=== PATIENT | male | born 1940 | race Caucasian/White ===

== ENCOUNTER 2020-03-21 10:55 | Inpatient (IN) ==
[2020-03-21] MEDS ORDERED: SODIUM CHLORIDE 0.9% 1000ML 1,000 ML IV ONE ×2 (12:02→13:36)
--- NOTE | 2020-03-21 12:33 | Emergency Department Note ---
History of Present Illness General Chief complaint: Flank Pain Time Seen by Provider: 03/21/20 11:38 Source: patient Mode of arrival: EMS Limitations: no limitations History of Present Illness Provider complaint: Weakness, flank pain Onset (ago): unknown Maximum Pain Intensity: 0 Associated symptoms: + denies other symptoms Treatments prior to arrival: none This is a 79-year-old male with a history of MS who presents due to increased weakness. Patient states he had difficulty transferring to the bed, and called 911 initially for a lift assist. When EMS arrived when they went to lift him p brennan had significant bilateral flank pain according to the report to nursing staff here. Patient does have an indwelling Riddle catheter that was placed several weeks ago after he had difficulty straight cathing which she has for many years. He was treated for a possible urinary tract infection at that time. Patient states he has not yet followed up with his PCP or urology. Patient denies fevers or chills, cough or cold symptoms. He denies chest pain or coming abdominal pain. Patient states the catheter has been draining appropriately, denies noticing any blood or blood clots. Patient states he has no back or flank pain at this time, but does notice it with movement and when EMS assisted him in transfer. Patient denies any known sick contacts or exposure to coronavirus. Pt with chronic weakness due to his MS but feels it has been getting worse. Pt lives at home with his . Pt seen during a time of high acuity and national emergency pandemic while wearing PPE. Home Medications Home Medications Medication Instructions Recorded Confirmed Type amlodipine 10 mg PO DAILY 03/21/20 03/21/20 History losartan 100 mg PO DAILY 03/21/20 03/21/20 History Allergies Allergy/AdvReac Type Severity Reaction Status Date / Time morphine Allergy Mild Verified 11/30/13 08:22 ampicillin Allergy Unknown Unverified 03/21/20 13:39 Past Med/Surg History Medical History (Updated 03/23/20 @ 16:30 by Erendira Patrick DO) Hypertension Multiple sclerosis Sacral ulcer Urinary retention Surgical History H/O arthroscopy of shoulder Hx of appendectomy Family History (Updated 03/21/20 @ 17:06 by Lou Geronimo PA-C) Other Cancer Social History (Reviewed 03/21/20 @ 12:32 by JUANI Severino Smoking Status: Former smoker Second Hand Exposure: No; Do You Dip or Chew Tobacco: No; Tobacco Cessation Education Requested by Patient: No Hx Alcohol Use: No Hx Substance Use: No Preferred Language: [place] Communication Ability: Effective Roll Former Required: No Beliefs That Will Affect Care: None marital status: Current Living Situation: Spouse Other Information That Helps Us Care for You: No Feels Safe at Home: Yes Safety Concerns: Feels Safe At This Time Assistive Devices: Wheelchair Review of Systems See HPI for pertinent positives & negatives. and A total of 10 systems reviewed and were otherwise negative Physical Exam Vital Signs Vital Signs - 24 hr 03/21/20 11:14 03/21/20 11:30 03/21/20 12:00 Temperature 36.9 C Temperature Source Oral Pulse Rate 81 81 85 Pulse Rate from SpO2 Sensor 81 Respiratory Rate 14 20 19 Blood Pressure 174/84 H 165/67 H 163/85 H Blood Pressure Mean 114 101 112 Pulse Oximetry 99 97 Oxygen Delivery Method Room Air Room Air Sepsis Recent Fever Within 48 Hours No Sepsis New/Unexplained Change in Mental Status No Sepsis Action Taken by Nursing No Action Required 03/21/20 12:30 03/21/20 12:32 03/21/20 13:24 Temperature Temperature Source Pulse Rate 86 Pulse Rate from SpO2 Sensor 80 80 Respiratory Rate 20 Blood Pressure 151/79 H Blood Pressure Mean 112 Pulse Oximetry 98 96 Oxygen Delivery Method Room Air Sepsis Recent Fever Within 48 Hours Sepsis New/Unexplained Change in Mental Status Sepsis Action Taken by Nursing 03/21/20 13:30 03/21/20 14:00 03/21/20 14:30 Temperature Temperature Source Pulse Rate 89 87 95 H Pulse Rate from SpO2 Sensor 87 96 H Respiratory Rate 22 22 27 H Blood Pressure 178/86 H 156/84 H Blood Pressure Mean 138 126 Pulse Oximetry 96 97 Oxygen Delivery Method Room Air Room Air Sepsis Recent Fever Within 48 Hours Sepsis New/Unexplained Change in Mental Status Sepsis Action Taken by Nursing 03/21/20 15:00 Temperature Temperature Source Pulse Rate 93 H Pulse Rate from SpO2 Sensor 91 H Respiratory Rate 20 Blood Pressure 169/79 H Blood Pressure Mean 110 Pulse Oximetry 96 Oxygen Delivery Method Room Air Sepsis Recent Fever Within 48 Hours Sepsis New/Unexplained Change in Mental Status Sepsis Action Taken by Nursing GENERAL: alert, well appearing, well nourished, no distress, non-toxic EYE EXAM: normal conjunctiva, PERRL and EOM's grossly intact OROPHARYNX: no exudate, no erythema, lips, buccal mucosa, and tongue normal and mucous membranes are moist NECK: supple, no nuchal rigidity, no adenopathy, non-tender LUNGS: Clear to auscultation. Normal chest wall mechanics, no w/r/r HEART: no murmurs, S1 normal and S2 normal ABDOMEN: abdomen distended, non-tender, normo-active bowel sounds, large left inguinal hernia noted, nontender, reducible however returns to baseline quickly, no rebound or guarding. Riddle catheter in place, draining slightly cloudy appearing yellow urine, no hematuria or blood clots noted. BACK: Back is symmetrical on inspection and there is no deformity, no midline tenderness, no CVA tenderness. SKIN: no rashes and no bruising UPPER EXTREMITIES: upper extremities are grossly normal. FROM, nml pulses b/l. LOWER EXTREMITIES: No pitting edema. FROM, nml pulses b/l. NEURO EXAM: Normal sensorium, cranial nerves II-XII grossly intact, normal speech, no gross weakness of arms, chronic bilateral lower extremity weakness. Gross sensation intact. Course Course 1347: Discussed all results with patient. Will start on IV antibiotics and added additional markers to check for evolving sepsis. Discussed nephrolithiasis and bladder calculi in addition. Patient states his inguinal hernia has been unchanged and he does not have any pain there. Patient is not currently taking any steroids. Patient also for asking for assistance in helping to establish help for he and his elderly at home due to his worsening condition and advanced age. 1535: Discussed with Lyla Guzman hospitalist service. Administered Medications Amlodipine Besylate (Amlodipine Besylate 5 Mg Tab) 10 mg PO DAILY [facility] Stop: 04/21/20 08:59 Last Admin: 03/23/20 07:59 Dose: 10 mg Documented by: [id number] Admin: 03/22/20 08:02 Dose: 10 mg Documented by: [id number] Heparin Sodium (Porcine) (Heparin Sod 5,000 Unit/0.5 Ml Vial) 5,000 units SQ Q12 [facility] Stop: 04/21/20 20:59 Last Admin: 03/23/20 07:59 Dose: 5,000 units Documented by: [id number] Admin: 03/22/20 20:24 Dose: 5,000 units Documented by: [id number] Vancomycin HCl 1,250 mg/ (Sodium Chloride) 275 mls @ 200 mls/hr IV Q12H [facility] Stop: 04/05/20 22:59 Last Infusion: 03/23/20 12:47 Dose: 0 mls/hr Documented by: [id number] Admin: 03/23/20 11:04 Dose: 200 mls/hr Documented by: [id number] Infusion: 03/23/20 01:40 Dose: 0 mls/hr Documented by: [id number] Admin: 03/22/20 23:34 Dose: 200 mls/hr Documented by: [id number] Ketorolac Tromethamine (Ketorolac Tromethamine 15 Mg/Ml Vial) 15 mg IV Q8H PRN PRN Reason: Pain Stop: 03/26/20 20:06 Last Admin: 03/21/20 20:26 Dose: 15 mg Documented by: [id number] Losartan Potassium (Losartan Potassium 50 Mg Tab) 100 mg PO DAILY [facility] Stop: 04/21/20 08:59 Last Admin: 03/23/20 07:59 Dose: 100 mg Documented by: [id number] Admin: 03/22/20 08:02 Dose: 100 mg Documented by: [id number] Melatonin (Melatonin 3 Mg Tab) 3 mg PO HS PRN PRN Reason: Sleep Stop: 04/21/20 00:42 Last Admin: 03/23/20 00:05 Dose: 3 mg Documented by: [id number] Admin: 03/22/20 01:38 Dose: 3 mg Documented by: [id number] Multivitamins (Multivitamin Tab) 1 tab PO BID [facility] Stop: 04/21/20 20:59 Last Admin: 03/23/20 07:59 Dose: 1 tab Documented by: [id number] Admin: 03/22/20 21:25 Dose: 1 tab Documented by: [id number] Polyethylene Glycol (Polyethylene (Miralax) 17 Gm Pack) 17 gm PO DAILY PRN PRN Reason: Constipation Stop: 04/20/20 18:05 Last Admin: 03/23/20 16:01 Dose: 17 gm Documented by: [id number] Discontinued Medications Heparin Sodium (Porcine) (Heparin Sod 5,000 Unit/0.5 Ml Vial) 5,000 units SQ ONE ONE Stop: 03/21/20 21:01 Last Admin: 03/21/20 20:29 Dose: 5,000 units Documented by: [id number] Cosigned by: [id number] Sodium Chloride (Nss 1000ml) 1,000 mls @ 999 mls/hr IV .Q1H1M ONE Stop: 03/21/20 13:02 Last Infusion: 03/21/20 13:46 Dose: 0 mls/hr Documented by: [id number] Admin: 03/21/20 12:45 Dose: 999 mls/hr Documented by: [id number] Sodium Chloride (Nss 1000ml) 1,000 mls @ 999 mls/hr IV .Q1H1M ONE Stop: 03/21/20 14:36 Last Infusion: 03/21/20 14:58 Dose: 0 mls/hr Documented by: [id number] Admin: 03/21/20 13:57 Dose: 999 mls/hr Documented by: [id number] Cefepime HCl (Maxipime) 2,000 mg in 20 mls @ 5 mls/min IV [facility]; Protocol Stop: 03/21/20 14:05 Last Admin: 03/21/20 15:27 Dose: 5 mls/min Documented by: [id number] Ceftriaxone Sodium 1,000 mg/ (Dextrose) 50 mls @ 100 mls/hr IV DAILY@0900 [facility]; Protocol Stop: 04/01/20 08:59 Last Infusion: 03/23/20 08:52 Dose: 0 mls/hr Documented by: [id number] Admin: 03/23/20 08:00 Dose: 100 mls/hr Documented by: [id number] Infusion: 03/22/20 14:22 Dose: 0 mls/hr Documented by: [id number] Admin: 03/22/20 08:02 Dose: 100 mls/hr Documented by: [id number] Sodium Chloride (Nss) 500 mls @ 100 mls/hr IV .Q5H [place] Stop: 03/22/20 02:59 Last Infusion: 03/22/20 03:45 Dose: 0 mls/hr Documented by: [id number] Admin: 03/21/20 22:36 Dose: 100 mls/hr Documented by: [id number] Vancomycin HCl 2,250 mg/ (Sodium Chloride) 545 mls @ 200 mls/hr IV ONE ONE Stop: 03/22/20 15:28 Last Infusion: 03/22/20 16:41 Dose: 0 mls/hr Documented by: [id number] Admin: 03/22/20 13:54 Dose: 200 mls/hr Documented by: [id number] Influenza Virus Vaccine Quadrival (Influenza Virus Quad Vaccine 0.5 Ml Syr) 0.5 ml IM .ONCE ONE Stop: 03/21/20 18:06 Last Admin: 03/21/20 20:34 Dose: 0.5 ml Documented by: [id number] Pneumococcal Polyvalent Vaccine (Pneumococcal Polysaccharides 25 Mcg/0.5 Ml Vial/Syr) 25 mcg IM .ONCE ONE Stop: 03/21/20 18:06 Last Admin: 03/21/20 20:37 Dose: 25 mcg Documented by: [id number] Potassium Chloride (Potassium Chloride 20 Meq Tabcr) 20 meq PO NOW STA Stop: 03/22/20 08:45 Last Admin: 03/22/20 09:40 Dose: 20 meq Documented by: [id number] Medical Decision Making Differential Diagnosis Renal colic, UTI, appendicitis, diverticulitis, mesenteric ischemia, aortic pathology, infections, inflammatory bowel disease, PUD, biliary pathology, as well as other pathologies. Medical Records Attestation: I reviewed the patient's medical records. Home Medications Current Medication List: was personally reviewed by me Laboratory Data Attestation: I reviewed the patient's lab results. Result diagrams: 03/23/20 07:00 03/23/20 07:00 Lab Results 03/21/20 03/21/20 03/21/20 Range/Units 12:40 12:40 12:40 WBC 19.29 H (4.8-10.8) K/uL RBC 4.91 (4.7-6.1) M/uL Hgb 14.8 (14.0-18.0) g/dL Hct 43.7 (42-52) % MCV 89.0 (80-100) fL MCH 30.1 (25-34) pg MCHC 33.9 (32-36) g/dL RDW Std Deviation 46.0 (36.4-46.3) fL RDW Coeff of Bossman 14.2 (11.5-14.5) % Plt Count 358 (130-400) K/uL MPV 12.2 H (7.4-10.4) fL Immature Gran % (Auto) 0.4 % Neut % (Auto) 80.6 % Lymph % (Auto) 9.5 % [place] % (Auto) 8.8 % Eos % (Auto) 0.6 % Baso % (Auto) 0.1 % Neut # (Auto) 15.57 H (1.4-6.5) K/uL Lymph # (Auto) 1.83 (1.2-3.4) K/uL [place] # (Auto) 1.69 H (0.11-0.59) K/uL Eos # (Auto) 0.11 (0-0.5) K/uL Baso # (Auto) 0.02 (0-0.2) K/uL Immature Gran # (Auto) 0.07 H (0.00-0.02) K/uL Sodium 139 (136-145) mmol/L Potassium 4.2 (3.5-5.1) mmol/L Chloride 105 (98-107) mmol/L Carbon Dioxide 27 (21-32) mmol/L Anion Gap 6.0 (3-11) BUN 15 (7-18) mg/dl Creatinine 1.29 (0.6-1.4) mg/dl Est Cr Clr Drug Dosing 55.8 ml/min Est GFR ( Amer) 61.6 Est GFR (Non-Af Amer) 53.1 BUN/Creatinine Ratio 11.6 (10-20) Glucose 107 H (70-99) mg/dl Lactate (0.4-2.0) mmol/L Calcium 9.8 (8.5-10.1) mg/dl Total Bilirubin 0.6 (0.2-1) mg/dl AST 19 (15-37) U/L ALT 20 (12-78) U/L Alkaline Phosphatase 83 (45-117) U/L Total Protein 8.2 (6.4-8.2) gm/dl Albumin 2.9 L (3.4-5.0) gm/dl Globulin 5.3 H (2.5-4.0) gm/dl Albumin/Globulin Ratio 0.5 L (0.9-2) Procalcitonin 0.21 (0-0.5) ng/ml Bld Cult Staph aureus PCR (Negative) Blood Culture MRSA PCR (Negative) 03/21/20 03/21/20 Range/Units 14:07 15:52 WBC (4.8-10.8) K/uL RBC (4.7-6.1) M/uL Hgb (14.0-18.0) g/dL Hct (42-52) % MCV (80-100) fL MCH (25-34) pg MCHC (32-36) g/dL RDW Std Deviation (36.4-46.3) fL RDW Coeff of Bossman (11.5-14.5) % Plt Count (130-400) K/uL MPV (7.4-10.4) fL Immature Gran % (Auto) % Neut % (Auto) % Lymph % (Auto) % [place] % (Auto) % Eos % (Auto) % Baso % (Auto) % Neut # (Auto) (1.4-6.5) K/uL Lymph # (Auto) (1.2-3.4) K/uL [place] # (Auto) (0.11-0.59) K/uL Eos # (Auto) (0-0.5) K/uL Baso # (Auto) (0-0.2) K/uL Immature Gran # (Auto) (0.00-0.02) K/uL Sodium (136-145) mmol/L Potassium (3.5-5.1) mmol/L Chloride (98-107) mmol/L Carbon Dioxide (21-32) mmol/L Anion Gap (3-11) BUN (7-18) mg/dl Creatinine (0.6-1.4) mg/dl Est Cr Clr Drug Dosing ml/min Est GFR ( Amer) Est GFR (Non-Af Amer) BUN/Creatinine Ratio (10-20) Glucose (70-99) mg/dl Lactate 1.3 (0.4-2.0) mmol/L Calcium (8.5-10.1) mg/dl Total Bilirubin (0.2-1) mg/dl AST (15-37) U/L ALT (12-78) U/L Alkaline Phosphatase (45-117) U/L Total Protein (6.4-8.2) gm/dl Albumin (3.4-5.0) gm/dl Globulin (2.5-4.0) gm/dl Albumin/Globulin Ratio (0.9-2) Procalcitonin (0-0.5) ng/ml Bld Cult Staph aureus PCR Negative (Negative) Blood Culture MRSA PCR Negative (Negative) Imaging Data Radiologist's Impression: CT SCAN OF THE ABDOMEN AND PELVIS WITHOUT IV CONTRAST CLINICAL HISTORY: Flank pain. COMPARISON STUDY: Abdominal CT dated 11/30/2013. TECHNIQUE: CT scan of the abdomen and pelvis is performed from the lung bases to the proximal femora. Images are reviewed in the axial, sagittal, and coronal planes. IV contrast was not administered for this examination. A dose lowering technique was utilized adhering to the principles of ALARA. The examination is degraded by motion artifact, as well as by streak artifact from the arms which could not be elevated above the abdomen. CT DOSE: 870.87 mGy.cm FINDINGS: Lung bases: The heart is normal in size and without pericardial effusion. There are coronary artery calcifications. A small hiatal hernia is noted. The lung bases are clear. Liver: The unenhanced liver is normal in size, contour, and attenuation. There is no intrahepatic biliary ductal dilatation. A 1.4 cm cyst is noted in the right lobe of liver. Gallbladder: There are calcified gallstones without CT evidence of acute cholecystitis. Spleen: Normal in size and attenuation. Pancreas: The unenhanced pancreas is mildly atrophic and grossly unremarkable. Adrenal glands: Unremarkable. Kidneys: The unenhanced kidneys are atrophic and without hydronephrosis. There are least 4 nonobstructing right renal calculi which measure up to 1.7 cm. There are at least 4 nonobstructing right renal calculi which measure up to 1.2 cm. Bilateral renal cysts measure up to 7.6 cm. Abdominal vasculature: The abdominal aorta is normal in course and caliber noting moderate to advanced atherosclerotic calcification. Bowel: A large left inguinal hernia contains nonobstructed loops of small bowel and colon. No bowel obstruction is seen. There is mild to moderate colonic diverticulosis without CT evidence of acute diverticulitis. The appendix is not identified. Peritoneum: There is no intraperitoneal free air or abdominal ascites. There is a fat-containing umbilical hernia. Lymphadenopathy: There are mildly enlarged retroperitoneal lymph nodes. A left periaortic node on image #207 measures 2.0 x 1.1 cm. A right iliac chain node on image #327 measures up to 1.2 cm. Pelvic viscera: The prostate gland is markedly enlarged and heterogeneous measuring 6.6 cm in transverse diameter. There is median lobe hypertrophy. The bladder is largely decompressed around a Riddle catheter. There are large bladder calculi which measure up to 2.9 cm as well as intraluminal gas. Some of the bladder calculi are likely contained within diverticula. The bladder wall is thickened and there is pericystic inflammation. There is a small fat-containing right inguinal hernia. A large left inguinal hernia contains fat and bowel. Soft tissues: Subcutaneous soft tissue calcifications are present in the upper thigh bilaterally, left greater than right. Skeletal structures: The skeletal structures are osteopenic. There is moderate lumbosacral spondylosis. No lytic or blastic lesions are seen. IMPRESSION: 1. Streak and motion compromised examination. 2. The bladder is partially decompressed around a Riddle catheter. There are large bladder calculi, intraluminal gas, and significant pericystic inflammation. Correlate clinically and with urinalysis for evidence of cystitis. 3. Marked prostatomegaly. 4. Bilateral nephrolithiasis. No ureteral stone or hydronephrosis is seen. 5. A large left hiatal hernia contains nonobstructed segments of small bowel and colon. 6. Mild to moderate colonic diverticulosis without CT evidence of acute diverticulitis. 7. Cholelithiasis. 8. Additional findings as above. ACT 112: Negative or not required by law. Electronically signed by: Sharan Rodriguez M.D. 03/21/2020 1:30 PM Blood Pressure Blood Pressure Findings: Elevated blood pressure MDM Narrative Elderly male brought in by EMS for increased weakness and flank pain with movement. Pt with indwelling riddle and recent UTI. Due to recent history and increased weakness, labs sent, urine culture sent, and pt also sent for CT. Pt with distended abdomen but denies pain and riddle appears to be draining. Labs reassuring, no evidence of sepsis. CT reassuring with chronic findings. No evidence of hydro, pyelo, obstructive uropathy, or urinary retention from malfunctioning catheter. DUe to concern for ability of he and to care for him with increased weakness, concern for increased risk of sepsis with recent UT I and indwelling catheter, need to help arrange for additional services, discussed with pt additional inpatient mgmt. Pt verbalized understanding of all results and was in agreement with the plan. Case discussed with hospitalist. An order was placed for continuous cardiac monitoring. The monitor shows a rate of _90__ with normal sinus rhythm. Impression & Plan Generalized weakness, Multiple sclerosis, Flank Pain, Chronic indwelling Riddle catheter Discharge Plan Visit Data Chief Complaint: Flank Pain ED Provider: Erendira Patrick Discharge Problem: Generalized weakness, Multiple sclerosis, Flank Pain, Chronic indwelling Riddle catheter Patient Disposition: Admitted As Inpatient Discharge Instructions Interventions: ED Discharge Assessment Last Done: 03/21/20 17:29
[2020-03-21 13:13] LABS: Basophils # (auto) 0.02 K/uL (0-0.2); Basophils % (auto) 0.1 %; Eosinophils # (auto) 0.11 K/uL (0-0.5); Eosinophils % (auto) 0.6 %; Hematocrit (blood only) 43.7 % (42-52); Hemoglobin 14.8 g/dL (14.0-18.0); Immature Granulocytes # (auto) 0.07 K/uL (0.00-0.02); Immature Granulocytes % (auto) 0.4 %; Lymphocytes # (auto) 1.83 K/uL (1.2-3.4); Lymphocytes % (auto) 9.5 %; Mean Corpuscular Hemoglobin 30.1 pg (25-34); Mean Corpuscular Hgb Conc 33.9 g/dL (32-36); Mean Platelet Volume 12.2 fL (7.4-10.4); Monocytes # (auto) 1.69 K/uL (0.11-0.59); Monocytes % (auto) 8.8 %; Neutrophils # (auto) 15.57 K/uL (1.4-6.5); Neutrophils % (auto) 80.6 %; Platelet Count 358 K/uL (130-400); RDW Coefficient of Variation 14.2 % (11.5-14.5); Red Blood Count 4.91 M/uL (4.7-6.1); White Blood Count 19.29 K/uL (4.8-10.8)
[2020-03-21 13:29] LABS: Albumin Level 2.9 gm/dl (3.4-5.0); BUN Creatinine Ratio 11.6 (10-20); Calcium 9.8 mg/dl (8.5-10.1); Creatinine Clr Calc Pharmacy 55.8 ml/min; Est GFR (African American) 61.6; Est GFR (Non-African American) 53.1; Potassium 4.2 mmol/L (3.5-5.1)
[2020-03-21 13:32] LABS: Albumin Globulin Ratio 0.5 (0.9-2); Bilirubin,Total 0.6 mg/dl (0.2-1); Globulin 5.3 gm/dl (2.5-4.0); Total Protein 8.2 gm/dl (6.4-8.2)
--- NOTE | 2020-03-21 13:32 | CT Scan Report ---
CT SCAN OF THE ABDOMEN AND PELVIS WITHOUT IV CONTRAST CLINICAL HISTORY: Flank pain. COMPARISON STUDY: Abdominal CT dated 11/30/2013. TECHNIQUE: CT scan of the abdomen and pelvis is performed from the lung bases to the proximal femora. Images are reviewed in the axial, sagittal, and coronal planes. IV contrast was not administered for this examination. A dose lowering technique was utilized adhering to the principles of ALARA. The ex amination is degraded by motion artifact, as well as by streak artifact from the arms which could not be elevated above the abdomen. CT DOSE: 870.87 mGy.cm FINDINGS: Lung bases: The heart is normal in size and without pericardial effusion. There are coronary artery c alcifications. A small hiatal hernia is noted. The lung bases are clear. Liver: The unenhanced liver is normal in size, contour, and attenuation. There is no intrahepatic nury iary ductal dilatation. A 1.4 cm cyst is noted in the right lobe of liver. Gallbladder: There are calcified gallstones without CT evidence of acute cholecystitis. Spleen: Normal in size and attenuation. Pancreas: The unenhanced pancreas is mildly atrophic and grossly unremarkable. Adrenal glands: Unremarkable. Kidneys: The unenhanced kidneys are atrophic and without hydronephrosis. There are least 4 nonobstruc ting right renal calculi which measure up to 1.7 cm. There are at least 4 nonobstructing right renal calculi which measure up to 1.2 cm. Bilateral renal cysts measure up to 7.6 cm. Abdominal vasculature: The abdominal aorta is normal in course and caliber noting moderate to advance d atherosclerotic calcification. Bowel: A large left inguinal hernia contains nonobstructed loops of small bowel and colon. No bowel o bstruction is seen. There is mild to moderate colonic diverticulosis without CT evidence of acute div erticulitis. The appendix is not identified. Peritoneum: There is no intraperitoneal free air or abdominal ascites. There is a fat-containing umbi lical hernia. Lymphadenopathy: There are mildly enlarged retroperitoneal lymph nodes. A left periaortic node on donnell ge #207 measures 2.0 x 1.1 cm. A right iliac chain node on image #327 measures up to 1.2 cm. Pelvic viscera: The prostate gland is markedly enlarged and heterogeneous measuring 6.6 cm in transve rse diameter. There is median lobe hypertrophy. The bladder is largely decompressed around a Setrella ca theter. There are large bladder calculi which measure up to 2.9 cm as well as intraluminal gas. Some of the bladder calculi are likely contained within diverticula. The bladder wall is thickened and the re is pericystic inflammation. There is a small fat-containing right inguinal hernia. A large left in guinal hernia contains fat and bowel. Soft tissues: Subcutaneous soft tissue calcifications are present in the upper thigh bilaterally, lef t greater than right. Skeletal structures: The skeletal structures are osteopenic. There is moderate lumbosacral spondylosi s. No lytic or blastic lesions are seen. IMPRESSION: 1. Streak and motion compromised examination. 2. The bladder is partially decompressed around a Estrella catheter. There are large bladder calculi, in traluminal gas, and significant pericystic inflammation. Correlate clinically and with urinalysis for evidence of cystitis. 3. Marked prostatomegaly. 4. Bilateral nephrolithiasis. No ureteral stone or hydronephrosis is seen. 5. A large left hiatal hernia contains nonobstructed segments of small bowel and colon. 6. Mild to moderate colonic diverticulosis without CT evidence of acute diverticulitis. 7. Cholelithiasis. 8. Additional findings as above. ACT 112: Negative or not required by law. Electronically signed by: Sharan Rodriguez M.D. 03/21/2020 1:30 PM
[2020-03-21] MEDS ORDERED: CEFEPIME 2,000 MG/20 ML VIAL IV STA (14:02)
--- NOTE | 2020-03-21 16:06 | History & Physical Report ---
Date of Service March 21, 2020 Assessment & Plan (1) Complicated urinary tract infection: This is a 79-year-old male with PMH of multiple sclerosis and hypertension who presents from home with ambulatory dysfunction and flank pain. -Flank pain and chronic indwelling Riddle for the past 3 weeks. Urine culture sent and new Riddle placed -Leukocytosis of 19.29. Afebrile, lactic acid and procalcitonin within normal limits -Started empirically on cefepime. Will continue antibiotic coverage with Rocephin and gentle fluids -Ct abd/pelvis with large bladder calculi, intraluminal gas, and significant pericystic inflammation. Marked prostatomegaly. Bilateral nephrolithiasis. No ureteral stone or hydronephrosis is seen -Planning to establish with [facility] next week - consulted to be seen during admission for bladder outlet obstruction, calculi and patient's desire for riddle removal (2) Ambulatory dysfunction: (3) Generalized weakness: (4) Multiple sclerosis: Patient wheelchair-bound at baseline with MS but feeling generally weaker with recent urinary symptoms -Does not have any help at home and ambulates only once a day from bed to motorized scooter -Need for evaluation and home services due to declined mobility. PT/OT sonia luation and discharge planning (5) Sacral ulcer: Large, significant sacral ulcer present prior to arrival in setting of limited mobility -No foul odor or purulent drainage to suggest infection at this time. Wound care nurse needed, likely to require outpatient follow-up as well -Repositioning to offload pressure (6) Hypertension: Continue losartan and amlodipine DVT Ppx: SQ heparin x1 dose tonight. Holding in AM in case of urological intervention. AM provider to determine continued VTE Code status: FULL PCP: Esmer Dispo: Admitted to [facility]. Discharge planning ordered. Patient seen in collaboration with Dr. Azar. Please see addendum. History of Present Illness Chief Complaint: ambulatory dysfunction, flank pain Primary Care Provider: Aram Lyman MD This is a 79-year-old male with PMH of multiple sclerosis and hypertension who presents from home with ambulatory dysfunction and flank pain. Patient self- catheterizes 5x/ day and was seen in ER on 03/07 due to experiencing a blood clot and suprapubic pain while self catheterizing. Had a Riddle catheter placed and was treated empirically with Rocephin prior to discharge, but urine culture grew probable skin marissa. Previously followed with Dr. Feldman, a private urologis t, who recently retired and patient was waiting to establish care with [facility]rology with an appointment scheduled for 03/25. Since patient was evaluated 2 weeks ago, he has had increased general weakness. At baseline, patient is wheelchair-bound and lives with . Does not have any help with transfers at home besides a local son who comes over occasionally to help. Usually only transfers once per day from bed to motorized scooter. Was having difficulty transferring to bed today and called 911 initially for a lift assist but while they were transferring him, he developed significant pain of bilateral flank and was brought to ED for further evaluation. Denies any fever, chills or dysuria but does endorse bilateral flank pain that is worse with movement or when people lift his shoulders to transfer. Has had Riddle catheter in place since evaluated on 03/07 that has been draining dark urine with sediment. Denies visualizing any blood. Denies any headache, lightheadedness, chest pain, palpitations, nausea, vomiting, abdominal pain, diarrhea or constipation. Does have history of bladder stone removal by urology in the past. Allergies Allergy/AdvReac Type Severity Reaction Status Date / Time morphine Allergy Mild Verified 11/30/13 08:22 ampicillin Allergy Unknown Unverified 03/21/20 13:39 Home Medications Home Medications Medication Instructions Recorded Confirmed Type amlodipine 10 mg PO DAILY 03/21/20 03/21/20 History losartan 100 mg PO DAILY 03/21/20 03/21/20 History Past Med/Surg History Medical History (Updated 03/21/20 @ 17:13 by Lou Geronimo PA-C) Hypertension Multiple sclerosis Sacral ulcer Urinary retention Surgical History H/O arthroscopy of shoulder Hx of appendectomy Family History (Updated 03/21/20 @ 17:06 by Lou Geronimo PA-C) Other Cancer Social History Smoking Status: Former smoker Second Hand Exposure: No; Do You Dip or Chew Tobacco: No; Tobacco Cessation Education Requested by Patient: No Hx Alcohol Use: No Hx Substance Use: No Preferred Language: Yoruba 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 Physical Exam Physical Exam: General Appearance: vitals as above, NAD, appears chronically ill, sitting up in bed, pleasant, conversing easily Head: normocephalic, atraumatic Eyes: normal inspection, PERRL, conjunctivae normal, anicteric sclerae ENT: external ear and nose normal, oropharynx normal Neck: normal visual inspection, trachea midline, no thyromegaly Respiratory: normal respiratory effort, lungs clear to auscultation, no wheeze, rales, rhonchi. No accessory muscle use Cardiovascular: regular rate, rhythm, no murmur, normal peripheral pulses, no BLE edema. Vessels: no JVD Chest: normal inspection of chest Abdomen/GI: normal bowel sounds, soft, nontender, no hepatosplenomegaly : + CVA tenderness bilaterally. Riddle catheter draining dark yellow urine into collection bag. Enlarged scrotum Extremities/Musculoskeletal: no cyanosis or clubbing, extremities motor strength 5/5 Neurologic: PERRL, EOMI, accommodation nl, no face palsy, no dysarthria, CN's II-XI intact bilaterally and moves all extremities Psychiatric: A+Ox3, euthymic affect Skin: no rashes, normal color, warm/dry. + Large sacral pressure wound difficult to fully visualize while turning but appears stage II-III with ulceration, erythematous tissue and scant serous drainage Results & Data Results & Data ([facility]) Vital Signs (Past 12 Hours) Vital Signs Temp Pulse Resp BP Pulse Ox 03/21/20 16:00 98 H 23 174/84 H 96 03/21/20 15:30 98 H 23 177/93 H 95 03/21/20 15:00 93 H 20 169/79 H 96 03/21/20 14:30 95 H 27 H 156/84 H 97 03/21/20 14:00 87 22 178/86 H 96 03/21/20 13:30 89 22 03/21/20 13:24 86 20 03/21/20 12:32 96 03/21/20 12:30 151/79 H 98 03/21/20 12:00 85 19 163/85 H 03/21/20 11:30 81 20 165/67 H 97 03/21/20 11:14 36.9 C 81 14 174/84 H 99 Laboratory Results Short CBC 03/21/20 03/21/20 03/21/20 Range/Units 12:40 12:40 15:52 WBC 19.29 H (4.8-10.8) K/uL Hgb 14.8 (14.0-18.0) g/dL Hct 43.7 (42-52) % Plt Count 358 (130-400) K/uL Lactate 1.3 (0.4-2.0) mmol/L Procalcitonin 0.21 (0-0.5) ng/ml BMP 03/21/20 12:40 Sodium 139 Potassium 4.2 Chloride 105 Carbon Dioxide 27 BUN 15 Creatinine 1.29 Glucose 107 H Calcium 9.8 Liver Function 03/21/20 Range/Units 12:40 Total Bilirubin 0.6 (0.2-1) mg/dl AST 19 (15-37) U/L ALT 20 (12-78) U/L Alkaline Phosphatase 83 (45-117) U/L Albumin 2.9 L (3.4-5.0) gm/dl Diagnostic Findings CT abd/pelvis: IMPRESSION: 1. Streak and motion compromised examination. 2. The bladder is partially decompressed around a Riddle catheter. There are large bladder calculi, intraluminal gas, and significant pericystic inflammation. Correlate clinically and with urinalysis for evidence of cystitis. 3. Marked prostatomegaly. 4. Bilateral nephrolithiasis. No ureteral stone or hydronephrosis is seen. 5. A large left hiatal hernia contains non-obstructed segments of small bowel and colon. 6. Mild to moderate colonic diverticulosis without CT evidence of acute diverticulitis. 7. Cholelithiasis. 8. Additional findings as above. Code Status & VTE Plan VTE Prophylaxis Plan VTE Prophylaxis will be ordered: Yes Supervising Physician Co-Signing Physician Notes Pt was seen and examined. Agreed with Lou ANDERSEN exam, assessment and plan. 79-year-old male with PMH of multiple sclerosis, hypertension, ambulatory dysfunction presented to the ER for severe flank pain. Pt said that he has been feeling very weak lately. He said that he was having difficulty transferring from bed to chair today. He called 911 to assist him for transferring him from the bed to chair. He said that after transferring him he developed excruciated pain in his flank area and shoulder pain. Pt said that his pain worsening with movement. He was in the ER on 03/07 due to suprapubic pain and hematuria due to self catheterizing. Denies any chest pain, palpitation, dizziness, fever, chi lls, SOB, palpitations, nausea, vomiting, abdominal pain, diarrhea. UA was positive for leukocytes and bacteria and elevated WBC 19K on admission. CT abd/pelvis showed bladder is partially decompressed around a Riddle catheter. There are large bladder calculi, intraluminal gas, and significant pericystic inflammation. Bilateral nephrolithiasis. No ureteral stone or hydronephrosis is seen. Riddle catheter changed in the ER. Received IV cefepime in the ER. Urine cx collected in the ER. Will start on Rocephin IV. Will consult urology. Follow up cbc and blood cx. Continue pain control. Will continue follow up closely. MD Doe
[2020-03-21] MEDS ORDERED: INFLUENZA ADMINISTRATION CHARGE ONE (18:05)
[2020-03-21] MEDS ORDERED: PNEUMOCOCCAL POLYSACCHARIDES 25 MCG/0.5 ML VIAL/SYR IM ONE (18:05)
[2020-03-21] MEDS ORDERED: PNEUMOCOCCAL ADMINISTRATION CHARGE ONE (18:05)
[2020-03-21] MEDS ORDERED: INFLUENZA VIRUS QUAD VACCINE 0.5 ML SYR IM ONE (18:05)
[2020-03-21] MEDS ORDERED: ONDANSETRON INJ 2 MG/ML 2 ML VIAL IV PRN (18:06)
[2020-03-21] MEDS ORDERED: ACETAMINOPHEN 325 MG TAB PO PRN (18:06)
[2020-03-21] MEDS ORDERED: KETOROLAC TROMETHAMINE 15 MG/ML VIAL IV PRN (20:07)
[2020-03-21] MEDS ORDERED: HEPARIN SOD 5,000 UNIT/0.5 ML VIAL SQ ONE (21:00)
[2020-03-21] MEDS ORDERED: SODIUM CHLORIDE 0.9% 500 ML IV SCH (22:00)
[2020-03-22] MEDS: MELATONIN 3 MG TAB PO PRN (01:38)
[2020-03-22 07:41] LABS: Hematocrit (blood only) 37.8 % (42-52); Hemoglobin 12.4 g/dL (14.0-18.0); Mean Corpuscular Hemoglobin 29.2 pg (25-34); Mean Corpuscular Hgb Conc 32.8 g/dL (32-36); Mean Corpuscular Volume 89.2 fL (80-100); Mean Platelet Volume 11.8 fL (7.4-10.4); Platelet Count 321 K/uL (130-400); RDW Coefficient of Variation 14.2 % (11.5-14.5); RDW Standard Deviation 46.3 fL (36.4-46.3); Red Blood Count 4.24 M/uL (4.7-6.1); White Blood Count 13.22 K/uL (4.8-10.8)
[2020-03-22] MEDS: cefTRIAXone SODIUM 1,000 MG in DEXTROSE 5% 50 ML IV SCH (08:02)
[2020-03-22] MEDS: amLODIPine BESYLATE 5 MG TAB PO SCH (08:02)
[2020-03-22] MEDS: LOSARTAN POTASSIUM 50 MG TAB PO SCH (08:02)
[2020-03-22 08:19] LABS: BUN Creatinine Ratio 17.7 (10-20); Calcium 8.6 mg/dl (8.5-10.1); Creatinine Clr Calc Pharmacy 63.7 ml/min; Est GFR (African American) 72.3; Est GFR (Non-African American) 62.4; Potassium 3.6 mmol/L (3.5-5.1)
[2020-03-22] MEDS ORDERED: POTASSIUM CHLORIDE CRTAB 20 MEQ TABCR PO STA (08:44)
--- NOTE | 2020-03-22 08:55 | Hospitalist Progress Note ---
Date of Service March 22, 2020 Assessment & Plan (1) Complicated urinary tract infection: This is a 79-year-old male with PMH of multiple sclerosis and hypertension who presents from home with ambulatory dysfunction and flank pain. -Flank pain and indwelling Riddle catheter for the past 3 weeks (on 03/07 in ED). Urine culture sent and new Riddle placed -On current admission, Leukocytosis of 19.29K. Afebrile, lactic acid and procalcitonin within normal limits -Started empirically on cefepime. Will continue antibiotic coverage with Rocephin and gentle fluids -Ct abd/pelvis with large bladder calculi, intraluminal gas, and significant pericystic inflammation. Marked prostatomegaly. Bilateral nephrolithiasis. No ureteral stone or hydronephrosis is seen -Planning to establish with [facility] urology next week - consulted to be seen during admission for bladder outlet obstruction, calculi and patient's desire for riddle removal Pt seen by urology, plan to follow up as outpt in their office on Sunday 03/25 Follow urine cltx Bacteremia Blood cultx - 1 of 2 positive for gram posit. cocci in clusters vancomycin added Repeat blood cltx ordered Follow final results (2) Ambulatory dysfunction: (3) Generalized weakness: (4) Multiple sclerosis: Patient wheelchair-bound at baseline with MS but feeling generally weaker with recent urinary symptoms -Does not have any help at home and ambulates only once a day from bed to motorized scooter -Need for evaluation and home services due to declined mobility. PT/OT evaluation and discharge planning (5) Sacral ulcer: Large, significant sacral ulcer present prior to arrival in setting of limited mobility -No foul odor or purulent drainage to suggest infection at this time. Wound care nurse needed, likely to require outpatient follow-up as well -Repositioning to offload pressure (6) Hypertension: Continue losartan and amlodipine DVT Ppx: SQ heparin Code status: FULL PCP: Dr. Lyman Dispo: Admitted to [facility]. Discharge planning ordered. Discussed with pt , she is concerned that pt has been weaker and she can not help him with transfers. She is also concerned about taking care of his skin ulcer/buttocks area. PT ordered while inpt - per report today (03/22), pt declined PT. Admission and Anticipated Discharge Date Admission Date: March 21, 2020 Subjective Pt is sitting up in bed in NAD. Denies fever, chills. Says he had terrible pain with transfer yesterday but when he transfers himself he denies having any pain. Denies chest pain, shortness of breath, abd. pain, n/v. Discussed w/ , pt's is very concerned about pt's strength. Reports he has been weaker lately and she can not help with his transfers. PT ordered while in hospital today - per report, pt refused. Seen by urology, plan for outpt follow up on 03/25. Bacteremia Review of Systems Review of Systems: All systems reviewed & are unremarkable except as noted in HPI & below Constitutional: + weakness; no fever and no chills Respiratory: no cough and no dyspnea Cardiovascular: no chest pain and no palpitations Gastrointestinal: no abdominal pain, no nausea and no vomiting Physical Exam Physical Exam: General Appearance: vitals as above, NAD, appears chronically ill, sitting up in bed, pleasant, conversing easily Head: normocephalic, atraumatic Eyes: normal inspection, PERRL, EOMI, conjunctivae normal, anicteric sclerae ENT: external ear and nose normal, oropharynx normal Neck: normal visual inspection, trachea midline, no thyromegaly Respiratory: normal respiratory effort, lungs clear to auscultation, no wheeze, rales, rhonchi. No accessory muscle use Cardiovascular: regular rate, rhythm, no murmur, normal peripheral pulses, no BLE edema. Vessels: no JVD Chest: normal inspection of chest Abdomen/GI: normal bowel sounds, soft, nontender : + CVA tenderness bilaterally. Riddle catheter draining yellow urine into collection bag. Enlarged scrotum Extremities/Musculoskeletal: no cyanosis or clubbing, extremities motor strength 5/5 Neurologic: PERRL, EOMI, no face palsy, no dysarthria, pt does not move LE extremities very much (d/t MS), he is using UEs w/o much difficulty Psychiatric: A+Ox3, euthymic affect Skin: no rashes, normal color, warm/dry. + Large sacral pressure wound difficult to fully visualize while turning but appears stage II-III with ulceration, erythematous tissue and scant serous drainage Results & Data Results & Data ([facility]) Vital Signs (Past 12 Hours) Vital Signs Temp Pulse Pulse Resp BP BP Pulse Ox 03/22/20 08:01 36.9 C 83 18 161/72 H 95 03/22/20 07:55 79 03/22/20 05:13 36.6 C 80 18 142/70 H 95 03/22/20 00:56 36.5 C 79 18 152/78 H 95 03/21/20 23:38 85 Laboratory Results 03/22/20 03/22/20 03/21/20 Range/Units 07:11 07:11 15:52 WBC 13.22 H (4.8-10.8) K/uL RBC 4.24 L (4.7-6.1) M/uL Hgb 12.4 L (14.0-18.0) g/dL Hct 37.8 L (42-52) % MCV 89.2 (80-100) fL MCH 29.2 (25-34) pg MCHC 32.8 (32-36) g/dL RDW Std Deviation 46.3 (36.4-46.3) fL RDW Coeff of Bossman 14.2 (11.5-14.5) % Plt Count 321 (130-400) K/uL MPV 11.8 H (7.4-10.4) fL Immature Gran % (Auto) % Neut % (Auto) % Lymph % (Auto) % [place] % (Auto) % Eos % (Auto) % Baso % (Auto) % Neut # (Auto) (1.4-6.5) K/uL Lymph # (Auto) (1.2-3.4) K/uL [place] # (Auto) (0.11-0.59) K/uL Eos # (Auto) (0-0.5) K/uL Baso # (Auto) (0-0.2) K/uL Immature Gran # (Auto) (0.00-0.02) K/uL Sodium 140 (136-145) mmol/L Potassium 3.6 (3.5-5.1) mmol/L Chloride 110 H (98-107) mmol/L Carbon Dioxide 23 (21-32) mmol/L Anion Gap 7.0 (3-11) BUN 20 H (7-18) mg/dl Creatinine 1.13 (0.6-1.4) mg/dl Est Cr Clr Drug Dosing 63.7 ml/min Est GFR ( Amer) 72.3 Est GFR (Non-Af Amer) 62.4 BUN/Creatinine Ratio 17.7 (10-20) Glucose 84 (70-99) mg/dl Lactate 1.3 (0.4-2.0) mmol/L Calcium 8.6 (8.5-10.1) mg/dl Total Bilirubin (0.2-1) mg/dl AST (15-37) U/L ALT (12-78) U/L Alkaline Phosphatase (45-117) U/L Total Protein (6.4-8.2) gm/dl Albumin (3.4-5.0) gm/dl Globulin (2.5-4.0) gm/dl Albumin/Globulin Ratio (0.9-2) Procalcitonin (0-0.5) ng/ml 03/21/20 03/21/20 03/21/20 Range/Units 12:40 12:40 12:40 WBC 19.29 H (4.8-10.8) K/uL RBC 4.91 (4.7-6.1) M/uL Hgb 14.8 (14.0-18.0) g/dL Hct 43.7 (42-52) % MCV 89.0 (80-100) fL MCH 30.1 (25-34) pg MCHC 33.9 (32-36) g/dL RDW Std Deviation 46.0 (36.4-46.3) fL RDW Coeff of Bossman 14.2 (11.5-14.5) % Plt Count 358 (130-400) K/uL MPV 12.2 H (7.4-10.4) fL Immature Gran % (Auto) 0.4 % Neut % (Auto) 80.6 % Lymph % (Auto) 9.5 % [place] % (Auto) 8.8 % Eos % (Auto) 0.6 % Baso % (Auto) 0.1 % Neut # (Auto) 15.57 H (1.4-6.5) K/uL Lymph # (Auto) 1.83 (1.2-3.4) K/uL [place] # (Auto) 1.69 H (0.11-0.59) K/uL Eos # (Auto) 0.11 (0-0.5) K/uL Baso # (Auto) 0.02 (0-0.2) K/uL Immature Gran # (Auto) 0.07 H (0.00-0.02) K/uL Sodium 139 (136-145) mmol/L Potassium 4.2 (3.5-5.1) mmol/L Chloride 105 (98-107) mmol/L Carbon Dioxide 27 (21-32) mmol/L Anion Gap 6.0 (3-11) BUN 15 (7-18) mg/dl Creatinine 1.29 (0.6-1.4) mg/dl Est Cr Clr Drug Dosing 55.8 ml/min Est GFR ( Amer) 61.6 Est GFR (Non-Af Amer) 53.1 BUN/Creatinine Ratio 11.6 (10-20) Glucose 107 H (70-99) mg/dl Lactate (0.4-2.0) mmol/L Calcium 9.8 (8.5-10.1) mg/dl Total Bilirubin 0.6 (0.2-1) mg/dl AST 19 (15-37) U/L ALT 20 (12-78) U/L Alkaline Phosphatase 83 (45-117) U/L Total Protein 8.2 (6.4-8.2) gm/dl Albumin 2.9 L (3.4-5.0) gm/dl Globulin 5.3 H (2.5-4.0) gm/dl Albumin/Globulin Ratio 0.5 L (0.9-2) Procalcitonin 0.21 (0-0.5) ng/ml Medications Administered Current Inpatient Medications Acetaminophen (Acetaminophen 325 Mg Tab) 650 mg PO Q4H PRN PRN Reason: Pain or Fever Stop: 04/20/20 18:05 Amlodipine Besylate (Amlodipine Besylate 5 Mg Tab) 10 mg PO DAILY [facility] Stop: 04/21/20 08:59 Last Admin: 03/22/20 08:02 Dose: 10 mg Documented by: Ceftriaxone Sodium 1,000 mg/ (Dextrose) 50 mls @ 100 mls/hr IV DAILY@0900 [facility]; Protocol Stop: 04/01/20 08:59 Last Admin: 03/22/20 08:02 Dose: 100 mls/hr Documented by: Ketorolac Tromethamine (Ketorolac Tromethamine 15 Mg/Ml Vial) 15 mg IV Q8H PRN PRN Reason: Pain Stop: 03/26/20 20:06 Last Admin: 03/21/20 20:26 Dose: 15 mg Documented by: Losartan Potassium (Losartan Potassium 50 Mg Tab) 100 mg PO DAILY [place] Stop: 04/21/20 08:59 Last Admin: 03/22/20 08:02 Dose: 100 mg Documented by: Melatonin (Melatonin 3 Mg Tab) 3 mg PO HS PRN PRN Reason: Sleep Stop: 04/21/20 00:42 Last Admin: 03/22/20 01:38 Dose: 3 mg Documented by: Ondansetron HCl (Ondansetron Inj 2 Mg/Ml 2 Ml Vial) 4 mg IV Q6H PRN PRN Reason: Nausea Stop: 04/20/20 18:05 Polyethylene Glycol (Polyethylene (Miralax) 17 Gm Pack) 17 gm PO DAILY PRN PRN Reason: Constipation Stop: 04/20/20 18:05
--- NOTE | 2020-03-22 11:42 | Urology Consultation ---
Date of Consultation March 22, 2020 Assessment & Plan (1) Complicated urinary tract infection: (2) Urinary retention: 79yo M admitted with weakness and flank pain secondary to complicated UTI -Reviewed plan of care with Dr. Mckeon -Patient with complicated history including self-catheterization, bladder/renal stones, and BPH with obstruction. -Afebrile, WBC and Cr stable -Continue Estrella catheter until follow-up with urology -Urine culture pending, continue broad spectrum antibiotics pending culture sensitivities -No acute intervention indicated at this time -Does have follow-up with urology service next week, plan to keep this appointment to discuss stone/BPH intervention unless still inpatient -Patient in agreement with plan. All questions were answered. Thank you for allowing us to participate in the acute care of Mr. King. Please reconsult us with additional questions, concerns or changes in patient status. History of Present Illness Reason for Consultation: complicated UTI, enlarged prostate Attending Physician: Seth Vallejo MD History of Present Illness 79-year-old male with PMH of multiple sclerosis and hypertension who presented to the ER from home with ambulatory dysfunction, weakness, and flank pain and was admitted with a complicated UTI. Patient self-catheterizes 5x/ day and was seen in ER on 03/07 due to experiencing a blood clot and suprapubic pain while self catheterizing. Had a Estrella catheter placed and was treated empirically with Rocephin prior to discharge, but urine culture grew probable skin marissa. Has had Estrella catheter in place since evaluated on 03/07 that has been draining dark urine with sediment. Urology consulted for complicated UTI, enlarged prostate Denies prior hx of prostate, bladder, kidney cancers Previously followed with Dr. Blankenship - >10 years ago Hx of bladder stone removal by urology in the past. At baseline, patient is wheelchair-bound and lives with . Chart review: Afebrile WBC 13.22 Hgb 12.4 Cr 1.13 Urine/Blood cultures -pending On IV Rocephin Imaging: CT Abd/Pelvis 03/21/20 IMPRESSION: 1. Streak and motion compromised examination. 2. The bladder is partially decompressed around a Estrella catheter. There are large bladder calculi, intraluminal gas, and significant pericystic inflammation. Correlate clinically and with urinalysis for evidence of cystitis. 3. Marked prostatomegaly. 4. Bilateral nephrolithiasis. No ureteral stone or hydronephrosis is seen. 5. A large left hiatal hernia contains nonobstructed segments of small bowel and colon. 6. Mild to moderate colonic diverticulosis without CT evidence of acute diverticulitis. 7. Cholelithiasis. 8. Additional findings as above. Patient examined at bedside this AM. Awake, resting in bed on arrival. Denies fevers or chills. Tolerating diet, no nausea or vomiting. Estrella intact/patent, draining dark urine with some sediment. Denies back, flank, and suprapubic pain. Denies hematuria or dysuria. Denies issues with leakage/incontinence. Not currently on medications for urinary pattern. Reports he has been self- catheterizes 5x/day for >10 years with no difficulty until recent ER visit on 03/07. Unsure of last PSA or GARRET. Patient to have outpatient f/u on 03/25 with our service. Offers no additional complaints today. Allergies Allergy/AdvReac Type Severity Reaction Status Date / Time morphine Allergy Mild Verified 11/30/13 08:22 ampicillin Allergy Unknown Unverified 03/21/20 13:39 Home Medications Home Medications Medication Instructions Recorded Confirmed Type amlodipine 10 mg PO DAILY 03/21/20 03/21/20 History losartan 100 mg PO DAILY 03/21/20 03/21/20 History Patient History Medical History (Updated 03/22/20 @ 00:02 by Dixon Singh) Hypertension Multiple sclerosis Sacral ulcer Urinary retention Surgical History H/O arthroscopy of shoulder Hx of appendectomy Family History (Updated 03/21/20 @ 17:06 by Lou Geronimo PA-C) Other Cancer Social History Smoking Status: Former smoker Second Hand Exposure: No; Do You Dip or Chew Tobacco: No; Tobacco Cessation Education Requested by Patient: No Hx Alcohol Use: No Hx Substance Use: No Preferred Language: Telugu Communication Ability: Effective Cook Helper Pastry Required: No Beliefs That Will Affect Care: None Current Living Situation: Spouse Other Information That Helps Us Care for You: No Feels Safe at Home: Yes Safety Concerns: Feels Safe At This Time Assistive Devices: Wheelchair Review of Systems Constitutional: as per Subjective / HPI Eyes: no problem reported Ear, Nose, Mouth, Throat: no problem reported Respiratory: no dyspnea Cardiovascular: no chest pain and no lightheadedness Gastrointestinal: as per Subjective / HPI Genitourinary: + as per Subjective / HPI Musculoskeletal: as per Subjective / HPI Integumentary: no problem reported Neurologic: as per Subjective / HPI Psychiatric: no problem reported Endocrine: no problem reported Hematologic / Lymphatic: no problem reported Allergy / Immunological: no problem reported Physical Exam Constitutional: well developed and well nourished; no acute distress Neck: normal visual inspection Respiratory: normal respiratory effort and able to speak in complete sentences Cardiovascular: Extremities: no pedal edema Gastrointestinal (Abdomen): Percussion/Palpation: abdomen soft; abdomen nontender and no guarding Musculoskeletal: Head/Neck/Chest: normocephalic Skin: Warm and dry Neurologic: awake; not confused Psychiatric: Orientation: alert, oriented x 3 and cooperative Genitourinary: Estrella catheter intact/patent, draining dark urine with sediment Results & Data ([facility]) Vital Signs (Past 12 Hours) Vital Signs Temp Pulse Pulse Resp BP BP Pulse Ox 03/22/20 08:01 36.9 C 83 18 161/72 H 95 03/22/20 07:55 79 03/22/20 05:13 36.6 C 80 18 142/70 H 95 03/22/20 00:56 36.5 C 79 18 152/78 H 95 PG Care Time/CCT Total # of Minutes Spent Total Time Spent with Patient: Total time spent is greater than 50% in coordination of care (as documented) at patient's floor/unit and/or counseling patient: Coding Level of Care Code 76024 Initial Inpt Care Lvl 3 Diagnoses Complicated urinary tract infection N39.0 Urinary retention R33.9
[2020-03-22] MEDS ORDERED: VANCOMYCIN CONSULT ACTIVE PRN (12:34)
[2020-03-22] MEDS ORDERED: VANCOMYCIN HCL 2,250 MG in SODIUM CHLORIDE 0.9% 500 ML IV ONE (12:45)
--- NOTE | 2020-03-22 13:12 | Pharmacy Report ---
Pharmacy Abx Initial Consult - Date of Service March 22, 2020 - Pharmacy Dosing Scope Date of Consult: 03/22/20 Consultation requested by: Dr. Vallejo Pharmacy is consulted to initiate vancomycin dosing therapy, order appropriate labs and adjust drug dose/frequency. - Subjective The patient is a 79 year old M admitted on 03/21/20 16:03. - Objective Height: 6 ft 2 in Weight: 90.9 kg Vital Signs (Past 12hrs): Vital Signs Temp Pulse Pulse Resp BP Pulse Ox 03/22/20 11:56 36.9 C 77 18 137/73 96 03/22/20 08:01 36.9 C 83 18 161/72 H 95 03/22/20 07:55 79 03/22/20 05:13 36.6 C 80 18 142/70 H 95 Lab Results (24hrs): Laboratory Tests (24 Hours) 03/22/20 03/22/20 03/21/20 07:11 07:11 12:40 WBC 13.22 H Neut # (Auto) Creatinine 1.13 Est Cr Clr Drug Dosing 63.7 Procalcitonin 0.21 03/21/20 03/21/20 12:40 12:40 WBC 19.29 H Neut # (Auto) 15.57 H Creatinine 1.29 Est Cr Clr Drug Dosing 55.8 Procalcitonin Micro Results: 03/21/20 14:07 Anaerobic Blood Culture - Pending Blood 03/21/20 14:16 Aerobic Blood Culture - Pending Blood Anaerobic Blood Culture - Pending - Risk Factors for Resistance * ED 03/07- received CTX * Chronic indwelling catheter - Assessment & Plan Assessment 79 year old M initiated on IV vanco for GPC blood cultures. Pt also receiving CTX for UTI. Patient meets criteria for vancomycin AUC dosing nomogram AUC/MONTSERRAT is the preferred PK/PD target for vancomycin * Target AUC/MONTSERRAT = 400-600 * AUC guided dosing is effective and associated with decreased risk of nephrotoxicity Plan Vancomycin for treatment of bacteremia. Pt also ordered ceftriaxone 1,000mg IV Q24hrs Vancomycin IV * Loading dose: 2,250 mg (25 mg/kg) * Maintenance dose: 1,250 mg IV ( 14 mg/kg) every 12 hours * Goal trough level for bacteremia : 15 to 20 mcg/mL * Trough level ordered for 03/24/20 @ 1030 Pharmacy will continue to follow and will adjust dose/frequency as necessary. Thank you.
[2020-03-22] MEDS: HEPARIN SOD 5,000 UNIT/0.5 ML VIAL SQ SCH (20:24)
[2020-03-22] MEDS: MULTIVITAMIN TAB PO SCH (21:25)
[2020-03-22] MEDS: VANCOMYCIN HCL 1,250 MG in SODIUM CHLORIDE 0.9% 250 ML IV SCH (23:34)
[2020-03-23] MEDS: MELATONIN 3 MG TAB PO PRN (00:05)
[2020-03-23 07:53] LABS: Hematocrit (blood only) 37.2 % (42-52); Hemoglobin 12.2 g/dL (14.0-18.0); Mean Corpuscular Hemoglobin 29.2 pg (25-34); Mean Corpuscular Hgb Conc 32.8 g/dL (32-36); Mean Platelet Volume 12.4 fL (7.4-10.4); Platelet Count 332 K/uL (130-400); RDW Coefficient of Variation 13.9 % (11.5-14.5); RDW Standard Deviation 45.6 fL (36.4-46.3); Red Blood Count 4.18 M/uL (4.7-6.1)
[2020-03-23] MEDS: LOSARTAN POTASSIUM 50 MG TAB PO SCH (07:59)
[2020-03-23] MEDS: HEPARIN SOD 5,000 UNIT/0.5 ML VIAL SQ SCH ×2 (07:59→21:33)
[2020-03-23] MEDS: amLODIPine BESYLATE 5 MG TAB PO SCH (07:59)
[2020-03-23] MEDS: MULTIVITAMIN TAB PO SCH ×2 (07:59→21:33)
[2020-03-23] MEDS: cefTRIAXone SODIUM 1,000 MG in DEXTROSE 5% 50 ML IV SCH (08:00)
[2020-03-23 08:18] LABS: BUN Creatinine Ratio 20.2 (10-20); Calcium 8.4 mg/dl (8.5-10.1); Creatinine Clr Calc Pharmacy 70.5 ml/min; Est GFR (African American) 81.8; Est GFR (Non-African American) 70.6; Potassium 3.7 mmol/L (3.5-5.1)
--- NOTE | 2020-03-23 10:22 | Hospitalist Progress Note ---
Date of Service March 23, 2020 Assessment & Plan (1) Complicated urinary tract infection: This is a 79-year-old male with PMH of multiple sclerosis and hypertension who presents from home with ambulatory dysfunction and flank pain. -Flank pain and indwelling Riddle catheter for the past 3 weeks (on 03/07 in ED). Urine culture sent and new Riddle placed -On current admission, Leukocytosis of 19.29K. Afebrile, lactic acid and procalcitonin within normal limits -Started empirically on cefepime. Will continue antibiotic coverage with Rocephin and gentle fluids -Ct abd/pelvis with large bladder calculi, intraluminal gas, and significant pericystic inflammation. Marked prostatomegaly. Bilateral nephrolithiasis. No ureteral stone or hydronephrosis is seen -[place] [facility] - consulted to be seen during admission for bladder outlet obstruction, calculi and patient's desire for riddle removal Pt seen by urology, plan to follow up as outpt in their office on Sunday 03/25 Follow urine cltx Bacteremia Blood cultx - 1 of 2 positive for gram posit. cocci in clusters vancomycin added Repeat blood cltx ordered - ngtd Follow final results - likely contaminant (2) Ambulatory dysfunction: (3) Generalized weakness: (4) Multiple sclerosis: Patient wheelchair-bound at baseline with MS but feeling generally weaker with recent urinary symptoms -Does not have any help at home and ambulates only once a day from bed to motorized scooter -Need for evaluation and home services due to declined mobility. PT/OT evaluation and discharge planning (5) Sacral ulcer: Large, significant sacral ulcer present prior to arrival in setting of limited mobility -No foul odor or purulent drainage to suggest infection at this time. Wound care nurse needed, likely to require outpatient follow-up as well -Repositioning to offload pressure (6) Hypertension: Continue losartan and amlodipine DVT Ppx: SQ heparin Code status: FULL PCP: Dr. Lyman Dispo: Admitted to [facility]. Discharge planning ordered. Discussed with pt , she is concerned that pt has been weaker and she can not help him with transfers. PT ordered while inpt Admission and Anticipated Discharge Date Admission Date: March 21, 2020 Subjective Pt is sitting up in bed in NAD. Denies fever, chills. Reports terrible pain with transfer on admission but when he transfers himself he denies having any pain. Denies chest pain, shortness of breath, abd. pain, n/v. Discussed w/ , pt's is very concerned about pt's strength. Reports he has been weaker lately and she can not help with his transfers. Seen by urology, plan for outpt follow up on 03/25. Review of Systems Review of Systems: All systems reviewed & are unremarkable except as noted in HPI & below Constitutional: + weakness; no fever and no chills Respiratory: no cough and no dyspnea Cardiovascular: no chest pain and no palpitations Gastrointestinal: no abdominal pain, no nausea and no vomiting Physical Exam Physical Exam: General Appearance: vitals as above, NAD, appears chronically ill, sitting up in bed, pleasant, conversing easily Head: normocephalic, atraumatic Eyes: normal inspection, PERRL, EOMI, conjunctivae normal, anicteric sclerae ENT: external ear and nose normal, oropharynx normal Neck: normal visual inspection, trachea midline, no thyromegaly Respiratory: normal respiratory effort, lungs clear to auscultation, no wheeze, rales, rhonchi. No accessory muscle use Cardiovascular: regular rate, rhythm, no murmur, normal peripheral pulses, no BLE edema. Vessels: no JVD Chest: normal inspection of chest Abdomen/GI: normal bowel sounds, soft, nontender : + CVA tenderness bilaterally. Riddle catheter draining yellow urine Extremities/Musculoskeletal: no cyanosis or clubbing, extremities motor strength 5/5 Neurologic: PERRL, EOMI, no face palsy, no dysarthria, pt does not move LE extremities very much (d/t MS), he is using UEs w/o much difficulty Psychiatric: A+Ox3, euthymic affect Skin: no rashes, normal color, warm/dry. + Large sacral pressure wound difficult to fully visualize while turning but appears stage II-III with ulcerat ion, erythematous tissue and scant serous drainage Results & Data Results & Data ([facility]) Vital Signs (Past 12 Hours) Vital Signs Temp Pulse Pulse Resp BP Pulse Ox 03/23/20 08:54 98 03/23/20 08:00 37.2 C 72 18 149/76 H 94 03/23/20 04:00 37.1 C 76 18 159/81 H 91 03/23/20 01:47 85 11/06/20 23:00 37.1 C 84 19 153/76 H 93 Laboratory Results 03/23/20 03/23/20 03/21/20 Range/Units 07:00 07:00 14:07 WBC 12.10 H (4.8-10.8) K/uL RBC 4.18 L (4.7-6.1) M/uL Hgb 12.2 L (14.0-18.0) g/dL Hct 37.2 L (42-52) % MCV 89.0 (80-100) fL MCH 29.2 (25-34) pg MCHC 32.8 (32-36) g/dL RDW Std Deviation 45.6 (36.4-46.3) fL RDW Coeff of Bossman 13.9 (11.5-14.5) % Plt Count 332 (130-400) K/uL MPV 12.4 H (7.4-10.4) fL Sodium 139 (136-145) mmol/L Potassium 3.7 (3.5-5.1) mmol/L Chloride 110 H (98-107) mmol/L Carbon Dioxide 22 (21-32) mmol/L Anion Gap 7.0 (3-11) BUN 21 H (7-18) mg/dl Creatinine 1.02 (0.6-1.4) mg/dl Est Cr Clr Drug Dosing 70.5 ml/min Est GFR ( Amer) 81.8 Est GFR (Non-Af Amer) 70.6 BUN/Creatinine Ratio 20.2 H (10-20) Glucose 87 (70-99) mg/dl Calcium 8.4 L (8.5-10.1) mg/dl Bld Cult Staph aureus PCR Negative (Negative) Blood Culture MRSA PCR Negative (Negative) Medications Administered Current Inpatient Medications Acetaminophen (Acetaminophen 325 Mg Tab) 650 mg PO Q4H PRN PRN Reason: Pain or Fever Stop: 04/20/20 18:05 Amlodipine Besylate (Amlodipine Besylate 5 Mg Tab) 10 mg PO DAILY [place] Stop: 04/21/20 08:59 Last Admin: 03/23/20 07:59 Dose: 10 mg Documented by: Heparin Sodium (Porcine) (Heparin Sod 5,000 Unit/0.5 Ml Vial) 5,000 units SQ Q12 [place] Stop: 04/21/20 20:59 Last Admin: 03/23/20 07:59 Dose: 5,000 units Documented by: Vancomycin HCl 1,250 mg/ (Sodium Chloride) 275 mls @ 200 mls/hr IV Q12H [facility] Stop: 04/05/20 22:59 Last Infusion: 03/23/20 01:40 Dose: Infused Documented by: Ceftriaxone Sodium 2,000 mg/ (Dextrose) 70 mls @ 100 mls/hr IV DAILY@0900 [facility]; Protocol Stop: 04/01/20 08:59 Ketorolac Tromethamine (Ketorolac Tromethamine 15 Mg/Ml Vial) 15 mg IV Q8H PRN PRN Reason: Pain Stop: 03/26/20 20:06 Last Admin: 03/21/20 20:26 Dose: 15 mg Documented by: Losartan Potassium (Losartan Potassium 50 Mg Tab) 100 mg PO DAILY [facility] Stop: 04/21/20 08:59 Last Admin: 03/23/20 07:59 Dose: 100 mg Documented by: Melatonin (Melatonin 3 Mg Tab) 3 mg PO HS PRN PRN Reason: Sleep Stop: 04/21/20 00:42 Last Admin: 03/23/20 00:05 Dose: 3 mg Documented by: Miscellaneous Information (Vancomycin Consult Active) 1 ea N/A UD PRN PRN Reason: Consult Stop: 04/21/20 12:33 Multivitamins (Multivitamin Tab) 1 tab PO BID [facility] Stop: 04/21/20 20:59 Last Admin: 03/23/20 07:59 Dose: 1 tab Documented by: Ondansetron HCl (Ondansetron Inj 2 Mg/Ml 2 Ml Vial) 4 mg IV Q6H PRN PRN Reason: Nausea Stop: 04/20/20 18:05 Polyethylene Glycol (Polyethylene (Miralax) 17 Gm Pack) 17 gm PO DAILY PRN PRN Reason: Constipation Stop: 04/20/20 18:05
[2020-03-23] MEDS: VANCOMYCIN HCL 1,250 MG in SODIUM CHLORIDE 0.9% 250 ML IV SCH ×2 (11:04→22:03)
[2020-03-23] MEDS: POLYETHYLENE (MIRALAX) 17 GM PACK PO PRN (16:01)
[2020-03-24] MEDS: amLODIPine BESYLATE 5 MG TAB PO SCH (07:27)
[2020-03-24] MEDS: HEPARIN SOD 5,000 UNIT/0.5 ML VIAL SQ SCH (07:27)
[2020-03-24] MEDS: LOSARTAN POTASSIUM 50 MG TAB PO SCH (07:27)
[2020-03-24] MEDS: MULTIVITAMIN TAB PO SCH (07:29)
[2020-03-24] MEDS: POLYETHYLENE (MIRALAX) 17 GM PACK PO PRN (07:31)
[2020-03-24] MEDS ORDERED: cefTRIAXone SODIUM 2,000 MG in DEXTROSE 5% 50 ML IV SCH (09:00)
--- NOTE | 2020-03-24 09:19 | Hospitalist Progress Note ---
Date of Service March 24, 2020 Assessment & Plan (1) Complicated urinary tract infection: This is a 79-year-old male with PMH of multiple sclerosis and hypertension who presents from home with ambulatory dysfunction and flank pain. -Flank pain and indwelling Riddle catheter for the past 3 weeks (on 03/07 in ED). Urine culture sent and new Riddle placed -On current admission, Leukocytosis of 19.29K. Afebrile, lactic acid and procalcitonin within normal limits -Started empirically on cefepime. Will continue antibiotic coverage with Rocephin and gentle fluids while inpt -Ct abd/pelvis with large bladder calculi, intraluminal gas, and significant pericystic inflammation. Marked prostatomegaly. Bilateral nephrolithiasis. No ureteral stone or hydronephrosis is seen -[place]anning [place] [facility] [place] - consulted to be seen during admission for bladder outlet obstruction, calculi and patient's desire for riddle removal Pt seen by urology, plan to follow up as outpt in their office on Sunday 03/25 Follow urine cltx - skin marissa Given elevated WBC, and bladder calculi, and nephrolithiasis, continue p.o. antibiotic as outpatient, follow-up with urology tomorrow, and decide on further antibiotic treatment then ??Bacteremia Blood cultx - 1 of 2 positive for gram posit. cocci in clusters vancomycin added Repeat blood cltx ordered - ngtd Follow final results -coag negative staph, likely contaminant, kaleida healthed (2) Ambulatory dysfunction: (3) Generalized weakness: (4) Multiple sclerosis: Patient wheelchair-bound at baseline with MS but feeling generally weaker with recent urinary symptoms -Does not have any help at home and ambulates only once a day from bed to motorized scooter -Need for evaluation and home services due to declined mobility. PT/OT evaluat ion and discharge planning (5) Sacral ulcer: Large, significant sacral ulcer present prior to arrival in setting of limited mobility -No foul odor or purulent drainage to suggest infection at this time. Wound care nurse needed, likely to require outpatient follow-up as well -Repositioning to offload pressure (6) Hypertension: Continue losartan and amlodipine DVT Ppx: SQ heparin Code status: FULL PCP: Dr. Lyman Dispo: Discharge home with home health/home PT. Follow-up with urology tomorrow, March 25. Admission and Anticipated Discharge Date Admission Date: March 21, 2020 Subjective Pt is laying down in bed in NAD. Denies fever, chills. Reports pain with transfer on admission but when he transfers himself he denies having any pain. Denies chest pain, shortness of breath, abd. pain, n/v. Discussed w/ , pt's is very concerned about pt's strength. Discussed with , patient and physical therapist, patient is willing to have home health/home PT. Patient's son is also supposed to come to help. Case management aware and home PT arrangements made. Seen by urology while inpt, plan for outpt follow up on 03/25. Review of Systems Review of Systems: All systems reviewed & are unremarkable except as noted in HPI & below Constitutional: + weakness; no fever and no chills Respiratory: no cough and no dyspnea Cardiovascular: no chest pain and no palpitations Gastrointestinal: no abdominal pain, no nausea and no vomiting Genitourinary: + flank pain (denies pain at rest, + pain w/ movement/transfers) Physical Exam Physical Exam: General Appearance: vitals as above, NAD, appears chronically ill, sitting up in bed, pleasant, conversing easily Head: normocephalic, atraumatic Eyes: normal inspection, PERRL, EOMI, conjunctivae normal, anicteric sclerae ENT: external ear and nose normal, oropharynx normal Neck: normal visual inspection, trachea midline, no thyromegaly Respiratory: normal respiratory effort, lungs clear to auscultation, no wheeze, rales, rhonchi. No accessory muscle use Cardiovascular: regular rate, rhythm, no murmur, normal peripheral pulses, no BLE edema. Vessels: no JVD Chest: normal inspection of chest Abdomen/GI: normal bowel sounds, soft, nontender : + CVA tenderness bilaterally. Riddle catheter draining yellow urine Extremities/Musculoskeletal: no cyanosis or clubbing, extremities motor strength 5/5 Neurologic: PERRL, EOMI, no face palsy, no dysarthria, pt does not move LE extremities very much (d/t MS), he is using UEs w/o much difficulty Psychiatric: A+Ox3, euthymic affect Skin: no rashes, normal color, warm/dry. + Large sacral pressure wound difficult to fully visualize while turning but appears stage II-III with ulceration, erythematous tissue and scant serous drainage Results & Data Results & Data ([facility]) Vital Signs (Past 12 Hours) Vital Signs Temp Pulse Pulse Resp BP Pulse Ox 03/24/20 00:00 82 03/23/20 23:22 37.1 C 80 18 162/76 H 95
[2020-03-24] MEDS ORDERED: traMADol HCL 50 MG TABLET PO PRN (09:55)
--- NOTE | 2020-03-24 10:12 | Discharge Summary ---
Date of Service March 24, 2020 Admission HPI Per Admitting Provider This is a 79-year-old male with PMH of multiple sclerosis and hypertension who presents from home with ambulatory dysfunction and flank pain. Patient self- catheterizes 5x/ day and was seen in ER on 03/07 due to experiencing a blood clot and suprapubic pain while self catheterizing. Had a Riddle catheter placed and was treated empirically with Rocephin prior to discharge, but urine culture grew probable skin marissa. Previously followed with Dr. Feldman, a private urologist, who recently retired and patient was waiting to establish care with [facility] with an appointment scheduled for 03/25. Since patient was evaluated 2 weeks ago, he has had increased general weakness. At baseline, patient is wheelchair-bound and lives with . Does not have any help with transfers at home besides a local son who comes over occasionally to help. Usually only transfers once per day from bed to motorized scooter. Was having difficulty transferring to bed today and called 911 initially for a lift assist but while they were transferring him, he developed significant pain of bilateral flank and was brought to ED for further evaluation. Denies any fever, chills or dysuria but does endorse bilateral flank pain that is worse with movement or when people lift his shoulders to transfer. Has had Riddle catheter in place since evaluated on 03/07 that has been draining dark urine with sediment. Denies visualizing any blood. Denies any headache, lightheadedness, chest pain, palpitations, nausea, vomiting, abdominal pain, diarrhea or constipation. Does have history of bladder stone removal by urology in the past. Admission Exam Per Admitting Provider General Appearance: vitals as above, NAD, appears chronically ill, sitting up in bed, pleasant, conversing easily Head: normocephalic, atraumatic Eyes: normal inspection, PERRL, conjunctivae normal, anicteric sclerae ENT: external ear and nose normal, oropharynx normal Neck: normal visual inspection, trachea midline, no thyromegaly Respiratory: normal respiratory effort, lungs clear to auscultation, no wheeze, rales, rhonchi. No accessory muscle use Cardiovascular: regular rate, rhythm, no murmur, normal peripheral pulses, no BLE edema. Vessels: no JVD Chest: normal inspection of chest Abdomen/GI: normal bowel sounds, soft, nontender, no hepatosplenomegaly : + CVA tenderness bilaterally. Riddle catheter draining dark yellow urine into collection bag. Enlarged scrotum Extremities/Musculoskeletal: no cyanosis or clubbing, extremities motor strength 5/5 Neurologic: PERRL, EOMI, accommodation nl, no face palsy, no dysarthria, CN's II-XI intact bilaterally and moves all extremities Psychiatric: A+Ox3, euthymic affect Skin: no rashes, normal color, warm/dry. + Large sacral pressure wound difficult to fully visualize while turning but appears stage II-III with ulceration, erythematous tissue and scant serous drainage Principal Diagnosis Bladder calculi Nephrolithiasis UTI Ambulatory dysfunction in the setting of MS Discharge Exam General Appearance: vitals as above, NAD, appears chronically ill, sitting up in bed, pleasant, conversing easily Head: normocephalic, atraumatic Eyes: normal inspection, PERRL, EOMI, conjunctivae normal, anicteric sclerae ENT: external ear and nose normal, oropharynx normal Neck: normal visual inspection, trachea midline, no thyromegaly Respiratory: normal respiratory effort, lungs clear to auscultation, no wheeze, rales, rhonchi. No accessory muscle use Cardiovascular: regular rate, rhythm, no murmur, normal peripheral pulses, no BLE edema. Vessels: no JVD Chest: normal inspection of chest Abdomen/GI: normal bowel sounds, soft, nontender : + CVA tenderness bilaterally. Riddle catheter draining yellow urine Extremities/Musculoskeletal: no cyanosis or clubbing, extremities motor strength 5/5 Neurologic: PERRL, EOMI, no face palsy, no dysarthria, pt does not move LE extremities very much (d/t MS), he is using UEs w/o much difficulty Psychiatric: A+Ox3, euthymic affect Skin: no rashes, normal color, warm/dry. + Large sacral pressure wound difficult to fully visualize while turning but appears stage II-III with ulceration, erythematous tissue and scant serous drainage Discharge Data Allergies Allergy/AdvReac Type Severity Reaction Status Date / Time morphine Allergy Mild Verified 11/30/13 08:22 ampicillin Allergy Unknown Unverified 03/21/20 13:39 Consultations 03/21/20 15:38 ED Decision to Admit Stat 03/21/20 18:06 Consult Case Management - Discharge Planning Routine Consult Urology Routine Ordered Studies 03/21/20 12:02 CT abd pelvis wo con Stat IMPRESSION: 1. Streak and motion compromised examination. 2. The bladder is partially decompressed around a Riddle catheter. There are large bladder calculi, intraluminal gas, and significant pericystic i nflammation. Correlate clinically and with urinalysis for evidence of cystitis. 3. Marked prostatomegaly. 4. Bilateral nephrolithiasis. No ureteral stone or hydronephrosis is seen. 5. A large left hiatal hernia contains nonobstructed segments of small bowel and colon. 6. Mild to moderate colonic diverticulosis without CT evidence of acute diverticulitis. 7. Cholelithiasis. 8. Additional findings in full report. Hospital Course (1) Complicated urinary tract infection: This is a 79-year-old male with PMH of multiple sclerosis and hypertension who presents from home with ambulatory dysfunction and flank pain. -Flank pain and indwelling Riddle catheter for the past 3 weeks (on 03/07 in ED). Urine culture sent and new Riddle placed -On current admission, Leukocytosis of 19.29K. Afebrile, lactic acid and procalcitonin within normal limits -Started empirically on cefepime. Will continue antibiotic coverage with Ro cephin and gentle fluids while inpt -Ct abd/pelvis with large bladder calculi, intraluminal gas, and significant pericystic inflammation. Marked prostatomegaly. Bilateral nephrolithiasis. No ureteral stone or hydronephrosis is seen -Planning to establish with [facility] next week - consulted to be seen during admission for bladder outlet obstruction, calculi and patient's desire for riddle removal Pt seen by urology, plan to follow up as outpt in their office on Sunday 03/25 Follow urine cltx - skin marissa Given elevated WBC, and bladder calculi, and nephrolithiasis, continue p.o. antibiotic as outpatient, follow-up with urology tomorrow, and decide on further antibiotic treatment then ??Bacteremia Blood cultx - 1 of 2 positive for gram posit. cocci in clusters vancomycin added Repeat blood cltx ordered - ngtd Follow final results -coag negative staph, likely contaminant, vanco ga'ed (2) Ambulatory dysfunction: (3) Generalized weakness: (4) Multiple sclerosis: Patient wheelchair-bound at baseline with MS but feeling generally weaker with recent urinary symptoms -Does not have any help at home and ambulates only once a day from bed to motorized scooter -Need for evaluation and home services due to declined mobility. PT/OT evaluation and discharge planning (5) Sacral ulcer: Large, significant sacral ulcer present prior to arrival in setting of limited mobility -No foul odor or purulent drainage to suggest infection at this time. Wound care nurse needed, likely to require outpatient follow-up as well -Repositioning to offload pressure (6) Hypertension: Continue losartan and amlodipine PCP: Dr. Lyman Dispo: Discharge home with home health/home PT. Follow-up with urology tomorrow, March 25. Total Time Total Time Spent Total Time Spent (In Minutes): 40 Total Time Includes: Examination of the Patient, Discharge Planning, Medication Reconciliation and Communication With Other Providers Discharge Plan Discharge Items Patient Disposition: Home - Self-Care Reason For Visit: COMPLICATED UTI WEAKNESS Discharge Diagnosis: Bladder calculi Nephrolithiasis UTI Ambulatory dysfunction in the setting of MS Activity: Per Instructions section Non-emergency contact: Primary Care Provider and Urologist Call non-emergency contact if: you have any medication questions and your symptoms worsen Follow-up/Referrals: Aram Lyman MD [Primary Care Provider] - Diet: Heart Healthy Addtl Attending Provider Instructions: Follow-up with urologist on Wednesday, as already scheduled, March 25. Take antibiotic, cefdinir, prescription was already sent to your pharmacy. Discuss with your urologist how long you should be on the antibiotic. Home PT/home health was set up for you by case management. For pain take Tylenol 1000 mg 3 times a day or Aleve 200 to 400 mg. For more se amy pain you can take tramadol as prescribed. Pending Studies at Discharge: No Stand-Alone Forms: My [facility] [employer], Smoking Cessation Medications and DC Order Prescriptions: New cefdinir 300 mg capsule 300 mg PO BID 5 Days Qty: 10 RF: 0 tramadol 50 mg tablet 50 mg PO Q4H Qty: 10 RF: 0 Continued amlodipine 10 mg tablet 10 mg PO DAILY RF: 0 losartan 100 mg tablet 100 mg PO DAILY RF: 0 Discharge Orders: Discharge Order (Routine); Ordered 03/24/20 Ordered By: Seth Vallejo Admission Data Admit Date/Time: 03/21/20 16:03 Attending Provider: Seth Vallejo Admit Provider: Arpan Azar Primary Care Provider: Aram Lyman Other Providers: Arpan Azar ; Johnny Larios ; [facility]
[2020-03-24] MEDS ORDERED: VANCOMYCIN TROUGH ONE (10:30)
[2020-03-24 10:55] LABS: BUN Creatinine Ratio 14.8 (10-20); Calcium 8.9 mg/dl (8.5-10.1); Creatinine Clr Calc Pharmacy 69.8 ml/min; Est GFR (African American) 80.8; Est GFR (Non-African American) 69.7; Potassium 3.5 mmol/L (3.5-5.1)
--- NOTE | 2020-04-09 13:28 | Coding Query ---
PRESSURE ULCER DOCUMENTATION To promote full compliance with coding requirements relating to patient care, physician participation is requested in all cases of power screwdriver operator uncertainty. Please assist us with the question(s) below: Please specify the known or suspected type by placing an "X" within the parenthesis (x). A pressure ulcer of the SACRUM If possible, please check the box that provides the specific stage of the pressure ulcer ( ) Stage I ( ) Stage II ( ) Stage III ( ) Stage IV ( X) Unstageable ( ) Unable to determine Thank you Milagros BARRERA
== END 2020-03-24 13:40 | disposition home health service (06) | DRG 690 ==
LOC: ED 10:55 → SUATTDRO 16:03 → 2W 16:03

== ENCOUNTER 2020-04-04 07:42 | Inpatient (IN) ==
--- NOTE | 2020-03-28 08:46 | PAT Medication Instructions ---
Medication Instructions Date of Service March 28, 2020 Home Medications Medication Instructions Recorded cefdinir 300 mg capsule 300 mg PO BID 10 Days #20 cap 03/27/20 tramadol 50 mg tablet 50 mg PO Q8H PRN #20 tab 03/27/20 amlodipine 10 mg PO QPM losartan 100 mg PO QPM Vitamin B-9 1 tab PO QAM krill oil 500 mg PO QAM multivitamin 1 tab PO QAM omega-3 fatty acids-fish oil [[place] 3 Fish Oil] 1 cap PO QAM vitamin B complex 1 tab PO QAM cefdinir 300 mg capsule 300 mg PO BID tramadol 50 mg tablet 50 mg PO Q8H PRN STOP taking 2 weeks before surgery If surgery is within 2 weeks, stop taking as soon as possible. krill oil 500 mg PO QAM omega-3 fatty acids-fish oil [[place] 3 Fish Oil] 1 cap PO QAM DO NOT take the morning of surgery Vitamin B-9 1 tab PO QAM multivitamin 1 tab PO QAM vitamin B complex 1 tab PO QAM Take morning of surgery With a small sip of water, OTHERWISE NOTHING TO EAT OR DRINK AFTER MIDNIGHT: tramadol 50 mg tablet 50 mg PO Q8H PRN (if needed, may be taken up to four hours before surgery) Take evening before surgery amlodipine 10 mg PO QPM losartan 100 mg PO QPM tramadol 50 mg tablet 50 mg PO Q8H PRN (if needed) Other Notes If you have any questions please call us at [phone] or [phone] or [phone] or [phone]
--- NOTE | 2020-03-28 09:44 | Anesthesiology Consultation ---
Date of Service March 28, 2020 Assessment & Plan (1) Encounter for pre-operative examination: COVID Status: As of 03/28 assessment, patient denies travel to endemic area, known exposure/sick contacts, or symptoms of COVID19. Patient instructed that they and their household members must follow strict social distancing guidelines, wear a mask in public and avoid travel/events/gatherings for 14 days prior to surgery. Preoperative COVID19 testing to be completed today at [facility] ( 03/28). Patient made aware to self-isolate as much as possible between COVID testing and surgery. Abnormal EKG reviewed with Dr. Hernandez. Findings felt nonspecific enough, OK to proceed with surgery without further workup. Chart Review Chart Review: Acceptable Risk for Surgery and Patient seen in Pre Admission Testing Teaching & Discussion Instructed NPO after midnight before surgery, except medications with 15 cc of water. Medication instructions provided according to the [facility] guidelines. History Surgery Operation Date: 04/04/20 08:25 Proposed Procedures p Transurethral Resection Prostate - Johnny Larios MD s Cystoscopy, Laser Lithalopaxy - Johnny Larios MD Height/Weight Height: 6 ft 2 in Weight: 77.111 kg Allergies Allergy/AdvReac Type Severity Reaction Status Date / Time ampicillin Allergy Unknown Unknown Unverified 03/26/20 09:34 morphine AdvReac Mild "MADE ME Verified 03/26/20 09:34 FEEL ODD" Medications Home Medications Medication Instructions Recorded Confirmed Last Taken amlodipine 10 mg PO QPM 03/21/20 03/26/20 03/20/20 losartan 100 mg PO QPM 03/21/20 03/26/20 03/20/20 Vitamin B-9 1 tab PO QAM 03/26/20 03/26/20 Unknown krill oil 500 mg PO QAM 03/26/20 03/26/20 Unknown multivitamin 1 tab PO QAM 03/26/20 03/26/20 Unknown omega-3 fatty acids-fish oil 1 cap PO QAM 03/26/20 03/26/20 Unknown [[place] 3 Fish Oil] vitamin B complex 1 tab PO QAM 03/26/20 03/26/20 Unknown cefdinir 300 mg capsule 300 mg PO BID 10 Days #20 cap 03/27/20 Unknown tramadol 50 mg tablet 50 mg PO Q8H PRN #20 tab 03/27/20 Unknown Past Medical History Medical History BPH (benign prostatic hyperplasia) Estrella catheter in place History of skin cancer ON CHEST AREA Hyperlipidemia Hypertension Multiple sclerosis Debilitated, wheelchair-bound for several years. Can transfer self. Following with Dr Armenta Diane neuro. Sacral ulcer Treating with topical ointment currently. Spontaneous pneumothorax HX OF MANY YEARS AGO A TEENAGER (NO SURGERY) Urinary retention Exercise / Class Metabolic Activity IV < 2 Limit ADL/Bedbound Past Family History Family History Other Cancer No family history of adverse response to anesthesia Past Surgical History Surgical History H/O arthroscopy of shoulder RT History of colonoscopy History of esophagogastroduodenoscopy (EGD) History of herniorrhaphy History of tonsillectomy History of tooth extraction Hx of appendectomy Past Anesthesia History No Hx of Anesthesia Complications and No Family Hx of Anesthesia Complications History of PONV No Hx of PONV and Hx of Motion Sickness Social History Smoking Status: Former smoker tobacco type: cigarettes Do You Dip or Chew Tobacco: No Smoking End Date: 1978 Hx Alcohol Use: No Hx Substance Use: No substance use type: does not use Review of Systems Pt denies any recent chest pain, shortness of breath, palpitations, cough, fever, URI. +occasional acid reflux. Physical Exam Vital Signs BP: 147/84 P: 91bpm SPO2: 97% RA T: 98.0 F R: 18 Constitutional + frail appearing, + disheveled and cooperative In motorized wheelchair. ENMT Mouth: + dry oral mucous membranes, + dentures (partial upper and lower) and + chipped teeth; no loose teeth Mallampati Class: I Neck neck extension not limited Respiratory normal respiratory effort, lungs clear to auscultation Difficult to auscultate due to positioning in wheelchair and inability to lean forward. Cardiovascular Rate/Rhythm: regular rhythm (borderline tachy) Heart Sounds: normal S1, normal S2 and + murmur (I/ systolic) Testing Laboratory Results Urine Color Dark Yellow 03/28/20 10:12 Urine Appearance Turbid (Clear) A 03/28/20 10:12 Urine pH 5.5 (4.5-7.5) 03/28/20 10:12 Ur Specific [place] 1.021 (1.000-1.030) 03/28/20 10:12 Urine Protein 2+ (Negative) H 03/28/20 10:12 Urine Glucose (UA) Negative (Negative) 03/28/20 10:12 Urine Ketones 1+ (Negative) H 03/28/20 10:12 Urine Nitrite Negative (Negative) 03/28/20 10:12 Ur Leukocyte Esterase 3+ (Negative) H 03/28/20 10:12 Urine WBC (Auto) >30 /hpf (0-5) H 03/28/20 10:12 Urine RBC (Auto) >30 /hpf (0-4) H 03/28/20 10:12 U Hyaline Cast (Auto) 1-5 /lpf (0-5) 03/28/20 10:12 U Epithel Cells (Auto) 10-20 /lpf (0-5) H 03/28/20 10:12 Urine Bacteria (Auto) 1+ (Negative) H 03/28/20 10:12 03/23/20 WBC: 12.10 H/H: 12.2/37.2 PLATELETS: 332 03/24/20 SODIUM: 139 POTASSIUM: 3.5 CHLORIDE: 108 CO2: 26 BUN: 15 CREATININE: 1.03 GLUCOSE: 114 Electrocardiogram Date: 03/28/20 EKG was performed with patient seated upright in wheelchair. Interpretation may be adversely affected by poor data quality LVH with repolarization abnormality. Compared to EKG from 2004, criteria for inferior infarct are no longer present. T wave inversion more evident in septal leads (V2 only). Chest X-Ray Date: 03/28/20 1. Trace right pleural effusion. 2. No evidence for pulmonary edema. 3. No consolidation to suggest pneumonia.
--- NOTE | 2020-03-28 10:51 | XRay Report ---
XR chest Pre-admission PA/Lat CLINICAL HISTORY: Preoperative evaluation. COMPARISON STUDY: No previous studies for comparison. FINDINGS: Right humeral internal fixation is partially imaged. There is no pneumothorax. A trace righ t pleural effusion is present Linear right lung opacities reflect atelectasis. Cardiac size is at the upper limits of normal. There is no evidence for pulmonary edema. No consolidation. Patient is rotat ed. IMPRESSION: 1. Trace right pleural effusion. 2. No evidence for pulmonary edema. 3. No consolidation to suggest pneumonia. ACT 112: Negative or not required by law. Electronically signed by: Anibal Bautista M.D. 03/28/2020 10:50 AM
--- NOTE | 2020-03-28 11:09 | Electrocardiogram Report ---
Test Reason : Blood Pressure : / mmHG Vent. Rate : 089 BPM Atrial Rate : 089 BPM P-R Int : 188 ms QRS Dur : 096 ms QT Int : 354 ms P-R-T Axes : 060 -23 120 degrees QTc Int : 430 ms Poor data quality, interpretation may be adversely affected Normal sinus rhythm Left ventricular hypertrophy with repolarization abnormality Abnormal ECG When compared with ECG of 29-MAY-2003 16:25, Criteria for Inferior infarct are no longer Present T wave inversion more evident in Septal leads Confirmed by Hever London ([id number]) on 03/28/2020 11:09:24 AM Referred By: Johnny Larios Confirmed By:Hever London
[2020-03-28 11:26] LABS: Appearance Urine Turbid (Clear); Bilirubin Urine Negative (Negative); Blood Urine 3+ (Negative); Color Urine Dark Yellow; Glucose Urine UA Negative (Negative); Ketones Urine 1+ (Negative); Leukocyte Esterase Urine 3+ (Negative); Nitrite Urine Negative (Negative); Protein Urine 2+ (Negative); RBC Urine Automated >30 /hpf (0-4); Specific Gravity Urine 1.021 (1.000-1.030); Urobilinogen Urine Negative (Negative); WBC Urine Automated >30 /hpf (0-5); pH Urine 5.5 (4.5-7.5)
[2020-03-28 12:05] LABS: Bacteria Urine Automated 1+ (Negative)
[~2020-04-04 07:42] MED LIST: CIPROFLOXACIN / D5W 400 MG/200 ML BAG IV SCH; LR 15ML/HR IV SCH
[2020-04-04] MEDS ORDERED: ATROPINE SULFATE 0.1 MG/ML 10ML SYR IV PRN (09:21)
[2020-04-04] MEDS ORDERED: METOCLOPRAMIDE HCL INJ 5 MG/ML 2 ML VIAL IV PRN (09:21)
[2020-04-04] MEDS ORDERED: ePHEDrine sulfate 50 MG/ML AMP IV PRN (09:21)
[2020-04-04] MEDS ORDERED: PROMETHAZINE HCL 12.5 MG in SODIUM CHLORIDE 0.9% 50 ML IV PRN (09:21)
[2020-04-04] MEDS ORDERED: ONDANSETRON INJ 2 MG/ML 2 ML VIAL IV PRN ×2 (09:21→14:53)
[2020-04-04] MEDS ORDERED: fentaNYL citrate 100 MCG/2 ML VIAL IV PRN (09:21)
[2020-04-04] MEDS ORDERED: HYDROmorphone INJ 2 MG/ML SYR/VIAL IV PRN (09:21)
--- NOTE | 2020-04-04 09:22 | History & Physical Bridge Note ---
Date of Service April 04, 2020 History & Physical Bridge Note I have examined the patient, reviewed the History & Physical and in the interval since the performance of the History & Physical I have noted the following changes of clinical significance: no changes noted
[2020-04-04] MEDS ORDERED: fentaNYL citrate 100 MCG/2 ML VIAL ONE (09:23)
[2020-04-04] MEDS ORDERED: ONDANSETRON INJ 2 MG/ML 2 ML VIAL ONE (09:24)
[2020-04-04] MEDS ORDERED: MIDAZOLAM HCL 1 MG/ML 2ML VIAL ONE (09:24)
[2020-04-04] MEDS ORDERED: LIDOCAINE HCL 2% 2 ML VIAL/AMP(20MG/ML) INFIL ONE (09:24)
[2020-04-04] MEDS ORDERED: DEXAMETHASONE SOD INJ 4 MG/ML VIAL ONE (09:24)
[2020-04-04] MEDS ORDERED: PROPOFOL IV EMULSION 10 MG/ML 20 ML VIAL IV ONE (09:24)
[2020-04-04] MEDS ORDERED: PHENYLEPHRINE 100MCG/ML 5ML SYR ONE (10:01)
[2020-04-04] MEDS ORDERED: HYDROCODONE/ACETAMOPHEN 5/325MG TAB PO PRN (11:07)
[2020-04-04] MEDS ORDERED: SODIUM CHLORIDE 0.9% 1000ML 1,000 ML IV SCH (11:15)
--- NOTE | 2020-04-04 11:21 | Operative Report ---
PG Post Operative Report Pre & Post Diagnosis Operation Date: 04/04/20 09:35 Pre-Op Diagnosis: Bladder Stones, Benign Prostatic Hyperplasia Post-Op Diagnosis: Bladder Stones, Benign Prostatic Hyperplasia I identified the patient and participated in the time-out.: Yes Procedure Operation Date: 04/04/20 09:35 Actual Procedures p Transurethral Resection Prostate(Not Applicable) - Johnny Larios MD s Cystoscopy, Laser Lithalopaxy(Not Applicable) - Johnny Larios MD Surgeon Héctor Larios MD Pan Tank Worker none Estimated Blood Loss 0 Findings Consistent with Post-Op Diagnosis Specimens Bladder stones for chemical analysis Description of Procedure The patient was identified in the preoperative holding area, appropriate informed consents were reviewed and completed and the patient was transferred to the operative suite. Upon arrival, appropriate antibiotics and anesthesia were administered and the patient was placed in dorsal lithotomy position and prepped and draped in sterile fashion. To begin the case I passed a 27 [place] resectoscope with 30 degree lens and visual obturator. Inspection revealed a healthy-appearing urethra. He has a notably enlarged prostate with substantial lateral lobe hypertrophy as well as a large intravesical component. Inspection of the bladder was somewhat limited secondary to the intravesical component, however, I was able to easily visualize 2 large stones within the bladder. He has several shallow diverticuli/heavy trabeculations on the posterior wall. Ureteral orifices were identified with no stones visualized protruding from the orifices. Given the size of the intravesical lobe I elected to treat this before proceeding to treat the stones. I passed a button electrode and I incised the bladder neck at 5 and 7:00. I resected the intravesical median lobe flat with the bladder neck. I then proceeded to resect some of the lateral aspects of t his as the lateral portion of the bladder neck was also inverted pushing into the bladder. After creating a funnel into the prostatic urethra, I obtained meticulous hemostasis. I then exchanged the resecting element for a laser guide and a 1000 m laser fiber. I began to fragment the stones until they were small enough to be irrigated through the scope. I irrigated all stone debris out of the bladder. I then confirmed excellent hemostasis. At the conclusion of the case the bladder neck was widely patent, the bladder was free of large stones, the mucosa was healthy in appearance. At that time I placed a 22 [place] catheter without difficulty and concluded the case. Of note, he has several large and concerning appearing bedsores. I did culture 1 of these sores and passed the culture specimen off the table. We also have contacted the wound care nurse to see him in the recovery area. We will arrange for outpatient wound care as well. He tolerated anesthesia well and was extubated and taken to the PACU in stable condition. There were no complications. I attest to the content of the Intraoperative Record and any orders documented therein. Any exceptions are noted below.
--- NOTE | 2020-04-04 12:15 | Anesthesiology Progress Note ---
Date of Service April 04, 2020 Anesthesia Post Procedure Vital Signs Vital Signs: Temp Pulse Pulse Resp BP BP Pulse Ox 04/04/20 11:55 36.7 C 73 16 138/72 97 04/04/20 11:45 36.7 C 69 16 147/64 H 100 04/04/20 11:35 68 18 146/73 H 100 04/04/20 11:25 70 14 146/69 H 100 04/04/20 11:17 36.7 C 70 16 146/71 H 100 04/04/20 08:51 36.8 C 90 20 134/77 98 Transfer of Care Handoff Completed per policy Notes Mental Status: alert / awake / arousable and participated in evaluation Patient Amnestic to Procedure: Yes Nausea / Vomiting: adequately controlled Pain: adequately controlled Airway Patency, RR, SpO2: stable & adequate BP & HR: stable & adequate Hydration State: stable & adequate Anesthetic Complications: no major complications apparent
--- NOTE | 2020-04-04 13:54 | History & Physical Report ---
Date of Service April 04, 2020 Assessment & Plan (1) Sacral ulcer: (2) Multiple sclerosis: This is a 80-year-old male with significant past medical history of multiple sclerosis wheelchair confined and hypertension who presents for elective urologic procedure. Patient underwent TURP, cystoscopy and laser litholapaxy by Dr. Lraios. He tolerated the procedure well. In recovery nurses discovered stage IV sacral wounds which have deteriorated since prior admission. admit to med/surg consult wound care physician Dr. Neves along with wound care team Initiate IV antibiotics Zosyn and Doxycycline until infection can be ruled out CBC, CMP, Mag, Blood Cultures, Wound Cultures, Lactic acid, procalcitonin Turn and position q2h regular diet, consult relief salesperson for recommendations (3) Hypertension: continue amlodipine and losartan monitor (4) 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 Larios, POD #0 EBL 0 ml continue riddle care will need appropriate urology follow up (5) Ambulatory dysfunction: pt wheel chair bound 2/2 to MS states he previously was independent for transfers consult PT/OT (6) DVT prophylaxis: pt high risk given lack of mobility scd/teds for now due to possible wound debridement reassess daily need for chemical prophylaxis Disposition: admit to med/surg Follow up: PCP Dr. Lyman upon discharge Pt was seen and examined in collaboration with Dr. Jaing, please see addendum History of Present Illness Chief Complaint: Worsening stage 4 sacral wound. Primary Care Provider: Aram Lyman MD This is a 80-year-old male with significant past medical history of multiple sclerosis wheelchair confined and hypertension who presents for elective urologic procedure. Patient underwent TURP, cystoscopy and laser litholapaxy by Dr. Larios. He tolerated the procedure well. In recovery nurses discovered stage IV sacral wounds. Of significance patient was hospitalized 03/22-03/24 secondary to complicated UTI, bladder/renal stones and BPH with obstruction. He was treated with IV antibiotics and set up for outpatient urology follow-up. He underwent urologic procedure to correct the above. During his hospitalization his sacral wounds were discovered and he was set up for [facility] at home health for wound care. Unfortunately canceled the service, and patient is unaware. Images show worsening of sacral wound and there was concern for patient's ability to return home safe. He states typically he is wheelchair-bound but has been independent for transfers lately and has been very difficult for him to transfer and according to nurse at bedside he required 2 security guards to transfer patient from wheelchair to bed this morning. Patient became very upset when discussing topic and feels he requires much more care than his can provide and that she is doing her best. He currently states he feels, "unwell," secondary to his current inability to care for self. He denies any fever, chills, sweats, lightheadedness, dizziness, chest pain, shortness with, nausea, vomiting, abdominal pain. He does have a chronic Riddle catheter in place. He admits to occasional loose stool, last BM 2 days ago. He denies any sacral discomfort and is unaware if he has had any drainage from wound. He was seen and evaluated in [facility] by wound care nurse who recommended admission to hospital for wound care and likely debridement. Patient was agreeable. Allergies Allergy/AdvReac Type Severity Reaction Status Date / Time ampicillin Allergy Unknown Unknown Verified 04/04/20 08:45 morphine AdvReac Mild "MADE ME Verified 04/04/20 08:45 FEEL ODD" Home Medications Medication Instructions Recorded Confirmed Type amlodipine 10 mg PO QPM 03/21/20 04/04/20 History losartan 100 mg PO QPM 03/21/20 04/04/20 History krill oil 500 mg PO QAM 03/26/20 04/04/20 History multivitamin 1 tab PO QAM 03/26/20 04/04/20 History omega-3 fatty acids-fish oil 1 cap PO QAM 03/26/20 04/04/20 History [[place] 3 Fish Oil] vitamin B complex 1 tab PO QAM 03/26/20 04/04/20 History tramadol 50 mg tablet 50 mg PO Q8H PRN #20 tab 03/27/20 04/04/20 Rx cefdinir 300 mg PO BID 04/03/20 04/04/20 History folic acid 1 mg PO QAM 04/03/20 04/04/20 History ibuprofen-diphenhydramine cit 2 cap PO HS PRN 04/03/20 04/04/20 History [Advil PM] hydrocodone-acetaminophen 1 tab PO Q6H PRN #10 tab 04/04/20 Rx Past Med/Surg History Medical History BPH (benign prostatic hyperplasia) Riddle catheter in place History of skin cancer ON CHEST AREA Hyperlipidemia Hypertension Multiple sclerosis Debilitated, wheelchair-bound for several years. Can transfer self. Following with Dr Armenta Diane neuro. Sacral ulcer Treating with topical ointment currently. Spontaneous pneumothorax HX OF MANY YEARS AGO A TEENAGER (NO SURGERY) Urinary retention Surgical History H/O arthroscopy of shoulder RT History of colonoscopy History of esophagogastroduodenoscopy (EGD) History of herniorrhaphy History of tonsillectomy History of tooth extraction Hx of appendectomy Family History Other Cancer No family history of adverse response to anesthesia Social History Smoking Status: Former smoker Second Hand Exposure: Yes ( A CHILD); Hx Alcohol Use: No Hx Substance Use: No Preferred Language: Kiswahili Communication Ability: Effective Bodily Injury Adjuster Required: No Beliefs That Will Affect Care: None marital status: Current Living Situation: Spouse Feels Safe at Home: Yes Assistive Devices: Denture - Upper, Denture - Lower, Glasses and Wheelchair Review of Systems Review of Systems: All systems reviewed & are unremarkable except as noted in HPI & below Physical Exam Physical Exam: Constitutional: Chronically ill-appearing male, vitals as above , NAD, sitting up in bed, pleasant, conversing easily Head: Normocephalic, Atraumatic Eyes: PERRL, conjunctivae normal, anicteric sclerae ENMT: external ear and nose normal, oropharynx normal Neck: trachea midline, no thyromegaly normal visual inspection Respiratory: normal respiratory effort, lungs clear to auscultation, no wheeze, rales, rhonchi. Normal insp/exp effort, no accessory muscle use Cardiovascular: RRR, no murmur, +1 extremity pretibial edema, no erythema or warmth vessels: no JVD or carotid bruit Chest: normal inspection of chest Abdomen: normal bowel sounds, soft, nontender, nondistended Musculoskeletal: no cyanosis or clubbing, active range of motion x4 Skin: no rashes, warm and dry normal turgor Neurologic: PERRL, EOMI, accommodation nl, no face palsy, no dysarthria CN's II-XI intact bilaterally and moves all extremities Psychiatric: A+Ox3, dysthymic affect : Riddle catheter in place draining clear yellow urine Sacral: wound images reviewed Results & Data Results & Data ([facility]) Vital Signs (Past 12 Hours) Vital Signs Temp Pulse Pulse Resp BP BP Pulse Ox 04/04/20 13:35 36.7 C 76 18 151/85 H 96 04/04/20 13:00 76 16 137/68 95 04/04/20 12:05 36.5 C 73 16 148/67 H 96 04/04/20 11:55 36.7 C 73 16 138/72 97 04/04/20 11:45 36.7 C 69 16 147/64 H 100 04/04/20 11:35 68 18 146/73 H 100 04/04/20 11:25 70 14 146/69 H 100 04/04/20 11:17 36.7 C 70 16 146/71 H 100 04/04/20 08:51 36.8 C 90 20 134/77 98 Diagnostic Findings CXR 03/28/20: IMPRESSION: 1. Trace right pleural effusion. 2. No evidence for pulmonary edema. 3. No consolidation to suggest pneumonia. Medications Administered Lactated Ringer's (Lr) 1,000 mls @ 15 mls/hr IV .Q24H [place] Stop: 04/05/20 05:59 Last Admin: 04/04/20 09:34 Dose: 15 mls/hr Documented by: [id number] Ciprofloxacin (Cipro / D5w) 400 mg in 200 mls @ 100 mls/hr IV PREOP [place] Stop: 04/04/20 18:00 Last Admin: 04/04/20 09:32 Dose: 100 mls/hr Documented by: [id number] Code Status & VTE Plan Code Status Full Code VTE Prophylaxis Plan VTE Prophylaxis will be ordered: Yes Supervising Physician Co-Signing Physician Notes Patient is a 80-year-old male with history of multiple sclerosis, hypertension and other medical problems who presents for elective TURP, lithotripsy was seen and examined after having urological procedure. Patient was noted to have sacral wounds associated with rectal pain. No known history of fever, chills, chest pain, dyspnea, dizziness. Patient had chronic sacral wounds which gradually worsened given his poor mobility secondary to multiple sclerosis. Please review HPI for complete details of presentation. On exam patient is chronically appearing, no apparent distress, normocephalic atraumatic, EOMI, clear to auscultation, normal breath sounds, S1-S2, no audible murmur,+ bilateral lower extremity edema, abdomen-soft, nontender, normal bowel sounds, alert, awake, oriented, chronic lower extremity weakness secondary to multiple sclerosis. Patient is admitted for management of sacral ulcer/wounds. Will start on broad-spectrum antibiotics--Zosyn, doxycycline. Obtain blood work including CBC, CMP, blood cultures, wound cultures. Will consult wound care physician for possible debridement. Chronic indwelling Riddle catheter --continue Riddle catheter care. Will need home health upon discharge. Further management based on lab results--will review when available. I personally reviewed the record. Patient is interviewed and examined at bedside. Patient's care is coordinated with Megan Villanueva PA-C. Please refer to the documentation above for details of patient's presentation and for discussion of other issues.
[2020-04-04] MEDS ORDERED: MAGNESIUM HYDROXIDE SUSP 30 ML UDC PO PRN (14:53)
[2020-04-04] MEDS ORDERED: ALUMINUM/MAGNESIUM SUSP 30 ML UDC PO PRN (14:53)
[2020-04-04] MEDS ORDERED: ACETAMINOPHEN 325 MG TAB PO PRN (14:53)
[2020-04-04] MEDS ORDERED: POLYETHYLENE (MIRALAX) 17 GM PACK PO PRN (14:53)
[2020-04-04] MEDS ORDERED: PIPERACILL/TAZOBAC CONSULT ACTIVE PRN (14:53)
[2020-04-04] MEDS ORDERED: CEFEPIME CONSULT ACTIVE PRN (15:12)
[2020-04-04 15:50] LABS: Basophils # (auto) 0.01 K/uL (0-0.2); Basophils % (auto) 0.1 %; Eosinophils # (auto) 0.02 K/uL (0-0.5); Eosinophils % (auto) 0.1 %; Hematocrit (blood only) 43.7 % (42-52); Hemoglobin 14.6 g/dL (14.0-18.0); Immature Granulocytes # (auto) 0.04 K/uL (0.00-0.02); Immature Granulocytes % (auto) 0.3 %; Lymphocytes # (auto) 1.02 K/uL (1.2-3.4); Lymphocytes % (auto) 7.1 %; Mean Corpuscular Hemoglobin 29.5 pg (25-34); Mean Corpuscular Volume 88.3 fL (80-100); Mean Platelet Volume 11.3 fL (7.4-10.4); Monocytes # (auto) 0.33 K/uL (0.11-0.59); Monocytes % (auto) 2.3 %; Neutrophils # (auto) 12.99 K/uL (1.4-6.5); Neutrophils % (auto) 90.1 %; Platelet Count 467 K/uL (130-400); RDW Coefficient of Variation 13.6 % (11.5-14.5); Red Blood Count 4.95 M/uL (4.7-6.1); White Blood Count 14.41 K/uL (4.8-10.8)
[2020-04-04 15:53] LABS: Mean Corpuscular Hgb Conc 33.4 g/dL (32-36)
[2020-04-04 16:09] LABS: Albumin Level 2.5 gm/dl (3.4-5.0); BUN Creatinine Ratio 20.4 (10-20); Calcium 9.2 mg/dl (8.5-10.1); Creatinine Clr Calc Pharmacy 51.3 ml/min; Est GFR (African American) 56.4; Est GFR (Non-African American) 48.6; Magnesium 2.8 mg/dl (1.8-2.4); Potassium 4.5 mmol/L (3.5-5.1)
[2020-04-04 16:11] LABS: Albumin Globulin Ratio 0.5 (0.9-2); Bilirubin,Total 0.5 mg/dl (0.2-1); Globulin 5.4 gm/dl (2.5-4.0); Total Protein 7.9 gm/dl (6.4-8.2)
[2020-04-04 16:14] LABS: INR 1.2 (0.9-1.1); Partial Thromboplastin Ratio 1.5; Prothrombin Time 12.1 Seconds (9.0-12.0)
[2020-04-04] MEDS: CEFEPIME 2,000 MG in SYRINGE 0 ML IV SCH (17:55)
[2020-04-04] MEDS: LOSARTAN POTASSIUM 50 MG TAB PO SCH (20:04)
[2020-04-04] MEDS: amLODIPine BESYLATE 5 MG TAB PO SCH (20:04)
[2020-04-04] MEDS: DOXYCYCLINE HYCLATE 100 MG CAP PO SCH (21:12)
[2020-04-04] MEDS: traMADol HCL 50 MG TABLET PO PRN (21:15)
[2020-04-05] MEDS: CEFEPIME 2,000 MG in SYRINGE 0 ML IV SCH ×2 (05:22→19:28)
[2020-04-05 06:57] LABS: Basophils # (auto) 0.02 K/uL (0-0.2); Basophils % (auto) 0.1 %; Eosinophils # (auto) 0.05 K/uL (0-0.5); Eosinophils % (auto) 0.3 %; Hematocrit (blood only) 38.7 % (42-52); Hemoglobin 12.8 g/dL (14.0-18.0); Immature Granulocytes # (auto) 0.06 K/uL (0.00-0.02); Immature Granulocytes % (auto) 0.3 %; Mean Corpuscular Hemoglobin 28.8 pg (25-34); Mean Corpuscular Hgb Conc 33.1 g/dL (32-36); Mean Corpuscular Volume 87.2 fL (80-100); Mean Platelet Volume 11.4 fL (7.4-10.4); Monocytes # (auto) 1.97 K/uL (0.11-0.59); Monocytes % (auto) 11.3 %; Neutrophils # (auto) 13.31 K/uL (1.4-6.5); Platelet Count 430 K/uL (130-400); RDW Coefficient of Variation 13.3 % (11.5-14.5); RDW Standard Deviation 42.8 fL (36.4-46.3); Red Blood Count 4.44 M/uL (4.7-6.1); White Blood Count 17.51 K/uL (4.8-10.8)
[2020-04-05 07:06] LABS: Estimated Average Glucose 123 mg/dl; Hemoglobin A1C 5.9 % (4.5-5.6)
[2020-04-05 07:34] LABS: BUN Creatinine Ratio 22.4 (10-20); Calcium 8.3 mg/dl (8.5-10.1); Creatinine Clr Calc Pharmacy 48.8 ml/min; Est GFR (African American) 53.1; Est GFR (Non-African American) 45.8; Magnesium 2.5 mg/dl (1.8-2.4); Potassium 4.2 mmol/L (3.5-5.1)
[2020-04-05] MEDS: VITAMIN B COMPLEX TAB PO SCH (09:06)
[2020-04-05] MEDS: FOLIC ACID 1 MG TAB PO SCH (09:07)
[2020-04-05] MEDS: MULTIVITAMIN TAB PO SCH (09:07)
[2020-04-05] MEDS: DOXYCYCLINE HYCLATE 100 MG CAP PO SCH (09:07)
--- NOTE | 2020-04-05 09:58 | Hospitalist Progress Note ---
Date of Service April 05, 2020 Assessment & Plan (1) Sacral ulcer: (2) Multiple sclerosis: This is a 80 y/o male with multiple sclerosis wheelchair confined and hypertension who presented for elective urologic procedure. Patient underwent TURP, cystoscopy and laser litholapaxy by Dr. Larios on 04/04/20. He tolerated the procedure well. In recovery nurses discovered stage IV sacral wounds which have deteriorated since prior admission. admitted to med/surg Consulted wound care physician Dr. Neves along with wound care team - recommend surgical debridement Surgery consulted - CT ordered to eval for possible osteomyelitis ESR, CRP elevated Blood cultx - pending Empiric IV antibiotics on admission: Zosyn and Doxycycline Skin cultx - positive for Strep species and Gram negat. bacili Doxy switched to vancomycin until final cultx available Lactic acid 1.6, procalcitonin- negative Turn and position q2h regular diet, consult central processing tech for recommendations (3) Hypertension: continue amlodipine and losartan monitor (4) 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 Larios, POD #1 continue riddle care will need appropriate urology follow up Plan for outp follow up, cont. Riddle until then (5) Ambulatory dysfunction: pt wheel chair bound 2/2 to MS states he previously was independent for transfers consult PT/OT after surgery for further dc needs (6) DVT prophylaxis: pt high risk given lack of mobility scd/teds for now due to possible wound debridement plan for surg. debridement, hold chemical prophylaxis for now reassess daily need for chemical prophylaxis Disposition: admit to med/surg Follow up: PCP Dr. Lyman upon discharge Admission and Anticipated Discharge Date Admission Date: April 04, 2020 Subjective Pt is laying in bed in NAD. He is alert and oriented and answering questions appropriately. Underwent urologic procedure yesterday w/ dr. Larios. Pt tolerated procedure well. Now Riddle placed. Pt admitted d/t worsening sacral wound. Wound care physician recommends surgical debridement, surgery was consulted. Pt denies fever, chills, chest pain, shortness of breath, abd. pain. Currently denies any pain. Review of Systems Review of Systems: All systems reviewed & are unremarkable except as noted in HPI & below Constitutional: no fever and no chills Respiratory: no cough and no dyspnea Cardiovascular: no chest pain and no palpitations Gastrointestinal: no abdominal pain, no nausea and no vomiting Physical Exam Physical Exam: Constitutional: Chronically ill-appearing male, in NAD, laying in bed, pleasant, conversing easily Head: Normocephalic, Atraumatic Eyes: PERRL, EOMI, conjunctivae normal, anicteric sclerae ENMT: external ear and nose normal, oropharynx normal Neck: normal visual inspection Respiratory: normal respiratory effort, lungs clear to auscultation, no wheeze, rales, rhonchi. Normal insp/exp effort, no accessory muscle use Cardiovascular: RRR, no murmur, +trace LE pretibial edema, no erythema or warmth vessels: no JVD or carotid bruit Chest: normal inspection of chest Abdomen: normal bowel sounds, soft, nontender, nondistended Musculoskeletal: no cyanosis or clubbing, active range of motion x4 Skin: no rashes, warm and dry normal turgor Neurologic: PERRL, EOMI, no face palsy, no dysarthria, difficulty moving LEs d/t MS, moves upper extremities w/o difficulty Psychiatric: A+Ox3, dysthymic affect : Riddle catheter in place draining clear yellow urine Skin: + large erythematous sacral wound with some necrotic tissue noted centrally. no pain to palpation. some amount of bloody drainage noted on dressing Results & Data Results & Data ([facility]) Vital Signs (Past 12 Hours) Vital Signs Temp Pulse Pulse Resp BP Pulse Ox 04/05/20 07:31 36.8 C 74 133/51 L 94 04/05/20 02:45 36.5 C 74 18 115/67 96 04/04/20 23:10 36.8 C 83 18 128/74 97 Laboratory Results 04/05/20 04/05/20 04/05/20 Range/Units 06:13 06:13 06:13 WBC 17.51 H (4.8-10.8) K/uL RBC 4.44 L (4.7-6.1) M/uL Hgb 12.8 L (14.0-18.0) g/dL Hct 38.7 L (42-52) % MCV 87.2 (80-100) fL MCH 28.8 (25-34) pg MCHC 33.1 (32-36) g/dL RDW Std Deviation 42.8 (36.4-46.3) fL RDW Coeff of Bossman 13.3 (11.5-14.5) % Plt Count 430 H (130-400) K/uL MPV 11.4 H (7.4-10.4) fL Immature Gran % (Auto) 0.3 % Neut % (Auto) 76.0 % Lymph % (Auto) 12.0 % Andrew % (Auto) 11.3 % Eos % (Auto) 0.3 % Baso % (Auto) 0.1 % Neut # (Auto) 13.31 H (1.4-6.5) K/uL Lymph # (Auto) 2.10 (1.2-3.4) K/uL Andrew # (Auto) 1.97 H (0.11-0.59) K/uL Eos # (Auto) 0.05 (0-0.5) K/uL Baso # (Auto) 0.02 (0-0.2) K/uL Immature Gran # (Auto) 0.06 H (0.00-0.02) K/uL PT (9.0-12.0) Seconds INR (0.9-1.1) APTT (21.0-31.0) Seconds PTT Ratio Sodium 136 (136-145) mmol/L Potassium 4.2 (3.5-5.1) mmol/L Chloride 105 (98-107) mmol/L Carbon Dioxide 28 (21-32) mmol/L Anion Gap 3.0 (3-11) BUN 33 H (7-18) mg/dl Creatinine 1.45 H (0.6-1.4) mg/dl Est Cr Clr Drug Dosing 48.8 ml/min Est GFR ( Amer) 53.1 Est GFR (Non-Af Amer) 45.8 BUN/Creatinine Ratio 22.4 H (10-20) Glucose 112 H (70-99) mg/dl Estimat Average Glucose 123 mg/dl Hemoglobin A1c 5.9 H (4.5-5.6) % Lactate (0.4-2.0) mmol/L Calcium 8.3 L (8.5-10.1) mg/dl Magnesium 2.5 H (1.8-2.4) mg/dl Total Bilirubin (0.2-1) mg/dl AST (15-37) U/L ALT (12-78) U/L Alkaline Phosphatase (45-117) U/L Total Protein (6.4-8.2) gm/dl Albumin (3.4-5.0) gm/dl Globulin (2.5-4.0) gm/dl Albumin/Globulin Ratio (0.9-2) Procalcitonin (0-0.5) ng/ml Nasal Screen MRSA (PCR) (Negative) Stone Source Stone Weight Stone Composition Stone Composition 2 04/04/20 04/04/20 04/04/20 Range/Units Unknown 15:38 15:38 WBC (4.8-10.8) K/uL RBC (4.7-6.1) M/uL Hgb (14.0-18.0) g/dL Hct (42-52) % MCV (80-100) fL MCH (25-34) pg MCHC (32-36) g/dL RDW Std Deviation (36.4-46.3) fL RDW Coeff of Bossman (11.5-14.5) % Plt Count (130-400) K/uL MPV (7.4-10.4) fL Immature Gran % (Auto) % Neut % (Auto) % Lymph % (Auto) % Andrew % (Auto) % Eos % (Auto) % Baso % (Auto) % Neut # (Auto) (1.4-6.5) K/uL Lymph # (Auto) (1.2-3.4) K/uL Andrew # (Auto) (0.11-0.59) K/uL Eos # (Auto) (0-0.5) K/uL Baso # (Auto) (0-0.2) K/uL Immature Gran # (Auto) (0.00-0.02) K/uL PT (9.0-12.0) Seconds INR (0.9-1.1) APTT (21.0-31.0) Seconds PTT Ratio Sodium (136-145) mmol/L Potassium (3.5-5.1) mmol/L Chloride (98-107) mmol/L Carbon Dioxide (21-32) mmol/L Anion Gap (3-11) BUN (7-18) mg/dl Creatinine (0.6-1.4) mg/dl Est Cr Clr Drug Dosing ml/min Est GFR ( Amer) Est GFR (Non-Af Amer) BUN/Creatinine Ratio (10-20) Glucose (70-99) mg/dl Estimat Average Glucose mg/dl Hemoglobin A1c (4.5-5.6) % Lactate 1.6 (0.4-2.0) mmol/L Calcium (8.5-10.1) mg/dl Magnesium (1.8-2.4) mg/dl Total Bilirubin (0.2-1) mg/dl AST (15-37) U/L ALT (12-78) U/L Alkaline Phosphatase (45-117) U/L Total Protein (6.4-8.2) gm/dl Albumin (3.4-5.0) gm/dl Globulin (2.5-4.0) gm/dl Albumin/Globulin Ratio (0.9-2) Procalcitonin < 0.05 (0-0.5) ng/ml Nasal Screen MRSA (PCR) Negative (Negative) Stone Source Stone Weight Stone Composition Stone Composition 2 04/04/20 04/04/20 04/04/20 Range/Units 15:38 15:38 15:38 WBC 14.41 H (4.8-10.8) K/uL RBC 4.95 (4.7-6.1) M/uL Hgb 14.6 (14.0-18.0) g/dL Hct 43.7 (42-52) % MCV 88.3 (80-100) fL MCH 29.5 (25-34) pg MCHC 33.4 (32-36) g/dL RDW Std Deviation 44.0 (36.4-46.3) fL RDW Coeff of Bossman 13.6 (11.5-14.5) % Plt Count 467 H (130-400) K/uL MPV 11.3 H (7.4-10.4) fL Immature Gran % (Auto) 0.3 % Neut % (Auto) 90.1 % Lymph % (Auto) 7.1 % Andrew % (Auto) 2.3 % Eos % (Auto) 0.1 % Baso % (Auto) 0.1 % Neut # (Auto) 12.99 H (1.4-6.5) K/uL Lymph # (Auto) 1.02 L (1.2-3.4) K/uL Andrew # (Auto) 0.33 (0.11-0.59) K/uL Eos # (Auto) 0.02 (0-0.5) K/uL Baso # (Auto) 0.01 (0-0.2) K/uL Immature Gran # (Auto) 0.04 H (0.00-0.02) K/uL PT 12.1 H (9.0-12.0) Seconds INR 1.2 H (0.9-1.1) APTT 43.0 H (21.0-31.0) Seconds PTT Ratio 1.5 Sodium 134 L (136-145) mmol/L Potassium 4.5 (3.5-5.1) mmol/L Chloride 103 (98-107) mmol/L Carbon Dioxide 26 (21-32) mmol/L Anion Gap 5.0 (3-11) BUN 28 H (7-18) mg/dl Creatinine 1.38 (0.6-1.4) mg/dl Est Cr Clr Drug Dosing 51.3 ml/min Est GFR ( Amer) 56.4 Est GFR (Non-Af Amer) 48.6 BUN/Creatinine Ratio 20.4 H (10-20) Glucose 215 H (70-99) mg/dl Estimat Average Glucose mg/dl Hemoglobin A1c (4.5-5.6) % Lactate (0.4-2.0) mmol/L Calcium 9.2 (8.5-10.1) mg/dl Magnesium 2.8 H (1.8-2.4) mg/dl Total Bilirubin 0.5 (0.2-1) mg/dl AST 37 (15-37) U/L ALT 22 (12-78) U/L Alkaline Phosphatase 81 (45-117) U/L Total Protein 7.9 (6.4-8.2) gm/dl Albumin 2.5 L (3.4-5.0) gm/dl Globulin 5.4 H (2.5-4.0) gm/dl Albumin/Globulin Ratio 0.5 L (0.9-2) Procalcitonin (0-0.5) ng/ml Nasal Screen MRSA (PCR) (Negative) Stone Source Stone Weight Stone Composition Stone Composition 2 11/19/20 Range/Units 11:00 WBC (4.8-10.8) K/uL RBC (4.7-6.1) M/uL Hgb (14.0-18.0) g/dL Hct (42-52) % MCV (80-100) fL MCH (25-34) pg MCHC (32-36) g/dL RDW Std Deviation (36.4-46.3) fL RDW Coeff of Bossman (11.5-14.5) % Plt Count (130-400) K/uL MPV (7.4-10.4) fL Immature Gran % (Auto) % Neut % (Auto) % Lymph % (Auto) % Andrew % (Auto) % Eos % (Auto) % Baso % (Auto) % Neut # (Auto) (1.4-6.5) K/uL Lymph # (Auto) (1.2-3.4) K/uL Andrew # (Auto) (0.11-0.59) K/uL Eos # (Auto) (0-0.5) K/uL Baso # (Auto) (0-0.2) K/uL Immature Gran # (Auto) (0.00-0.02) K/uL PT (9.0-12.0) Seconds INR (0.9-1.1) APTT (21.0-31.0) Seconds PTT Ratio Sodium (136-145) mmol/L Potassium (3.5-5.1) mmol/L Chloride (98-107) mmol/L Carbon Dioxide (21-32) mmol/L Anion Gap (3-11) BUN (7-18) mg/dl Creatinine (0.6-1.4) mg/dl Est Cr Clr Drug Dosing ml/min Est GFR ( Amer) Est GFR (Non-Af Amer) BUN/Creatinine Ratio (10-20) Glucose (70-99) mg/dl Estimat Average Glucose mg/dl Hemoglobin A1c (4.5-5.6) % Lactate (0.4-2.0) mmol/L Calcium (8.5-10.1) mg/dl Magnesium (1.8-2.4) mg/dl Total Bilirubin (0.2-1) mg/dl AST (15-37) U/L ALT (12-78) U/L Alkaline Phosphatase (45-117) U/L Total Protein (6.4-8.2) gm/dl Albumin (3.4-5.0) gm/dl Globulin (2.5-4.0) gm/dl Albumin/Globulin Ratio (0.9-2) Procalcitonin (0-0.5) ng/ml Nasal Screen MRSA (PCR) (Negative) Stone Source Pending Stone Weight Pending Stone Composition Pending Stone Composition 2 Pending Medications Administered Current Inpatient Medications Acetaminophen (Acetaminophen 325 Mg Tab) 650 mg PO Q4H PRN PRN Reason: pain/fever Stop: 05/04/20 14:52 Al Hydrox/Mg Hydrox/Simethicone (Aluminum/Magnesium Susp 30 Ml Udc) 30 ml PO Q6H PRN PRN Reason: Dyspepsia Stop: 05/04/20 14:52 Amlodipine Besylate (Amlodipine Besylate 5 Mg Tab) 10 mg PO QPM [facility] Stop: 05/04/20 20:59 Last Admin: 04/04/20 20:04 Dose: 10 mg Documented by: Doxycycline Hyclate (Doxycycline Hyclate 100 Mg Cap) 100 mg PO BID [facility] Stop: 04/11/20 20:59 Last Admin: 04/05/20 09:07 Dose: 100 mg Documented by: Folic Acid (Folic Acid 1 Mg Tab) 1 mg PO QAM [facility] Stop: 05/05/20 08:59 Last Admin: 04/05/20 09:07 Dose: 1 mg Documented by: Cefepime HCl 2,000 mg/ Syringe 20 mls @ 5 mls/min IV Q12@0600,1800 [facility]; Protocol Stop: 04/11/20 15:59 Last Admin: 04/05/20 05:22 Dose: 5 mls/min Documented by: Losartan Potassium (Losartan Potassium 50 Mg Tab) 100 mg PO QPM [place] Stop: 05/04/20 20:59 Last Admin: 04/04/20 20:04 Dose: 100 mg Documented by: Magnesium Hydroxide (Magnesium Hydroxide Susp 30 Ml Udc) 30 ml PO Q6H PRN PRN Reason: Constipation Stop: 05/04/20 14:52 Miscellaneous Information (Cefepime Consult Active) 1 ea N/A UD PRN PRN Reason: Consult Stop: 05/04/20 15:11 Multivitamins (Multivitamin Tab) 1 tab PO QAM [facility] Stop: 05/05/20 08:59 Last Admin: 04/05/20 09:07 Dose: 1 tab Documented by: Ondansetron HCl (Ondansetron Inj 2 Mg/Ml 2 Ml Vial) 4 mg IV Q6H PRN PRN Reason: Nausea Stop: 05/04/20 14:52 Polyethylene Glycol (Polyethylene (Miralax) 17 Gm Pack) 17 gm PO DAILY PRN PRN Reason: Constipation Stop: 05/04/20 14:52 Tramadol HCl (Tramadol Hcl 50 Mg Tablet) 50 mg PO Q8H PRN PRN Reason: pain Stop: 05/04/20 14:52 Last Admin: 04/04/20 21:15 Dose: 50 mg Documented by: Vitamin B Complex (Vitamin B Complex Tab) 1 tab PO QAM [facility] Stop: 05/05/20 08:59 Last Admin: 04/05/20 09:06 Dose: 1 tab Documented by:
--- NOTE | 2020-04-05 11:15 | Urology Progress Note ---
Date of Service April 05, 2020 Assessment & Plan (1) S/P transurethral resection of prostate: 80yo M who is s/p Transurethral Resection of the Prostate and Cystolithopaxy with Dr. Larios who was admitted for evaluation of sacral ulcer. -POD #1 s/p TURP and Cystolithopaxy -Doing well post procedure -Remains afebrile -Labs reviewed, Wbc 17.51, Hgb 12.8, creatinine with slight increase to 1.45 - Will continue to trend -No reported pain -Continue Estrella catheter until outpatient follow-up with urology -Continue supportive care and antibiotics per primary team -Follow-up appointment in place with urology service. Admission and Anticipated Discharge Date Admission Date: April 04, 2020 Subjective 80yo M who is s/p Transurethral Resection of the Prostate and Cystolithopaxy with Dr. Larios who was admitted for evaluation of sacral ulcer. POD #1 s/p TURP and Cystolithopaxy Doing well post procedure Denies any pain or discomfort Tolerating diet, no nausea or vomiting Estrella catheter intact, draining clear, yellow urine in tubing Denies fevers or chills Offers no additional urological complaints Chart review: Afebrile Wbc 17.51 Hgb 12.8 Cr 1.45 Blood cultures- pending On IV Cefepime and PO Doxy Review of Systems Constitutional: as per Subjective / HPI Gastrointestinal: as per Subjective / HPI Genitourinary: + as per Subjective / HPI Physical Exam Constitutional: cooperative; no acute distress Respiratory: normal respiratory effort and able to speak in complete sentences Gastrointestinal (Abdomen): Percussion/Palpation: abdomen soft; abdomen nontender and no guarding Skin: Warm and dry Neurologic: awake; not obtunded Psychiatric: Orientation: alert and oriented x 3 Genitourinary: Estrella catheter intact, draining clear, yellow urine in tubing Results & Data ([facility]) Vital Signs (Past 12 Hours) Vital Signs Temp Pulse Pulse Resp BP Pulse Ox 04/05/20 07:31 36.8 C 74 133/51 L 94 04/05/20 02:45 36.5 C 74 18 115/67 96 PG Care Time/CCT Total # of Minutes Spent Total Time Spent with Patient: Total time spent is greater than 50% in coordination of care (as documented) at patient's floor/unit and/or counseling patient: Coding Level of Care Code None Diagnoses S/P transurethral resection of prostate Z90.79
--- NOTE | 2020-04-05 14:20 | Surgery Consultation ---
Date of Consultation April 05, 2020 Assessment & Plan (1) Sacral ulcer: This is a 80y M with a PMH of multiple sclerosis (per pt diagnosed in 1978) who has been wheelchair bound since ~1989 who presented to the [facility] on 04/04/20 for an elective TURP procedure, now found this admission to have deterioration of his sacral wounds. Hospitalists have admitted the patient and pt is currently on cefepime/doxycycline. Wound care evaluated the patient today and are requesting evaluation for possible surgical debridement. On exam patient has a large erythematous sacral wound with some central necrosis. Non tender to palpation. Agree with offloading as able & new mattress. Will order a CT pelvis to rule out any bony involvement. We will make patient NPO at midnight and add him to the OR schedule tomorrow for surgical debridement. Patient expressed understanding and agreeable with plan. Patient seen by Dr. Mcnamara as well who has obtained surgical consent. Supervising Physician Co-Signing Physician Notes I personally saw and evaluated the patient with Elodia Stroud PA-C and agree with the assessment and plan 80 yo male with MS, wheelchair bound with large sacral decubitus ulcer -Will order CT pelvis to look for any abscess or osteomyelitis -Make NPO -Will plan for operative debridement tomorrow -Consent obtained, risks discussed including bleeding, infection, need for further debridements History of Present Illness Attending Physician: Seth Vallejo MD History of Present Illness This is a 80y M with a PMH of multiple sclerosis (per pt diagnosed in 1978) who has been wheelchair bound since ~1989 who presented to the [facility] on 04/04/20 for an elective TURP procedure. Marixa-procedurally the patient was noted to have significant sacral wounds. The hospitalists evaluated the patient and admitted him to their service with a wound consultation placed. Of significance the florence anderson was admitted from 03/22-03/24 with a UTI when his urologic workup began. At this time he was also noted to have sacral wounds, was evaluated by wound care, and was discharged with instructions regarding offloading and plans for further outpatient care. Since that admission apparently his wounds have deteriorated and surgical consultation was placed for consideration of debridement. Patient reports he has not had a history of pressure sores or wounds in the past. The first he was informed of these was on his last admission. Patient denies any fevers/chills, nausea/vomiting, change in bowel habits, abdominal pain, chest pain or shortness of breath. He denies any pain or significant drainage from the wounds them self. He reports feeling well s/p his TURP procedure yesterday. Allergies Allergy/AdvReac Type Severity Reaction Status Date / Time ampicillin Allergy Unknown Unknown Verified 04/04/20 08:45 morphine AdvReac Mild "MADE ME Verified 04/04/20 08:45 FEEL ODD" Home Medications Medication Instructions Recorded Confirmed Type amlodipine 10 mg PO QPM 03/21/20 04/04/20 History losartan 100 mg PO QPM 03/21/20 04/04/20 History krill oil 500 mg PO QAM 03/26/20 04/04/20 History multivitamin 1 tab PO QAM 03/26/20 04/04/20 History omega-3 fatty acids-fish oil 1 cap PO QAM 03/26/20 04/04/20 History [[place] 3 Fish Oil] vitamin B complex 1 tab PO QAM 03/26/20 04/04/20 History tramadol 50 mg tablet 50 mg PO Q8H PRN #20 tab 03/27/20 04/04/20 Rx cefdinir 300 mg PO BID 04/03/20 04/04/20 History folic acid 1 mg PO QAM 04/03/20 04/04/20 History ibuprofen-diphenhydramine cit 2 cap PO HS PRN 04/03/20 04/04/20 History [Advil PM] hydrocodone-acetaminophen 1 tab PO Q6H PRN #10 tab 04/04/20 Rx Patient History Medical History BPH (benign prostatic hyperplasia) Estrella catheter in place History of skin cancer ON CHEST AREA Hyperlipidemia Hypertension Multiple sclerosis Debilitated, wheelchair-bound for several years. Can transfer self. Following with Dr Armenta, [facility]. Sacral ulcer Treating with topical ointment currently. Spontaneous pneumothorax HX OF MANY YEARS AGO A TEENAGER (NO SURGERY) Urinary retention Surgical History H/O arthroscopy of shoulder RT History of colonoscopy History of esophagogastroduodenoscopy (EGD) History of herniorrhaphy History of tonsillectomy History of tooth extraction Hx of appendectomy S/P transurethral resection of prostate S/P TURP Family History Other Cancer No family history of adverse response to anesthesia Social History Smoking Status: Former smoker Smoking End Date: 1978; Second Hand Exposure: No; Do You Dip or Chew Tobacco: No; Tobacco Cessation Education Requested by Patient: No Hx Alcohol Use: No Hx Substance Use: No Preferred Language: Serbian Communication Ability: Effective Outside Operator Required: No Beliefs That Will Affect Care: None marital status: Current Living Situation: Spouse Feels Safe at Home: Yes Safety Concerns: Feels Safe At This Time Assistive Devices: Denture - Upper, Denture - Lower and Glasses Review of Systems Constitutional: no fever and no chills Eyes: no blind spots and no worsening vision Respiratory: no cough and no dyspnea Cardiovascular: no chest pain and no dyspnea Gastrointestinal: no abdominal pain, no nausea, no vomiting and no change in bowel habits Genitourinary: + difficulty urinating; no flank pain Musculoskeletal: +history of MS Integumentary: + new lesions, + skin ulcer and + sores + sacral wounds, denies pain Neurologic: +history of MS Psychiatric: no behavioral changes and no depression Hematologic / Lymphatic: no easy bleeding and no easy bruising Physical Exam Physical Exam: awake/alert Constitutional: cooperative and comfortable; no acute distress Eyes: PERRL, conjunctivae normal, anicteric sclerae ENMT: external ear and nose normal, oropharynx normal Neck: trachea midline, no thyromegaly Respiratory: normal respiratory effort Cardiovascular: RRR, no murmur, no edema Gastrointestinal (Abdomen): Percussion/Palpation: abdomen soft; abdomen nontender, no guarding and abdomen not rigid Skin: + large erythematous sacral wound with some necrotic tissue noted centrally. no pain to palpation. some amount of bloody drainage noted on dressing Psychiatric: A+Ox3, euthymic affect Results & Data ([facility]) Vital Signs (Past 12 Hours) Vital Signs Temp Pulse Pulse Resp BP Pulse Ox 04/05/20 12:30 36.8 C 80 16 128/64 99 04/05/20 07:31 36.8 C 74 133/51 L 94 04/05/20 02:45 36.5 C 74 18 115/67 96 PG Care Time/CCT Total # of Minutes Spent Total Time Spent with Patient: Total time spent is greater than 50% in coordination of care (as documented) at patient's floor/unit and/or counseling patient: Coding Level of Care Code 54783 Initial Inpt Care Lvl 2 Diagnoses Sacral ulcer L98.429
--- NOTE | 2020-04-05 14:53 | Wound Consultation ---
Date of Consultation April 05, 2020 Assessment & Plan (1) Unstageable pressure ulcer of sacral region: This is a 80-year-old debilitated male with a history of MS who is being seen for evaluation of unstageable sacral ulcers. No debridement was done at bedside. Patient would benefit from surgical debridement. After debridement of the wound could consider wound VAC placement. Patient will likely require lengthy rehab stay. We will place patient on specialty bed for offloading. We will defer imaging to surgical team. Thank you for allow me to participate in the care of this patient. Please call with any questions. History of Present Illness Reason for Consultation: Unstageable ulcers of the sacrum Attending Physician: Seth Vallejo MD History of Present Illness This is a 80-year-old male with a past medical history of multiple sclerosis diagnosed in and wheelchair confined since who presented to the hospital for elective urologic procedure. Patient underwent TURP, cystoscopy and laser lithoplasty by Dr. Larios and tolerated the procedure well. Recovery nurses noted unstageable sacral wounds. Of significance patient was admitted from 03 22-03 24 secondary to complicated UTI, bladder/renal stones and BPH with obstructive. Patient was discharged with home health through [facility] however this was accidentally canceled. I am being consulted for patient's sacral wounds. Allergies Allergy/AdvReac Type Severity Reaction Status Date / Time ampicillin Allergy Unknown Unknown Verified 04/04/20 08:45 morphine AdvReac Mild "MADE ME Verified 04/04/20 08:45 FEEL ODD" Home Medications Medication Instructions Recorded Confirmed Type amlodipine 10 mg PO QPM 03/21/20 04/04/20 History losartan 100 mg PO QPM 03/21/20 04/04/20 History krill oil 500 mg PO QAM 03/26/20 04/04/20 History multivitamin 1 tab PO QAM 03/26/20 04/04/20 History omega-3 fatty acids-fish oil 1 cap PO QAM 03/26/20 04/04/20 History [[place] 3 Fish Oil] vitamin B complex 1 tab PO QAM 03/26/20 04/04/20 History tramadol 50 mg tablet 50 mg PO Q8H PRN #20 tab 03/27/20 04/04/20 Rx cefdinir 300 mg PO BID 04/03/20 04/04/20 History folic acid 1 mg PO QAM 04/03/20 04/04/20 History ibuprofen-diphenhydramine cit 2 cap PO HS PRN 04/03/20 04/04/20 History [Advil PM] hydrocodone-acetaminophen 1 tab PO Q6H PRN #10 tab 04/04/20 Rx Patient History Medical History BPH (benign prostatic hyperplasia) Estrella catheter in place History of skin cancer ON CHEST AREA Hyperlipidemia Hypertension Multiple sclerosis Debilitated, wheelchair-bound for several years. Can transfer self. Following with Dr Armenta [facility] neuro. Sacral ulcer Treating with topical ointment currently. Spontaneous pneumothorax HX OF MANY YEARS AGO A TEENAGER (NO SURGERY) Urinary retention Surgical History H/O arthroscopy of shoulder RT History of colonoscopy History of esophagogastroduodenoscopy (EGD) History of herniorrhaphy History of tonsillectomy History of tooth extraction Hx of appendectomy S/P transurethral resection of prostate S/P TURP Family History Other Cancer No family history of adverse response to anesthesia Social History Smoking Status: Former smoker Smoking End Date: 1978; Second Hand Exposure: No; Do You Dip or Chew Tobacco: No; Tobacco Cessation Education Requested by Patient: No Hx Alcohol Use: No Hx Substance Use: No Preferred Language: Peruvian Communication Ability: Effective Meat Washer Required: No Beliefs That Will Affect Care: None marital status: Current Living Situation: Spouse Feels Safe at Home: Yes Safety Concerns: Feels Safe At This Time Assistive Devices: Denture - Upper, Denture - Lower and Glasses Review of Systems Review of Systems: All systems reviewed & are unremarkable except as noted in HPI & below Physical Exam Physical Exam: Temp Pulse Resp BP Pulse Ox 36.8 C 80 16 128/64 99 04/05/20 12:30 04/05/20 12:30 04/05/20 12:30 04/05/20 12:30 04/05/20 12:30 Constitutional: WD/WN, vitals as above Eyes: PERRL, conjunctivae normal, anicteric sclerae Skin: Wounds measuring as recorded in nursing documentation. They are coated with black eschar. They appear to still be evolving. There is some wet gangrene in the medial wound. Neurologic: awake; not confused Psychiatric: A+Ox3, euthymic affect Results & Data ([facility]) Vital Signs (Past 12 Hours) Vital Signs Temp Pulse Pulse Resp BP Pulse Ox 04/05/20 12:30 36.8 C 80 16 128/64 99 04/05/20 07:31 36.8 C 74 133/51 L 94 PG Care Time/CCT Total # of Minutes Spent Total Time Spent with Patient: Total time spent is greater than 50% in coordination of care (as documented) at patient's floor/unit and/or counseling patient: Coding Level of Care Code 69501 Inpt Consult Level 3 Diagnoses Unstageable pressure ulcer of sacral region L89.150
[2020-04-05] MEDS ORDERED: VANCOMYCIN CONSULT ACTIVE PRN (14:58)
--- NOTE | 2020-04-05 15:07 | Pharmacy Report ---
Pharmacy Abx Dose Short Note - Date of Service April 05, 2020 - Assessment & Plan Assessment 80 year old M receiving cefepime and now vancomycin for treatment of stage IV sacral ulcers Day # 1 of antimicrobial therapy. Plan Vancomycin Patient meets criteria for vancomycin AUC dosing nomogram (patient is wheelchair bound BUT is not a paraplegic) AUC/MONTSERRAT is the preferred PK/PD target for vancomycin * Target AUC/MONTSERRAT = 400-600 * AUC guided dosing is effective and associated with decreased risk of nephrotoxicity Pharmacy will continue to follow and will adjust dose/frequency as necessary. Thank you.
--- NOTE | 2020-04-05 15:23 | CT Scan Report ---
CT SCAN OF THE PELVIS WITHOUT IV CONTRAST CLINICAL HISTORY: Sacral ulcer. COMPARISON STUDY: Pelvic CT dated 03/21/2020 TECHNIQUE: CT scan of the pelvis is performed from the pelvic inlet to the proximal femora. Images ar e reviewed in the axial, sagittal, and coronal planes. IV contrast was not administered for this exam ination. A dose lowering technique was utilized adhering to the principles of ALARA. FINDINGS: The skeletal structures are osteopenic. No fracture is seen. No lytic or blastic lesion is identified . There is no bony erosion or periostitis. Mild arthritic change and joint space narrowing is seen in the hips. The sacroiliac joints are normal. There is no evidence of avascular necrosis of the femora l heads. There is dermal thickening with induration in the soft tissues overlying the sacrum. Question a cutan eous defect on image #173. This may correspond to the reported history of a decubitus ulcer. There is no organized fluid collection to suggest abscess. Superficial and deep soft tissue induration is als o seen in the right posterior thigh on image #272 comment with intramuscular edema of the right glute us katharine seen on image #233. There is also scrotal edema. No deep soft tissue gas is present in the perineum. Plaque-like subcutaneous calcifications are present in the anterior thigh bilaterally as w ell as in the gluteal soft tissues and the ventral abdominal wall. The prostate gland is enlarged and heterogeneous. The bladder is largely decompressed around a Estrella catheter. The bladder wall is thickened and trabeculated indicating chronic outlet obstruction. There are bladder calculi, as well as large bladder diverticula which contain numerous stones. Pericystic inflammation is noted. No distal ureteral stone is seen. The distal left ureter is patulous, similar to previous. The visualized loops of small bowel and colon are normal in caliber. A large left inguin al hernia contains nonobstructed bowel loops. There is a smaller fat-containing right inguinal hernia . There is diverticulosis of the left colon without CT evidence of acute diverticulitis. Trace free f luid is seen in the right paracolic gutter. No pelvic sidewall or inguinal adenopathy is seen. IMPRESSION: 1. No bony abnormality is seen in the pelvis. Specifically, there is no evidence of osteomyelitis as clinically queried. 2. There is evidence of a sacral decubitus ulceration with underlying cellulitis. No organized fluid collection is seen to suggest abscess. 3. Superficial and deep soft tissue induration is also identified in the right posterior thigh and th e right gluteus katharine muscle, also likely representing cellulitis/myositis. 4. Marked prostatomegaly with evidence of chronic bladder outlet obstruction. 5. There is pericystic inflammation, likely representing cystitis. Correlation with clinical findings and urinalysis will be required. 6. There are numerous bladder calculi, with additional calculi contained within bladder diverticula. 7. Trace free fluid is seen in the right paracolic gutter. 8. A large left inguinal hernia contains nonobstructed bowel loops. There is a smaller fat-containing right inguinal hernia. 9. Dermal calcifications are seen within the ventral abdominal wall, the gluteal soft tissues, and in the upper thighs. Correlate clinically for evidence of dermatomyositis. 10. There is nonspecific scrotal edema. ACT 112: Negative or not required by law. Electronically signed by: Sharan Rodriguez M.D. 04/05/2020 3:22 PM
[2020-04-05] MEDS ORDERED: VANCOMYCIN HCL 2,000 MG in SODIUM CHLORIDE 0.9% 500 ML IV ONE (16:00)
--- NOTE | 2020-04-05 17:42 | Anesthesiology Consultation ---
Date of Service April 05, 2020 Assessment & Plan Chart Review Chart Review: Acceptable Risk for Surgery and Patient NOT seen in Pre Admission Testing Consults Requested none ASA ASA3 Proposed Anesthesia Anesthesia Type: General History Surgery Operation Date: 04/04/20 09:35 Proposed Procedures p Transurethral Resection Prostate - Johnny Larios MD s Cystoscopy, Laser Lithalopaxy - Johnny Larios MD Operation Date: 04/06/20 07:30 Proposed Procedures p Incision and Drainage Sacral Decubital Ulcer - Deep Mcnamara, Height/Weight Height: 6 ft 2 in Weight: 87.3 kg Allergies Allergy/AdvReac Type Severity Reaction Status Date / Time ampicillin Allergy Unknown Unknown Verified 04/04/20 08:45 morphine AdvReac Mild "MADE ME Verified 04/04/20 08:45 FEEL ODD" Medications Home Medications Medication Instructions Recorded Confirmed Last Taken amlodipine 10 mg PO QPM 03/21/20 04/04/20 04/02/20 losartan 100 mg PO QPM 03/21/20 04/04/20 04/02/20 krill oil 500 mg PO QAM 03/26/20 04/04/20 04/03/20 multivitamin 1 tab PO QAM 03/26/20 04/04/20 04/03/20 omega-3 fatty acids-fish oil 1 cap PO QAM 03/26/20 04/04/20 04/03/20 [[place] 3 Fish Oil] vitamin B complex 1 tab PO QAM 03/26/20 04/04/20 04/03/20 tramadol 50 mg tablet 50 mg PO Q8H PRN #20 tab 03/27/20 04/04/20 04/03/20 cefdinir 300 mg PO BID 04/03/20 04/04/20 04/03/20 folic acid 1 mg PO QAM 04/03/20 04/04/20 04/03/20 ibuprofen-diphenhydramine cit 2 cap PO HS PRN 04/03/20 04/04/20 04/02/20 [Advil PM] 2 caps hydrocodone-acetaminophen 1 tab PO Q6H PRN #10 tab 04/04/20 Unknown Active Medications Generic Name Dose Route Start Last Admin Trade Name Freq PRN Reason Stop Dose Admin Amlodipine Besylate 10 mg 04/04/20 21:00 04/04/20 20:04 Amlodipine Besylate 5 Mg Tab PO 05/04/20 20:59 10 mg QPM SALVADOR Administration Folic Acid 1 mg 04/05/20 09:00 04/05/20 09:07 Folic Acid 1 Mg Tab PO 05/05/20 08:59 1 mg QAM SALVADOR Administration Cefepime HCl 2,000 mg/ Syringe 20 mls @ 5 mls/min 04/04/20 16:00 04/05/20 05:22 IV 04/11/20 15:59 5 mls/min Q12@0600,1800 SALVADOR Administration Protocol Vancomycin HCl 2,000 mg/ 540 mls @ 200 mls/hr 04/05/20 16:00 04/05/20 16:36 Sodium Chloride IV 04/05/20 18:41 200 mls/hr NOW ONE Administration Losartan Potassium 100 mg 04/04/20 21:00 04/04/20 20:04 Losartan Potassium 50 Mg Tab PO 05/04/20 20:59 100 mg QPM SALVADOR Administration Multivitamins 1 tab 04/05/20 09:00 04/05/20 09:07 Multivitamin Tab PO 05/05/20 08:59 1 tab QAM SALVADOR Administration Tramadol HCl 50 mg 04/04/20 14:53 04/04/20 21:15 Tramadol Hcl 50 Mg Tablet PO 05/04/20 14:52 50 mg Q8H PRN Administration pain Vitamin B Complex 1 tab 04/05/20 09:00 04/05/20 09:06 Vitamin B Complex Tab PO 05/05/20 08:59 1 tab QAM SALVADOR Administration Past Medical History Medical History BPH (benign prostatic hyperplasia) Estrella catheter in place History of skin cancer ON CHEST AREA Hyperlipidemia Hypertension Multiple sclerosis Debilitated, wheelchair-bound for several years. Can transfer self. Following with Dr Armenta, [facility] neuro. Sacral ulcer Treating with topical ointment currently. Spontaneous pneumothorax HX OF MANY YEARS AGO A TEENAGER (NO SURGERY) Urinary retention Exercise / Class Metabolic Activity IV < 2 Limit ADL/Bedbound Past Family History Family History Other Cancer No family history of adverse response to anesthesia Past Surgical History Surgical History H/O arthroscopy of shoulder RT History of colonoscopy History of esophagogastroduodenoscopy (EGD) History of herniorrhaphy History of tonsillectomy History of tooth extraction Hx of appendectomy S/P transurethral resection of prostate S/P TURP Past Anesthesia History No Hx of Anesthesia Complications and No Family Hx of Anesthesia Complications History of PONV No Hx of PONV and No Hx of Motion Sickness Social History Smoking Status: Former smoker tobacco type: cigarettes Do You Dip or Chew Tobacco: No Smoking End Date: 1978 Hx Alcohol Use: No Hx Substance Use: No substance use type: does not use Physical Exam Vital Signs Last Vital Signs Temp 36.7 C 04/05/20 15:28 Pulse 76 04/05/20 15:28 Resp 18 04/05/20 15:28 BP 137/72 04/05/20 15:28 Pulse Ox 100 04/05/20 15:28 Testing Laboratory Results 04/05/20 06:13 04/05/20 06:13 PT 12.1 Seconds (9.0-12.0) H 04/04/20 15:38 INR 1.2 (0.9-1.1) H 04/04/20 15:38 APTT 43.0 Seconds (21.0-31.0) H 04/04/20 15:38 Hemoglobin A1c 5.9 % (4.5-5.6) H 04/05/20 06:13 Urine Color Dark Yellow 03/28/20 10:12 Urine Appearance Turbid (Clear) A 03/28/20 10:12 Urine pH 5.5 (4.5-7.5) 03/28/20 10:12 Ur Specific [place] 1.021 (1.000-1.030) 03/28/20 10:12 Urine Protein 2+ (Negative) H 03/28/20 10:12 Urine Glucose (UA) Negative (Negative) 03/28/20 10:12 Urine Ketones 1+ (Negative) H 03/28/20 10:12 Urine Nitrite Negative (Negative) 03/28/20 10:12 Ur Leukocyte Esterase 3+ (Negative) H 03/28/20 10:12 Urine WBC (Auto) >30 /hpf (0-5) H 03/28/20 10:12 Urine RBC (Auto) >30 /hpf (0-4) H 03/28/20 10:12 U Hyaline Cast (Auto) 1-5 /lpf (0-5) 03/28/20 10:12 U Epithel Cells (Auto) 10-20 /lpf (0-5) H 03/28/20 10:12 Urine Bacteria (Auto) 1+ (Negative) H 03/28/20 10:12 04/04/20 15:38 Aerobic Blood Culture - Preliminary Blood No growth in Aerobic bottle after 24 hours. 04/04/20 15:38 Aerobic Blood Culture - Preliminary Blood No growth in Aerobic bottle after 24 hours. Anaerobic Blood Culture - Preliminary No growth in Anaerobic bottle after 24 hours. 04/04/20 10:12 Gram Stain - Final Sacrum Aerobic and Anaerobic Culture - Preliminary Gram negative bacilli Streptococcus species 03/28/20 10:12 Urine Culture - Final Urine,Clean Catch Three types of organisms present, all low counts probable skin marissa. No further identifications or sensitivities to follow. Electrocardiogram Date: 03/28/20 Findings: + NSR @ (at 89) and + LVH
[2020-04-05] MEDS: amLODIPine BESYLATE 5 MG TAB PO SCH (21:28)
[2020-04-05] MEDS: LOSARTAN POTASSIUM 50 MG TAB PO SCH (21:28)
[2020-04-06] MEDS: VANCOMYCIN HCL 1,000 MG in SODIUM CHLORIDE 0.9% 250 ML IV SCH ×2 (04:06→16:50)
[2020-04-06] MEDS: CEFEPIME 2,000 MG in SYRINGE 0 ML IV SCH (05:41)
[2020-04-06 06:30] LABS: Hematocrit (blood only) 36.2 % (42-52); Hemoglobin 11.9 g/dL (14.0-18.0); Mean Corpuscular Hemoglobin 29.1 pg (25-34); Mean Corpuscular Hgb Conc 32.9 g/dL (32-36); Mean Corpuscular Volume 88.5 fL (80-100); Mean Platelet Volume 11.3 fL (7.4-10.4); Platelet Count 400 K/uL (130-400); RDW Coefficient of Variation 13.4 % (11.5-14.5); RDW Standard Deviation 43.4 fL (36.4-46.3); Red Blood Count 4.09 M/uL (4.7-6.1)
--- NOTE | 2020-04-06 06:50 | History & Physical Bridge Note ---
Date of Service April 06, 2020 History & Physical Bridge Note I have examined the patient, reviewed the History & Physical and in the interval since the performance of the History & Physical I have noted the following changes of clinical significance: no changes noted
[2020-04-06 06:57] LABS: BUN Creatinine Ratio 22.5 (10-20); Creatinine Clr Calc Pharmacy 56.6 ml/min; Est GFR (African American) 63.5; Est GFR (Non-African American) 54.8; Magnesium 2.2 mg/dl (1.8-2.4); Potassium 3.9 mmol/L (3.5-5.1)
[2020-04-06] MEDS ORDERED: LIDOCAINE HCL 2% 2 ML VIAL/AMP(20MG/ML) INFIL ONE (07:05)
[2020-04-06] MEDS ORDERED: NEOSTIGMINE METHYLSULFATE 5 MG/5 ML SYR ONE (07:05)
[2020-04-06] MEDS ORDERED: DEXAMETHASONE SOD INJ 4 MG/ML VIAL ONE (07:05)
[2020-04-06] MEDS ORDERED: GLYCOPYRROLATE 0.2 MG/ML VIAL ONE (07:05)
[2020-04-06] MEDS ORDERED: PROPOFOL IV EMULSION 10 MG/ML 20 ML VIAL IV ONE (07:05)
[2020-04-06] MEDS ORDERED: MIDAZOLAM HCL 1 MG/ML 2ML VIAL ONE (07:05)
[2020-04-06] MEDS ORDERED: fentaNYL citrate 100 MCG/2 ML VIAL ONE (07:05)
[2020-04-06] MEDS ORDERED: ONDANSETRON INJ 2 MG/ML 2 ML VIAL ONE (07:05)
[2020-04-06] MEDS ORDERED: EPINEPHrine INJ 1 MG/ML AMP ONE (07:42)
[2020-04-06] MEDS ORDERED: BUPIVACAINE 0.25% 30 ML VIAL ONE (07:42)
[2020-04-06] MEDS: MULTIVITAMIN TAB PO SCH (08:36)
[2020-04-06] MEDS: FOLIC ACID 1 MG TAB PO SCH (08:36)
[2020-04-06] MEDS: VITAMIN B COMPLEX TAB PO SCH (08:36)
--- NOTE | 2020-04-06 08:55 | Post Operative Brief Note ---
PG Immediate Post Op with CF Date of Surgery April 06, 2020 Pre & Post Diagnosis Operation Date: 04/06/20 07:30 Pre-Op Diagnosis: Sacral and Right Ischial Decubital Ulcer Post-Op Diagnosis: Sacral and Right Ischial Decubital Ulcer I identified the patient and participated in the time-out.: Yes Procedure Operation Date: 04/06/20 07:30 Actual Procedures p Sharp excisional debridement of Sacral and Right Ischial Decubital Ulcer - Deep Mcnamara DO Surgeon Deep Mcnamara DO Nuclear Medicine Pet Ct Technologist none Estimated Blood Loss 5 Findings See Below Necrotic skin overlying sacral and right ischial wound Fluids 1000mL Specimens Specimen Description: A: Sacral/Ischial Ulcer Drains Estrella Catheter Anesthesia Type General Complications none Disposition Disposition: Recovery Room
[2020-04-06] MEDS ORDERED: ONDANSETRON INJ 2 MG/ML 2 ML VIAL IV PRN (08:57)
[2020-04-06] MEDS ORDERED: NALOXONE HCL 0.4 MG/1 ML VIAL/CARP IV PRN (08:57)
[2020-04-06] MEDS ORDERED: LABETALOL HCL IV 5 MG/ML 20ML IV PRN (08:57)
[2020-04-06] MEDS ORDERED: PROMETHAZINE HCL 12.5 MG in SODIUM CHLORIDE 0.9% 50 ML IV PRN (08:57)
[2020-04-06] MEDS ORDERED: ePHEDrine sulfate 50 MG/ML AMP IV PRN (08:57)
[2020-04-06] MEDS ORDERED: fentaNYL citrate 100 MCG/2 ML VIAL IV PRN (08:57)
[2020-04-06] MEDS ORDERED: ATROPINE SULFATE 0.1 MG/ML 10ML SYR IV PRN (08:57)
[2020-04-06] MEDS ORDERED: FLUMAZENIL 0.1 MG/1 ML 10 ML VIAL IV PRN (08:57)
--- NOTE | 2020-04-06 09:03 | Operative Report ---
PG Post Operative Report Pre & Post Diagnosis Operation Date: 04/06/20 07:30 Pre-Op Diagnosis: Sacral and Right Ischial Decubital Ulcer Post-Op Diagnosis: Sacral and Right Ischial Decubital Ulcer I identified the patient and participated in the time-out.: Yes Procedure Operation Date: 04/06/20 07:30 Actual Procedures p Sharp excisional debridement of Sacral and Right Ischial Decubital Ulcer - Deep Mcnamara DO Surgeon Deep Mcnamara DO Drywall Application Supervisor Lenin Peterson PA-C Estimated Blood Loss 5 Findings See Below Necrotic skin overlying sacral and right ischial ulcer Fluids 1000mL Specimens Sacral and ischial tissue to pathology Drains None Anesthesia Type General Complications none Disposition Disposition: Recovery Room Indications 80 yo male with MS, wheelchair bound with sacral and right ischial decubitus ulcers Description of Procedure The patient was brought to the operating room and underwent general endotracheal anesthesia without issue. At this time the patient was placed in the prone jackknife position. The perineum and lower back were prepped and draped in the usual sterile fashion. Appropriate pre-operative antibiotics were administered. A timeout was called. The procedure was verified as Sharp excisional debridement of sacral and right ischial decubitus ulcers. Surgical, anesthesia and nursing teams agreed and the procedure was begun. Injection with 0.25% Marcaine with epinephrine around both wounds was completed. First attention was turned to the right ischial ulcer. The ulcer measured 3cm x 2.5cm and had overlying necrotic skin that was debrided in an excisional manner using a #15 blade scalpel. Healthy dermis and underlying subcutaneous tissue was encountered. Pre and post debridement measurements were the same. Next our attention was turned to the sacral decubitus ulcer which measured 9cm x 6cm x 1cm and also had necrotic skin/eschar present overlying the entire wound. This was debrided in and excisional manner using #15 blade scalpel and electrocautery. Healthy subcutaneous tissue was encountered with visualized healthy bleeding. Specimen was passed off. At this time hemostasis was achieved using electrocautery. Hemostasis was complete. At this time the incision was irrigated and dressed with normal saline wet to dry dressings. At this time the patient was awakened from anesthesia and extubated having remained stable throughout the entire case and transported to PACU in stable condition. The physician's restaurant assistant was present and scrubbed for the entirety of the case. He was critical in positioning the patient, prepping and draping, retraction and exposure and placement of the dressings. I attest to the content of the Intraoperative Record and any orders documented therein. Any exceptions are noted below.
[2020-04-06] MEDS: ACETAMINOPHEN 1,000 MG/100 ML VIAL IV SCH ×2 (10:05→21:33)
--- NOTE | 2020-04-06 10:17 | Anesthesiology Progress Note ---
Date of Service April 06, 2020 Anesthesia Post Procedure Vital Signs Vital Signs: Temp Pulse Pulse Pulse Resp BP BP 04/06/20 10:05 36.7 C 72 18 138/72 04/06/20 09:35 36.8 C 70 18 149/76 H 04/06/20 09:20 36.2 C L 75 15 152/80 H 04/06/20 09:10 72 16 149/72 H 04/06/20 09:00 69 15 150/73 H 04/06/20 08:52 36.2 C L 75 16 156/77 H 04/06/20 00:03 36.9 C 84 18 138/67 04/05/20 21:27 84 149/69 H 04/05/20 20:31 88 156/69 H 04/05/20 15:28 36.7 C 76 18 137/72 04/05/20 12:30 36.8 C 80 16 128/64 Pulse Ox 04/06/20 10:05 96 04/06/20 09:35 97 04/06/20 09:20 98 04/06/20 09:10 100 04/06/20 09:00 100 04/06/20 08:52 99 04/06/20 00:03 94 04/05/20 21:27 04/05/20 20:31 04/05/20 15:28 100 04/05/20 12:30 99 Transfer of Care Handoff Completed per policy Notes Mental Status: alert / awake / arousable Patient Amnestic to Procedure: Yes Nausea / Vomiting: adequately controlled Pain: adequately controlled Airway Patency, RR, SpO2: stable & adequate BP & HR: stable & adequate Hydration State: stable & adequate Anesthetic Complications: no major complications apparent
[2020-04-06] MEDS ORDERED: VANCOMYCIN TROUGH ONE (15:30)
--- NOTE | 2020-04-06 16:32 | Pharmacy Report ---
Pharmacy Abx Dose Short Note - Date of Service April 06, 2020 - Assessment & Plan Assessment 80 year old M receiving Vancomycin 1000 mg IV q12h for treatment of sacral wound. Day #3 of antimicrobial therapy. Trough level obtained today after 2 total doses of Vancomycin. Plan Vancomycin * Trough level of 15.5 mcg/mL is therapeutic but not at steady state. * Continue dose of Vancomycin 1000 mg IV every 12 hrs. * Repeat Trough level ordered for 04/08/20 before dose at 0400 to confirm adequate dosing. Pharmacy will continue to follow and will adjust dose/frequency as necessary. Thank you.
--- NOTE | 2020-04-06 17:54 | Hospitalist Progress Note ---
Date of Service April 06, 2020 Assessment & Plan (1) Sacral ulcer: (2) Multiple sclerosis: This is a 80 y/o male with multiple sclerosis wheelchair confined and hypertension who presented for elective urologic procedure. Patient underwent TURP, cystoscopy and laser litholapaxy by Dr. Larios on 04/04/20. He tolerated the procedure well. In recovery nurses discovered stage IV sacral wounds which have deteriorated since prior admission. Consulted wound care physician Dr. Neves along with wound care team - recommend surgical debridement Surgery consulted - CT ordered to eval for possible osteomyelitis/abscess - no abscess or osteo identified on imaging, plan for surg. debridement Now s/p surgical debridement of sacral and right ischial decubital ulcer w/ Dr. Mcnamara () Pt tolerated procedure well ESR, CRP elevated Blood cultx - pending Lactic acid 1.6on admission, procalcitonin- negative Empiric IV antibiotics on admission: Zosyn and Doxycycline Skin cultx - positive for Pseudomonas aeroginosa (few) and Enterococcus faecalis (moderate) Doxy switched to vancomycin until final cultx available Now final cultx results available - switch Abx to Ciprofloxacin + Daptomycin (04/06/20) Turn and position q2h regular diet, consult glove pairer for recommendations (3) Hypertension: continue amlodipine and losartan monitor (4) 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 Larios on 04/04/2020, POD #2 continue riddle care will need appropriate urology follow up Plan for outp follow up, cont. Riddle until then (5) Ambulatory dysfunction: pt wheel chair bound 2/2 to MS states he previously was independent for transfers consult PT/OT after surgery for further dc needs (6) DVT prophylaxis: pt high risk given lack of mobility scd/teds for now due to possible wound debridement surg. debridement today 04/06/20, hold chemical prophylaxis for now reassess daily need for chemical prophylaxis Disposition: admit to med/surg Follow up: PCP Dr. Lyman upon discharge, wound care Admission and Anticipated Discharge Date Admission Date: April 05, 2020 Subjective Pt is laying in bed in NAD. He is alert and oriented and answering questions appropriately. Underwent urologic procedure w/ Dr. Larios on 04/04. Pt tolerated procedure well. Now Riddle placed. Pt admitted d/t worsening sacral wound. Wound care physician recommended surgical debridement. Pt underwent surgical debridement today w/ Dr. Mcnamara. Tolerated procedure well, currently has no complains or concerns. Pt denies fever, chills, chest pain, shortness of breath, abd. pain. Currently denies any pain. Review of Systems Review of Systems: All systems reviewed & are unremarkable except as noted in HPI & below Constitutional: no fever and no chills Respiratory: no cough and no dyspnea Cardiovascular: no chest pain and no palpitations Gastrointestinal: no abdominal pain, no nausea and no vomiting Physical Exam Physical Exam: Constitutional: Chronically ill-appearing male, in NAD, laying in bed, pleasant, conversing easily Head: Normocephalic, Atraumatic Eyes: PERRL, EOMI, conjunctivae normal, anicteric sclerae ENMT: external ear and nose normal, oropharynx normal Neck: normal visual inspection Respiratory: normal respiratory effort, lungs clear to auscultation, no wheeze, rales, rhonchi. Normal insp/exp effort, no accessory muscle use Cardiovascular: RRR, no murmur, +trace LE pretibial edema, no erythema or warmth vessels: no JVD or carotid bruit Chest: normal inspection of chest Abdomen: normal bowel sounds, soft, nontender, nondistended Musculoskeletal: no cyanosis or clubbing, active range of motion x4 Skin: no rashes, warm and dry normal turgor Neurologic: PERRL, EOMI, no face palsy, no dysarthria, difficulty moving LEs d/t MS, moves upper extremities w/o difficulty Psychiatric: A+Ox3, dysthymic affect : Riddle catheter in place draining yellow/blood-tinged urine Skin: + large erythematous sacral wound with some necrotic tissue noted centrally prior to surgery, now s/p surgical debridement Results & Data Results & Data ([facility]) Vital Signs (Past 12 Hours) Vital Signs Temp Pulse Pulse Resp BP Pulse Ox 04/06/20 15:32 37.1 C 73 18 146/68 H 97 04/06/20 13:01 72 18 126/60 95 04/06/20 10:35 76 18 131/69 96 04/06/20 10:05 36.7 C 72 18 138/72 96 04/06/20 09:35 36.8 C 70 18 149/76 H 97 04/06/20 09:20 36.2 C L 75 15 152/80 H 98 04/06/20 09:10 72 16 149/72 H 100 04/06/20 09:00 69 15 150/73 H 100 04/06/20 08:52 36.2 C L 75 16 156/77 H 99 Laboratory Results 04/06/20 04/06/20 04/06/20 Range/Units 15:13 05:56 05:56 WBC 13.40 H (4.8-10.8) K/uL RBC 4.09 L (4.7-6.1) M/uL Hgb 11.9 L (14.0-18.0) g/dL Hct 36.2 L (42-52) % MCV 88.5 (80-100) fL MCH 29.1 (25-34) pg MCHC 32.9 (32-36) g/dL RDW Std Deviation 43.4 (36.4-46.3) fL RDW Coeff of Bossman 13.4 (11.5-14.5) % Plt Count 400 (130-400) K/uL MPV 11.3 H (7.4-10.4) fL Sodium 138 (136-145) mmol/L Potassium 3.9 (3.5-5.1) mmol/L Chloride 109 H (98-107) mmol/L Carbon Dioxide 27 (21-32) mmol/L Anion Gap 2.0 L (3-11) BUN 28 H (7-18) mg/dl Creatinine 1.25 (0.6-1.4) mg/dl Est Cr Clr Drug Dosing 56.6 ml/min Est GFR ( Amer) 63.5 Est GFR (Non-Af Amer) 54.8 BUN/Creatinine Ratio 22.5 H (10-20) Glucose 98 (70-99) mg/dl Calcium 8.0 L (8.5-10.1) mg/dl Phosphorus 2.0 L (2.5-4.9) mg/dl Magnesium 2.2 (1.8-2.4) mg/dl Vancomycin Trough 15.5 (See Comment) mcg/ml COVID-19 Eval Order SARS-CoV-2, RNA, NAAT (NEGATIVE) 04/05/20 04/05/20 Range/Units 18:25 18:25 WBC (4.8-10.8) K/uL RBC (4.7-6.1) M/uL Hgb (14.0-18.0) g/dL Hct (42-52) % MCV (80-100) fL MCH (25-34) pg MCHC (32-36) g/dL RDW Std Deviation (36.4-46.3) fL RDW Coeff of Bossman (11.5-14.5) % Plt Count (130-400) K/uL MPV (7.4-10.4) fL Sodium (136-145) mmol/L Potassium (3.5-5.1) mmol/L Chloride (98-107) mmol/L Carbon Dioxide (21-32) mmol/L Anion Gap (3-11) BUN (7-18) mg/dl Creatinine (0.6-1.4) mg/dl Est Cr Clr Drug Dosing ml/min Est GFR ( Amer) Est GFR (Non-Af Amer) BUN/Creatinine Ratio (10-20) Glucose (70-99) mg/dl Calcium (8.5-10.1) mg/dl Phosphorus (2.5-4.9) mg/dl Magnesium (1.8-2.4) mg/dl Vancomycin Trough (See Comment) mcg/ml COVID-19 Eval Order Covid19 [facility] SARS-CoV-2, RNA, NAAT NEGATIVE (NEGATIVE) Medications Administered Current Inpatient Medications Al Hydrox/Mg Hydrox/Simethicone (Aluminum/Magnesium Susp 30 Ml Udc) 30 ml PO Q6H PRN PRN Reason: Dyspepsia Stop: 05/04/20 14:52 Amlodipine Besylate (Amlodipine Besylate 5 Mg Tab) 10 mg PO QPM [facility] Stop: 05/04/20 20:59 Last Admin: 04/05/20 21:28 Dose: 10 mg Documented by: Folic Acid (Folic Acid 1 Mg Tab) 1 mg PO QAM [facility] Stop: 05/05/20 08:59 Last Admin: 04/06/20 08:36 Dose: Not Given Documented by: Ciprofloxacin (Cipro / D5w) 400 mg in 200 mls @ 100 mls/hr IV Q12H [facility] Stop: 04/13/20 16:59 Acetaminophen (Ofirmev) 1,000 mg in 100 mls @ 400 mls/hr IV Q8H [facility] Stop: 04/09/20 09:59 Last Infusion: 04/06/20 10:24 Dose: Infused Documented by: Losartan Potassium (Losartan Potassium 50 Mg Tab) 100 mg PO QPM [facility] Stop: 05/04/20 20:59 Last Admin: 04/05/20 21:28 Dose: 100 mg Documented by: Magnesium Hydroxide (Magnesium Hydroxide Susp 30 Ml Udc) 30 ml PO Q6H PRN PRN Reason: Constipation Stop: 05/04/20 14:52 Miscellaneous Information (Daptomycin Consult Active) 1 ea N/A UD PRN PRN Reason: Consult Stop: 05/06/20 17:56 Multivitamins (Multivitamin Tab) 1 tab PO QAM [facility] Stop: 05/05/20 08:59 Last Admin: 04/06/20 08:36 Dose: Not Given Documented by: Ondansetron HCl (Ondansetron Inj 2 Mg/Ml 2 Ml Vial) 4 mg IV Q6H PRN PRN Reason: Nausea Stop: 05/04/20 14:52 Polyethylene Glycol (Polyethylene (Miralax) 17 Gm Pack) 17 gm PO DAILY PRN PRN Reason: Constipation Stop: 05/04/20 14:52 Tramadol HCl (Tramadol Hcl 50 Mg Tablet) 50 mg PO Q8H PRN PRN Reason: pain Stop: 05/04/20 14:52 Last Admin: 04/04/20 21:15 Dose: 50 mg Documented by: Vitamin B Complex (Vitamin B Complex Tab) 1 tab PO QAM [facility] Stop: 05/05/20 08:59 Last Admin: 04/06/20 08:36 Dose: Not Given Documented by:
[2020-04-06] MEDS: CIPROFLOXACIN / D5W 400 MG/200 ML BAG IV SCH (19:18)
[2020-04-06] MEDS: LOSARTAN POTASSIUM 50 MG TAB PO SCH (20:16)
[2020-04-06] MEDS: amLODIPine BESYLATE 5 MG TAB PO SCH (20:16)
[2020-04-07] MEDS: ACETAMINOPHEN 1,000 MG/100 ML VIAL IV SCH ×3 (02:55→17:24)
[2020-04-07] MEDS: DAPTOmycin 325 MG in SYRINGE 0 ML IV SCH (03:01)
--- NOTE | 2020-04-07 04:52 | Surgery Progress Note ---
Date of Service April 07, 2020 Assessment & Plan (1) Unstageable pressure ulcer of sacral region: POD #1 debridement of sacral and ischial wounds -will plan on dressing change with attending physician later today Admission and Anticipated Discharge Date Admission Date: April 05, 2020 Supervising Physician Co-Signing Physician Notes I personally saw and evaluated the patient with Piero Peterson PA-C and agree with the assessment and plan 80 yo male with MS, wheelchair bound with large sacral and right ischial decubitus ulcers -Wet to dry dressing daily, changed today -Will contact wound care nurses tomorrow about further wound care from here -May need further debridements -Would recommend f/u in wound care center when discharged Subjective Pt. notes he is feeling well. No fevers. Pain well controlled. Physical Exam 2 Constitutional: well developed and well nourished; no acute distress Results & Data ([facility]) Vital Signs (Past 12 Hours) Vital Signs Temp Pulse Pulse Resp BP BP Pulse Ox 04/07/20 03:42 36.8 C 72 18 127/64 95 04/06/20 23:59 36.9 C 76 16 131/67 94 04/06/20 21:21 36.8 C 77 18 154/77 H 96 04/06/20 20:14 76 154/67 H PG Care Time/CCT Total # of Minutes Spent Total Time Spent with Patient: Total time spent is greater than 50% in coordination of care (as documented) at patient's floor/unit and/or counseling patient: Coding Level of Care Code None Diagnoses Unstageable pressure ulcer of sacral region L89.150
[2020-04-07] MEDS: CIPROFLOXACIN / D5W 400 MG/200 ML BAG IV SCH ×2 (06:00→17:52)
[2020-04-07 06:14] LABS: Hematocrit (blood only) 36.2 % (42-52); Mean Corpuscular Hemoglobin 28.7 pg (25-34); Mean Corpuscular Hgb Conc 33.1 g/dL (32-36); Mean Corpuscular Volume 86.6 fL (80-100); Platelet Count 358 K/uL (130-400); RDW Coefficient of Variation 13.4 % (11.5-14.5); RDW Standard Deviation 42.8 fL (36.4-46.3); Red Blood Count 4.18 M/uL (4.7-6.1); White Blood Count 10.89 K/uL (4.8-10.8)
[2020-04-07 06:41] LABS: BUN Creatinine Ratio 20.1 (10-20); Calcium 8.4 mg/dl (8.5-10.1); Creatinine Clr Calc Pharmacy 70.8 ml/min; Est GFR (African American) 83.2; Est GFR (Non-African American) 71.8; Magnesium 2.1 mg/dl (1.8-2.4); Phosphorus 2.4 mg/dl (2.5-4.9); Potassium 3.9 mmol/L (3.5-5.1)
[2020-04-07] MEDS: ADVANCED PROBIOTIC 1250 MG CAPSULE PO SCH (09:39)
[2020-04-07] MEDS: FOLIC ACID 1 MG TAB PO SCH (09:39)
[2020-04-07] MEDS: VITAMIN B COMPLEX TAB PO SCH (09:39)
[2020-04-07] MEDS: MULTIVITAMIN TAB PO SCH (09:39)
[2020-04-07] MEDS ORDERED: POTASSIUM PHOS 3 MMOL/1 ML INFUSION IV STA (11:01)
--- NOTE | 2020-04-07 11:01 | Hospitalist Progress Note ---
Date of Service April 07, 2020 Assessment & Plan (1) Sacral ulcer: (2) Multiple sclerosis: This is a 80 y/o male with multiple sclerosis wheelchair confined and hypertension who presented for elective urologic procedure. Patient underwent TURP, cystoscopy and laser litholapaxy by Dr. Larios on 04/04/20. He tolerated the procedure well. In recovery nurses discovered stage IV sacral wounds which have deteriorated since prior admission. Consulted wound care physician Dr. Neves along with wound care team - recommend surgical debridement Surgery consulted - CT ordered to eval for possible osteomyelitis/abscess - no abscess or osteo identified on imaging, plan for surg. debridement Now s/p surgical debridement of sacral and right ischial decubital ulcer w/ Dr. Mcnamara () Pt tolerated procedure well Wet to dry dressing daily, changed today -Will contact wound tomorrow about further wound care from here -May need further debridements -Would recommend f/u in wound care center when discharged ESR, CRP elevated Blood cultx - pending Lactic acid 1.6 on admission, procalcitonin- negative Empiric IV antibiotics on admission: Zosyn and Doxycycline Skin cultx - positive for Pseudomonas aeroginosa (few) and Enterococcus faecalis (moderate) Doxy switched to vancomycin until final cultx available Now final cultx results available - switch Abx to Ciprofloxacin + Daptomycin (04/06/20) Turn and position q2h regular diet, consult chopping machine operator for recommendations (3) Hypertension: continue amlodipine and losartan monitor (4) 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 Larios on 04/04/2020 continue riddle care will need appropriate urology follow up Plan for outp follow up, cont. Riddle until then (5) Ambulatory dysfunction: pt wheel chair bound 2/2 to MS states he previously was independent for transfers consult PT/OT after surgery for further dc needs (6) DVT prophylaxis: pt high risk given lack of mobility scd/teds for now due to possible wound debridement s/p surg. debridement hold chemical prophylaxis for now reassess daily need for chemical prophylaxis Disposition: admit to med/surg, pt will likely need SNF after dc Follow up: PCP Dr. Lyman upon discharge, wound care Admission and Anticipated Discharge Date Admission Date: April 05, 2020 Subjective Pt is sitting up in bed, in no acute distress. Denies any fevers, chills, chest pain or shortness of breath, abdominal pain, nausea or vomiting. Patient underwent a surgical debridement of sacral ulcer yesterday. Case management consulted, as patient will likely need SNF placement. Review of Systems Review of Systems: All systems reviewed & are unremarkable except as noted in HPI & below Constitutional: no fever and no chills Respiratory: no cough and no dyspnea Cardiovascular: no chest pain and no palpitations Gastrointestinal: no abdominal pain, no nausea and no vomiting Physical Exam Physical Exam: Constitutional: Chronically ill-appearing male, in NAD, laying in bed, pleasant, conversing easily Head: Normocephalic, Atraumatic Eyes: PERRL, EOMI, conjunctivae normal, anicteric sclerae ENMT: external ear and nose normal, oropharynx normal Neck: normal visual inspection Respiratory: normal respiratory effort, lungs clear to auscultation, no wheeze, rales, rhonchi. Normal insp/exp effort, no accessory muscle use Cardiovascular: RRR, no murmur, +trace LE pretibial edema, no erythema or warmth vessels: no JVD or carotid bruit Chest: normal inspection of chest Abdomen: normal bowel sounds, soft, nontender, nondistended Musculoskeletal: no cyanosis or clubbing, active range of motion x4 Skin: no rashes, warm and dry normal turgor Neurologic: PERRL, EOMI, no face palsy, no dysarthria, difficulty moving LEs d/t MS, moves upper extremities w/o difficulty Psychiatric: A+Ox3, dysthymic affect : Riddle catheter in place draining yellow urine Skin: + large erythematous sacral wound with some necrotic tissue noted centrally prior to surgery, now s/p surgical debridement Results & Data Results & Data ([facility]) Vital Signs (Past 12 Hours) Vital Signs Temp Pulse Resp BP Pulse Ox 04/07/20 07:40 36.6 C 75 16 135/69 97 04/07/20 03:42 36.8 C 72 18 127/64 95 04/06/20 23:59 36.9 C 76 16 131/67 94 Laboratory Results 04/07/20 04/07/20 04/06/20 Range/Units 05:51 05:51 15:13 WBC 10.89 H (4.8-10.8) K/uL RBC 4.18 L (4.7-6.1) M/uL Hgb 12.0 L (14.0-18.0) g/dL Hct 36.2 L (42-52) % MCV 86.6 (80-100) fL MCH 28.7 (25-34) pg MCHC 33.1 (32-36) g/dL RDW Std Deviation 42.8 (36.4-46.3) fL RDW Coeff of Bossman 13.4 (11.5-14.5) % Plt Count 358 (130-400) K/uL MPV 11.0 H (7.4-10.4) fL Sodium 140 (136-145) mmol/L Potassium 3.9 (3.5-5.1) mmol/L Chloride 111 H (98-107) mmol/L Carbon Dioxide 24 (21-32) mmol/L Anion Gap 5.0 (3-11) BUN 20 H (7-18) mg/dl Creatinine 1.00 (0.6-1.4) mg/dl Est Cr Clr Drug Dosing 70.8 ml/min Est GFR ( Amer) 83.2 Est GFR (Non-Af Amer) 71.8 BUN/Creatinine Ratio 20.1 H (10-20) Glucose 101 H (70-99) mg/dl Calcium 8.4 L (8.5-10.1) mg/dl Phosphorus 2.4 L (2.5-4.9) mg/dl Magnesium 2.1 (1.8-2.4) mg/dl Vancomycin Trough 15.5 (See Comment) mcg/ml Medications Administered Current Inpatient Medications Al Hydrox/Mg Hydrox/Simethicone (Aluminum/Magnesium Susp 30 Ml Udc) 30 ml PO Q6H PRN PRN Reason: Dyspepsia Stop: 05/04/20 14:52 Amlodipine Besylate (Amlodipine Besylate 5 Mg Tab) 10 mg PO QPM [facility] Stop: 05/04/20 20:59 Last Admin: 04/06/20 20:16 Dose: 10 mg Documented by: Folic Acid (Folic Acid 1 Mg Tab) 1 mg PO QAM [facility] Stop: 05/05/20 08:59 Last Admin: 04/07/20 09:39 Dose: 1 mg Documented by: Ciprofloxacin (Cipro / D5w) 400 mg in 200 mls @ 100 mls/hr IV Q12H [facility] Stop: 04/13/20 16:59 Last Infusion: 04/07/20 08:23 Dose: Infused Documented by: Acetaminophen (Ofirmev) 1,000 mg in 100 mls @ 400 mls/hr IV Q8H [facility] Stop: 04/09/20 09:59 Last Infusion: 04/07/20 10:04 Dose: Infused Documented by: Daptomycin 325 mg/ Syringe 6.5 mls @ 3.25 mls/min IV Q24H [facility]; Protocol Stop: 04/14/20 03:59 Last Admin: 04/07/20 03:01 Dose: 3.25 mls/min Documented by: Lactobacillus Acidoph/Casei/Rhamnos (Advanced Probiotic 1250 Mg Capsule) 2 cap PO DAILY [facility] Stop: 05/07/20 08:59 Last Admin: 04/07/20 09:39 Dose: 2 cap Documented by: Losartan Potassium (Losartan Potassium 50 Mg Tab) 100 mg PO QPM [facility] Stop: 05/04/20 20:59 Last Admin: 04/06/20 20:16 Dose: 100 mg Documented by: Magnesium Hydroxide (Magnesium Hydroxide Susp 30 Ml Udc) 30 ml PO Q6H PRN PRN Reason: Constipation Stop: 05/04/20 14:52 Miscellaneous Information (Daptomycin Consult Active) 1 ea N/A UD PRN PRN Reason: Consult Stop: 05/06/20 17:56 Multivitamins (Multivitamin Tab) 1 tab PO QAM [facility] Stop: 05/05/20 08:59 Last Admin: 04/07/20 09:39 Dose: 1 tab Documented by: Ondansetron HCl (Ondansetron Inj 2 Mg/Ml 2 Ml Vial) 4 mg IV Q6H PRN PRN Reason: Nausea Stop: 05/04/20 14:52 Polyethylene Glycol (Polyethylene (Miralax) 17 Gm Pack) 17 gm PO DAILY PRN PRN Reason: Constipation Stop: 05/04/20 14:52 Tramadol HCl (Tramadol Hcl 50 Mg Tablet) 50 mg PO Q8H PRN PRN Reason: pain Stop: 05/04/20 14:52 Last Admin: 04/04/20 21:15 Dose: 50 mg Documented by: Vitamin B Complex (Vitamin B Complex Tab) 1 tab PO QAM [facility] Stop: 05/05/20 08:59 Last Admin: 04/07/20 09:39 Dose: 1 tab Documented by:
[2020-04-07] MEDS ORDERED: POTASSIUM PHOSPHATE 9 MMOL in SODIUM CHLORIDE 0.9% 250 ML IV ONE (11:30)
[2020-04-07] MEDS: LOSARTAN POTASSIUM 50 MG TAB PO SCH (20:46)
[2020-04-07] MEDS: amLODIPine BESYLATE 5 MG TAB PO SCH (20:46)
[2020-04-08] MEDS: ACETAMINOPHEN 1,000 MG/100 ML VIAL IV SCH ×3 (02:57→17:10)
[2020-04-08] MEDS: DAPTOmycin 325 MG in SYRINGE 0 ML IV SCH (03:00)
[2020-04-08] MEDS ORDERED: VANCOMYCIN TROUGH ONE (03:30)
[2020-04-08] MEDS: CIPROFLOXACIN / D5W 400 MG/200 ML BAG IV SCH ×2 (05:59→17:37)
--- NOTE | 2020-04-08 07:46 | Anesthesiology Progress Note ---
Date of Service April 08, 2020 Anesthesia Post Procedure Vital Signs Vital Signs: Temp Pulse Pulse Resp BP BP Pulse Ox 04/08/20 07:08 36.6 C 69 16 142/72 H 96 04/07/20 23:31 36.9 C 78 16 152/75 H 96 04/07/20 20:44 76 129/68 04/07/20 15:15 36.9 C 79 20 130/64 97 Notes Mental Status: alert / awake / arousable and participated in evaluation Patient Amnestic to Procedure: Yes Nausea / Vomiting: adequately controlled Pain: adequately controlled Airway Patency, RR, SpO2: stable & adequate BP & HR: stable & adequate Hydration State: stable & adequate Anesthetic Complications: no major complications apparent
[2020-04-08 07:48] LABS: Hematocrit (blood only) 36.2 % (42-52); Mean Corpuscular Hemoglobin 29.1 pg (25-34); Mean Corpuscular Hgb Conc 33.1 g/dL (32-36); Mean Corpuscular Volume 87.7 fL (80-100); Mean Platelet Volume 11.6 fL (7.4-10.4); Platelet Count 421 K/uL (130-400); RDW Coefficient of Variation 13.7 % (11.5-14.5); RDW Standard Deviation 43.9 fL (36.4-46.3); Red Blood Count 4.13 M/uL (4.7-6.1); White Blood Count 11.38 K/uL (4.8-10.8)
[2020-04-08 08:16] LABS: BUN Creatinine Ratio 14.7 (10-20); C Reactive Protein 4.02 mg/dl (0-0.29); Calcium 8.7 mg/dl (8.5-10.1); Creatinine Clr Calc Pharmacy 69.4 ml/min; Est GFR (African American) 81.2; Est GFR (Non-African American) 70.1; Phosphorus 2.3 mg/dl (2.5-4.9)
--- NOTE | 2020-04-08 08:40 | Surgery Progress Note ---
Date of Service April 08, 2020 Assessment & Plan (1) Unstageable pressure ulcer of sacral region: POD#2 debridement of sacral and ischial wounds Patient clinically feeling well WBC 11 on cipro/dapto No issues noted from patient supervisor paste mixing regarding sacral wounds/dressing Will ask wound care to evaluated wound today for their recommendations regarding wound care from here forward Will need f/u in wound care center at time of dispo Admission and Anticipated Discharge Date Admission Date: April 05, 2020 Supervising Physician Co-Signing Physician Notes I personally saw and evaluated the patient with Elodia Stroud PA-C and agree with the assessment and plan 80 yo male with MS, wheelchair bound with large sacral and right ischial decubitus ulcers -Wet to dry dressing daily until seen by wound care -Spoke with wound care nurses, will evaluate patient for wound vac today to sacral wound -May need further debridements -Would recommend f/u in wound care center when discharged -Will be available if needed, please contact Subjective Patient offers no complaints. Denies any pain from buttock. Tolerating diet fine. Physical Exam Physical Exam: awake; sitting up in bed eating breakfast Constitutional: no acute distress Respiratory: normal respiratory effort Skin: surgical wounds appearing healthy without purulence Results & Data ([facility]) Vital Signs (Past 12 Hours) Vital Signs Temp Pulse Pulse Resp BP BP Pulse Ox 04/08/20 07:08 36.6 C 69 16 142/72 H 96 04/07/20 23:31 36.9 C 78 16 152/75 H 96 04/07/20 20:44 76 129/68 PG Care Time/CCT Total # of Minutes Spent Total Time Spent with Patient: Total time spent is greater than 50% in coordination of care (as documented) at patient's floor/unit and/or counseling patient: Coding Level of Care Code None Diagnoses Unstageable pressure ulcer of sacral region L89.150
--- NOTE | 2020-04-08 08:52 | Hospitalist Progress Note ---
Date of Service April 08, 2020 Assessment & Plan (1) Sacral ulcer: (2) Multiple sclerosis: This is a 80 y/o male with multiple sclerosis wheelchair confined and hypertension who presented for elective urologic procedure. Patient underwent TURP, cystoscopy and laser litholapaxy by Dr. Larios on 04/04/20. He tolerated the procedure well. In recovery nurses discovered stage IV sacral wounds which have deteriorated since prior admission. Consulted wound care physician Dr. Neves along with wound care team - recommend surgical debridement Surgery consulted - CT ordered to eval for possible osteomyelitis/abscess - no abscess or osteo identified on imaging, plan for surg. debridement Now s/p surgical debridement of sacral and right ischial decubital ulcer w/ Dr. Mcnamara () Pt tolerated procedure well Wet to dry dressing daily -wound care involvement about further wound care from here -May need further debridements -Would recommend f/u in wound care center when discharged ESR, CRP elevated, will cont. 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 Larios on 04/04/2020 continue riddle care will need appropriate urology follow up Plan for outp follow up, cont. Riddle until then (5) Ambulatory dysfunction: pt wheel chair bound 2/2 to MS states he previously was independent for transfers consult PT/OT after surgery for further dc needs (6) DVT prophylaxis: pt high risk given lack of mobility scd/teds for now due to possible wound debridement s/p surg. debridement hold chemical prophylaxis for now reassess daily need for chemical prophylaxis Disposition: admit to med/surg, pt will likely need SNF after dc Follow up: PCP Dr. Lymna upon discharge, wound care Admission and Anticipated Discharge Date Admission Date: April 05, 2020 Subjective Pt seen in follow up of multiple medical problems. Pt is sitting up in bed, in no acute distress. Denies any fevers, chills, chest pain or shortness of breath, abdominal pain, nausea or vomiting. Patient underwent a surgical debridement of sacral ulcer with general surgery. Also had urological procedure 2 days prior to that. In the setting of MS and ambulatory dysfunction. Case management consulted, as patient will likely need SNF placement. Review of Systems Review of Systems: All systems reviewed & are unremarkable except as noted in HPI & below Constitutional: no fever and no chills Respiratory: no cough and no dyspnea Cardiovascular: no chest pain and no palpitations Gastrointestinal: no abdominal pain, no nausea and no vomiting Physical Exam Physical Exam: Constitutional: Chronically ill-appearing male, in NAD, sitting up in bed, pleasant, conversing easily Head: Normocephalic, Atraumatic Eyes: PERRL, EOMI, conjunctivae normal, anicteric sclerae ENMT: external ear and nose normal, oropharynx normal Neck: normal visual inspection Respiratory: normal respiratory effort, lungs clear to auscultation, no wheeze, rales, rhonchi. Normal insp/exp effort, no accessory muscle use Cardiovascular: RRR, no murmur, +trace LE pretibial edema, no erythema or warmth vessels: no JVD or carotid bruit Chest: normal inspection of chest Abdomen: normal bowel sounds, soft, nontender, nondistended Musculoskeletal: no cyanosis or clubbing, active range of motion x4 Skin: no rashes, warm and dry normal turgor Neurologic: PERRL, EOMI, no face palsy, no dysarthria, difficulty moving LEs d/t MS, moves upper extremities w/o much difficulty Psychiatric: A+Ox3, dysthymic affect : Riddle catheter in place draining yellow urine Skin: + large erythematous sacral wound with some necrotic tissue noted centrally prior to surgery, now s/p surgical debridement Results & Data Results & Data ([facility] [place]) Vital Signs (Past 12 Hours) Vital Signs Temp Pulse Resp BP BP Pulse Ox 04/08/20 07:08 36.6 C 69 16 142/72 H 96 04/07/20 23:31 36.9 C 78 16 152/75 H 96 Laboratory Results 1104/08/20 04/08/20 Range/Units 06:59 06:59 06:59 WBC 11.38 H (4.8-10.8) K/uL RBC 4.13 L (4.7-6.1) M/uL Hgb 12.0 L (14.0-18.0) g/dL Hct 36.2 L (42-52) % MCV 87.7 (80-100) fL MCH 29.1 (25-34) pg MCHC 33.1 (32-36) g/dL RDW Std Deviation 43.9 (36.4-46.3) fL RDW Coeff of Bossman 13.7 (11.5-14.5) % Plt Count 421 H (130-400) K/uL MPV 11.6 H (7.4-10.4) fL ESR 64 H (0-14) mm/hr Sodium 138 (136-145) mmol/L Potassium (3.5-5.1) mmol/L Chloride 110 H (98-107) mmol/L Carbon Dioxide 23 (21-32) mmol/L Anion Gap 5.0 (3-11) BUN 15 (7-18) mg/dl Creatinine 1.02 (0.6-1.4) mg/dl Est Cr Clr Drug Dosing 69.4 ml/min Est GFR ( Amer) 81.2 Est GFR (Non-Af Amer) 70.1 BUN/Creatinine Ratio 14.7 (10-20) Glucose 104 H (70-99) mg/dl Calcium 8.7 (8.5-10.1) mg/dl Phosphorus 2.3 L (2.5-4.9) mg/dl Magnesium (1.8-2.4) mg/dl C-Reactive Protein 4.02 H (0-0.29) mg/dl Medications Administered Current Inpatient Medications Al Hydrox/Mg Hydrox/Simethicone (Aluminum/Magnesium Susp 30 Ml Udc) 30 ml PO Q6H PRN PRN Reason: Dyspepsia Stop: 05/04/20 14:52 Amlodipine Besylate (Amlodipine Besylate 5 Mg Tab) 10 mg PO QPM [facility] Stop: 05/04/20 20:59 Last Admin: 04/07/20 20:46 Dose: 10 mg Documented by: Folic Acid (Folic Acid 1 Mg Tab) 1 mg PO QAM [facility] Stop: 05/05/20 08:59 Last Admin: 04/07/20 09:39 Dose: 1 mg Documented by: Ciprofloxacin (Cipro / D5w) 400 mg in 200 mls @ 100 mls/hr IV Q12H [facility] Stop: 04/13/20 16:59 Last Infusion: 04/08/20 07:59 Dose: Infused Documented by: Acetaminophen (Ofirmev) 1,000 mg in 100 mls @ 400 mls/hr IV Q8H [facility] Stop: 04/09/20 09:59 Last Infusion: 04/08/20 03:12 Dose: Infused Documented by: Daptomycin 325 mg/ Syringe 6.5 mls @ 3.25 mls/min IV Q24H [facility]; Protocol Stop: 04/14/20 03:59 Last Admin: 04/08/20 03:00 Dose: 3.25 mls/min Documented by: Lactobacillus Acidoph/Casei/Rhamnos (Advanced Probiotic 1250 Mg Capsule) 2 cap PO DAILY [facility] Stop: 05/07/20 08:59 Last Admin: 04/07/20 09:39 Dose: 2 cap Documented by: Losartan Potassium (Losartan Potassium 50 Mg Tab) 100 mg PO QPM [facility] Stop: 05/04/20 20:59 Last Admin: 04/07/20 20:46 Dose: 100 mg Documented by: Magnesium Hydroxide (Magnesium Hydroxide Susp 30 Ml Udc) 30 ml PO Q6H PRN PRN Reason: Constipation Stop: 05/04/20 14:52 Miscellaneous Information (Daptomycin Consult Active) 1 ea N/A UD PRN PRN Reason: Consult Stop: 05/06/20 17:56 Multivitamins (Multivitamin Tab) 1 tab PO QAM [facility] Stop: 05/05/20 08:59 Last Admin: 04/07/20 09:39 Dose: 1 tab Documented by: Ondansetron HCl (Ondansetron Inj 2 Mg/Ml 2 Ml Vial) 4 mg IV Q6H PRN PRN Reason: Nausea Stop: 05/04/20 14:52 Polyethylene Glycol (Polyethylene (Miralax) 17 Gm Pack) 17 gm PO DAILY PRN PRN Reason: Constipation Stop: 05/04/20 14:52 Tramadol HCl (Tramadol Hcl 50 Mg Tablet) 50 mg PO Q8H PRN PRN Reason: pain Stop: 05/04/20 14:52 Last Admin: 04/04/20 21:15 Dose: 50 mg Documented by: Vitamin B Complex (Vitamin B Complex Tab) 1 tab PO [facility] Stop: 05/05/20 08:59 Last Admin: 04/07/20 09:39 Dose: 1 tab Documented by:
[2020-04-08] MEDS: FOLIC ACID 1 MG TAB PO SCH (09:30)
[2020-04-08] MEDS: ADVANCED PROBIOTIC 1250 MG CAPSULE PO SCH (09:30)
[2020-04-08] MEDS: MULTIVITAMIN TAB PO SCH (09:30)
[2020-04-08] MEDS: VITAMIN B COMPLEX TAB PO SCH (09:30)
[2020-04-08 09:58] LABS: Potassium 3.5 mmol/L (3.5-5.1)
[2020-04-08 17:23] LABS: Component 2 DNR; Source BLADDER STONE
[2020-04-08] MEDS: LOSARTAN POTASSIUM 50 MG TAB PO SCH (20:32)
[2020-04-08] MEDS: amLODIPine BESYLATE 5 MG TAB PO SCH (20:32)
[2020-04-08] MEDS: HEPARIN SOD 5,000 UNIT/0.5 ML VIAL SQ SCH (20:33)
[2020-04-08] MEDS: MELATONIN 3 MG TAB PO PRN (23:29)
[2020-04-09] MEDS: ACETAMINOPHEN 1,000 MG/100 ML VIAL IV SCH (02:41)
[2020-04-09] MEDS: CIPROFLOXACIN / D5W 400 MG/200 ML BAG IV SCH ×2 (06:00→17:55)
[2020-04-09] MEDS: DAPTOmycin 325 MG in SYRINGE 0 ML IV SCH (06:00)
[2020-04-09 07:43] LABS: Hemoglobin 11.5 g/dL (14.0-18.0); Mean Corpuscular Hemoglobin 28.7 pg (25-34); Mean Corpuscular Hgb Conc 32.9 g/dL (32-36); Mean Corpuscular Volume 87.3 fL (80-100); Mean Platelet Volume 11.1 fL (7.4-10.4); Platelet Count 427 K/uL (130-400); RDW Coefficient of Variation 13.6 % (11.5-14.5); RDW Standard Deviation 43.4 fL (36.4-46.3); Red Blood Count 4.01 M/uL (4.7-6.1); White Blood Count 10.89 K/uL (4.8-10.8)
[2020-04-09 08:16] LABS: BUN Creatinine Ratio 14.9 (10-20); Calcium 8.3 mg/dl (8.5-10.1); Creatinine Clr Calc Pharmacy 61.6 ml/min; Est GFR (African American) 70.3; Est GFR (Non-African American) 60.6; Potassium 3.7 mmol/L (3.5-5.1)
[2020-04-09] MEDS: ADVANCED PROBIOTIC 1250 MG CAPSULE PO SCH (09:04)
[2020-04-09] MEDS: FOLIC ACID 1 MG TAB PO SCH (09:04)
[2020-04-09] MEDS: HEPARIN SOD 5,000 UNIT/0.5 ML VIAL SQ SCH ×2 (09:04→21:25)
[2020-04-09] MEDS: MULTIVITAMIN TAB PO SCH (09:04)
[2020-04-09] MEDS: VITAMIN B COMPLEX TAB PO SCH (09:04)
--- NOTE | 2020-04-09 09:55 | Hospitalist Progress Note ---
Date of Service April 09, 2020 Assessment & Plan (1) Sacral ulcer: (2) Multiple sclerosis: This is a 80 y/o male with multiple sclerosis wheelchair confined and hypertension who presented for elective urologic procedure. Patient underwent TURP, cystoscopy and laser litholapaxy by Dr. Larios on 04/04/20. He tolerated the procedure well. In recovery nurses discovered sacral wounds which have deteriorated since prior admission. Consulted wound care physician Dr. Neves along with wound care team - recommend surgical debridement Surgery consulted - CT ordered to eval for possible osteomyelitis/abscess - no abscess or osteo identified on imaging, plan for surg. debridement Now s/p surgical debridement of sacral and right ischial decubital ulcer w/ Dr. Mcnamara (04/06/2020) Pt tolerated procedure well -wound care involvement about further wound care from here - wound vac placed, pt tolerating w/o issues -May need further debridements -Would recommend f/u in wound care center when discharged ESR, CRP elevated, will cont. 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 Larios on 04/04/2020 continue riddle care will need appropriate urology follow up Plan for outp follow up, cont. Riddle until then (5) Ambulatory dysfunction: pt wheel chair bound 2/2 to MS states he previously was independent for transfers consult PT/OT after surgery for further dc needs - plan for SNF (6) DVT prophylaxis: pt high risk given lack of mobility scd/teds, subq heparin Disposition: admit to med/surg, pt will likely need SNF after dc Follow up: PCP Dr. Lyman upon discharge, wound care Pt's updated over the phone. Admission and Anticipated Discharge Date Admission Date: April 05, 2020 Subjective Pt seen in follow up of multiple medical problems. Pt is sitting up in bed, in no acute distress. Denies any fevers, chills, chest pain or shortness of breath, abdominal pain, nausea or vomiting. Patient underwent a surgical debridement of sacral ulcer with general surgery. Also had urological procedure 2 days prior to that. In the setting of MS and ambulatory dysfunction. Case management consulted, as patient will likely need SNF placement. Wound vac now applied to sacral wound, pt tolerating well. Review of Systems Review of Systems: All systems reviewed & are unremarkable except as noted in HPI & below Constitutional: no fever and no chills Respiratory: no cough and no dyspnea Cardiovascular: no chest pain and no palpitations Gastrointestinal: no abdominal pain, no nausea and no vomiting Physical Exam Physical Exam: Constitutional: Chronically ill-appearing male, in NAD, sitting up in bed, pleasant, conversing easily Head: Normocephalic, Atraumatic Eyes: PERRL, EOMI, conjunctivae normal, anicteric sclerae ENMT: external ear and nose normal, oropharynx normal Neck: normal visual inspection Respiratory: normal respiratory effort, lungs clear to auscultation, no wheeze, rales, rhonchi. Normal insp/exp effort, no accessory muscle use Cardiovascular: RRR, no murmur, +trace LE pretibial edema, no erythema or warmth vessels: no JVD or carotid bruit Chest: normal inspection of chest Abdomen: normal bowel sounds, soft, nontender, nondistended Musculoskeletal: no cyanosis or clubbing, active range of motion x4 Skin: no rashes, warm and dry normal turgor Neurologic: PERRL, EOMI, no face palsy, no dysarthria, difficulty moving LEs d/t MS, moves upper extremities w/o much difficulty Psychiatric: A+Ox3, dysthymic affect : Riddle catheter in place draining yellow urine Skin: + large erythematous sacral wound with some necrotic tissue noted centrally prior to surgery, now s/p surgical debridement Results & Data Results & Data ([facility]) Vital Signs (Past 12 Hours) Vital Signs Temp Pulse Pulse Resp BP Pulse Ox 04/09/20 07:17 36.5 C 73 16 144/72 H 96 04/08/20 22:52 36.9 C 77 16 162/77 H 95 Laboratory Results 04/09/20 04/09/20 04/08/20 Range/Units 07:11 07:11 09:36 WBC 10.89 H (4.8-10.8) K/uL RBC 4.01 L (4.7-6.1) M/uL Hgb 11.5 L (14.0-18.0) g/dL Hct 35.0 L (42-52) % MCV 87.3 (80-100) fL MCH 28.7 (25-34) pg MCHC 32.9 (32-36) g/dL RDW Std Deviation 43.4 (36.4-46.3) fL RDW Coeff of Bossman 13.6 (11.5-14.5) % Plt Count 427 H (130-400) K/uL MPV 11.1 H (7.4-10.4) fL Sodium 140 (136-145) mmol/L Potassium 3.7 3.5 (3.5-5.1) mmol/L Chloride 111 H (98-107) mmol/L Carbon Dioxide 23 (21-32) mmol/L Anion Gap 6.0 (3-11) BUN 17 (7-18) mg/dl Creatinine 1.15 (0.6-1.4) mg/dl Est Cr Clr Drug Dosing 61.6 ml/min Est GFR ( Amer) 70.3 Est GFR (Non-Af Amer) 60.6 BUN/Creatinine Ratio 14.9 (10-20) Glucose 113 H (70-99) mg/dl Calcium 8.3 L (8.5-10.1) mg/dl Magnesium 2.0 (1.8-2.4) mg/dl Stone Source Stone Weight g Stone Composition Stone Composition 2 04/04/20 Range/Units 11:00 WBC (4.8-10.8) K/uL RBC (4.7-6.1) M/uL Hgb (14.0-18.0) g/dL Hct (42-52) % MCV (80-100) fL MCH (25-34) pg MCHC (32-36) g/dL RDW Std Deviation (36.4-46.3) fL RDW Coeff of Bossman (11.5-14.5) % Plt Count (130-400) K/uL MPV (7.4-10.4) fL Sodium (136-145) mmol/L Potassium (3.5-5.1) mmol/L Chloride (98-107) mmol/L Carbon Dioxide (21-32) mmol/L Anion Gap (3-11) BUN (7-18) mg/dl Creatinine (0.6-1.4) mg/dl Est Cr Clr Drug Dosing ml/min Est GFR ( Amer) Est GFR (Non-Af Amer) BUN/Creatinine Ratio (10-20) Glucose (70-99) mg/dl Calcium (8.5-10.1) mg/dl Magnesium (1.8-2.4) mg/dl Stone Source BLADDER STONE Stone Weight 4.293 g Stone Composition SEE NOTE Stone Composition 2 DNR Medications Administered Current Inpatient Medications Al Hydrox/Mg Hydrox/Simethicone (Aluminum/Magnesium Susp 30 Ml Udc) 30 ml PO Q6H PRN PRN Reason: Dyspepsia Stop: 05/04/20 14:52 Amlodipine Besylate (Amlodipine Besylate 5 Mg Tab) 10 mg PO QPM [facility] Stop: 05/04/20 20:59 Last Admin: 04/08/20 20:32 Dose: 10 mg Documented by: Folic Acid (Folic Acid 1 Mg Tab) 1 mg PO QAM [facility] Stop: 05/05/20 08:59 Last Admin: 04/09/20 09:04 Dose: 1 mg Documented by: Heparin Sodium (Porcine) (Heparin Sod 5,000 Unit/0.5 Ml Vial) 5,000 units SQ Q12 [facility] Stop: 05/08/20 20:59 Last Admin: 04/09/20 09:04 Dose: 5,000 units Documented by: Ciprofloxacin (Cipro / D5w) 400 mg in 200 mls @ 100 mls/hr IV Q12H [facility] Stop: 04/13/20 16:59 Last Infusion: 04/09/20 08:00 Dose: Infused Documented by: Acetaminophen (Ofirmev) 1,000 mg in 100 mls @ 400 mls/hr IV Q8H [facility] Stop: 04/09/20 09:59 Last Infusion: 04/09/20 04:19 Dose: Infused Documented by: Daptomycin 325 mg/ Syringe 6.5 mls @ 3.25 mls/min IV Q24H [facility]; Protocol Stop: 04/14/20 03:59 Last Admin: 04/09/20 06:00 Dose: 3.25 mls/min Documented by: Lactobacillus Acidoph/Casei/Rhamnos (Advanced Probiotic 1250 Mg Capsule) 2 cap PO DAILY [facility] Stop: 05/07/20 08:59 Last Admin: 04/09/20 09:04 Dose: 2 cap Documented by: Losartan Potassium (Losartan Potassium 50 Mg Tab) 100 mg PO QPM [facility] Stop: 05/04/20 20:59 Last Admin: 04/08/20 20:32 Dose: 100 mg Documented by: Magnesium Hydroxide (Magnesium Hydroxide Susp 30 Ml Udc) 30 ml PO Q6H PRN PRN Reason: Constipation Stop: 05/04/20 14:52 Melatonin (Melatonin 3 Mg Tab) 3 mg PO HS PRN PRN Reason: Sleep Stop: 05/08/20 22:45 Last Admin: 04/08/20 23:29 Dose: 3 mg Documented by: Miscellaneous Information (Daptomycin Consult Active) 1 ea N/A UD PRN PRN Reason: Consult Stop: 05/06/20 17:56 Multivitamins (Multivitamin Tab) 1 tab PO QAM [facility] Stop: 05/05/20 08:59 Last Admin: 04/09/20 09:04 Dose: 1 tab Documented by: Ondansetron HCl (Ondansetron Inj 2 Mg/Ml 2 Ml Vial) 4 mg IV Q6H PRN PRN Reason: Nausea Stop: 05/04/20 14:52 Polyethylene Glycol (Polyethylene (Miralax) 17 Gm Pack) 17 gm PO DAILY PRN PRN Reason: Constipation Stop: 05/04/20 14:52 Tramadol HCl (Tramadol Hcl 50 Mg Tablet) 50 mg PO Q8H PRN PRN Reason: pain Stop: 05/04/20 14:52 Last Admin: 04/04/20 21:15 Dose: 50 mg Documented by: Vitamin B Complex (Vitamin B Complex Tab) 1 tab PO QAM [facility] Stop: 05/05/20 08:59 Last Admin: 04/09/20 09:04 Dose: 1 tab Documented by:
[2020-04-09] MEDS ORDERED: POTASSIUM CHLORIDE CRTAB 20 MEQ TABCR PO STA (09:57)
[2020-04-09] MEDS: amLODIPine BESYLATE 5 MG TAB PO SCH (21:26)
[2020-04-09] MEDS: LOSARTAN POTASSIUM 50 MG TAB PO SCH (21:26)
[2020-04-09] MEDS: MELATONIN 3 MG TAB PO PRN (21:40)
[2020-04-10] MEDS: DAPTOmycin 325 MG in SYRINGE 0 ML IV SCH (06:03)
[2020-04-10] MEDS ORDERED: ACETAMINOPHEN 325 MG TAB PO PRN (07:04)
[2020-04-10] MEDS: CIPROFLOXACIN 500 MG TAB PO SCH ×2 (09:12→21:04)
[2020-04-10] MEDS: ADVANCED PROBIOTIC 1250 MG CAPSULE PO SCH (09:13)
[2020-04-10] MEDS: FOLIC ACID 1 MG TAB PO SCH (09:13)
[2020-04-10] MEDS: MULTIVITAMIN TAB PO SCH (09:13)
[2020-04-10] MEDS: VITAMIN B COMPLEX TAB PO SCH (09:14)
[2020-04-10] MEDS: POLYETHYLENE (MIRALAX) 17 GM PACK PO SCH (09:15)
[2020-04-10 09:23] LABS: BUN Creatinine Ratio 17.4 (10-20); Calcium 9.3 mg/dl (8.5-10.1); Creatinine Clr Calc Pharmacy 67.4 ml/min; Est GFR (African American) 78.4; Est GFR (Non-African American) 67.7; Potassium 3.7 mmol/L (3.5-5.1)
[2020-04-10] MEDS: HEPARIN SOD 5,000 UNIT/0.5 ML VIAL SQ SCH ×2 (10:10→21:04)
--- NOTE | 2020-04-10 15:34 | Hospitalist Progress Note ---
Date of Service April 10, 2020 Assessment & Plan (1) Sacral ulcer: -"This is a 80 y/o male with multiple sclerosis wheelchair confined and hypertension who presented for elective urologic procedure. Patient underwent TURP, cystoscopy and laser litholapaxy by Dr. Larios on 04/04/20. He tolerated the procedure well. In recovery nurses discovered sacral wounds which have deteriorated since prior admission." -s/p surgical debridement of sacral and right ischial decubital ulcer w/ Dr. Mcnamara (04/06/2020) -patient's wound area could not tolerate the wound vac -antibiotic course: Empiric IV antibiotics on admission: Zosyn and Doxycycline , skin culture positive for Pseudomonas aeroginosa (few) and Enterococcus faecalis (moderate), previous hospitalist Dr. Vallejo switched antibiotics to Ciprofloxacin and Daptomycin starting on 04/06/20 -the plans at this time is to coordinate discharge to [facility] on Wednesday04/12/2020 and likely patient can continue antibiotics as oral when re-assessed. Wound Care team aware to have outpatient wound care follow up after the (2) Multiple sclerosis: - antibiotic and wound care management for sacral ulcer as above (3) Hypertension: -continue amlodipine and losartan (4) Chronic indwelling Riddle catheter: -chronic riddle for history of bladder outlet obstruction, renal/bladder stones and Benign prostate hyperplasia -s/p TURP, cystoscopy and laser litholapaxy by Dr. Larios on 04/04/2020 -continue riddle care (5) Ambulatory dysfunction: -patient mobilizes by wheel chair bound because of Multiple Sclerosis (6) DVT prophylaxis: -SQ heparin Disposition: plans for [facility] for Wednesday04/12/2020 as discussed with patient and correctional counselor/case manager Admission and Anticipated Discharge Date Admission Date: April 05, 2020 Subjective Patient seen and examined in the AM after wound care assessment and dressing change by wound care nurse. Hospitalist assessed patient several times today as coordination of care between wound care service and case management. Patient wishes for [facility] placement on Wednesday04/12/2020. Currently he is still on IV antibiotics. He has been clinically stable. No fevers. Patient denies new symptoms on review of systems. 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 Patient denies acute pain at this time. no dizziness. no lightheadedness. no shortness of breath. continues to be breathing comfortably on room air Review of Systems Review of Systems: All systems reviewed & are unremarkable except as noted in Subjective Physical Exam Constitutional: comfortable Eyes: PERRL, conjunctivae normal, anicteric sclerae EOM intact bilaterally ENMT: external ear and nose normal, oropharynx normal Neck: normal visual inspection Respiratory: normal respiratory effort, lungs clear to auscultation Cardiovascular: Rate/Rhythm: regular rate Gastrointestinal (Abdomen): normal bowel sounds, soft, nontender, no hepatosplenomegaly Musculoskeletal: Head/Neck/Chest: normocephalic Extremities: + lower extremity abnormal to inspection (bilateral waffle boots) Skin: sacral ulcer treated by wound care nurse today Neurologic: PERRL, EOMI, accommodation nl, no face palsy, no dysarthria patient moves upper extremities, patient reports history of paralysis from waist down. Psychiatric: Orientation: alert and cooperative Results & Data Results & Data ([facility]) Vital Signs (Past 12 Hours) Vital Signs Temp Pulse Pulse Resp BP Pulse Ox 04/10/20 15:05 36.7 C 87 87 16 144/71 H 96 04/10/20 07:41 36.7 C 74 18 147/77 H 96
[2020-04-10] MEDS: amLODIPine BESYLATE 5 MG TAB PO SCH (21:04)
[2020-04-10] MEDS: LOSARTAN POTASSIUM 50 MG TAB PO SCH (21:04)
[2020-04-10] MEDS: MELATONIN 3 MG TAB PO PRN (21:05)
[2020-04-11 04:32] LABS: Basophils # (auto) 0.07 K/uL (0-0.2); Basophils % (auto) 0.5 %; Eosinophils # (auto) 0.73 K/uL (0-0.5); Eosinophils % (auto) 5.5 %; Hematocrit (blood only) 34.9 % (42-52); Hemoglobin 11.7 g/dL (14.0-18.0); Immature Granulocytes # (auto) 0.15 K/uL (0.00-0.02); Immature Granulocytes % (auto) 1.1 %; Lymphocytes # (auto) 2.87 K/uL (1.2-3.4); Lymphocytes % (auto) 21.6 %; Mean Corpuscular Hemoglobin 29.5 pg (25-34); Mean Corpuscular Hgb Conc 33.5 g/dL (32-36); Mean Corpuscular Volume 87.9 fL (80-100); Mean Platelet Volume 11.5 fL (7.4-10.4); Monocytes # (auto) 1.49 K/uL (0.11-0.59); Monocytes % (auto) 11.2 %; Neutrophils # (auto) 7.97 K/uL (1.4-6.5); Neutrophils % (auto) 60.1 %; Platelet Count 467 K/uL (130-400); RDW Standard Deviation 44.9 fL (36.4-46.3); Red Blood Count 3.97 M/uL (4.7-6.1); White Blood Count 13.28 K/uL (4.8-10.8)
[2020-04-11 05:30] LABS: Albumin Globulin Ratio 0.5 (0.9-2); Albumin Level 2.1 gm/dl (3.4-5.0); BUN Creatinine Ratio 18.5 (10-20); Bilirubin,Total 0.2 mg/dl (0.2-1); Calcium 8.6 mg/dl (8.5-10.1); Creatinine Clr Calc Pharmacy 61.6 ml/min; Est GFR (African American) 70.3; Est GFR (Non-African American) 60.6; Globulin 4.5 gm/dl (2.5-4.0); Total Protein 6.6 gm/dl (6.4-8.2)
[2020-04-11] MEDS: DAPTOmycin 325 MG in SYRINGE 0 ML IV SCH (06:04)
--- NOTE | 2020-04-11 07:41 | Hospitalist Progress Note ---
Date of Service April 11, 2020 Assessment & Plan (1) Sacral ulcer: and right ischial ulcer -"This is a 80 y/o male with multiple sclerosis wheelchair confined and hypertension who presented for elective urologic procedure. Patient underwent TURP, cystoscopy and laser litholapaxy by Dr. Larios on 04/04/20. He tolerated the procedure well. In recovery nurses discovered sacral wounds which have deteriorated since prior admission." -s/p surgical debridement of sacral and right ischial decubital ulcer w/ Dr. Mcnamara (04/06/2020) -patient's wound area could not tolerate the wound vac -antibiotic course: Empiric IV antibiotics on admission: Zosyn and Doxycycline , skin culture positive for Pseudomonas aeroginosa (few) and Enterococcus faecalis (moderate), previous hospitalist Dr. Vallejo switched antibiotics to Ciprofloxacin and Daptomycin starting on 04/06/20 -04/10/2020: dressing changed by wound care nurse -04/11/2020: the right ischial ulcer appears to be in good stage of healing, however on exam the sacral ulcer needed redressing (Length 4 cm, Width 4.3 cm, Depth 0.3 cm. Treatment plan from recent wound care notes would be to apply aquacel ag, cover with optifoam, change QOD and prn, Dressing type: Hydrofiber with silver, Non-adhesive Foam) -the plans at this time is to coordinate discharge to [facility] on Wednesday04/12/2020 and likely patient can continue antibiotics as oral when re-assessed. Wound Care team aware to have outpatient wound care follow up after the (2) Multiple sclerosis: - antibiotic and wound care management for sacral ulcer/right ischial ulcer as above Chronic Leukocytosis -based on review of previous hospital labs, patient's WBC has been persistently above 10 K. no recent fevers. possibly that these elevated WBC reflects inflammation around ulcer areas with treatment as above (3) Hypertension: -continue amlodipine and losartan (4) Chronic indwelling Riddle catheter: -chronic riddle for history of bladder outlet obstruction, renal/bladder stones and Benign prostate hyperplasia -s/p TURP, cystoscopy and laser litholapaxy by Dr. Larios on 04/04/2020 -continue riddle care (5) Ambulatory dysfunction: -patient mobilizes by wheel chair bound because of Multiple Sclerosis (6) DVT prophylaxis: -SQ heparin Disposition: plans for [facility] for Wednesday04/12/2020 as discussed with patient and case checker Admission and Anticipated Discharge Date Admission Date: April 05, 2020 Subjective the right ischial ulcer appears to be in good stage of healing, however on exam the sacral ulcer needed redressing. patient needed assistance with turning. patient does not report acute pain with turning. patient does have fever overnight. breathing on room air. no shortness of breath. no chest pain. no abdomen pain. no dizziness. no headache. no other symptoms on review of systems Review of Systems Review of Systems: All systems reviewed & are unremarkable except as noted in Subjective Physical Exam Constitutional: comfortable Eyes: PERRL, conjunctivae normal, anicteric sclerae EOM intact bilaterally ENMT: external ear and nose normal, oropharynx normal Neck: normal visual inspection Respiratory: normal respiratory effort, lungs clear to auscultation Cardiovascular: Rate/Rhythm: regular rate Gastrointestinal (Abdomen): normal bowel sounds, soft, nontender, no hepatosplenomegaly Musculoskeletal: Head/Neck/Chest: normocephalic Extremities: + lower extremity abnormal to inspection (bilateral waffle boots) Skin: + ulcer (sacral ulcer in dressing, also a healed right buttock ulcer) Neurologic: PERRL, EOMI, accommodation nl, no face palsy, no dysarthria Psychiatric: Orientation: alert and cooperative Results & Data Results & Data ([facility]) Vital Signs (Past 12 Hours) Vital Signs Temp Pulse Pulse Resp BP BP Pulse Ox 04/10/20 23:17 36.8 C 82 18 159/88 H 95 04/10/20 21:02 87 141/72 H
[2020-04-11] MEDS: MULTIVITAMIN TAB PO SCH (08:29)
[2020-04-11] MEDS: ADVANCED PROBIOTIC 1250 MG CAPSULE PO SCH (08:29)
[2020-04-11] MEDS: POLYETHYLENE (MIRALAX) 17 GM PACK PO SCH (08:29)
[2020-04-11] MEDS: VITAMIN B COMPLEX TAB PO SCH (08:29)
[2020-04-11] MEDS: FOLIC ACID 1 MG TAB PO SCH (08:29)
[2020-04-11] MEDS: CIPROFLOXACIN 500 MG TAB PO SCH ×2 (08:29→20:19)
[2020-04-11] MEDS: HEPARIN SOD 5,000 UNIT/0.5 ML VIAL SQ SCH ×2 (08:30→20:20)
[2020-04-11] MEDS ORDERED: MAGNESIUM HYDROXIDE SUSP 30 ML UDC PO ONE (10:51)
[2020-04-11] MEDS: MAGNESIUM HYDROXIDE SUSP 30 ML UDC PO PRN (13:39)
[2020-04-11] MEDS: amLODIPine BESYLATE 5 MG TAB PO SCH (20:20)
[2020-04-11] MEDS: LOSARTAN POTASSIUM 50 MG TAB PO SCH (20:20)
[2020-04-11] MEDS: MELATONIN 3 MG TAB PO PRN (20:20)
[2020-04-12] MEDS: DAPTOmycin 325 MG in SYRINGE 0 ML IV SCH (06:10)
[2020-04-12] MEDS: MULTIVITAMIN TAB PO SCH (07:22)
[2020-04-12] MEDS: CIPROFLOXACIN 500 MG TAB PO SCH ×2 (07:22→20:11)
[2020-04-12] MEDS: FOLIC ACID 1 MG TAB PO SCH (07:22)
[2020-04-12] MEDS: VITAMIN B COMPLEX TAB PO SCH (07:23)
[2020-04-12] MEDS: POLYETHYLENE (MIRALAX) 17 GM PACK PO SCH (07:23)
[2020-04-12] MEDS: ADVANCED PROBIOTIC 1250 MG CAPSULE PO SCH (07:23)
[2020-04-12] MEDS: HEPARIN SOD 5,000 UNIT/0.5 ML VIAL SQ SCH ×2 (07:24→20:10)
[2020-04-12] MEDS: traMADol HCL 50 MG TABLET PO PRN ×2 (07:33→15:29)
--- NOTE | 2020-04-12 09:22 | Hospitalist Progress Note ---
Date of Service April 12, 2020 Assessment & Plan (1) Sacral ulcer: and right ischial ulcer -"This is a 80 y/o male with multiple sclerosis wheelchair confined and hypertension who presented for elective urologic procedure. Patient underwent TURP, cystoscopy and laser litholapaxy by Dr. Larios on 04/04/20. He tolerated the procedure well. In recovery nurses discovered sacral wounds which have deteriorated since prior admission." -s/p surgical debridement of sacral and right ischial decubital ulcer w/ Dr. Mcnamara (04/06/2020) -patient's wound area could not tolerate the wound vac -antibiotic course: Empiric IV antibiotics on admission: Zosyn and Doxycycline , skin culture positive for Pseudomonas aeroginosa (few) and Enterococcus faecalis (moderate), previous hospitalist Dr. Vallejo switched antibiotics to Ciprofloxacin and Daptomycin starting on 04/06/20 -04/10/2020: dressing changed by wound care nurse -04/11/2020: the right ischial ulcer appears to be in good stage of healing, however on exam the sacral ulcer needed redressing (Length 4 cm, Width 4.3 cm, Depth 0.3 cm. Treatment plan from recent wound care notes would be to apply aquacel ag, cover with optifoam, change QOD and prn, Dressing type: Hydrofiber with silver, Non-adhesive Foam) -the plans at this time is to coordinate discharge to [facility] on Wednesday04/12/2020 and likely patient can continue antibiotics as oral when discharged. Wound Care team aware to have outpatient wound care follow up after the (2) Multiple sclerosis: - antibiotic and wound care management for sacral ulcer/right ischial ulcer as above Chronic Leukocytosis -based on review of previous hospital labs, patient's WBC has been persistently above 10 K. no recent fevers. possibly that these elevated WBC reflects inflammation around ulcer areas with treatment as above (3) Hypertension: -continue amlodipine and losartan (4) Chronic indwelling Riddle catheter: -chronic riddle for history of bladder outlet obstruction, renal/bladder stones and Benign prostate hyperplasia -s/p TURP, cystoscopy and laser litholapaxy by Dr. Larios on 04/04/2020 -continue riddle care (5) Ambulatory dysfunction: -patient mobilizes by wheel chair bound because of Multiple Sclerosis (6) DVT prophylaxis: -SQ heparin while in the hospital Disposition: plans for [facility] SNF for Wednesday04/12/2020 as discussed with patient and insurance case manager Admission and Anticipated Discharge Date Admission Date: April 05, 2020 Subjective Patient seen and examined. No acute distress. No bowel movement today. Patient denies acute pain. Patient denies shortness of breath. Patient does not report other new symptoms on review of systems. He continues to have riddle with yellow urine draining. He had wound dressing re-assessed by nursing staff. discussed with insurance case manager on coordinating logistics for discharge to [facility] if there is accepting available bed. Review of Systems Review of Systems: All systems reviewed & are unremarkable except as noted in Subjective Physical Exam Constitutional: comfortable Eyes: PERRL, conjunctivae normal, anicteric sclerae EOM intact bilaterally ENMT: external ear and nose normal, oropharynx normal Neck: normal visual inspection Respiratory: normal respiratory effort, lungs clear to auscultation Cardiovascular: Rate/Rhythm: regular rate Gastrointestinal (Abdomen): normal bowel sounds, soft, nontender, no hepatosplenomegaly Musculoskeletal: Head/Neck/Chest: normocephalic Extremities: + lower extremity abnormal to inspection (bilateral waffle boots) Skin: + ulcer (sacral ulcer in dressing, also a healed right buttock ulcer) Neurologic: PERRL, EOMI, accommodation nl, no face palsy, no dysarthria Psychiatric: Orientation: alert and cooperative Results & Data Results & Data ([facility]) Vital Signs (Past 12 Hours) Vital Signs Temp Pulse Pulse Resp BP Pulse Ox 04/12/20 07:44 37.0 C 78 16 127/70 95 04/11/20 23:09 37.1 C 83 16 134/75 94
[2020-04-12] MEDS: MAGNESIUM HYDROXIDE SUSP 30 ML UDC PO PRN ×2 (10:56→17:05)
[2020-04-12] MEDS ORDERED: CALCIUM 600MG + VIT D 400 IU TAB PO ONE (17:43)
[2020-04-12] MEDS: LOSARTAN POTASSIUM 50 MG TAB PO SCH (20:11)
[2020-04-12] MEDS: MELATONIN 3 MG TAB PO PRN (20:11)
[2020-04-12] MEDS: amLODIPine BESYLATE 5 MG TAB PO SCH (20:11)
[2020-04-13] MEDS: traMADol HCL 50 MG TABLET PO PRN ×2 (05:41→13:47)
[2020-04-13] MEDS: DAPTOmycin 325 MG in SYRINGE 0 ML IV SCH (05:42)
[2020-04-13] MEDS ORDERED: POLYETHYLENE (MIRALAX) 17 GM PACK PO PRN (08:04)
[2020-04-13] MEDS ORDERED: MAGNESIUM HYDROXIDE SUSP 30 ML UDC PO ONE (08:04)
--- NOTE | 2020-04-13 08:05 | Hospitalist Progress Note ---
Date of Service April 13, 2020 Assessment & Plan (1) Sacral ulcer: and right ischial ulcer -"This is a 80 y/o male with multiple sclerosis wheelchair confined and hypertension who presented for elective urologic procedure. Patient underwent TURP, cystoscopy and laser litholapaxy by Dr. Larios on 04/04/20. He tolerated the procedure well. In recovery nurses discovered sacral wounds which have deteriorated since prior admission." -s/p surgical debridement of sacral and right ischial decubital ulcer w/ Dr. Mcnamara (04/06/2020) -patient's wound area could not tolerate the wound vac -antibiotic course: Empiric IV antibiotics on admission: Zosyn and Doxycycline , skin culture positive for Pseudomonas aeroginosa (few) and Enterococcus faecalis (moderate), previous hospitalist Dr. Vallejo switched antibiotics to Ciprofloxacin and Daptomycin starting on 04/06/20 -04/10/2020: dressing changed by wound care nurse -04/11/2020: the right ischial ulcer appears to be in good stage of healing, however on exam the sacral ulcer needed redressing (Length 4 cm, Width 4.3 cm, Depth 0.3 cm. Treatment plan from recent wound care notes would be to apply aquacel ag, cover with optifoam, change QOD and prn, Dressing type: Hydrofiber with silver, Non-adhesive Foam) -Wednesday04/13/2020 : initial plans for discharge to a SNF on Wednesday04/12/2020 were not successful because of lacking in available SNF beds. At this time, patient remains in the hospital and will be here at least through the weekend where upon on the a new bed search for SNF to take place. Patient will need regular wound assessment by inpatient nursing and then on the week for re-assessment by wound care service on whether patient will be appropriate for wound vac to sacral ulcer at that time (2) Multiple sclerosis: - antibiotic and wound care management for sacral ulcer/right ischial ulcer as above Chronic Leukocytosis -based on review of previous hospital labs, patient's WBC has been persistently above 10 K. no recent fevers. 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 Larios (04/04/2020) -chronic riddle for history of bladder outlet obstruction, renal/bladder stones and Benign prostate hyperplasia -s/p TURP, cystoscopy and laser litholapaxy by Dr. Larios on 04/04/2020 -continue riddle care Constipation -04/13/2020: patient's pertinent positive on review of systems for constipation. will get KUB X ray and increase bowel regimen (5) Hypertension: -continue amlodipine and losartan (6) DVT prophylaxis: -SQ heparin while in the hospital Admission and Anticipated Discharge Date Admission Date: April 05, 2020 Subjective initial plans for discharge to a SNF on Wednesday04/12/2020 were not successful because of lacking in available SNF beds. At this time, patient remains in the hospital and will be here at least through the weekend where upon on the a new bed search for SNF to take place. Patient will need regular wound assessment by inpatient nursing and then on the for re-assessment by wound care service on whether patient will be appropriate for wound vac to sacral ulcer at that time On review of systems, patient's pertinent positive for constipation. will get KUB X ray and increase bowel regimen continues to be stable, no acute distress, no shortness of breath. breathing on room air. no acute pain. no dizziness. no headache. patient denies other symptoms Review of Systems Review of Systems: All systems reviewed & are unremarkable except as noted in Subjective Physical Exam Constitutional: comfortable Eyes: PERRL, conjunctivae normal, anicteric sclerae EOM intact bilaterally ENMT: external ear and nose normal, oropharynx normal Neck: normal visual inspection Respiratory: normal respiratory effort, lungs clear to auscultation Cardiovascular: Rate/Rhythm: regular rate Gastrointestinal (Abdomen): normal bowel sounds, soft, nontender, no hepatosplenomegaly Musculoskeletal: Head/Neck/Chest: normocephalic Extremities: + lower extremity abnormal to inspection (bilateral waffle boots) Skin: + ulcer (sacral ulcer in dressing, also a healed right buttock ulcer) Neurologic: PERRL, EOMI, accommodation nl, no face palsy, no dysarthria Psychiatric: Orientation: alert and cooperative Results & Data Results & Data ([facility]) Vital Signs (Past 12 Hours) Vital Signs Temp Pulse Resp BP Pulse Ox 04/13/20 07:15 36.6 C 73 17 118/69 96 04/12/20 23:08 36.6 C 75 24 136/67 95 04/12/20 20:10 63 145/73 H
--- NOTE | 2020-04-13 08:49 | XRay Report ---
KUB HISTORY: Acute generalized abdominal pain with constipation constipation COMPARISON: CT pelvis 04/05/2020, KUB 03/07/2020 FINDINGS: Nonobstructive bowel gas pattern. Study secondary to body habitus with portions of the abdo rei right upper quadrant not imaged. Numerous pelvic calcifications are redemonstrated suggestive o f a combination of phleboliths and urinary bladder calculi. Unchanged bilateral nephrolithiasis with calculi measuring up to 10 mm on the right. No definite ureteral calculi. Moderate to extensive fecal retention of the descending colon. The transverse colon demonstrate mild gaseous distention measurin g up to 7.5 cm. Mild to moderate fecal retention throughout the remainder of the colon. No pneumoperi toneum or pneumatosis. No fracture. IMPRESSION: 1. Nonobstructive bowel gas pattern. 2. Suggested constipation with moderate to extensive fecal retention of the descending colon. 3. Bilateral nephrolithiasis with urinary bladder calculi redemonstrated. ACT 112: Negative or not required by law. The above report was generated using voice recognition software. It may contain grammatical, syntax o r spelling errors. Electronically signed by: Danial Nesbitt M.D. 04/13/2020 8:47 AM
[2020-04-13] MEDS: POLYETHYLENE (MIRALAX) 17 GM PACK PO SCH ×2 (09:08→19:48)
[2020-04-13] MEDS: DOCUSATE SODIUM 100 MG CAP PO SCH ×2 (09:08→19:50)
[2020-04-13] MEDS: SENNA 8.6 MG TAB PO SCH ×2 (09:09→19:51)
[2020-04-13] MEDS: CIPROFLOXACIN 500 MG TAB PO SCH ×2 (09:09→19:51)
[2020-04-13] MEDS: HEPARIN SOD 5,000 UNIT/0.5 ML VIAL SQ SCH ×2 (09:10→19:53)
[2020-04-13] MEDS: ADVANCED PROBIOTIC 1250 MG CAPSULE PO SCH (09:11)
[2020-04-13] MEDS: MULTIVITAMIN TAB PO SCH (09:12)
[2020-04-13] MEDS: VITAMIN B COMPLEX TAB PO SCH (09:12)
[2020-04-13] MEDS: FOLIC ACID 1 MG TAB PO SCH (09:12)
[2020-04-13] MEDS: LOSARTAN POTASSIUM 50 MG TAB PO SCH (19:49)
[2020-04-13] MEDS: amLODIPine BESYLATE 5 MG TAB PO SCH (19:49)
[2020-04-14] MEDS: DAPTOmycin 325 MG in SYRINGE 0 ML IV SCH (05:51)
[2020-04-14] MEDS: MULTIVITAMIN TAB PO SCH (07:57)
[2020-04-14] MEDS: CIPROFLOXACIN 500 MG TAB PO SCH ×2 (07:57→20:21)
[2020-04-14] MEDS: SENNA 8.6 MG TAB PO SCH ×2 (07:57→20:21)
[2020-04-14] MEDS: VITAMIN B COMPLEX TAB PO SCH (07:57)
[2020-04-14] MEDS: ADVANCED PROBIOTIC 1250 MG CAPSULE PO SCH (07:57)
[2020-04-14] MEDS: POLYETHYLENE (MIRALAX) 17 GM PACK PO SCH ×2 (07:58→20:21)
[2020-04-14] MEDS: FOLIC ACID 1 MG TAB PO SCH (07:58)
[2020-04-14] MEDS: HEPARIN SOD 5,000 UNIT/0.5 ML VIAL SQ SCH ×2 (07:58→20:30)
[2020-04-14] MEDS: DOCUSATE SODIUM 100 MG CAP PO SCH ×2 (07:58→20:21)
--- NOTE | 2020-04-14 08:07 | Hospitalist Progress Note ---
Date of Service April 14, 2020 Assessment & Plan (1) Sacral ulcer: and right ischial ulcer -"This is a 80 y/o male with multiple sclerosis wheelchair confined and hypertension who presented for elective urologic procedure. Patient underwent TURP, cystoscopy and laser litholapaxy by Dr. Larios on 04/04/20. He tolerated the procedure well. In recovery nurses discovered sacral wounds which have deteriorated since prior admission." -s/p surgical debridement of sacral and right ischial decubital ulcer w/ Dr. Mcnamara (04/06/2020) -patient's wound area could not tolerate the wound vac -antibiotic course: Empiric IV antibiotics on admission: Zosyn and Doxycycline , skin culture positive for Pseudomonas aeroginosa (few) and Enterococcus faecalis (moderate), previous hospitalist Dr. Vallejo switched antibiotics to Ciprofloxacin and Daptomycin starting on 04/06/20 -04/10/2020: dressing changed by wound care nurse -04/11/2020: the right ischial ulcer appears to be in good stage of healing, however on exam the sacral ulcer needed redressing (Length 4 cm, Width 4.3 cm, Depth 0.3 cm. Treatment plan from recent wound care notes would be to apply aquacel ag, cover with optifoam, change QOD and prn, Dressing type: Hydrofiber with silver, Non-adhesive Foam) -Wednesday04/13/2020 : initial plans for discharge to a SNF on Wednesday04/12/2020 were not successful because of lacking in available SNF beds. At this time, patient remains in the hospital and will be here at least through the weekend where upon on the a new bed search for SNF to take place. Patient will need regular wound assessment by inpatient nursing and then on the week for re-assessment by wound care service on whether patient will be appropriate for wound vac to sacral ulcer at that time -Wednesday04/14/2020: Patient was examined at beside and about to take his AM medications. He is asymptomatic and no acute distress. Continues to be on room air. No of distress. No shortness of breath. No dizziness. No nausea. No vomiting. No abdomen pain. baseline immobility. reaffirmed plans of continuing current antibiotics of ciprofloxacin and daptomycin for now while in hospital. expect wound care team to re-assess patient on Wednesday04/15/2020 in regards to appropriateness for wound vac for sacral ulcer (2) Multiple sclerosis: - antibiotic and wound care management for sacral ulcer/right ischial ulcer as above Chronic Leukocytosis -based on review of previous hospital labs, patient's WBC has been persistently above 10 K. no recent fevers. 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 Larios (04/04/2020) -chronic riddle for history of bladder outlet obstruction, renal/bladder stones and Benign prostate hyperplasia -s/p TURP, cystoscopy and laser litholapaxy by Dr. Larios on 04/04/2020 -continue riddle care Constipation -04/13/2020: patient's pertinent positive on review of systems for constipation. The KUB on 04/13/2020 (Nonobstructive bowel gas pattern. Suggested constipation with moderate to extensive fecal retention of the descending colon. Bilateral nephrolithiasis with urinary bladder calculi redemonstrated). Bowel regimen medications was increased. Subsequently an enema was given in evening and large bowel movement made as per nursing staff -continue oral medication / bowel regimen (5) Hypertension: -continue amlodipine and losartan (6) DVT prophylaxis: -SQ heparin while in the hospital Admission and Anticipated Discharge Date Admission Date: April 05, 2020 Subjective -Wednesday04/14/2020: Patient was examined at beside and about to take his AM medications. He is asymptomatic and no acute distress. Continues to be on room air. No of distress. No shortness of breath. No dizziness. No nausea. No vomiting. No abdomen pain. baseline immobility. reaffirmed plans of continuing current antibiotics of ciprofloxacin and daptomycin for now while in hospital. expect wound care team to re-assess patient on Wednesday04/15/2020 in regards to appropriateness for wound vac for sacral ulcer Review of Systems Review of Systems: All systems reviewed & are unremarkable except as noted in Subjective Physical Exam Constitutional: comfortable Eyes: PERRL, conjunctivae normal, anicteric sclerae EOM intact bilaterally ENMT: external ear and nose normal, oropharynx normal Neck: normal visual inspection Respiratory: normal respiratory effort, lungs clear to auscultation Cardiovascular: Rate/Rhythm: regular rate Gastrointestinal (Abdomen): normal bowel sounds, soft, nontender, no hepatosplenomegaly Musculoskeletal: Head/Neck/Chest: normocephalic Skin: + ulcer (sacral ulcer in dressing, also a healed right buttock ulcer) Neurologic: PERRL, EOMI, accommodation nl, no face palsy, no dysarthria Psychiatric: Orientation: alert and cooperative Results & Data Results & Data ([facility]) Vital Signs (Past 12 Hours) Vital Signs Temp Pulse Resp BP Pulse Ox 04/14/20 07:15 36.7 C 72 17 125/70 96 04/13/20 23:54 36.9 C 81 18 140/76 96
[2020-04-14 08:09] LABS: BUN Creatinine Ratio 15.6 (10-20); Calcium 8.6 mg/dl (8.5-10.1); Creatinine Clr Calc Pharmacy 62.6 ml/min; Est GFR (African American) 71.8; Est GFR (Non-African American) 61.9; Potassium 4.1 mmol/L (3.5-5.1)
[2020-04-14 08:16] LABS: Hemoglobin 12.2 g/dL (14.0-18.0); Mean Corpuscular Volume 87.9 fL (80-100); Platelet Count 491 K/uL (130-400); RDW Coefficient of Variation 14.4 % (11.5-14.5); RDW Standard Deviation 45.5 fL (36.4-46.3); Red Blood Count 4.21 M/uL (4.7-6.1); White Blood Count 12.27 K/uL (4.8-10.8)
[2020-04-14 08:17] LABS: Basophils # (auto) 0.05 K/uL (0-0.2); Basophils % (auto) 0.4 %; Eosinophils # (auto) 0.58 K/uL (0-0.5); Eosinophils % (auto) 4.7 %; Immature Granulocytes % (auto) 0.8 %; Lymphocytes # (auto) 2.18 K/uL (1.2-3.4); Lymphocytes % (auto) 17.8 %; Monocytes # (auto) 1.62 K/uL (0.11-0.59); Monocytes % (auto) 13.2 %; Neutrophils # (auto) 7.74 K/uL (1.4-6.5); Neutrophils % (auto) 63.1 %
[2020-04-14] MEDS: LOSARTAN POTASSIUM 50 MG TAB PO SCH (20:20)
[2020-04-14] MEDS: amLODIPine BESYLATE 5 MG TAB PO SCH (20:21)
[2020-04-15] MEDS: DAPTOmycin 325 MG in SYRINGE 0 ML IV SCH (06:29)
[2020-04-15] MEDS: POLYETHYLENE (MIRALAX) 17 GM PACK PO SCH ×2 (07:49→20:19)
[2020-04-15] MEDS: CIPROFLOXACIN 500 MG TAB PO SCH ×2 (07:49→20:19)
[2020-04-15] MEDS: SENNA 8.6 MG TAB PO SCH ×2 (07:50→20:19)
[2020-04-15] MEDS: MULTIVITAMIN TAB PO SCH (07:50)
[2020-04-15] MEDS: ADVANCED PROBIOTIC 1250 MG CAPSULE PO SCH (07:50)
[2020-04-15] MEDS: VITAMIN B COMPLEX TAB PO SCH (07:50)
[2020-04-15] MEDS: DOCUSATE SODIUM 100 MG CAP PO SCH ×2 (07:50→20:19)
[2020-04-15] MEDS: FOLIC ACID 1 MG TAB PO SCH (07:50)
[2020-04-15] MEDS: HEPARIN SOD 5,000 UNIT/0.5 ML VIAL SQ SCH ×2 (07:51→20:20)
--- NOTE | 2020-04-15 08:06 | Hospitalist Progress Note ---
Date of Service April 15, 2020 Assessment & Plan (1) Sacral ulcer: and right ischial ulcer -"This is a 80 y/o male with multiple sclerosis wheelchair confined and hypertension who presented for elective urologic procedure. Patient underwent TURP, cystoscopy and laser litholapaxy by Dr. Larios on 04/04/20. He tolerated the procedure well. In recovery nurses discovered sacral wounds which have deteriorated since prior admission." -s/p surgical debridement of sacral and right ischial decubital ulcer w/ Dr. Mcnamara (04/06/2020) -patient's wound area could not tolerate the wound vac -antibiotic course: Empiric IV antibiotics on admission: Zosyn and Doxycycline , skin culture positive for Pseudomonas aeroginosa (few) and Enterococcus faecalis (moderate), previous hospitalist Dr. Vallejo switched antibiotics to Ciprofloxacin and Daptomycin starting on 04/06/20 -04/10/2020: dressing changed by wound care nurse -04/11/2020: the right ischial ulcer appears to be in good stage of healing, however on exam the sacral ulcer needed redressing (Length 4 cm, Width 4.3 cm, Depth 0.3 cm. Treatment plan from recent wound care notes would be to apply aquacel ag, cover with optifoam, change QOD and prn, Dressing type: Hydrofiber with silver, Non-adhesive Foam) -Wednesday04/13/2020 : initial plans for discharge to a SNF on Wednesday04/12/2020 were not successful because of lacking in available SNF beds. At this time, patient remains in the hospital and will be here at least through the weekend where upon on the a new bed search for SNF to take place. Patient will need regular wound assessment by inpatient nursing and then on the week for re-assessment by wound care service on whether patient will be appropriate for wound vac to sacral ulcer at that time -Wednesday04/14/2020: Patient was examined at beside and about to take his AM medications. He is asymptomatic and no acute distress. Continues to be on room air. No of distress. No shortness of breath. No dizziness. No nausea. No vomiting. No abdomen pain. baseline immobility. reaffirmed plans of continuing current antibiotics of ciprofloxacin and daptomycin for now while in hospital. expect wound care team to re-assess patient on Wednesday04/15/2020 in regards to appropriateness for wound vac for sacral ulcer Wednesday04/15/2020: -follow up KUB X ray ordered on 04/15/2020 since no bowel movement since 04/13/2020 enema. Patient does not report any abdominal pain or vomiting. no fevers. currently on same antibiotics. no shortness of breath. no chest discomforts. no other symptoms on review of systems. he is awaiting for wound care nursing team to re-assess whether any wound vac needed for the sacral ulcer area. (2) Multiple sclerosis: - antibiotic and wound care management for sacral ulcer/right ischial ulcer as above Chronic Leukocytosis -based on review of previous hospital labs, patient's WBC has been persistently above 10 K. no recent fevers. 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 Larios (04/04/2020) -chronic riddle for history of bladder outlet obstruction, renal/bladder stones and Benign prostate hyperplasia -s/p TURP, cystoscopy and laser litholapaxy by Dr. Larios on 04/04/2020 -continue riddle care Constipation -04/13/2020: patient's pertinent positive on review of systems for constipation. The KUB on 04/13/2020 (Nonobstructive bowel gas pattern. Suggested constipation with moderate to extensive fecal retention of the descending colon. Bilateral nephrolithiasis with urinary bladder calculi redemonstrated). Bowel regimen medications was increased. Subsequently an enema was given in evening and large bowel movement made as per nursing staff -continue oral medication / bowel regimen -follow up KUB X ray on 04/15/2020 since no bowel movement since 04/13/2020 enema (5) Hypertension: -continue amlodipine and losartan (6) DVT prophylaxis: -SQ heparin while in the hospital Admission and Anticipated Discharge Date Admission Date: April 05, 2020 Subjective -follow up KUB X ray on 04/15/2020 since no bowel movement since 04/13/2020 enema Patient does not report any abdominal pain or vomiting. no fevers. currently on same antibiotics. no shortness of breath. no chest discomforts. no other symptoms on review of systems. he is awaiting for wound care nursing team to re- assess whether any wound vac needed for the sacral ulcer area. Review of Systems Review of Systems: All systems reviewed & are unremarkable except as noted in Subjective Physical Exam Constitutional: comfortable Eyes: PERRL, conjunctivae normal, anicteric sclerae EOM intact bilaterally ENMT: external ear and nose normal, oropharynx normal Neck: normal visual inspection Respiratory: normal respiratory effort, lungs clear to auscultation Cardiovascular: Rate/Rhythm: regular rate Gastrointestinal (Abdomen): normal bowel sounds, soft, nontender, no hepatosplenomegaly Musculoskeletal: Head/Neck/Chest: normocephalic Extremities: + lower extremity abnormal to inspection (bilateral waffle boots) Skin: + ulcer (sacral ulcer in dressing, also a healed right buttock ulcer) Neurologic: PERRL, EOMI, accommodation nl, no face palsy, no dysarthria Psychiatric: Orientation: alert and cooperative Results & Data Results & Data ([facility]) Vital Signs (Past 12 Hours) Vital Signs Temp Pulse Pulse Resp BP BP Pulse Ox 04/15/20 07:44 36.6 C 78 16 122/71 96 04/14/20 23:36 37.1 C 92 H 18 144/74 H 97 04/14/20 20:19 89 130/65
--- NOTE | 2020-04-15 10:30 | XRay Report ---
XR KUB/Abdomen 1 view CLINICAL HISTORY: follow stool burden CONSTIPATION COMPARISON STUDY: 04/05/2020 FINDINGS: There is moderate colonic stool, similar to the preceding study. There is bilateral nephrol ithiasis. There are no transition zones indicate bowel obstruction. There are multiple pelvic basin c alcifications, similar to the prior study. Several of these, likely represent bladder calculi. IMPRESSION: 1. Nonobstructive bowel gas pattern 2. Moderate colonic stool similar to the prior study 3. Bilateral nephrolithiasis 4. Multiple bladder calculi ACT 112: Negative or not required by law. Electronically signed by: Ramez Bustillo M.D. 04/15/2020 10:29 AM
[2020-04-15] MEDS: LOSARTAN POTASSIUM 50 MG TAB PO SCH (20:19)
[2020-04-15] MEDS: amLODIPine BESYLATE 5 MG TAB PO SCH (20:19)
[2020-04-16] MEDS: DAPTOmycin 325 MG in SYRINGE 0 ML IV SCH (06:06)
[2020-04-16] MEDS: FOLIC ACID 1 MG TAB PO SCH (08:39)
[2020-04-16] MEDS: DOCUSATE SODIUM 100 MG CAP PO SCH ×2 (08:39→20:31)
[2020-04-16] MEDS: ADVANCED PROBIOTIC 1250 MG CAPSULE PO SCH (08:39)
[2020-04-16] MEDS: MULTIVITAMIN TAB PO SCH (08:39)
[2020-04-16] MEDS: SENNA 8.6 MG TAB PO SCH ×2 (08:39→20:31)
[2020-04-16] MEDS: VITAMIN B COMPLEX TAB PO SCH (08:40)
[2020-04-16] MEDS: CIPROFLOXACIN 500 MG TAB PO SCH ×2 (08:40→20:31)
[2020-04-16] MEDS: HEPARIN SOD 5,000 UNIT/0.5 ML VIAL SQ SCH ×2 (08:40→20:31)
[2020-04-16] MEDS: POLYETHYLENE (MIRALAX) 17 GM PACK PO SCH ×2 (08:40→20:31)
--- NOTE | 2020-04-16 11:13 | Hospitalist Progress Note ---
Date of Service April 16, 2020 Assessment & Plan (1) Sacral ulcer: and right ischial ulcer -"This is a 80 y/o male with multiple sclerosis wheelchair confined and hypertension who presented for elective urologic procedure. Patient underwent TURP, cystoscopy and laser litholapaxy by Dr. Larios on 04/04/20. He tolerated the procedure well. In recovery nurses discovered sacral wounds which have deteriorated since prior admission." -s/p surgical debridement of sacral and right ischial decubital ulcer w/ Dr. Mcnamara (04/06/2020) -patient's wound area could not tolerate the wound vac -antibiotic course: Empiric IV antibiotics on admission: Zosyn and Doxycycline , skin culture positive for Pseudomonas aeroginosa (few) and Enterococcus faecalis (moderate), previous hospitalist Dr. Vallejo switched antibiotics to Ciprofloxacin and Daptomycin starting on 04/06/20 -04/10/2020: dressing changed by wound care nurse -04/11/2020: the right ischial ulcer appears to be in good stage of healing, however on exam the sacral ulcer needed redressing (Length 4 cm, Width 4.3 cm, Depth 0.3 cm. Treatment plan from recent wound care notes would be to apply aquacel ag, cover with optifoam, change QOD and prn, Dressing type: Hydrofiber with silver, Non-adhesive Foam) -Wednesday04/13/2020 : initial plans for discharge to a SNF on Wednesday04/12/2020 were not successful because of lacking in available SNF beds. At this time, patient remains in the hospital and will be here at least through the weekend where upon on the a new bed search for SNF to take place. Patient will need regular wound assessment by inpatient nursing and then on the week for re-assessment by wound care service on whether patient will be appropriate for wound vac to sacral ulcer at that time -Wednesday04/14/2020: Patient was examined at beside and about to take his AM medications. He is asymptomatic and no acute distress. Continues to be on room air. No of distress. No shortness of breath. No dizziness. No nausea. No vomiting. No abdomen pain. baseline immobility. reaffirmed plans of continuing c urrent antibiotics of ciprofloxacin and daptomycin for now while in hospital. expect wound care team to re-assess patient on Wednesday04/15/2020 in regards to appropriateness for wound vac for sacral ulcer Wednesday04/15/2020: -follow up KUB X ray ordered on 04/15/2020 since no bowel movement since 04/13/2020 enema. Patient does not report any abdominal pain or vomiting. no fevers. currently on same antibiotics. no shortness of breath. no chest discomforts. no other symptoms on review of systems. Wound Care nurse reports that on Wednesday04/16/2020, the wound care doctor will come by to assess Wednesday04/16/2020: awaiting wound care physician. Patient currently expressing more frustration about the wound healing as he is under the impression that his current condition of the back was caused by this hospitalization. Reviewed with patent and also his the hospital course by telephone. His is aware that he has had wound ulceration for years. Patient otherwise denies other current symptoms. he does not express pain of lower back. continues to be on room air, breathing comfortably, no chest pain. no abdomen pain. he denies other symptoms on review of systems. remains on antibiotics (he has been covered with antibiotics since admission 04/04/2020) (2) Multiple sclerosis: - antibiotic and wound care management for sacral ulcer/right ischial ulcer as above Chronic Leukocytosis -based on review of previous hospital labs, patient's WBC has been persistently above 10 K. no recent fevers. 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 Larios (04/04/2020) -chronic riddle for history of bladder outlet obstruction, renal/bladder stones and Benign prostate hyperplasia -s/p TURP, cystoscopy and laser litholapaxy by Dr. Lariso on 04/04/2020 -continue riddle care Constipation -04/13/2020: patient's pertinent positive on review of systems for constipation. The KUB on 04/13/2020 (Nonobstructive bowel gas pattern. Suggested constipation with moderate to extensive fecal retention of the descending colon. Bilateral nephrolithiasis with urinary bladder calculi redemonstrated). Bowel regimen medications was increased. Subsequently an enema was given in evening and large bowel movement made as per nursing staff -continue oral medication / bowel regimen -follow up KUB X ray on 04/15/2020 since no bowel movement since 04/13/2020 enema (5) Hypertension: -continue amlodipine and losartan (6) DVT prophylaxis: -SQ heparin while in the hospital Admission and Anticipated Discharge Date Admission Date: April 05, 2020 Subjective Wednesday04/16/2020: awaiting wound care physician. Patient currently expressing more frustration about the wound healing as he is under the impression that his current condition of the back was caused by this hospitalization. Reviewed with patent and also his the hospital course by telephone. His is aware that he has had wound ulceration for years. Patient otherwise denies other current symptoms. he does not express pain of lower back. continues to be on room air, breathing comfortably, no chest pain. no abdomen pain. he denies other symptoms on review of systems. remains on antibiotics (he has been covered with antibiotics since admission 04/04/2020) Review of Systems Review of Systems: All systems reviewed & are unremarkable except as noted in Subjective Physical Exam Constitutional: comfortable Eyes: PERRL, conjunctivae normal, anicteric sclerae EOM intact bilaterally ENMT: external ear and nose normal, oropharynx normal Neck: normal visual inspection Respiratory: normal respiratory effort, lungs clear to auscultation Cardiovascular: Rate/Rhythm: regular rate Gastrointestinal (Abdomen): normal bowel sounds, soft, nontender, no hepatosplenomegaly Musculoskeletal: Head/Neck/Chest: normocephalic Extremities: + lower extremity abnormal to inspection (bilateral waffle boots) Skin: + ulcer (sacral ulcer in dressing, also a healed right buttock ulcer) Neurologic: PERRL, EOMI, accommodation nl, no face palsy, no dysarthria Psychiatric: Orientation: alert and cooperative Results & Data Results & Data ([facility]) Vital Signs (Past 12 Hours) Vital Signs Temp Pulse Resp BP Pulse Ox 04/16/20 07:33 37.0 C 73 16 122/71 96
--- NOTE | 2020-04-16 14:39 | Wound Progress Note ---
Date of Service April 16, 2020 Assessment & Plan (1) Sacral ulcer: Wound is stable. Continue dressing the wound with Aquacel and OPTi foam. With regards to wound healing this is can to be very difficult to help patient being willing to offload or use specialty mattress. He does get irritated every time nursing tries to discuss this with him. We will continue to follow. Please call with any questions. Admission and Anticipated Discharge Date Admission Date: April 05, 2020 Subjective Patient seen at bedside with WOCN. Patient refusing specialty mattress. He did not tolerate wound VAC as wound became too macerated. Has been dressed wound with Aquacel Ag and OPTi foam. Review of Systems Review of Systems: All systems reviewed & are unremarkable except as noted in HPI & below Physical Exam Physical Exam: Temp Pulse Resp BP Pulse Ox 37.0 C 73 16 122/71 96 04/16/20 07:33 04/16/20 07:33 04/16/20 07:33 04/16/20 07:33 04/16/20 07:33 Constitutional: WD/WN, vitals as above Skin: Wounds measuring as recorded in nursing documentation. There is slough over the wound. There is large amount of drainage. Neurologic: awake; not confused Psychiatric: A+Ox3, euthymic affect Results & Data ([facility]) Vital Signs (Past 12 Hours) Vital Signs Temp Pulse Resp BP Pulse Ox 04/16/20 07:33 37.0 C 73 16 122/71 96 PG Care Time/CCT Total # of Minutes Spent Total Time Spent with Patient: Total time spent is greater than 50% in [facility] (as documented) at patient's floor/unit and/or counseling patient: Coding Level of Care Code 02667 Subseq Hosp Care Lvl 2 Diagnoses Sacral ulcer L98.429
[2020-04-16] MEDS: LOSARTAN POTASSIUM 50 MG TAB PO SCH (20:31)
[2020-04-16] MEDS: amLODIPine BESYLATE 5 MG TAB PO SCH (20:31)
[2020-04-17] MEDS: DAPTOmycin 325 MG in SYRINGE 0 ML IV SCH (06:14)
[2020-04-17] MEDS: CIPROFLOXACIN 500 MG TAB PO SCH ×2 (08:16→20:23)
[2020-04-17] MEDS: traMADol HCL 50 MG TABLET PO PRN (08:16)
[2020-04-17] MEDS: MULTIVITAMIN TAB PO SCH (08:16)
[2020-04-17] MEDS: ADVANCED PROBIOTIC 1250 MG CAPSULE PO SCH (08:16)
[2020-04-17] MEDS: SENNA 8.6 MG TAB PO SCH ×2 (08:16→20:23)
[2020-04-17] MEDS: FOLIC ACID 1 MG TAB PO SCH (08:16)
[2020-04-17] MEDS: VITAMIN B COMPLEX TAB PO SCH (08:16)
[2020-04-17] MEDS: DOCUSATE SODIUM 100 MG CAP PO SCH ×2 (08:16→20:23)
[2020-04-17] MEDS: HEPARIN SOD 5,000 UNIT/0.5 ML VIAL SQ SCH ×2 (08:16→20:23)
[2020-04-17] MEDS: POLYETHYLENE (MIRALAX) 17 GM PACK PO SCH ×2 (08:16→20:23)
[2020-04-17 08:36] LABS: Basophils # (auto) 0.04 K/uL (0-0.2); Basophils % (auto) 0.3 %; Eosinophils # (auto) 0.64 K/uL (0-0.5); Eosinophils % (auto) 5.2 %; Hemoglobin 11.9 g/dL (14.0-18.0); Immature Granulocytes # (auto) 0.09 K/uL (0.00-0.02); Immature Granulocytes % (auto) 0.7 %; Lymphocytes # (auto) 2.31 K/uL (1.2-3.4); Lymphocytes % (auto) 18.7 %; Mean Corpuscular Hemoglobin 28.5 pg (25-34); Mean Corpuscular Hgb Conc 32.2 g/dL (32-36); Mean Corpuscular Volume 88.5 fL (80-100); Monocytes # (auto) 1.37 K/uL (0.11-0.59); Monocytes % (auto) 11.1 %; Neutrophils # (auto) 7.92 K/uL (1.4-6.5); Platelet Count 488 K/uL (130-400); RDW Coefficient of Variation 14.4 % (11.5-14.5); RDW Standard Deviation 46.8 fL (36.4-46.3); Red Blood Count 4.18 M/uL (4.7-6.1); White Blood Count 12.37 K/uL (4.8-10.8)
[2020-04-17 09:03] LABS: Albumin Level 2.3 gm/dl (3.4-5.0); BUN Creatinine Ratio 19.5 (10-20); Calcium 9.1 mg/dl (8.5-10.1); Creatinine Clr Calc Pharmacy 58.5 ml/min; Est GFR (African American) 66.1; Potassium 4.1 mmol/L (3.5-5.1)
[2020-04-17 09:06] LABS: Albumin Globulin Ratio 0.5 (0.9-2); Bilirubin,Total 0.5 mg/dl (0.2-1); Globulin 4.5 gm/dl (2.5-4.0); Total Protein 6.8 gm/dl (6.4-8.2)
[2020-04-17] MEDS ORDERED: ADVANCED PROBIOTIC 1250 MG CAPSULE PO SCH (13:00)
[2020-04-17] MEDS ORDERED: bisacodyL 10 MG SUPP PR PRN (15:12)
[2020-04-17] MEDS ORDERED: LACTULOSE SYRUP 10 GM/15 ML BTL 960 ML PO PRN (15:12)
[2020-04-17] MEDS: MAGNESIUM HYDROXIDE SUSP 30 ML UDC PO PRN (18:59)
[2020-04-17] MEDS: LOSARTAN POTASSIUM 50 MG TAB PO SCH (20:23)
[2020-04-17] MEDS: amLODIPine BESYLATE 5 MG TAB PO SCH (20:23)
--- NOTE | 2020-04-17 21:33 | Hospitalist Progress Note ---
Date of Service April 17, 2020 Assessment & Plan (1) Sacral ulcer: and right ischial ulcer Pressure ulcer of sacral region, stage [address] Osei Maher's notes -"This is a 80 y/o male with multiple sclerosis wheelchair confined and hypertension who presented for elective urologic procedure. Patient underwent TURP, cystoscopy and laser litholapaxy by Dr. Larios on 04/04/20. He tolerated the procedure well. In recovery nurses discovered sacral wounds which have deteriorated since prior admission." -s/p surgical debridement of sacral and right ischial decubital ulcer w/ Dr. Mcnamara (04/06/2020) -patient's wound area could not tolerate the wound vac -antibiotic course: Empiric IV antibiotics on admission: Zosyn and Doxycycline , skin culture positive for Pseudomonas aeroginosa (few) and Enterococcus faecalis (moderate), previous hospitalist Dr. Vallejo switched antibiotics to Ci profloxacin and Daptomycin starting on 04/06/20 ----- Continue antibiotics for at least 1 more week PT and OT evaluation (2) Multiple sclerosis: - antibiotic and wound care management for sacral ulcer/right ischial ulcer as above Chronic Leukocytosis Dr. Osei Maher's notes -based on review of previous hospital labs, patient's WBC has been persistently above 10 K. no recent fevers. 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 Larios (04/04/2020) -chronic riddle for history of bladder outlet obstruction, renal/bladder stones and Benign prostate hyperplasia -s/p TURP, cystoscopy and laser litholapaxy by Dr. Larios on 04/04/2020 -continue riddle care Constipation -04/13/2020: patient's pertinent positive on review of systems for constipation. The KUB on 04/13/2020 (Nonobstructive bowel gas pattern. Suggested constipation with moderate to extensive fecal retention of the descending colon. Bilateral nephrolithiasis with urinary bladder calculi redemonstrated). Bowel regimen medications was increased. Subsequently an enema was given in evening and large bowel movement made as per nursing staff -continue oral medication / bowel regimen -follow up KUB X ray on 04/15/2020 since no bowel movement since 04/13/2020 enema --Add as needed lactulose, Dulcolax suppository (5) Hypertension: -continue amlodipine and losartan (6) DVT prophylaxis: -SQ heparin while in the hospital Admission and Anticipated Discharge Date Admission Date: April 05, 2020 Subjective Follow-up for sacral decubitus ulcer, etc Seen resting in bed, comfortable, watching TV States back pain is manageable Denies fevers or chills Chest pain, shortness of breath, palpitations, dizziness No other symptom Review of Systems Review of Systems: All systems reviewed & are unremarkable except as noted in Subjective Physical Exam Physical Exam: General- oriented x 3, not in distress, speaks in sentences with no effort or accessory muscle use Eyes- anicteric Neck- no JVD Lungs- clear breath sounds bilaterally, no rales/wheezes Heart- normal rate, regular rhythm; no murmurs Abdomen- normal bowel sounds, nondistended, soft, nontender Extremities- no pretibial edema, no calf tenderness Back: Sacral decubitus ulcer noted with surrounding erythema, mild yellow discharge Neuro- alert, oriented x 3; no gross focal neurologic deficits Skin- warm & dry Results & Data Results & Data ([facility]) Vital Signs (Past 12 Hours) Vital Signs Temp Pulse Resp BP Pulse Ox 04/17/20 20:18 90 134/73 04/17/20 15:50 36.6 C 78 19 148/77 H 97
[2020-04-18] MEDS: HEPARIN SOD 5,000 UNIT/0.5 ML VIAL SQ SCH ×2 (08:06→22:37)
[2020-04-18] MEDS: VITAMIN B COMPLEX TAB PO SCH (08:12)
[2020-04-18] MEDS: ADVANCED PROBIOTIC 1250 MG CAPSULE PO SCH (08:12)
[2020-04-18] MEDS: POLYETHYLENE (MIRALAX) 17 GM PACK PO SCH ×2 (08:12→22:48)
[2020-04-18] MEDS: MULTIVITAMIN TAB PO SCH (08:12)
[2020-04-18] MEDS: CIPROFLOXACIN 500 MG TAB PO SCH ×2 (08:12→22:38)
[2020-04-18] MEDS: DOCUSATE SODIUM 100 MG CAP PO SCH ×2 (08:12→22:38)
[2020-04-18] MEDS: SENNA 8.6 MG TAB PO SCH ×2 (08:12→22:37)
[2020-04-18] MEDS: FOLIC ACID 1 MG TAB PO SCH (08:12)
[2020-04-18] MEDS: AMOXICILLIN/CLAVULANATE 875 MG TAB PO SCH ×2 (18:04→22:38)
--- NOTE | 2020-04-18 20:12 | Hospitalist Progress Note ---
Date of Service April 18, 2020 Assessment & Plan (1) Sacral ulcer: and right ischial ulcer Pressure ulcer of sacral region, stage [address] Osei Maher's notes -"This is a 80 y/o male with multiple sclerosis wheelchair confined and hypertension who presented for elective urologic procedure. Patient underwent TURP, cystoscopy and laser litholapaxy by Dr. Larios on 04/04/20. He tolerated the procedure well. In recovery nurses discovered sacral wounds which have deteriorated since prior admission." -s/p surgical debridement of sacral and right ischial decubital ulcer w/ Dr. Mcnamara (04/06/2020) -patient's wound area could not tolerate the wound vac -antibiotic course: Empiric IV antibiotics on admission: Zosyn and Doxycycline , skin culture positive for Pseudomonas aeroginosa (few) and Enterococcus faecalis (moderate), previous hospitalist Dr. Vallejo switched antibiotics to Ci profloxacin and Daptomycin starting on 04/06/20 ----- Continue p.o. Augmentin and doxycycline x1 more week to complete at least 3 weeks of antibiotic course Follow-up with PCP and wound care center in 1 week, reevaluate if extension of antibiotic course is indicated Probiotics ordered (2) Multiple sclerosis: - antibiotic and wound care management for sacral ulcer/right ischial ulcer as above Chronic Leukocytosis Dr. Osei Maher's notes -based on review of previous hospital labs, patient's WBC has been persistently above 10 K. no recent fevers. 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 Larios (04/04/2020) -chronic riddle for history of bladder outlet obstruction, renal/bladder stones and Benign prostate hyperplasia -s/p TURP, cystoscopy and laser litholapaxy by Dr. Larios on 04/04/2020 -continue riddle care Constipation -04/13/2020: patient's pertinent positive on review of systems for constipation. The KUB on 04/13/2020 (Nonobstructive bowel gas pattern. Suggested constipation with moderate to extensive fecal retention of the descending colon. Bilateral nephrolithiasis with urinary bladder calculi redemonstrated). Bowel regimen medications was increased. Subsequently an enema was given in evening and large bowel movement made as per nursing staff -continue oral medication / bowel regimen -follow up KUB X ray on 04/15/2020 since no bowel movement since 04/13/2020 enema --Add as needed lactulose, Dulcolax suppository --Tapwater enema ordered (5) Hypertension: -continue amlodipine and losartan (6) DVT prophylaxis: -SQ heparin while in the hospital Disposition Waiting acceptance to [facility] Admission and Anticipated Discharge Date Admission Date: April 05, 2020 Subjective Follow-up for infected sacral decubitus ulcer, etc. Seen resting in bed, watching TV, sitting up, in good spirits States he feels fine overall Denies back pain, fevers or chills No chest pain, shortness of breath abdominal pain, nausea vomiting Denies other symptoms Review of Systems Review of Systems: All systems reviewed & are unremarkable except as noted in Subjective Physical Exam Physical Exam: General- oriented x 3, not in distress, speaks in sentences with no effort or accessory muscle use Eyes- anicteric Neck- no JVD Lungs- clear breath sounds bilaterally, no wheezing, no crackles Heart- normal rate, regular rhythm; no murmurs Abdomen- normal bowel sounds, nondistended, soft, nontender Extremities- no pretibial edema, no calf tenderness Neuro- alert, oriented x 3; no gross focal neurologic deficits Skin- warm & dry Results & Data Results & Data ([facility]) Vital Signs (Past 12 Hours) Vital Signs Temp Pulse Pulse Resp BP Pulse Ox 04/18/20 16:00 37.1 C 85 18 144/72 H 98 04/18/20 08:22 37.0 C 79 16 122/72 97
[2020-04-18] MEDS: amLODIPine BESYLATE 5 MG TAB PO SCH (22:37)
[2020-04-18] MEDS: LOSARTAN POTASSIUM 50 MG TAB PO SCH (22:38)
[2020-04-19] MEDS: HEPARIN SOD 5,000 UNIT/0.5 ML VIAL SQ SCH ×2 (07:03→20:53)
[2020-04-19] MEDS: ADVANCED PROBIOTIC 1250 MG CAPSULE PO SCH (07:04)
[2020-04-19] MEDS: MULTIVITAMIN TAB PO SCH (07:04)
[2020-04-19] MEDS: DOCUSATE SODIUM 100 MG CAP PO SCH ×2 (07:05→20:52)
[2020-04-19] MEDS: AMOXICILLIN/CLAVULANATE 875 MG TAB PO SCH ×2 (07:05→20:52)
[2020-04-19] MEDS: VITAMIN B COMPLEX TAB PO SCH (07:05)
[2020-04-19] MEDS: SENNA 8.6 MG TAB PO SCH ×2 (07:05→20:52)
[2020-04-19] MEDS: FOLIC ACID 1 MG TAB PO SCH (07:05)
[2020-04-19] MEDS: CIPROFLOXACIN 500 MG TAB PO SCH ×2 (07:05→20:53)
[2020-04-19] MEDS: POLYETHYLENE (MIRALAX) 17 GM PACK PO SCH ×2 (07:33→20:47)
[2020-04-19] MEDS: LOSARTAN POTASSIUM 50 MG TAB PO SCH (20:50)
[2020-04-19] MEDS: amLODIPine BESYLATE 5 MG TAB PO SCH (20:52)
[2020-04-19] MEDS: traMADol HCL 50 MG TABLET PO PRN (20:55)
[2020-04-19] MEDS: MELATONIN 3 MG TAB PO PRN (20:55)
--- NOTE | 2020-04-19 21:17 | Hospitalist Progress Note ---
Date of Service April 19, 2020 Assessment & Plan (1) Sacral ulcer: and right ischial ulcer Pressure ulcer of sacral region, stage [address] Osei Maher's notes -"This is a 80 y/o male with multiple sclerosis wheelchair confined and hypertension who presented for elective urologic procedure. Patient underwent TURP, cystoscopy and laser litholapaxy by Dr. Larios on 04/04/20. He tolerated the procedure well. In recovery nurses discovered sacral wounds which have deteriorated since prior admission." -s/p surgical debridement of sacral and right ischial decubital ulcer w/ Dr. Mcnamara (04/06/2020) -patient's wound area could not tolerate the wound vac -antibiotic course: Empiric IV antibiotics on admission: Zosyn and Doxycycline , skin culture positive for Pseudomonas aeroginosa (few) and Enterococcus faecalis (moderate), previous hospitalist Dr. Vallejo switched antibiotics to Ci profloxacin and Daptomycin starting on 04/06/20 ----- Sacral wound ulcer improving Continue p.o. Augmentin and doxycycline x1 more week to complete at least 3 weeks of antibiotic course Tolerating above antibiotics well Follow-up with PCP and wound care center in 1 week, reevaluate if extension of antibiotic course is indicated Probiotics ordered (2) Multiple sclerosis: - antibiotic and wound care management for sacral ulcer/right ischial ulcer as above Chronic Leukocytosis Dr. Osei Maher's notes -based on review of previous hospital labs, patient's WBC has been persistently above 10 K. no recent fevers. 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 Larios (04/04/2020) -chronic riddle for history of bladder outlet obstruction, renal/bladder stones and Benign prostate hyperplasia -s/p TURP, cystoscopy and laser litholapaxy by Dr. Larios on 04/04/2020 -continue riddle care Constipation -04/13/2020: patient's pertinent positive on review of systems for constipation. The KUB on 04/13/2020 (Nonobstructive bowel gas pattern. Suggested constipation with moderate to extensive fecal retention of the descending colon. Bilateral nephrolithiasis with urinary bladder calculi redemonstrated). Bowel regimen medications was increased. Subsequently an enema was given in evening and large bowel movement made as per nursing staff -continue oral medication / bowel regimen -follow up KUB X ray on 04/15/2020 since no bowel movement since 04/13/2020 enema --Add as needed lactulose, Dulcolax suppository --Tapwater enema ordered (5) Hypertension: -continue amlodipine and losartan (6) DVT prophylaxis: -SQ heparin while in the hospital Disposition Waiting acceptance to [facility] Admission and Anticipated Discharge Date Admission Date: April 05, 2020 Subjective Upper sacral ulcer, with infection Seen resting in bed, comfortable, not in distress, watching TV, in good spirits Denies back pain Abdominal pain, nausea vomiting, diarrhea, tolerating antibiotics well No chest pain shortness of breath palpitation dizziness No other symptom Review of Systems Review of Systems: All systems reviewed & are unremarkable except as noted in Subjective Physical Exam Physical Exam: General- oriented x 3, not in distress, speaks in sentences with no effort or accessory muscle use Eyes- anicteric Neck- no JVD Lungs- clear BS bilaterally, no crackles or wheezing Heart- normal rate, regular rhythm; no murmurs Abdomen- normal bowel sounds, nondistended, soft, nontender Back: Sacral decubitus ulcers improving, less erythema/discharge Extremities- no pretibial edema, no calf tenderness Neuro- alert, oriented x 3; no gross focal neurologic deficits Skin- warm & dry Results & Data Results & Data ([facility]) Vital Signs (Past 12 Hours) Vital Signs Temp Pulse Pulse Resp BP BP Pulse Ox 04/19/20 21:02 83 143/76 H 04/19/20 15:07 36.8 C 95 H 17 107/71 98 Laboratory Results Medications amlodipine 10 mg PO QPM 03/21/20 [History Confirmed 04/04/20] losartan 100 mg PO QPM 03/21/20 [History Confirmed 04/04/20] krill oil 500 mg PO QAM 03/26/20 [History Confirmed 04/04/20] multivitamin 1 tab PO QAM 03/26/20 [History Confirmed 04/04/20] omega-3 fatty acids-fish oil [[place] 3 Fish Oil] 1 cap PO QAM 03/26/20 [History Confirmed 04/04/20] vitamin B complex 1 tab PO QAM 03/26/20 [History Confirmed 04/04/20] tramadol 50 mg tablet 50 mg PO Q8H PRN #20 tab 03/27/20 [Rx Confirmed 04/04/20] cefdinir 300 mg PO BID 04/03/20 [History Confirmed 04/04/20] folic acid 1 mg PO QAM 04/03/20 [History Confirmed 04/04/20] ibuprofen-diphenhydramine cit [Advil PM] 2 cap PO HS PRN 04/03/20 [History Confirmed 04/04/20] hydrocodone-acetaminophen 1 tab PO Q6H PRN #10 tab 04/04/20 [Rx] Home Medications Acetaminophen (Acetaminophen 325 Mg Tab) 325 mg PO Q6H PRN PRN Reason: Pain or Fever Stop: 05/10/20 07:03 Amlodipine Besylate (Amlodipine Besylate 5 Mg Tab) 10 mg PO QPM [facility] Stop: 05/04/20 20:59 Last Admin: 04/19/20 20:52 Dose: 10 mg Documented by: Amoxicillin/Clavulanate Potassium (Amoxicillin/Clavulanate 875 Mg Tab) 1 tab PO BID [facility] Stop: 04/25/20 23:59 Last Admin: 04/19/20 20:52 Dose: 1 tab Documented by: Bisacodyl (Bisacodyl 10 Mg Supp) 10 mg AK DAILY PRN PRN Reason: Constipation Stop: 05/17/20 15:11 Ciprofloxacin (Ciprofloxacin 500 Mg Tab) 500 mg PO BID [facility] Stop: 04/25/20 23:59 Last Admin: 04/19/20 20:53 Dose: 500 mg Documented by: Current Inpatient Medications Acetaminophen (Acetaminophen 325 Mg Tab) 325 mg PO Q6H PRN PRN Reason: Pain or Fever Stop: 05/10/20 07:03 Amlodipine Besylate (Amlodipine Besylate 5 Mg Tab) 10 mg PO QPM [facility] Stop: 05/04/20 20:59 Last Admin: 04/19/20 20:52 Dose: 10 mg Documented by: Amoxicillin/Clavulanate Potassium (Amoxicillin/Clavulanate 875 Mg Tab) 1 tab PO BID [facility] Stop: 04/25/20 23:59 Last Admin: 04/19/20 20:52 Dose: 1 tab Documented by: Bisacodyl (Bisacodyl 10 Mg Supp) 10 mg AK DAILY PRN PRN Reason: Constipation Stop: 05/17/20 15:11 Ciprofloxacin (Ciprofloxacin 500 Mg Tab) 500 mg PO BID [facility] Stop: 04/25/20 23:59 Last Admin: 04/19/20 20:53 Dose: 500 mg Documented by: Docusate Sodium (Docusate Sodium 100 Mg Cap) 100 mg PO 0800,1999 [facility] Stop: 05/13/20 08:14 Last Admin: 04/19/20 20:52 Dose: Not Given Documented by: Folic Acid (Folic Acid 1 Mg Tab) 1 mg PO QAM [facility] Stop: 05/05/20 08:59 Last Admin: 04/19/20 07:05 Dose: 1 mg Documented by: Heparin Sodium (Porcine) (Heparin Sod 5,000 Unit/0.5 Ml Vial) 5,000 units SQ Q12 [facility] Stop: 05/08/20 20:59 Last Admin: 04/19/20 20:53 Dose: 5,000 units Documented by: Lactobacillus Acidoph/Casei/Rhamnos (Advanced Probiotic 1250 Mg Capsule) 2 cap PO DAILY [facility] Stop: 05/07/20 08:59 Last Admin: 04/19/20 07:04 Dose: 2 cap Documented by: Lactulose (Lactulose Syrup 10 Gm/15 Ml Btl 960 Ml) 15 gm PO BID PRN PRN Reason: constipation Stop: 05/17/20 15:11 Last Admin: 04/17/20 16:54 Dose: 15 gm Documented by: Losartan Potassium (Losartan Potassium 50 Mg Tab) 100 mg PO QPM [facility] Stop: 05/04/20 20:59 Last Admin: 04/19/20 20:50 Dose: 100 mg Documented by: Magnesium Hydroxide (Magnesium Hydroxide Susp 30 Ml Udc) 30 ml PO Q6H PRN PRN Reason: Constipation Stop: 05/11/20 10:50 Last Admin: 04/17/20 18:59 Dose: 30 ml Documented by: Melatonin (Melatonin 3 Mg Tab) 3 mg PO HS PRN PRN Reason: Sleep Stop: 05/08/20 22:45 Last Admin: 04/19/20 20:55 Dose: 3 mg Documented by: Multivitamins (Multivitamin Tab) 1 tab PO QAM [facility] Stop: 05/05/20 08:59 Last Admin: 04/19/20 07:04 Dose: 1 tab Documented by: Ondansetron HCl (Ondansetron Inj 2 Mg/Ml 2 Ml Vial) 4 mg IV Q6H PRN PRN Reason: Nausea Stop: 05/04/20 14:52 Polyethylene Glycol (Polyethylene (Miralax) 17 Gm Pack) 17 gm PO DAILY PRN PRN Reason: Constipation Stop: 05/13/20 08:03 Polyethylene Glycol (Polyethylene (Miralax) 17 Gm Pack) 17 gm PO [facility] Stop: 05/13/20 08:14 Last Admin: 04/19/20 20:47 Dose: 17 gm Documented by: Sennosides (Senna 8.6 Mg Tab) 8.6 mg PO [facility] Stop: 05/13/20 08:14 Last Admin: 04/19/20 20:52 Dose: 8.6 mg Documented by: Tramadol HCl (Tramadol Hcl 50 Mg Tablet) 50 mg PO Q8H PRN PRN Reason: pain Stop: 05/04/20 14:52 Last Admin: 04/19/20 20:55 Dose: 50 mg Documented by: Vitamin B Complex (Vitamin B Complex Tab) 1 tab PO QAM [facility] Stop: 05/05/20 08:59 Last Admin: 04/19/20 07:05 Dose: 1 tab Documented by: Docusate Sodium (Docusate Sodium 100 Mg Cap) 100 mg PO [facility] Stop: 05/13/20 08:14 Last Admin: 04/19/20 20:52 Dose: Not Given Documented by: Folic Acid (Folic Acid 1 Mg Tab) 1 mg PO QAM [facility] Stop: 05/05/20 08:59 Last Admin: 04/19/20 07:05 Dose: 1 mg Documented by: Heparin Sodium (Porcine) (Heparin Sod 5,000 Unit/0.5 Ml Vial) 5,000 units SQ Q12 [facility] Stop: 05/08/20 20:59 Last Admin: 04/19/20 20:53 Dose: 5,000 units Documented by: Lactobacillus Acidoph/Casei/Rhamnos (Advanced Probiotic 1250 Mg Capsule) 2 cap PO DAILY [facility] Stop: 05/07/20 08:59 Last Admin: 04/19/20 07:04 Dose: 2 cap Documented by: Lactulose (Lactulose Syrup 10 Gm/15 Ml Btl 960 Ml) 15 gm PO BID PRN PRN Reason: constipation Stop: 05/17/20 15:11 Last Admin: 04/17/20 16:54 Dose: 15 gm Documented by: Losartan Potassium (Losartan Potassium 50 Mg Tab) 100 mg PO QPM [facility] Stop: 05/04/20 20:59 Last Admin: 04/19/20 20:50 Dose: 100 mg Documented by: Magnesium Hydroxide (Magnesium Hydroxide Susp 30 Ml Udc) 30 ml PO Q6H PRN PRN Reason: Constipation Stop: 05/11/20 10:50 Last Admin: 04/17/20 18:59 Dose: 30 ml Documented by: Melatonin (Melatonin 3 Mg Tab) 3 mg PO HS PRN PRN Reason: Sleep Stop: 05/08/20 22:45 Last Admin: 04/19/20 20:55 Dose: 3 mg Documented by: Multivitamins (Multivitamin Tab) 1 tab PO QAM [facility] Stop: 05/05/20 08:59 Last Admin: 04/19/20 07:04 Dose: 1 tab Documented by: Ondansetron HCl (Ondansetron Inj 2 Mg/Ml 2 Ml Vial) 4 mg IV Q6H PRN PRN Reason: Nausea Stop: 05/04/20 14:52 Polyethylene Glycol (Polyethylene (Miralax) 17 Gm Pack) 17 gm PO DAILY PRN PRN Reason: Constipation Stop: 05/13/20 08:03 Polyethylene Glycol (Polyethylene (Miralax) 17 Gm Pack) 17 gm PO [facility] Stop: 05/13/20 08:14 Last Admin: 04/19/20 20:47 Dose: 17 gm Documented by: Sennosides (Senna 8.6 Mg Tab) 8.6 mg PO 799,1999 [facility] Stop: 05/13/20 08:14 Last Admin: 04/19/20 20:52 Dose: 8.6 mg Documented by: Tramadol HCl (Tramadol Hcl 50 Mg Tablet) 50 mg PO Q8H PRN PRN Reason: pain Stop: 05/04/20 14:52 Last Admin: 04/19/20 20:55 Dose: 50 mg Documented by: Vitamin B Complex (Vitamin B Complex Tab) 1 tab PO QAM [facility] Stop: 05/05/20 08:59 Last Admin: 04/19/20 07:05 Dose: 1 tab Documented by:
--- NOTE | 2020-04-20 18:33 | Hospitalist Progress Note ---
Date of Service April 20, 2020 Assessment & Plan (1) Sacral ulcer: and right ischial ulcer Pressure ulcer of sacral region, stage [address] Osei Maher's notes -"This is a 80 y/o male with multiple sclerosis wheelchair confined and hypertension who presented for elective urologic procedure. Patient underwent TURP, cystoscopy and laser litholapaxy by Dr. Larios on 04/04/20. He tolerated the procedure well. In recovery nurses discovered sacral wounds which have deteriorated since prior admission." -s/p surgical debridement of sacral and right ischial decubital ulcer w/ Dr. Mcnamara (04/06/2020) -patient's wound area could not tolerate the wound vac -antibiotic course: Empiric IV antibiotics on admission: Zosyn and Doxycycline , skin culture positive for Pseudomonas aeroginosa (few) and Enterococcus faecalis (moderate), previous hospitalist Dr. Vallejo switched antibiotics to Ci profloxacin and Daptomycin starting on 04/06/20 ----- Sacral wound ulcer improving Continue p.o. Augmentin and doxycycline x1 more week to complete at least 3 weeks of antibiotic course -last day 04/23/2020 Tolerating above antibiotics well Follow-up with PCP and wound care center in 1 week, reevaluate if extension of antibiotic course is indicated Probiotics ordered (2) Multiple sclerosis: - antibiotic and wound care management for sacral ulcer/right ischial ulcer as above Chronic Leukocytosis Dr. Osei Maher's notes -based on review of previous hospital labs, patient's WBC has been persistently above 10 K. no recent fevers. 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 Larios (04/04/2020) -chronic riddle for history of bladder outlet obstruction, renal/bladder stones and Benign prostate hyperplasia -s/p TURP, cystoscopy and laser litholapaxy by Dr. Larios on 04/04/2020 -continue riddle care Constipation -04/13/2020: patient's pertinent positive on review of systems for constipation. The [facility] on 04/13/2020 (Nonobstructive bowel gas pattern. Suggested constipation with moderate to extensive fecal retention of the descending colon. Bilateral nephrolithiasis with urinary bladder calculi redemonstrated). Bowel regimen medications was increased. Subsequently an enema was given in evening and large bowel movement made as per nursing staff -continue oral medication / bowel regimen -follow up KUB X ray on 04/15/2020 since no bowel movement since 04/13/2020 enema --as needed Lactulose, Dulcolax suppository --Tapwater enema ordered --Positive small BM today (5) Hypertension: -continue amlodipine and losartan (6) DVT prophylaxis: -SQ heparin while in the hospital Disposition Waiting acceptance to [facility] Admission and Anticipated Discharge Date Admission Date: April 05, 2020 Subjective Follow-up for sacral decubitus ulcer infection Seen sitting up in bed, comfortable, not in distress, in good spirits States he feels fine overall Denies back pain, fevers or chills No abdominal pain, positive small bowel movement today No other symptoms Review of Systems Review of Systems: All systems reviewed & are unremarkable except as noted in Subjective Physical Exam Physical Exam: General- oriented x 3, not in distress, speaks in sentences with no effort or accessory muscle use Eyes- anicteric Neck- no JVD Lungs- clear BS bilaterally Heart- normal rate, regular rhythm; no murmurs Abdomen- normal bowel sounds, nondistended, soft, nontender Extremities- no pretibial edema, no calf tenderness Neuro- alert, oriented x 3; no gross focal neurologic deficits Skin- warm & dry
[2020-04-20] MEDS: DOCUSATE SODIUM 100 MG CAP PO SCH ×2 (19:39→22:21)
[2020-04-20] MEDS: SENNA 8.6 MG TAB PO SCH ×2 (19:39→22:22)
[2020-04-20] MEDS: AMOXICILLIN/CLAVULANATE 875 MG TAB PO SCH ×2 (19:39→22:22)
[2020-04-20] MEDS: POLYETHYLENE (MIRALAX) 17 GM PACK PO SCH ×2 (19:39→22:23)
[2020-04-20] MEDS: CIPROFLOXACIN 500 MG TAB PO SCH ×2 (19:39→22:22)
[2020-04-20] MEDS: ADVANCED PROBIOTIC 1250 MG CAPSULE PO SCH (19:40)
[2020-04-20] MEDS: VITAMIN B COMPLEX TAB PO SCH (19:40)
[2020-04-20] MEDS: FOLIC ACID 1 MG TAB PO SCH (19:40)
[2020-04-20] MEDS: MULTIVITAMIN TAB PO SCH (19:40)
[2020-04-20] MEDS: HEPARIN SOD 5,000 UNIT/0.5 ML VIAL SQ SCH ×2 (19:40→22:23)
[2020-04-20] MEDS: MELATONIN 3 MG TAB PO PRN (22:20)
[2020-04-20] MEDS: traMADol HCL 50 MG TABLET PO PRN (22:21)
[2020-04-20] MEDS: LOSARTAN POTASSIUM 50 MG TAB PO SCH (22:22)
[2020-04-20] MEDS: amLODIPine BESYLATE 5 MG TAB PO SCH (22:22)
[2020-04-21] MEDS: DOCUSATE SODIUM 100 MG CAP PO SCH ×2 (08:57→19:58)
[2020-04-21] MEDS: AMOXICILLIN/CLAVULANATE 875 MG TAB PO SCH ×2 (08:57→20:00)
[2020-04-21] MEDS: SENNA 8.6 MG TAB PO SCH ×2 (08:57→20:00)
[2020-04-21] MEDS: POLYETHYLENE (MIRALAX) 17 GM PACK PO SCH ×2 (08:57→19:58)
[2020-04-21] MEDS: ADVANCED PROBIOTIC 1250 MG CAPSULE PO SCH (08:58)
[2020-04-21] MEDS: CIPROFLOXACIN 500 MG TAB PO SCH ×2 (08:58→20:02)
[2020-04-21] MEDS: FOLIC ACID 1 MG TAB PO SCH (08:58)
[2020-04-21] MEDS: HEPARIN SOD 5,000 UNIT/0.5 ML VIAL SQ SCH ×2 (08:59→20:03)
[2020-04-21] MEDS: VITAMIN B COMPLEX TAB PO SCH (10:30)
[2020-04-21] MEDS: MULTIVITAMIN TAB PO SCH (10:30)
[2020-04-21] MEDS: LOSARTAN POTASSIUM 50 MG TAB PO SCH (20:01)
[2020-04-21] MEDS: amLODIPine BESYLATE 5 MG TAB PO SCH (20:03)
--- NOTE | 2020-04-21 20:06 | Hospitalist Progress Note ---
Date of Service April 21, 2020 Assessment & Plan (1) Sacral ulcer: and right ischial ulcer Pressure ulcer of sacral region, stage [address] Osei Maher's notes -"This is a 80 y/o male with multiple sclerosis wheelchair confined and hypertension who presented for elective urologic procedure. Patient underwent TURP, cystoscopy and laser litholapaxy by Dr. Larios on 04/04/20. He tolerated the procedure well. In recovery nurses discovered sacral wounds which have deteriorated since prior admission." -s/p surgical debridement of sacral and right ischial decubital ulcer w/ Dr. Mcnamara (04/06/2020) -patient's wound area could not tolerate the wound vac -antibiotic course: Empiric IV antibiotics on admission: Zosyn and Doxycycline , skin culture positive for Pseudomonas aeroginosa (few) and Enterococcus faecalis (moderate), previous hospitalist Dr. Vallejo switched antibiotics to Ci profloxacin and Daptomycin starting on 04/06/20 ----- Sacral wound ulcer continues to improve Continue p.o. Augmentin and doxycycline x1 more week to complete at least 3 weeks of antibiotic course -last day 04/23/2020 Tolerating above antibiotics well Follow-up with PCP and wound care center in 1 week, reevaluate if extension of antibiotic course is indicated Probiotics ordered (2) Multiple sclerosis: - antibiotic and wound care management for sacral ulcer/right ischial ulcer as above Chronic Leukocytosis Dr. Osei Maher's notes -based on review of previous hospital labs, patient's WBC has been persistently above 10 K. no recent fevers. 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 Larios (04/04/2020) -chronic riddle for history of bladder outlet obstruction, renal/bladder stones and Benign prostate hyperplasia -s/p TURP, cystoscopy and laser litholapaxy by Dr. Larios on 04/04/2020 -continue riddle care Constipation -04/13/2020: patient's pertinent positive on review of systems for constipation. The [facility] on 04/13/2020 (Nonobstructive bowel gas pattern. Suggested constipation with moderate to extensive fecal retention of the descending colon. Bilateral nephrolithiasis with urinary bladder calculi redemonstrated). Bowel regimen medications was increased. Subsequently an enema was given in evening and large bowel movement made as per nursing staff -continue oral medication / bowel regimen -follow up KUB X ray on 04/15/2020 since no bowel movement since 04/13/2020 enema --as needed Lactulose, Dulcolax suppository --2 Enemas administered Continue to monitor closely (5) Hypertension: -continue amlodipine and losartan (6) DVT prophylaxis: -SQ heparin while in the hospital Disposition Waiting acceptance to [facility] Admission and Anticipated Discharge Date Admission Date: April 05, 2020 Subjective Follow-up for infected sacral decubitus ulcer Seen resting in bed, sitting, comfortable, not in distress States he feels fine overall Denies back pain Shortness of breath, chest pain, palpitations, dizziness, nausea vomiting No new or other symptoms Review of Systems Review of Systems: All systems reviewed & are unremarkable except as noted in Subjective Physical Exam Physical Exam: General- oriented x 3, not in distress, speaks in sentences with no effort or accessory muscle use Eyes- anicteric Neck- no JVD Lungs- clear BS BL Heart- normal rate, regular rhythm; no murmurs Abdomen- normal bowel sounds, nondistended, soft, nontender Extremities- no pretibial edema, no calf tenderness Back: Sacral decubitus ulcer healing, less erythema, less discharge Neuro- alert, oriented x 3; no gross focal neurologic deficits Skin- warm & dry Results & Data Results & Data ([facility]) Vital Signs (Past 12 Hours) Vital Signs Temp Pulse Resp BP Pulse Ox 04/21/20 15:19 36.8 C 89 18 127/75 95
--- NOTE | 2020-04-21 20:08 | Hospitalist Progress Note ---
Date of Service April 21, 2020 Assessment & Plan (1) Sacral ulcer: and right ischial ulcer Pressure ulcer of sacral region, stage [address] Osei Maher's notes -"This is a 80 y/o male with multiple sclerosis wheelchair confined and hypertension who presented for elective urologic procedure. Patient underwent TURP, cystoscopy and laser litholapaxy by Dr. Larios on 04/04/20. He tolerated the procedure well. In recovery nurses discovered sacral wounds which have deteriorated since prior admission." -s/p surgical debridement of sacral and right ischial decubital ulcer w/ Dr. Mcnamara (04/06/2020) -patient's wound area could not tolerate the wound vac -antibiotic course: Empiric IV antibiotics on admission: Zosyn and Doxycycline , skin culture positive for Pseudomonas aeroginosa (few) and Enterococcus faecalis (moderate), previous hospitalist Dr. Vallejo switched antibiotics to Ci profloxacin and Daptomycin starting on 04/06/20 ----- Sacral wound ulcer continues to improve Continue p.o. Augmentin and doxycycline x1 more week to complete at least 3 weeks of antibiotic course -last day 04/23/2020 Tolerating above antibiotics well Follow-up with PCP and wound care center in 1 week, reevaluate if extension of antibiotic course is indicated Probiotics ordered (2) Multiple sclerosis: - antibiotic and wound care management for sacral ulcer/right ischial ulcer as above Chronic Leukocytosis Dr. Osei Maher's notes -based on review of previous hospital labs, patient's WBC has been persistently above 10 K. no recent fevers. 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 Larios (04/04/2020) -chronic riddle for history of bladder outlet obstruction, renal/bladder stones and Benign prostate hyperplasia -s/p TURP, cystoscopy and laser litholapaxy by Dr. Larios on 04/04/2020 -continue riddle care Constipation -04/13/2020: patient's pertinent positive on review of systems for constipation. The [facility] on 04/13/2020 (Nonobstructive bowel gas pattern. Suggested constipation with moderate to extensive fecal retention of the descending colon. Bilateral nephrolithiasis with urinary bladder calculi redemonstrated). Bowel regimen medications was increased. Subsequently an enema was given in evening and large bowel movement made as per nursing staff -continue oral medication / bowel regimen -follow up KUB X ray on 04/15/2020 since no bowel movement since 04/13/2020 enema --as needed Lactulose, Dulcolax suppository --2 Enemas administered Continue to monitor closely (5) Hypertension: -continue amlodipine and losartan (6) DVT prophylaxis: -SQ heparin while in the hospital Disposition Waiting acceptance to [facility] Admission and Anticipated Discharge Date Admission Date: April 05, 2020 Subjective delayed entry date of service per above seen resting in bed, comfortable Review of Systems Review of Systems: All systems reviewed & are unremarkable except as noted in Subjective Physical Exam Physical Exam: General- oriented x 3, not in distress, speaks in sentences with no effort or accessory muscle use Eyes- anicteric Neck- no JVD Lungs- clear BS BL Heart- normal rate, regular rhythm; no murmurs Abdomen- normal bowel sounds, nondistended, soft, nontender Extremities- no pretibial edema, no calf tenderness Neuro- alert, oriented x 3; no new gross focal neurologic deficits Skin- warm & dry Results & Data Results & Data ([facility]) Vital Signs (Past 12 Hours) Vital Signs Temp Pulse Resp BP Pulse Ox 04/21/20 15:19 36.8 C 89 18 127/75 95
[2020-04-21] MEDS: traMADol HCL 50 MG TABLET PO PRN (21:59)
[2020-04-21] MEDS: MELATONIN 3 MG TAB PO PRN (21:59)
[2020-04-22] MEDS: POLYETHYLENE (MIRALAX) 17 GM PACK PO SCH ×2 (08:26→19:52)
[2020-04-22] MEDS: VITAMIN B COMPLEX TAB PO SCH (08:26)
[2020-04-22] MEDS: DOCUSATE SODIUM 100 MG CAP PO SCH ×2 (08:26→19:52)
[2020-04-22] MEDS: AMOXICILLIN/CLAVULANATE 875 MG TAB PO SCH ×2 (08:27→19:52)
[2020-04-22] MEDS: ADVANCED PROBIOTIC 1250 MG CAPSULE PO SCH (08:27)
[2020-04-22] MEDS: MULTIVITAMIN TAB PO SCH (08:27)
[2020-04-22] MEDS: SENNA 8.6 MG TAB PO SCH ×2 (08:28→19:53)
[2020-04-22] MEDS: CIPROFLOXACIN 500 MG TAB PO SCH ×2 (08:28→19:53)
[2020-04-22] MEDS: FOLIC ACID 1 MG TAB PO SCH (08:28)
[2020-04-22] MEDS: HEPARIN SOD 5,000 UNIT/0.5 ML VIAL SQ SCH ×2 (08:29→19:53)
[2020-04-22 11:31] LABS: Basophils # (auto) 0.02 K/uL (0-0.2); Basophils % (auto) 0.2 %; Eosinophils # (auto) 0.16 K/uL (0-0.5); Eosinophils % (auto) 1.4 %; Hematocrit (blood only) 38.1 % (42-52); Hemoglobin 12.5 g/dL (14.0-18.0); Immature Granulocytes # (auto) 0.08 K/uL (0.00-0.02); Immature Granulocytes % (auto) 0.7 %; Lymphocytes # (auto) 1.62 K/uL (1.2-3.4); Lymphocytes % (auto) 13.8 %; Mean Corpuscular Hemoglobin 28.9 pg (25-34); Mean Corpuscular Hgb Conc 32.8 g/dL (32-36); Mean Corpuscular Volume 88.2 fL (80-100); Mean Platelet Volume 10.6 fL (7.4-10.4); Monocytes # (auto) 1.32 K/uL (0.11-0.59); Monocytes % (auto) 11.3 %; Neutrophils # (auto) 8.52 K/uL (1.4-6.5); Neutrophils % (auto) 72.6 %; Platelet Count 333 K/uL (130-400); RDW Coefficient of Variation 14.2 % (11.5-14.5); RDW Standard Deviation 46.4 fL (36.4-46.3); Red Blood Count 4.32 M/uL (4.7-6.1); White Blood Count 11.72 K/uL (4.8-10.8)
[2020-04-22 11:47] LABS: BUN Creatinine Ratio 25.4 (10-20); Calcium 9.7 mg/dl (8.5-10.1); Creatinine Clr Calc Pharmacy 53.6 ml/min; Est GFR (African American) 59.5; Est GFR (Non-African American) 51.3; Potassium 4.4 mmol/L (3.5-5.1)
--- NOTE | 2020-04-22 17:18 | Hospitalist Progress Note ---
Date of Service April 22, 2020 Assessment & Plan (1) Sacral ulcer: and right ischial ulcer Pressure ulcer of sacral region, stage [address] Osei Maher's notes -"This is a 80 y/o male with multiple sclerosis wheelchair confined and hypertension who presented for elective urologic procedure. Patient underwent TURP, cystoscopy and laser litholapaxy by Dr. Larios on 04/04/20. He tolerated the procedure well. In recovery nurses discovered sacral wounds which have deteriorated since prior admission." -s/p surgical debridement of sacral and right ischial decubital ulcer w/ Dr. Mcnamara (04/06/2020) -patient's wound area could not tolerate the wound vac -antibiotic course: Empiric IV antibiotics on admission: Zosyn and Doxycycline , skin culture positive for Pseudomonas aeroginosa (few) and Enterococcus faecalis (moderate), previous hospitalist Dr. Vallejo switched antibiotics to Ci profloxacin and Daptomycin starting on 04/06/20 ----- Sacral wound ulcer continues to improve Continue p.o. Augmentin and doxycycline x1 more week to complete at least 3 weeks of antibiotic course -last day tomorrow Tolerating above antibiotics well Follow-up with PCP and wound care center in 1 week, reevaluate if extension of antibiotic course is indicated Probiotics ordered (2) Multiple sclerosis: - antibiotic and wound care management for sacral ulcer/right ischial ulcer as above Chronic Leukocytosis Dr. Osei Maher's notes -based on review of previous hospital labs, patient's WBC has been persistently above 10 K. no recent fevers. 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 Larios (04/04/2020) -chronic riddle for history of bladder outlet obstruction, renal/bladder stones and Benign prostate hyperplasia -s/p TURP, cystoscopy and laser litholapaxy by Dr. Larios on 04/04/2020 -continue riddle care Constipation -04/13/2020: patient's pertinent positive on review of systems for constipation. The KUB on 04/13/2020 (Nonobstructive bowel gas pattern. Suggested constipation with moderate to extensive fecal retention of the descending colon. Bilateral nephrolithiasis with urinary bladder calculi redemonstrated). Bowel regimen medications was increased. Subsequently an enema was given in evening and large bowel movement made as per nursing staff -continue oral medication / bowel regimen -follow up KUB X ray on 04/15/2020 since no bowel movement since 04/13/2020 enema --as needed Lactulose, Dulcolax suppository --2 Enemas administered (5) Hypertension: -continue amlodipine and losartan (6) DVT prophylaxis: -SQ heparin while in the hospital Disposition Waiting acceptance to [facility] Admission and Anticipated Discharge Date Admission Date: April 05, 2020 Subjective ff up for sacral wound infection seen sitting up in bed, comfortable states he feels fine overall no back pain, abdominal pain,n ausea no other new symptoms Review of Systems Review of Systems: All systems reviewed & are unremarkable except as noted in Subjective Physical Exam Physical Exam: General- oriented x 3, not in distress, speaks in sentences with no effort or accessory muscle use Eyes- anicteric Neck- no JVD Lungs- clear breath sounds bilaterally Heart- normal rate, regular rhythm; no murmurs Abdomen- normal bowel sounds, nondistended, soft, nontender Extremities- no pretibial edema, no calf tenderness Neuro- alert, oriented x 3; no gross focal neurologic deficits Skin- warm & dry Results & Data Results & Data ([facility]) Vital Signs (Past 12 Hours) Vital Signs Temp Pulse Pulse Resp BP Pulse Ox 04/22/20 15:22 36.8 C 91 H 18 149/74 H 98 04/22/20 08:33 36.7 C 83 18 126/68 95 Laboratory Results Laboratory Results - last 24 hr 04/22/20 04/22/20 11:19 11:19 WBC 11.72 H RBC 4.32 L Hgb 12.5 L Hct 38.1 L MCV 88.2 MCH 28.9 MCHC 32.8 RDW Std Deviation 46.4 H RDW Coeff of Bossman 14.2 Plt Count 333 MPV 10.6 H Immature Gran % (Auto) 0.7 Neut % (Auto) 72.6 Lymph % (Auto) 13.8 Carver % (Auto) 11.3 Eos % (Auto) 1.4 Baso % (Auto) 0.2 Neut # (Auto) 8.52 H Lymph # (Auto) 1.62 Carver # (Auto) 1.32 H Eos # (Auto) 0.16 Baso # (Auto) 0.02 Immature Gran # (Auto) 0.08 H Sodium 136 Potassium 4.4 Chloride 105 Carbon Dioxide 25 Anion Gap 6.0 BUN 34 H Creatinine 1.32 Est Cr Clr Drug Dosing 53.6 Est GFR ( Amer) 59.5 Est GFR (Non-Af Amer) 51.3 BUN/Creatinine Ratio 25.4 H Glucose 137 H Calcium 9.7
[2020-04-22] MEDS: amLODIPine BESYLATE 5 MG TAB PO SCH (19:52)
[2020-04-22] MEDS: LOSARTAN POTASSIUM 50 MG TAB PO SCH (19:53)
[2020-04-23] MEDS: traMADol HCL 50 MG TABLET PO PRN (01:02)
[2020-04-23] MEDS: POLYETHYLENE (MIRALAX) 17 GM PACK PO SCH (09:06)
[2020-04-23] MEDS: FOLIC ACID 1 MG TAB PO SCH (09:06)
[2020-04-23] MEDS: AMOXICILLIN/CLAVULANATE 875 MG TAB PO SCH (09:06)
[2020-04-23] MEDS: DOCUSATE SODIUM 100 MG CAP PO SCH (09:06)
[2020-04-23] MEDS: MULTIVITAMIN TAB PO SCH (09:06)
[2020-04-23] MEDS: SENNA 8.6 MG TAB PO SCH (09:06)
[2020-04-23] MEDS: HEPARIN SOD 5,000 UNIT/0.5 ML VIAL SQ SCH (09:06)
[2020-04-23] MEDS: CIPROFLOXACIN 500 MG TAB PO SCH (09:07)
[2020-04-23] MEDS: VITAMIN B COMPLEX TAB PO SCH (09:07)
[2020-04-23] MEDS: ADVANCED PROBIOTIC 1250 MG CAPSULE PO SCH (09:07)
--- NOTE | 2020-04-23 14:37 | Hospitalist Progress Note ---
Date of Service April 23, 2020 Assessment & Plan (1) Sacral ulcer: and right ischial ulcer Pressure ulcer of sacral region, stage [address] Osei Maher's notes -"This is a 80 y/o male with multiple sclerosis wheelchair confined and hypertension who presented for elective urologic procedure. Patient underwent TURP, cystoscopy and laser litholapaxy by Dr. Larios on 04/04/20. He tolerated the procedure well. In recovery nurses discovered sacral wounds which have deteriorated since prior admission." -s/p surgical debridement of sacral and right ischial decubital ulcer w/ Dr. Mcnamara (04/06/2020) -patient's wound area could not tolerate the wound vac -antibiotic course: Empiric IV antibiotics on admission: Zosyn and Doxycycline , skin culture positive for Pseudomonas aeroginosa (few) and Enterococcus faecalis (moderate), previous hospitalist Dr. Vallejo switched antibiotics to Ci profloxacin and Daptomycin starting on 04/06/20 ----- Sacral wound ulcer continues to improve Patient has received total of 3 weeks of antibiotics, including Zosyn and doxycycline, daptomycin, and transition to p.o. Augmentin and doxycycline p.o. Tolerated above antibiotics well Follow-up with PCP and wound care center in 1 week, reevaluate if extension of antibiotic course is indicated Probiotics ordered (2) Multiple sclerosis: - antibiotic and wound care management for sacral ulcer/right ischial ulcer as above Chronic Leukocytosis Dr. Osei Maher's notes -based on review of previous hospital labs, patient's WBC has been persistently above 10 K. no recent fevers. 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 Larios (04/04/2020) -chronic rdidle for history of bladder outlet obstruction, renal/bladder stones and Benign prostate hyperplasia -s/p TURP, cystoscopy and laser litholapaxy by Dr. Larios on 04/04/2020 -continue riddle care Constipation -04/13/2020: patient's pertinent positive on review of systems for constipation. The KUB on 04/13/2020 (Nonobstructive bowel gas pattern. Suggested constipation with moderate to extensive fecal retention of the descending colon. Bilateral nephrolithiasis with urinary bladder calculi redemonstrated). Bowel regimen medications was increased. Subsequently an enema was given in evening and large bowel movement made as per nursing staff -continue oral medication / bowel regimen -follow up KUB X ray on 04/15/2020 since no bowel movement since 04/13/2020 enema --as needed Lactulose, Dulcolax suppository --2 Enemas administered --Continue to monitor closely (5) Hypertension: -continue amlodipine and losartan (6) DVT prophylaxis: -SQ heparin while in the hospital Disposition Discharge to [facility] today Follow-up with PCP 1 week after discharge from [facility] Follow-up with [facility] physician urologist Dr. Héctor Larios in 1 to 2 weeks Admission and Anticipated Discharge Date Admission Date: April 05, 2020 Subjective ff up for sacral decubitus ulcer infection Seen resting in bed, comfortable, not in distress States he feels fine overall No back pain, fevers or chills, nausea vomiting No shortness of breath, chest pain, palpitations, dizziness Appetite is good Tolerating antibiotics well No other symptoms States that she is ready and would like to be discharged today Review of Systems Review of Systems: All systems reviewed & are unremarkable except as noted in Subjective Physical Exam Physical Exam: General- oriented x 3, not in distress, speaks in sentences with no effort or accessory muscle use Eyes- anicteric Neck- no JVD Lungs- clear breath sounds bilaterally, no wheezing, crackles bilaterally Heart- normal rate, regular rhythm; no murmurs Abdomen- normal bowel sounds, nondistended, soft, nontender Extremities- no pretibial edema, no calf tenderness Neuro- alert, oriented x 3; no gross focal neurologic deficits Skin- warm & dry Results & Data Results & Data ([facility]) Vital Signs (Past 12 Hours) Vital Signs Temp Pulse Resp BP Pulse Ox 04/23/20 08:15 36.9 C 101 H 16 137/78 97
--- NOTE | 2020-04-23 15:16 | Discharge Summary ---
Date of Service April 23, 2020 Admission HPI Per Admitting Provider This is a 80-year-old male with significant past medical history of multiple sclerosis wheelchair confined and hypertension who presents for elective urologic procedure. Patient underwent TURP, cystoscopy and laser litholapaxy by Dr. Larios. He tolerated the procedure well. In recovery nurses discovered stage IV sacral wounds. Of significance patient was hospitalized 03/22-03/24 secondary to complicated UTI, bladder/renal stones and BPH with obstruction. He was treated with IV antibiotics and set up for outpatient urology follow-up. He underwent urologic procedure to correct the above. During his hospitalization his sacral wounds were discovered and he was set up for [facility] at home health for wound care. Unfortunately canceled the service, and patient is unaware. Images show worsening of sacral wound and there was concern for patient's ability to return home safe. He states typically he is wheelchair-bound but has been independent for transfers lately and has been very difficult for him to transfer and according to nurse at bedside he required 2 security guards to transfer patient from wheelchair to bed this morning. Patient became very upset when discussing topic and feels he requires much more care than his can provide and that she is doing her best. He currently states he feels, "unwell," secondary to his current inability to care for self. He denies any fever, chills, sweats, lightheadedness, dizziness, chest pain, shortness with, nausea, vomiting, abdominal pain. He does have a chronic Riddle catheter in place. He admits to occasional loose stool, last BM 2 days ago. He denies any sacral discomfort and is unaware if he has had any drainage from wound. He was seen and evaluated in [facility] by wound care nurse who recommended admission to hospital for wound care and likely debridement. Patient was agreeable. Admission Exam Per Admitting Provider Constitutional: Chronically ill-appearing male, vitals as above, NAD, sitting up in bed, pleasant, conversing easily Head: Normocephalic, Atraumatic Eyes: PERRL, conjunctivae normal, anicteric sclerae ENMT: external ear and nose normal, oropharynx normal Neck: trachea midline, no thyromegaly normal visual inspection Respiratory: normal respiratory effort, lungs clear to auscultation, no wheeze, rales, rhonchi. Normal insp/exp effort, no accessory muscle use Cardiovascular: RRR, no murmur, +1 extremity pretibial edema, no erythema or warmth vessels: no JVD or carotid bruit Chest: normal inspection of chest Abdomen: normal bowel sounds, soft, nontender, nondistended Musculoskeletal: no cyanosis or clubbing, active range of motion x4 Skin: no rashes, warm and dry normal turgor Neurologic: PERRL, EOMI, accommodation nl, no face palsy, no dysarthria CN's II-XI intact bilaterally and moves all extremities Psychiatric: A+Ox3, dysthymic affect : Riddle catheter in place draining clear yellow urine Sacral: wound images reviewed Principal Diagnosis Infected Sacral Decubitus Ulcer, BPH s/p TURP Discharge Exam General- oriented x 3, not in distress, speaks in sentences with no effort or accessory muscle use Eyes- anicteric Neck- no JVD Lungs- clear breath sounds bilaterally, no wheezing, crackles bilaterally Heart- normal rate, regular rhythm; no murmurs Abdomen- normal bowel sounds, nondistended, soft, nontender Extremities- no pretibial edema, no calf tenderness Neuro- alert, oriented x 3; no gross focal neurologic deficits Skin- warm & dry Discharge Data Allergies Allergy/AdvReac Type Severity Reaction Status Date / Time ampicillin Allergy Unknown Unknown Verified 04/04/20 08:45 morphine AdvReac Mild "MADE ME Verified 04/04/20 08:45 FEEL ODD" Consultations 04/04/20 14:53 Consult Case Management - Discharge Planning Routine Consult Wound Care Provider Routine 04/05/20 11:37 Consult General Surgery Routine Procedures Performed Operation Date: 04/04/20 09:35 Actual Procedures p Transurethral Resection Prostate(Not Applicable) - Johnny Larios MD s Cystoscopy, Laser Lithalopaxy(Not Applicable) - Johnny Larios MD Operation Date: 04/06/20 07:30 Actual Procedures p Incision and Drainage Sacral and Right Ischial Decubital Ulcer - Deep Mcnamara DO Ordered Studies 04/05/20 13:59 CT pelvis wo con Routine FINDINGS: The skeletal structures are osteopenic. No fracture is seen. No lytic or blastic lesion is identified. There is no bony erosion or periostitis. Mild arthritic change and joint space narrowing is seen in the hips. The sacroiliac joints are normal. There is no evidence of avascular necrosis of the femoral heads. There is dermal thickening with induration in the soft tissues overlying the sacrum. Question a cutaneous defect on image #173. This may correspond to the reported history of a decubitus ulcer. There is no organized fluid collection to suggest abscess. Superficial and deep soft tissue induration is also seen in the right posterior thigh on image #272 comment with intramuscular edema of the right gluteus katharine seen on image #233. There is also scrotal edema. No deep soft tissue gas is present in the perineum. Plaque-like subcutaneous calcifications are present in the anterior thigh bilaterally as well as in the gluteal soft tissues and the ventral abdominal wall. The prostate gland is enlarged and heterogeneous. The bladder is largely decompressed around a Riddle catheter. The bladder wall is thickened and trabeculated indicating chronic outlet obstruction. There are bladder calculi, as well as large bladder diverticula which contain numerous stones. Pericystic inflammation is noted. No distal ureteral stone is seen. The distal left ureter is patulous, similar to previous. The visualized loops of small bowel and colon are normal in caliber. A large left inguinal hernia contains nonobstructed bowel loops. There is a smaller fat-containing right inguinal hernia. There is diverticulosis of the left colon without CT evidence of acute diverticulitis. Trace free fluid is seen in the right paracolic gutter. No pelvic sidewall or inguinal adenopathy is seen. IMPRESSION: 1. No bony abnormality is seen in the pelvis. Specifically, there is no evidence of osteomyelitis as clinically queried. 2. There is evidence of a sacral decubitus ulceration with underlying cellulit is. No organized fluid collection is seen to suggest abscess. 3. Superficial and deep soft tissue induration is also identified in the right posterior thigh and the right gluteus katharine muscle, also likely representing cellulitis/myositis. 4. Marked prostatomegaly with evidence of chronic bladder outlet obstruction. 5. There is pericystic inflammation, likely representing cystitis. Correlation with clinical findings and urinalysis will be required. 6. There are numerous bladder calculi, with additional calculi contained within bladder diverticula. 7. Trace free fluid is seen in the right paracolic gutter. 8. A large left inguinal hernia contains nonobstructed bowel loops. There is a smaller fat-containing right inguinal hernia. 9. Dermal calcifications are seen within the ventral abdominal wall, the gluteal soft tissues, and in the upper thighs. Correlate clinically for evidence of dermatomyositis. 10. There is nonspecific scrotal edema. Hospital Course (1) Sacral ulcer: and right ischial ulcer Pressure ulcer of sacral region, stage [address] Osei Maher's notes -"This is a 80 y/o male with multiple sclerosis wheelchair confined and hypertension who presented for elective urologic procedure. Patient underwent TURP, cystoscopy and laser litholapaxy by Dr. Larios on 04/04/20. He tolerated the procedure well. In recovery nurses discovered sacral wounds which have deteriorated since prior admission." -s/p surgical debridement of sacral and right ischial decubital ulcer w/ Dr. Mcnamara (04/06/2020) -patient's wound area could not tolerate the wound vac -antibiotic course: Empiric IV antibiotics on admission: Zosyn and Doxycycline , skin culture positive for Pseudomonas aeroginosa (few) and Enterococcus faecalis (moderate), previous hospitalist Dr. Vallejo switched antibiotics to Ciprofloxacin and Daptomycin starting on 04/06/20 ----- Sacral wound ulcer continues to improve Patient has received total of 3 weeks of antibiotics, including Zosyn and doxycycline, daptomycin, and transition to p.o. Augmentin and doxycycline p.o. Tolerated above antibiotics well Follow-up with PCP and wound care center in 1 week, reevaluate if extension of antibiotic course is indicated Probiotics ordered (2) Multiple sclerosis: - antibiotic and wound care management for sacral ulcer/right ischial ulcer as above Chronic Leukocytosis Dr. Osei Maher's notes -based on review of previous hospital labs, patient's WBC has been persistently above 10 K. no recent fevers. 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 Larios (04/04/2020) -chronic riddle for history of bladder outlet obstruction, renal/bladder stones and Benign prostate hyperplasia -s/p TURP, cystoscopy and laser litholapaxy by Dr. Larios on 04/04/2020 -continue riddle care Constipation -04/13/2020: patient's pertinent positive on review of systems for constipation. The KUB on 04/13/2020 (Nonobstructive bowel gas pattern. Suggested constipation with moderate to extensive fecal retention of the descending colon. Bilateral nephrolithiasis with urinary bladder calculi redemonstrated). Bowel regimen medications was increased. Subsequently an enema was given in evening and large bowel movement made as per nursing staff -continue oral medication / bowel regimen -follow up KUB X ray on 04/15/2020 since no bowel movement since 04/13/2020 enema --as needed Lactulose, Dulcolax suppository --2 Enemas administered --Continue to monitor closely (5) Hypertension: -continue amlodipine and losartan (6) DVT prophylaxis: -SQ heparin while in the hospital Disposition Discharge to [facility] Follow-up with PCP 1 week after discharge from [facility] Follow-up with [facility] physician urologist Dr. Héctor Larios in 1 to 2 weeks Total Time Total Time Spent Total Time Spent (In Minutes): > 30 minutes Discharge Plan Discharge Items Patient Disposition: Transfer [facility] Reason For Visit: Bladder Stones, Benign Prostatic Hyperplasia, Discharge Diagnosis: chronic riddle for history of bladder outlet obstruction /renal and bladder stones Benign prostate hyperplasia s/p TURP, cystoscopy and laser litholapaxy by Dr. Larios (04/04/2020) Infected sacral ulcer and right ischial ulcer s/p surgical debridement of sacral and right ischial decubital ulcer by Dr. Mcnamara (04/06/2020) Chronic Leukocytosis Multiple sclerosis Ambulatory dysfunction Hypertension Condition on Discharge: Good Activity: Resume your previous activity Lifting: Gradually increase as tolerated Bathing: No limitations Exercise/Sports: Gradually increase as tolerated Non-emergency contact: Primary Care Provider and Specialist Call non-emergency contact if: you have any medication questions, your pain is not controlled, your pain is unusual for you, you have a fever and your temperature is above 101.5 Follow-up/Referrals: Johnny Larios MD [Physician] - Aram Lyman MD [Primary Care Provider] - Diet: Regular and Heart Healthy Addtl K 9 Police Officer Provider Instructions: Please refer to accompanying hospital discharge summary for further details. Please order probiotics daily for at least 1 month. Follow up with [facility] in 1 week. Follow up with Urologist Dr. Guan in 1-2 weeks. as per urology instructions Please take all medications as prescribed and keep follow-ups as scheduled. Please call our office at [phone] with any questions, concerns or need to reschedule appointments for any reason. We are happy to assist you. While catheter is in place, please wash with warm soapy water and a fresh washcloth twice a day with mild bar soap (Dove, Dial, etc.). Your nursing visit appointment to have your catheter removed should already be made, if you have any question regarding this, please call our office. Complete antibiotics as prescribed, if indicated. It is okay to take AZO (available over the counter) as needed for a few days to relieve burning with urination. This may cause your urine or feces to turn an orangish-color. This is expected. The only exception is if you have been prescribed Pyridium (phenazopyridine), this is the same medication and should not take AZO be taken in addition to prescription version. Please do not drive, drink alcohol or operate machinery while taking prescription pain medication. We recommend continuing a stool softener (i.e. Colace) to prevent constipation/straining for at least two weeks after your procedure. Some blood is to be expected in your urine as you heal, you may even see recurrences of blood in your urine for up to 4-6 months after your procedure. Drink plenty of fluids, avoid sexual or strenuous exercise and do not lift >25 pounds until your follow-up. Call [facility] at [phone] promptly if you experience: Fever of 101F or greater Pain thats not controlled with medicine Trouble urinating or inability to urinate Dark, bloody urine for more than 12 hours as per wound care instructions "YOU HAVE SEVERAL LARGE BED SORES ON YOUR LOWER BACK AND BUTTOCKS. IT IS IMPORTANT TO OBTAIN SOME WOUND CARE TO HEAL THESE AREAS BEFORE THEY BECOME INFECTED. WE HAVE STARTED TO ARRANGE FOR AN EVALUATION FROM OUR WOUND CARE TEAM TO START THE PROCESS OF HEALING THESE AREAS. WE WILL ALSO BE SENDING YOUR HOME WITH A PADDED/INFLATABLE MATTRESS TO DECREASE THE PRESSURE ON THESE AREAS. THE MATTRESS HAS A PUMP WITH IT - BUT WILL NEED TO HAVE A SHEET OR SOME OTHER SOFT MATERIAL PLACED BETWEEN THE MATTRESS AND YOUR SKIN." "Wound Care Discharge Instructions written on 04/15/2020 Rt ischium apply aquacel ag, cover with an optifoam, change QOD and PRN. Sacrum vac on hold due to maceration 04/10, Apply aquacel ag, cover with an optifoam Please reassess wound for vac reapplication 04/12/20 Apply skin prep and drawp to the periwound, apply black foam to the wound bed, cover with drape and trac pad, pressure at -125 mm Hg. Vac to be changed M-W-F and PRN. If the vac should malfunction (leaks unable to be repaired) please remove the dressing, irrigate with NSS using a 35 cc syringe and blunt tip cannula, lightly fill the wound with aquacel ag and cover with an optifoam Pt to follow up at the wound clinic on 04/18/20 at 1 PM [facility] wound [facility] [address], [place] Pending Studies at Discharge: Yes Studies:: Repeat basic metabolic profile in 3 to 5 days (in light of prolonged antibiotic use) Stand-Alone Forms: My [facility] Skilled Items Patient informed of condition?: Yes DNR: No Discharge Level of Care: Skilled Communicable Disease: No Discharge Prognosis: Stable Lines: None Urinary Catheter: Yes Medications and DC Order Prescriptions: New heparin, porcine (PF) 5,000 unit/0.5 mL Syringe 5,000 unit subcut Q12 14 Days Qty: 14 RF: 0 lactulose 20 gram/30 mL Solution 15 ml PO BID PRN (Reason: constipation) 14 Days Qty: 100 RF: 0 bisacodyl 10 mg Suppository 10 mg VA DAILY PRN (Reason: constipation) 14 Days Qty: 5 RF: 0 Advanced Probiotic 625 mg (10 billion cell) Capsule 2 cap PO DAILY Qty: 30 RF: 0 sennosides-docusate sodium [Senokot-S] 8.6-50 mg tablet 1 tab-cap PO DAILY Qty: 30 RF: 0 Continued tramadol 50 mg tablet 50 mg PO Q8H PRN (Reason: pain) Qty: 20 RF: 0 amlodipine 10 mg tablet 10 mg PO QPM RF: 0 losartan 100 mg tablet 100 mg PO QPM RF: 0 multivitamin Tablet 1 tab PO QAM RF: 0 vitamin B complex Tablet 1 tab PO QAM RF: 0 omega-3 fatty acids-fish oil 684-1,200 mg Capsule,Delayed Release(Dr/Ec) 1 cap PO QAM RF: 0 krill oil 500 mg Capsule 500 mg PO QAM RF: 0 folic acid 1 mg Tablet 1 mg PO QAM RF: 0 Discontinued cefdinir 300 mg capsule 300 mg PO BID RF: 0 Advil PM 200-38 mg Tablet 2 cap PO HS PRN (Reason: Sleep) RF: 0 Discharge Orders: Discharge Order (Routine); Ordered 04/23/20 Ordered By: Edmundo Fitzgerald Admission Data Admit Date/Time: 04/05/20 11:43 Attending Provider: Edmundo Fitzgerald Admit Provider: Johnny Lairos Primary Care Provider: Aram Lyman Other Providers: [facility],Home Healthcare ; Calin Jiang ; Mau Neves ; Deep Mcnamara ; Harmeet Edmonds [facility] ; Osei Maher Other Interventions: Discharge Summary Assessment (RN) Last Done: 04/23/20 14:37
--- NOTE | 2020-04-30 09:37 | Coding Query ---
PRESSURE ULCER DOCUMENTATION To promote full compliance with coding requirements relating to patient care, physician participation is requested in all cases of sample sewer uncertainty. Please assist us with the question(s) below: Please specify the known or suspected type by placing an "X" within the parenthesis (x). 1. A pressure ulcer of the Sacral (due to conflicting documentation, with unstageable documented on Consult and Stage IV documented on H&P, PN & DS) If possible, please check the box that provides the specific stage of the pressure ulcer ( ) Stage I ( ) Stage II ( ) Stage III ( ) Stage IV ( X) Unstageable ( ) Unable to determine 2. A pressure ulcer of the Right Ischial (documented on 04/06/20 OP Report and thru DS) If possible, please check the box that provides the specific stage of the pressure ulcer ( ) Stage I ( ) Stage II ( ) Stage III ( ) Stage IV ( ) Unstageable ( ) Unable to determine Was the pressure ulcer present on admission? Please check the appropriate box for the pressure ulcer: ( ) Present on admission ( ) Not present on admission ( ) Unable to be clinically determined Thank you Johanna Cornejo [facility]ENTER[facility]
--- NOTE | 2020-04-30 09:41 | Coding Query ---
DEBRIDEMENT DOCUMENTATION To promote full compliance with coding requirements relating to patient care, physician participation is requested in all cases of electrical electronics engineer uncertainty. Please assist us with the question(s) below: Please place an X in the parenthesis (x). If other, please document the finding: Depth of Debridement: ( ) Skin (x ) Skin and Subcutaneous Tissue ( ) Skin, Subcutaneous Tissue and Muscle ( ) Skin, Subcutaneous Tissue, Muscle and Bone ( ) Other (please specify): Please Specify regarding objective of the Debridement: ( ) Diagnostic and Therapeutic ( ) Diagnostic only (x ) Other: Please Specify Therapeutic Thank you Johanna BARRERA
--- NOTE | 2020-05-09 07:13 | Coding Query ---
PRESSURE ULCER DOCUMENTATION To promote full compliance with coding requirements relating to patient care, physician participation is requested in all cases of certified medical coder uncertainty. Please assist us with the question(s) below: Please specify the known or suspected type by placing an "X" within the parenthesis (x). A pressure ulcer of the Right Ischial (documented on 04/06/20 OP Report and thru DS) If possible, please check the box that provides the specific stage of the pressure ulcer ( ) Stage I ( ) Stage II ( ) Stage III ( ) Stage IV (x) Unstageable ( ) Unable to determine Was the pressure ulcer present on admission? Please check the appropriate box for the pressure ulcer: ( ) Present on admission ( ) Not present on admission ( ) Unable to be clinically determined Thank you Johanna BARRERA
== END 2020-04-23 16:05 | DRG 571 ==
LOC: ASU 07:42 → 3N 07:42 → SUATTDRO 13:36

== ENCOUNTER 2020-05-03 16:54 | Inpatient (IN) ==
[2020-05-03] MEDS ORDERED: PIPERACILLIN/TAZOBACTAM 4.5 GM/120 ML BAG IV ONE (17:18)
[2020-05-03] MEDS ORDERED: PIPERACILL/TAZOBAC CONSULT ACTIVE PRN ×2 (17:18→21:05)
[2020-05-03] MEDS ORDERED: SODIUM CHLORIDE 0.9% 500 ML IV SCH (17:30)
[2020-05-03] MEDS ORDERED: fentaNYL citrate 100 MCG/2 ML VIAL IV STA (17:58)
--- NOTE | 2020-05-03 17:58 | Emergency Department Note ---
ED Visit Note Provider: Subhash Michael MD DATE OF SERVICE:05/03/2020 CHIEF COMPLAINT: Sacral wound HISTORY OF PRESENT ILLNESS: Patient is a 80-year-old gentleman unfortunate history of multiple sclerosis wheelchair-bound with hypertension and a chronic urinary catheter presenting to the ambulance from heroin. Patient states he is having some wound issues on his buttocks which is causing him pain. Denies any falls or fever. Denies any nausea or vomiting. Patient then refers me to talked with his via phone and is unable to provide significant additional history or details regarding her recent admission and home care. Discussed with his via phone with his permission. She reports that he was admitted received IV antibiotics and had some debridement of the wound and then was discharged to [facility]. Patient evidently did not like it there and left AGAINST MEDICAL ADVICE after only 1 day coming home. Since that time she says she has not had a wound care instructions at home and it is difficult for her to turn him or care for this wound. Has had a little bit of help more recently over the past week with [facility] home health and wound nurses. Wound nurse evidently evaluated today and stated the wound was getting worse and there were thoughts for additional evaluation here at the hospital. states she does not feel that she by herself can take care of at home in this state and he is somewhat weaker after the recent admission and cannot relate transfer well at all anymore. No fevers or again traumas reported by her. She states he has been eating very little over the last 2 weeks mainly just liquids. Has started over the past 4 days some doxycycline but no other recent antibiotics. REVIEW OF SYSTEMS: A total of 10 review of systems was obtained and negative except as stated above in the HPI. PAST MEDICAL HISTORY: As noted above MEDICATIONS: Reviewed home medication list SOCIAL HISTORY: Currently resides at home with predominantly uses wheelchair PHYSICAL EXAM: GENERAL: alert and oriented on the stretcher appears somewhat uncomfortable. Head: normocephalic and atraumatic EYES: No injection, discharge or icterus. PERRL, EOMI. NECK: Trachea midline. Supple. ENT: Mucous membranes pink and moist. LUNGS: Airway patent. No retractions. Breath sounds clear with good air entry bilaterally. HEART: Regular rate and rhythm. No chest wall tenderness ABDOMEN: Soft and non-tender, without guarding or rebound. Estrella catheter in place BACK: No midline tenderness in the upper thoracic region. No bilateral flank tenderness. There is a large sacral wound and 2 small wounds at the base of the gluteus bilaterally on the thighs. No crepitus appreciated. There is some tracking into the large sacral wound approximately 12 cm in size with some granulation tissue. Mild surrounding cellulitis. SKIN: Acyanotic, warm, dry, without rashes EXTREMITIES: Without swelling, tenderness or deformity NEUROLOGICAL: No aphasia or slurred speech or facial droop. Patient with intact movement of the upper extremities but weakness and paralysis of the lower extremities. Patient's laboratory studies and imaging reviewed. Differential includes Infection, dehydration, metabolic abnormality, hypo/hyperglycemia, electrolyte disturbance, anemia, hypoxia, cardiac sources, intracerebral event, toxicologic, neurologic, as well as other pathologies. IMPRESSION/MEDICAL DECISION MAKING: Patient presents for worsening sacral round recent admission for similar. Several days of doxycycline to been started and no reports at home with fever or new trauma. Evidently left AMA from recent placement at rehab from admission with limited care at home and states she does not feel she is able to care for him at home given these wounds. Patient with some pain give some fentanyl for this. Does not appear grossly septic upon arrival. Wound culture from the sacrum was obtained and wet-to-dry dressing placed. Given an empiric dose of Zosyn based on prior sensitivities. Cultures and labs were obtained. Given some fluid hydration. Benign abdomen lower suspicion for acute intra-abdominal process at this time. Laboratory studies do show a increased leukocytosis today but lactate within normal limits no fever significant hypotension or tachycardia while here. Again does not seem consistent with sepsis. Troponin slightly elevated no previous baseline. Some worsening dehydration status noted and given IV fluids here. No evidence of acute hepatitis or pancreatitis based on labs. Covid rapid was negative. CRP elevation consistent with inflammatory state likely from his sacral wound. Again no respiratory complaints. Patient is agreed with the plan for further care here initially and may need long-term antibiotics. Discussed with the hospitalist team. Patient's in agreement with plan for further care here at the hospital. Patient was ordered aspirin. DIAGNOSIS: Sacral wound, dehydration, elevated troponin DISPOSITION: Hospitalist will evaluate Patient was agreeable with this plan. .
[2020-05-03 18:10] LABS: Basophils # (auto) 0.04 K/uL (0-0.2); Basophils % (auto) 0.2 %; Eosinophils # (auto) 0.16 K/uL (0-0.5); Eosinophils % (auto) 0.9 %; Hematocrit (blood only) 35.8 % (42-52); Hemoglobin 11.8 g/dL (14.0-18.0); Immature Granulocytes # (auto) 0.34 K/uL (0.00-0.02); Immature Granulocytes % (auto) 1.8 %; Lymphocytes # (auto) 2.02 K/uL (1.2-3.4); Lymphocytes % (auto) 10.9 %; Mean Corpuscular Volume 84.8 fL (80-100); Mean Platelet Volume 10.7 fL (7.4-10.4); Monocytes # (auto) 1.99 K/uL (0.11-0.59); Monocytes % (auto) 10.7 %; Neutrophils # (auto) 14.05 K/uL (1.4-6.5); Neutrophils % (auto) 75.5 %; Platelet Count 604 K/uL (130-400); RDW Standard Deviation 43.5 fL (36.4-46.3); Red Blood Count 4.22 M/uL (4.7-6.1)
[2020-05-03 18:23] LABS: INR 1.3 (0.9-1.1); Prothrombin Time 13.1 Seconds (9.0-12.0)
[2020-05-03 18:40] LABS: Albumin Globulin Ratio 0.4 (0.9-2); Albumin Level 2.4 gm/dl (3.4-5.0); Bilirubin,Total 0.4 mg/dl (0.2-1); C Reactive Protein 14.7 mg/dl (0-0.29); Calcium 9.9 mg/dl (8.5-10.1); Creatinine Clr Calc Pharmacy 34.4 ml/min; Est GFR (African American) 37.3; Est GFR (Non-African American) 32.2; Globulin 5.4 gm/dl (2.5-4.0); Potassium 5.2 mmol/L (3.5-5.1); Total Protein 7.8 gm/dl (6.4-8.2); Troponin I 0.149 ng/ml (0-0.045)
[2020-05-03] MEDS ORDERED: ASPIRIN 81 MG CHEW PO STA (18:50)
[2020-05-03] MEDS ORDERED: SODIUM CHLORIDE 0.9% 1000ML 1,000 ML IV ONE (18:50)
--- NOTE | 2020-05-03 19:16 | Emergency Department Note ---
Impression & Plan Wound of sacral region, Elevated troponin, Acute dehydration ED Provider Note Provider: Subhash Michael MD DATE OF SERVICE:05/03/2020 CHIEF COMPLAINT: Sacral wound HISTORY OF PRESENT ILLNESS: Patient is a 80-year-old gentleman unfortunate history of multiple sclerosis wheelchair-bound with hypertension and a chronic urinary catheter presenting to the ambulance from heroin. Patient states he is having some wound issues on his buttocks which is causing him pain. Denies any falls or fever. Denies any nausea or vomiting. Patient then refers me to talked with his via phone and is unable to provide significant additional history or details regarding her recent admission and home care. Discussed with his via phone with his permission. She reports that he was admitted recei heather IV antibiotics and had some debridement of the wound and then was discharged to [facility]. Patient evidently did not like it there and left AGAINST MEDICAL ADVICE after only 1 day coming home. Since that time she says she has not had a wound care instructions at home and it is difficult for her to turn him or care for this wound. Has had a little bit of help more recently over the past week with [facility] home health and wound nurses. Wound nurse evidently evaluated today and stated the wound was getting worse and there were thoughts for additional evaluation here at the hospital. states she does not feel that she by herself can take care of at home in this state and he is somewhat weaker after the recent admission and cannot relate transfer well at all anymore. No fevers or again traumas reported by her. She states he has been eating very little over the last 2 weeks mainly just liquids. Has started over the past 4 days some doxycycline but no other recent antibiotics. REVIEW OF SYSTEMS: A total of 10 review of systems was obtained and negative except as stated above in the HPI. PAST MEDICAL HISTORY: As noted above MEDICATIONS: Reviewed home medication list SOCIAL HISTORY: Currently resides at home with predominantly uses wheelchair PHYSICAL EXAM: GENERAL: alert and oriented on the stretcher appears somewhat uncomfortable. Head: normocephalic and atraumatic EYES: No injection, discharge or icterus. PERRL, EOMI. NECK: Trachea midline. Supple. ENT: Mucous membranes pink and moist. LUNGS: Airway patent. No retractions. Breath sounds clear with good air entry bilaterally. HEART: Regular rate and rhythm. No chest wall tenderness ABDOMEN: Soft and non-tender, without guarding or rebound. Estrella catheter in place BACK: No midline tenderness in the upper thoracic region. No bilateral flank tenderness. There is a large sacral wound and 2 small wounds at the base of the gluteus bilaterally on the thighs. No crepitus appreciated. There is some tracking into the large sacral wound approximately 12 cm in size with some granulation tissue. Mild surrounding cellulitis. SKIN: Acyanotic, warm, dry, without rashes EXTREMITIES: Without swelling, tenderness or deformity NEUROLOGICAL: No aphasia or slurred speech or facial droop. Patient with intact movement of the upper extremities but weakness and paralysis of the lower extremities. EK bpm sinus rhythm with rare PVC with no acute ST segment elevation. Lead I, aVL T wave inversions noted. Compared to previous from March 28 of this year lead to T wave inversions have improved. Patient's laboratory studies and imaging reviewed. Differential includes Infection, dehydration, metabolic abnormality, hypo/hyperglycemia, electrolyte disturbance, anemia, hypoxia, cardiac sources, intracerebral event, toxicologic, neurologic, as well as other pathologies. IMPRESSION/MEDICAL DECISION MAKING: Patient presents for worsening sacral round recent admission for similar. Several days of doxycycline to been started and no reports at home with fever or new trauma. Evidently left AMA from recent placement at rehab from admission with limited care at home and states she does not feel she is able to care for him at home given these wounds. Patient with some pain give some fentanyl for this. Does not appear grossly septic upon arrival. Wound culture from the sacrum was obtained and wet-to-dry dressing placed over the open wound of the sacrum and buttocks. Given an empiric dose of Zosyn based on prior sensitivities. Cultures and labs were obtained. Given some IV fluid hydration. Benign abdomen lower suspicion for acute intra-abdominal process at this time. Laboratory studies do show a increased leukocytosis today but lactate within normal limits no fever significant hypotension or tachycardia while here. Again does not seem consistent with sepsis. Troponin slightly elevated no previous baseline. Some worsening dehydration status noted and given IV fluids here. No evidence of acute hepatitis or pancreatitis based on labs. Covid rapid was negative. CRP elevation consistent with inflammatory state likely from his sacral wound. Again no respiratory complaints. Patient is agreed with the plan for further care here initially and may need long-term antibiotics. Discussed with the hospitalist team. Patient's in agreement with plan for further care here at the hospital. Patient was ordered aspirin but will defer full anticoagulation to the inpatient team at this time as again I have a lower suspicion for acute ACS and believe is more demand related. DIAGNOSIS: Sacral wound, dehydration, elevated troponin DISPOSITION: Hospitalist will evaluate Patient was agreeable with this plan. Critical Care I have personally spent 32 minutes of critical care time in the direct management of this patient. This includes bedside care, interpretation of diagnostic studies, and testing, discussion with consultants, patient, and family members, and other required patient management activities. These 32 minutes is in excess of all separately billable procedures. Past Med/Surg History Medical History BPH (benign prostatic hyperplasia) Estrella catheter in place History of skin cancer ON CHEST AREA Hyperlipidemia Hypertension Multiple sclerosis Debilitated, wheelchair-bound for several years. Can transfer self. Following with Dr Armenta, [facility] neuro. Sacral ulcer Treating with topical ointment currently. Spontaneous pneumothorax HX OF MANY YEARS AGO A TEENAGER (NO SURGERY) Urinary retention Surgical History H/O arthroscopy of shoulder RT History of colonoscopy History of esophagogastroduodenoscopy (EGD) History of herniorrhaphy History of tonsillectomy History of tooth extraction Hx of appendectomy S/P transurethral resection of prostate S/P TURP Family History Other Cancer No family history of adverse response to anesthesia Social History Smoking Status: Former smoker Second Hand Exposure: No; Hx Alcohol Use: No Hx Substance Use: No Preferred Language: Malay Communication Ability: Effective Power Engineer Required: No Beliefs That Will Affect Care: None marital status: Current Living Situation: Spouse Other Information That Helps Us Care for You: No Feels Safe at Home: Yes Safety Concerns: Feels Safe At This Time Assistive Devices: Wheelchair Allergies Allergies Allergy/AdvReac Type Severity Reaction Status Date / Time ampicillin Allergy Unknown Unknown Verified 05/03/20 18:59 morphine AdvReac Mild "MADE ME Verified 05/03/20 18:59 FEEL ODD" Home Meds Home Medications Medication Instructions Recorded Confirmed amlodipine 10 mg PO QPM 03/21/20 05/03/20 losartan 100 mg PO QPM 03/21/20 05/03/20 multivitamin 1 tab PO QAM 03/26/20 05/03/20 omega-3 fatty acids-fish oil 1 cap PO QAM 03/26/20 05/03/20 vitamin B complex 1 tab PO QAM 03/26/20 05/03/20 folic acid 1 mg PO QAM 04/03/20 05/03/20 doxycycline hyclate 100 mg PO BID 05/03/20 05/03/20 Previous Rx's Medication Instructions Recorded tramadol 50 mg tablet 50 mg PO Q8H PRN #20 tab 03/27/20 bisacodyl 10 mg NE DAILY PRN 14 Days #5 ea 04/23/20 sennosides-docusate sodium 1 tab-cap PO DAILY #30 tab 04/23/20 [Senokot-S] Results & Data (ED) Vital Signs Vital Signs - 24 hr 05/03/20 17:05 05/03/20 18:24 05/03/20 18:30 Temperature 36.9 C Temperature Source Oral Pulse Rate 90 84 Pulse Rate [Finger] 88 Pulse Rate from SpO2 Sensor 78 Respiratory Rate 18 18 18 Blood Pressure 123/70 133/69 Blood Pressure Mean 87 86 Pulse Oximetry 97 99 98 Oxygen Delivery Method Room Air Room Air Room Air Sepsis Recent Fever Within 48 Hours No Sepsis New/Unexplained Change in Mental Status N/A Sepsis Action Taken by Nursing No Action Required Laboratory Data Result diagrams: 05/03/20 17:50 05/03/20 17:50 Lab Results 05/03/20 05/03/20 05/03/20 Range/Units 17:50 17:50 17:50 WBC 18.60 H (4.8-10.8) K/uL RBC 4.22 L (4.7-6.1) M/uL Hgb 11.8 L (14.0-18.0) g/dL Hct 35.8 L (42-52) % MCV 84.8 (80-100) fL MCH 28.0 (25-34) pg MCHC 33.0 (32-36) g/dL RDW Std Deviation 43.5 (36.4-46.3) fL RDW Coeff of Bossman 14.0 (11.5-14.5) % Plt Count 604 H (130-400) K/uL MPV 10.7 H (7.4-10.4) fL Immature Gran % (Auto) 1.8 % Neut % (Auto) 75.5 % Lymph % (Auto) 10.9 % Roane % (Auto) 10.7 % Eos % (Auto) 0.9 % Baso % (Auto) 0.2 % Neut # (Auto) 14.05 H (1.4-6.5) K/uL Lymph # (Auto) 2.02 (1.2-3.4) K/uL Roane # (Auto) 1.99 H (0.11-0.59) K/uL Eos # (Auto) 0.16 (0-0.5) K/uL Baso # (Auto) 0.04 (0-0.2) K/uL Immature Gran # (Auto) 0.34 H (0.00-0.02) K/uL PT 13.1 H (9.0-12.0) Seconds INR 1.3 H (0.9-1.1) Sodium 134 L (136-145) mmol/L Potassium 5.2 H (3.5-5.1) mmol/L Chloride 102 (98-107) mmol/L Carbon Dioxide 22 (21-32) mmol/L Anion Gap 9.0 (3-11) BUN 91 H (7-18) mg/dl Creatinine 1.94 H (0.6-1.4) mg/dl Est Cr Clr Drug Dosing 34.4 ml/min Est GFR ( Amer) 37.3 Est GFR (Non-Af Amer) 32.2 BUN/Creatinine Ratio 47.0 H (10-20) Glucose 102 H (70-99) mg/dl Lactate (0.4-2.0) mmol/L Calcium 9.9 (8.5-10.1) mg/dl Total Bilirubin 0.4 (0.2-1) mg/dl AST 39 H (15-37) U/L ALT 29 (12-78) U/L Alkaline Phosphatase 91 (45-117) U/L Troponin I 0.149 H* (0-0.045) ng/ml C-Reactive Protein 14.70 H (0-0.29) mg/dl Total Protein 7.8 (6.4-8.2) gm/dl Albumin 2.4 L (3.4-5.0) gm/dl Globulin 5.4 H (2.5-4.0) gm/dl Albumin/Globulin Ratio 0.4 L (0.9-2) Lipase 331 (73-393) U/L Specimen Hemolysis 18/ Range/Units 17:50 WBC (4.8-10.8) K/uL RBC (4.7-6.1) M/uL Hgb (14.0-18.0) g/dL Hct (42-52) % MCV (80-100) fL MCH (25-34) pg MCHC (32-36) g/dL RDW Std Deviation (36.4-46.3) fL RDW Coeff of Bossman (11.5-14.5) % Plt Count (130-400) K/uL MPV (7.4-10.4) fL Immature Gran % (Auto) % Neut % (Auto) % Lymph % (Auto) % Roane % (Auto) % Eos % (Auto) % Baso % (Auto) % Neut # (Auto) (1.4-6.5) K/uL Lymph # (Auto) (1.2-3.4) K/uL Roane # (Auto) (0.11-0.59) K/uL Eos # (Auto) (0-0.5) K/uL Baso # (Auto) (0-0.2) K/uL Immature Gran # (Auto) (0.00-0.02) K/uL PT (9.0-12.0) Seconds INR (0.9-1.1) Sodium (136-145) mmol/L Potassium (3.5-5.1) mmol/L Chloride (98-107) mmol/L Carbon Dioxide (21-32) mmol/L Anion Gap (3-11) BUN (7-18) mg/dl Creatinine (0.6-1.4) mg/dl Est Cr Clr Drug Dosing ml/min Est GFR ( Amer) Est GFR (Non-Af Amer) BUN/Creatinine Ratio (10-20) Glucose (70-99) mg/dl Lactate 1.2 (0.4-2.0) mmol/L Calcium (8.5-10.1) mg/dl Total Bilirubin (0.2-1) mg/dl AST (15-37) U/L ALT (12-78) U/L Alkaline Phosphatase (45-117) U/L Troponin I (0-0.045) ng/ml C-Reactive Protein (0-0.29) mg/dl Total Protein (6.4-8.2) gm/dl Albumin (3.4-5.0) gm/dl Globulin (2.5-4.0) gm/dl Albumin/Globulin Ratio (0.9-2) Lipase (73-393) U/L Specimen Hemolysis Administered Medications Discontinued Medications Aspirin (Aspirin 81 Mg Chew) 324 mg PO NOW STA Stop: 05/03/20 18:51 Last Admin: 05/03/20 19:19 Dose: 324 mg Documented by: [id number] Fentanyl Citrate (Fentanyl Citrate 100 Mcg/2 Ml Vial) 25 mcg IV NOW STA Stop: 05/03/20 17:59 Last Admin: 05/03/20 18:19 Dose: 25 mcg Documented by: [id number] Sodium Chloride (Nss) 500 mls @ 999 mls/hr IV .Q31M SALVADOR Stop: 05/03/20 18:00 Last Infusion: 05/03/20 19:23 Dose: 0 mls/hr Documented by: [id number] Admin: 05/03/20 18:19 Dose: 999 mls/hr Documented by: [id number] Piperacillin Sod/Tazobactam Sod (Zosyn) 4.5 gm in 120 mls @ 240 mls/hr IV NOW ONE Stop: 05/03/20 17:47 Last Infusion: 05/03/20 19:23 Dose: 0 mls/hr Documented by: [id number] Admin: 05/03/20 18:19 Dose: 240 mls/hr Documented by: [id number] Sodium Chloride (Nss 1000ml) 1,000 mls @ 999 mls/hr IV .Q1H1M ONE Stop: 05/03/20 19:50 Last Infusion: 05/03/20 21:07 Dose: 0 mls/hr Documented by: [id number] Admin: 05/03/20 19:54 Dose: 999 mls/hr Documented by: [id number] Discharge Plan Visit Data Chief Complaint: Wound Stated Complaint: BED SORES & OPEN WOUNDS ED Provider: Subhash Michael Discharge Problem: Wound of sacral region, Elevated troponin, Acute dehydration Patient Disposition: Admitted As Inpatient Discharge Instructions Interventions: ED Discharge Assessment Last Done: 05/03/20 21:02 Discharge Problem: Wound of sacral region Qualifiers: Encounter type: subsequent encounter Qualified Code(s): S31.000D - Unspecified open wound of lower back and pelvis without penetration into retroperitoneum, subsequent encounter
[2020-05-03] MEDS ORDERED: ACETAMINOPHEN 325 MG TAB PO PRN (21:05)
--- NOTE | 2020-05-03 22:18 | History & Physical Report ---
Date of Service May 03, 2020 Assessment & Plan (1) Wound of sacral region: -Admit to telemetry -Patient presenting from home with reports of worsening sacral wound. -Patient with recent prolonged hospital stay at [facility] 04/05 through 04/23 for management of sacral wound. Wound culture grew Pseudomonas, Enterococcus, Chloe. Patient underwent debridement of wound. Patient completed antibiotic course while admitted. Patient was discharged to [facility] for rehab needs however only stayed 1 day before signing out AMA. -WBC 18.6K, afebrile, BP stable, lactate 1.2 -S/p Zosyn in the ED, will continue with and add daptomycin based on previous cultures (Pseudomonas and Enterococcus) -Wound care nurse and provider consult -General surgery consult (performed debridement during previous admission) -Bilateral heel wounds noted as well -May also have RLE cellulitis, mild erythema noted on exam (2) ARIELA (acute kidney injury): -Creatinine 1.9 (baseline runs in the low 1s) -Likely prerenal in nature -IVF, follow renal functions -Hold losartan (3) Elevated troponin: -Troponin 0.149 -No reports of chest pain, EKG without acute ST changes -Likely demand ischemia secondary to acute illness/ARIELA -Continue to cycle cardiac enzymes, consider further work-up if significantly increasing (4) Elevated platelet count: -Platelet count 604K -? Hemoconcentration secondary dehydration -Hydrate, follow CBC (5) Hypertension: -BP controlled, continue amlodipine -Holding losartan as above (6) Multiple sclerosis: -Bed/wheelchair bound -Too difficult to manage at home -Likely will need placement, patient hesitant. Was discharged to [facility] after last admission however signed out AMA after 1 day. (7) DVT prophylaxis: -SQ Lovenox Admission and Anticipated Discharge Date Admission Date: May 03, 2020 History of Present Illness Chief Complaint: Sacral wound Primary Care Provider: Aram Lyman MD 80-year-old male with PMH MS, urinary retention with chronic indwelling Riddle, sacral decubitus ulcer, HTN, and other problems listed below who presents the ED for evaluation of worsening sacral decubitus ulcer. Patient with recent prolonged hospital stay at [facility] 04/05 through 04/23 for management of sacral wound. Wound culture grew Pseudomonas, Enterococcus, Chloe. Patient underwent debridement of wound. Patient completed antibiotic course while admitted. Patient was discharged to [facility] for rehab needs however only stayed 1 day before signing out AMA. Since returning home, patient's sacral decubitus ulcer has worsened. He is also requiring more care at home than what his can provide. Patient reports a very poor appetite over the past week. Denies nausea, vomiting, abdominal pain, diarrhea. No fevers or chills. Denies chest pain or shortness of breath. No lightheadedness, dizziness, diaphoresis, syncopal events. Chronic F\\riddle catheter remains in place without acute issue. In the ED, WBC 18.6, creatinine 1.9, troponin 0 0.149. EKG without acute ST changes. Patient was given full dose aspirin, IV fentanyl, IV Zosyn, IVF. Allergies Allergy/AdvReac Type Severity Reaction Status Date / Time ampicillin Allergy Unknown Unknown Verified 05/03/20 18:59 morphine AdvReac Mild "MADE ME Verified 05/03/20 18:59 FEEL ODD" Home Medications Medication Instructions Recorded Confirmed Type amlodipine 10 mg PO QPM 03/21/20 05/03/20 History losartan 100 mg PO QPM 03/21/20 05/03/20 History multivitamin 1 tab PO QAM 03/26/20 05/03/20 History omega-3 fatty acids-fish oil 1 cap PO QAM 03/26/20 05/03/20 History vitamin B complex 1 tab PO QAM 03/26/20 05/03/20 History tramadol 50 mg tablet 50 mg PO Q8H PRN #20 tab 03/27/20 05/03/20 Rx folic acid 1 mg PO QAM 04/03/20 05/03/20 History bisacodyl 10 mg MT DAILY PRN 14 Days #5 ea 04/23/20 05/03/20 Rx sennosides-docusate sodium 1 tab-cap PO DAILY #30 tab 04/23/20 05/03/20 Rx [Senokot-S] doxycycline hyclate 100 mg PO BID 05/03/20 05/03/20 History Past Med/Surg History Medical History BPH (benign prostatic hyperplasia) Riddle catheter in place History of skin cancer ON CHEST AREA Hyperlipidemia Hypertension Multiple sclerosis Debilitated, wheelchair-bound for several years. Can transfer self. Following with Dr Armenta, [facility] neuro. Sacral ulcer Treating with topical ointment currently. Spontaneous pneumothorax HX OF MANY YEARS AGO A TEENAGER (NO SURGERY) Urinary retention Urinary retention Surgical History H/O arthroscopy of shoulder RT History of colonoscopy History of esophagogastroduodenoscopy (EGD) History of herniorrhaphy History of tonsillectomy History of tooth extraction Hx of appendectomy S/P transurethral resection of prostate S/P TURP Family History Other Cancer No family history of adverse response to anesthesia Social History Smoking Status: Former smoker Second Hand Exposure: No; Hx Alcohol Use: No Hx Substance Use: No Preferred Language: Icelandic Communication Ability: Effective Yoke Presser Required: No Beliefs That Will Affect Care: None marital status: Current Living Situation: Spouse Feels Safe at Home: Yes Assistive Devices: None Review of Systems Review of Systems: ROS per HPI, all other systems reviewed and negative Physical Exam Constitutional: WD/WN, vitals as above Chronically ill-appearing Eyes: PERRL, conjunctivae normal, anicteric sclerae ENMT: external ear and nose normal, oropharynx normal Respiratory: normal respiratory effort, lungs clear to auscultation Cardiovascular: Rate/Rhythm: regular rate and regular rhythm Vessels: normal peripheral pulses Extremities: + edema (+2 pitting edema BLE) Gastrointestinal (Abdomen): normal bowel sounds, soft, nontender, no hepatosplenomegaly Musculoskeletal: Extremities: no cyanosis and no clubbing Generally weak throughout Skin: no rashes, warm and dry Please refer to nursing documentation regarding sacral wound; blisters/unstageable ulcers bilateral heels; erythema right archer Neurologic: PERRL, EOMI, accommodation nl, no face palsy, no dysarthria Psychiatric: Orientation: alert and oriented x 3 Affect: + flat affect Genitourinary: Riddle in place draining clear yellow urine Results & Data Results & Data ([facility]) Vital Signs (Past 12 Hours) Vital Signs Temp Pulse Pulse Resp BP BP Pulse Ox 05/03/20 21:12 36.6 C 88 18 128/78 99 05/03/20 19:00 83 18 138/69 98 05/03/20 18:42 85 17 99 05/03/20 18:30 84 18 133/69 98 05/03/20 18:24 88 18 99 05/03/20 17:05 36.9 C 90 18 123/70 97 Laboratory Results Short CBC 05/03/20 Range/Units 17:50 WBC 18.60 H (4.8-10.8) K/uL Hgb 11.8 L (14.0-18.0) g/dL Hct 35.8 L (42-52) % Plt Count 604 H (130-400) K/uL BMP 05/03/20 17:50 Sodium 134 L Potassium 5.2 H Chloride 102 Carbon Dioxide 22 BUN 91 H Creatinine 1.94 H Glucose 102 H Calcium 9.9 Cardiac Enzymes 05/03/20 Range/Units 17:50 Troponin I 0.149 H* (0-0.045) ng/ml Liver Function 05/03/20 Range/Units 17:50 Total Bilirubin 0.4 (0.2-1) mg/dl AST 39 H (15-37) U/L ALT 29 (12-78) U/L Alkaline Phosphatase 91 (45-117) U/L Albumin 2.4 L (3.4-5.0) gm/dl Code Status & VTE Plan Code Status Patient is a DNR as per my discussion with him. VTE Prophylaxis Plan VTE Prophylaxis will be ordered: Yes Supervising Physician Co-Signing Physician Notes Pt was seen and examined. Agreed with Stephany HOWARD exam, assessment and plan. 80-year-old male with PMH MS, urinary retention with chronic indwelling Riddle, sacral decubitus ulcer, HTN, was sent to the ER for worsening sacral decubitus ulcer. Pt was recently discharged from [facility] to [facility] for rehab , but he signed out AMA after 1 day. Pt is not able to provide any care for him. His sacral wound ulcer has been getting worst with drainage. He has been having very poor appetite in the last weeks. Denies nausea, vomiting, abdominal pain, diarrhea, fever, chills,chest pain or shortness of breath. In the ED, WBC 18.6, creatinine 1.9, troponin 0 0.149. EKG without acute ST changes. Received aspirin, IV fentanyl, IV Zosyn. Will continue IV abx with Zosyn and adding daptomycin based on previous cultures grew Pseudomonas and Enterococcus. Will check wound cx and blood cx. Will consult surgery to eval for possible debridement. Will consult wound care. Continue IV hydration. Will monitor troponin and BMP. Will continue monitor closely. MD Doe (1) Wound of sacral region Encounter type: subsequent encounter Qualified Code(s): S31.000D - Unspecified open wound of lower back and pelvis without penetration into retroperitoneum, subsequent encounter
[2020-05-03] MEDS: SODIUM CHLORIDE 0.9% 1000ML 1,000 ML IV SCH (22:40)
[2020-05-03] MEDS: amLODIPine BESYLATE 5 MG TAB PO SCH (22:41)
[2020-05-03] MEDS: DAPTOmycin 300 MG in SYRINGE 0 ML IV SCH (22:41)
[2020-05-03] MEDS: PIPERACILLIN/TAZOBACTAM 3.375 GM in DEXTROSE 5% 100 ML IV SCH (23:10)
[2020-05-04] MEDS: traMADol HCL 50 MG TABLET PO PRN (03:53)
[2020-05-04] MEDS: HEPARIN SOD 5,000 UNIT/0.5 ML VIAL SQ SCH ×3 (03:54→19:38)
[2020-05-04] MEDS: SODIUM CHLORIDE 0.9% 1000ML 1,000 ML IV SCH ×3 (05:47→21:16)
[2020-05-04 08:08] LABS: Hematocrit (blood only) 33.2 % (42-52); Mean Corpuscular Hemoglobin 28.2 pg (25-34); Mean Corpuscular Hgb Conc 33.1 g/dL (32-36); Mean Corpuscular Volume 85.1 fL (80-100); Platelet Count 565 K/uL (130-400); RDW Coefficient of Variation 14.1 % (11.5-14.5); RDW Standard Deviation 43.6 fL (36.4-46.3); White Blood Count 15.21 K/uL (4.8-10.8)
[2020-05-04 08:36] LABS: BUN Creatinine Ratio 47.8 (10-20); Calcium 9.2 mg/dl (8.5-10.1); Creatinine Clr Calc Pharmacy 45.4 ml/min; Est GFR (African American) 48.6; Est GFR (Non-African American) 41.9; Potassium 4.5 mmol/L (3.5-5.1)
[2020-05-04] MEDS: PIPERACILLIN/TAZOBACTAM 3.375 GM in DEXTROSE 5% 100 ML IV SCH ×2 (08:39→15:53)
[2020-05-04 08:46] LABS: Troponin I 0.224 ng/ml (0-0.045)
[2020-05-04] MEDS ORDERED: HYDROCODONE/ACETAMOPHEN 5/325MG TAB PO ONE (08:54)
--- NOTE | 2020-05-04 09:47 | Hospitalist Progress Note ---
Date of Service May 04, 2020 Assessment & Plan (1) Wound of sacral region: -Admit to telemetry -Patient presenting from home with reports of worsening sacral wound. -Patient with recent prolonged hospital stay at [facility] 04/05 through 04/23 for management of sacral wound. Wound culture grew Pseudomonas, Enterococcus, Chloe. Patient underwent debridement of wound. Patient completed antibiotic course while admitted. Patient was discharged to [facility] for rehab needs however only stayed 1 day before signing out AMA. -WBC 18.6K, afebrile, BP stable, lactate 1.2 -S/p Zosyn in the ED, will continue with and add daptomycin based on previous cultures (Pseudomonas and Enterococcus) -Wound care nurse and provider consult -General surgery consult (performed debridement during previous admission) -Bilateral heel wounds noted as well -May also have RLE cellulitis, mild erythema noted on exam (2) ARIELA (acute kidney injury): -Creatinine 1.9 (baseline runs in the low 1s) -Likely prerenal in nature -IVF, follow renal functions -Hold losartan (3) Elevated troponin: -Troponin 0.149 -No reports of chest pain, EKG without acute ST changes -Likely demand ischemia secondary to acute illness/ARIELA -Continue to cycle cardiac enzymes, consider further work-up if significantly increasing (4) Elevated platelet count: -Platelet count 604K -? Hemoconcentration secondary dehydration -Hydrate, follow CBC (5) Hypertension: -BP controlled, continue amlodipine -Holding losartan as above (6) Multiple sclerosis: -Bed/wheelchair bound -Too difficult to manage at home -Likely will need placement, patient hesitant. Was discharged to [facility] after last admission however signed out AMA after 1 day. (7) DVT prophylaxis: -SQ Lovenox Admission and Anticipated Discharge Date Admission Date: May 03, 2020 Subjective .stroke Results & Data Results & Data ([facility]) Vital Signs (Past 12 Hours) Vital Signs Temp Pulse Pulse Resp BP Pulse Ox 05/04/20 08:30 36.5 C 74 18 140/69 97 05/04/20 03:47 37.2 C 82 18 126/77 96 05/03/20 23:56 78 05/03/20 23:55 85 05/03/20 23:17 36.7 C 78 20 118/74 98 (1) Wound of sacral region Encounter type: subsequent encounter Qualified Code(s): S31.000D - Unspecified open wound of lower back and pelvis without penetration into retroperitoneum, subsequent encounter
--- NOTE | 2020-05-04 10:42 | Surgery Consultation ---
Date of Consultation May 04, 2020 Assessment & Plan (1) Sacral ulcer: s/p debridement on last hospital admission. While there is some tissue that could be debrided, he is refusing surgical intervention as he feels it prevents further healing. Attempted to explain situation to him but he is adamant as he "has been dealing with this for a long time". Thus, will sign off. Recommend wound care nursing consult. Thank you. History of Present Illness Reason for Consultation: sacral wound Requesting Physician: Stephany Carranza NP Attending Physician: Edmundo Fitzgerald MD History of Present Illness 80-year-old man who was recently admitted with a sacral wound. He is status post sacral wound debridement at his last visit. He was treated with antibiotics and then discharged to [facility]. He elected to leave [facility]. At home he has been too difficult for the to take care of on her own. In addition the sacral wound was noted to be worsening. He is thus back in the hospital. He is currently refusing any surgical intervention. He feels as though surgical debridement just makes the wound worse. He is requesting zinc oxide to be placed onto the wound. Allergies Allergy/AdvReac Type Severity Reaction Status Date / Time ampicillin Allergy Unknown Unknown Verified 05/03/20 18:59 morphine AdvReac Mild "MADE ME Verified 05/03/20 18:59 FEEL ODD" Home Medications Medication Instructions Recorded Confirmed Type amlodipine 10 mg PO QPM 03/21/20 05/03/20 History losartan 100 mg PO QPM 03/21/20 05/03/20 History multivitamin 1 tab PO QAM 03/26/20 05/03/20 History omega-3 fatty acids-fish oil 1 cap PO QAM 03/26/20 05/03/20 History vitamin B complex 1 tab PO QAM 03/26/20 05/03/20 History tramadol 50 mg tablet 50 mg PO Q8H PRN #20 tab 03/27/20 05/03/20 Rx folic acid 1 mg PO QAM 04/03/20 05/03/20 History bisacodyl 10 mg NV DAILY PRN 14 Days #5 ea 04/23/20 05/03/20 Rx sennosides-docusate sodium 1 tab-cap PO DAILY #30 tab 04/23/20 05/03/20 Rx [Senokot-S] doxycycline hyclate 100 mg PO BID 05/03/20 05/03/20 History Patient History Medical History BPH (benign prostatic hyperplasia) Estrella catheter in place History of skin cancer ON CHEST AREA Hyperlipidemia Hypertension Multiple sclerosis Debilitated, wheelchair-bound for several years. Can transfer self. Following with [facility] neuro. Sacral ulcer Treating with topical ointment currently. Spontaneous pneumothorax HX OF MANY YEARS AGO A TEENAGER (NO SURGERY) Urinary retention Urinary retention Surgical History H/O arthroscopy of shoulder RT History of colonoscopy History of esophagogastroduodenoscopy (EGD) History of herniorrhaphy History of tonsillectomy History of tooth extraction Hx of appendectomy S/P transurethral resection of prostate S/P TURP Family History Other Cancer No family history of adverse response to anesthesia Social History Smoking Status: Former smoker Second Hand Exposure: No; Hx Alcohol Use: No Hx Substance Use: No Preferred Language: Slovenian Communication Ability: Effective Reproduction Order Processor Required: No Beliefs That Will Affect Care: None marital status: Current Living Situation: Spouse Other Information That Helps Us Care for You: No Feels Safe at Home: Yes Safety Concerns: Feels Safe At This Time Assistive Devices: Denture - Upper and Denture - Lower Physical Exam Skin: The sacral wound is not significantly different from the prior discharge photo on April 15. The 2 differences are a flap of necrotic tissue superiorly as well as some necrosis developing along left side. Results & Data ([facility]) Vital Signs (Past 12 Hours) Vital Signs Temp Pulse Pulse Resp BP Pulse Ox 05/04/20 08:30 36.5 C 74 18 140/69 97 05/04/20 03:47 37.2 C 82 18 126/77 96 05/03/20 23:56 78 05/03/20 23:55 85 05/03/20 23:17 36.7 C 78 20 118/74 98 Laboratory Results Abnormal lab results 12/18/20 12/18/20 12/18/20 Range/Units 17:50 17:50 17:50 WBC 18.60 H (4.8-10.8) K/uL RBC 4.22 L (4.7-6.1) M/uL Hgb 11.8 L (14.0-18.0) g/dL Hct 35.8 L (42-52) % Plt Count 604 H (130-400) K/uL MPV 10.7 H (7.4-10.4) fL Neut # (Auto) 14.05 H (1.4-6.5) K/uL [place] # (Auto) 1.99 H (0.11-0.59) K/uL Immature Gran # (Auto) 0.34 H (0.00-0.02) K/uL PT 13.1 H (9.0-12.0) Seconds INR 1.3 H (0.9-1.1) Sodium 134 L (136-145) mmol/L Potassium 5.2 H (3.5-5.1) mmol/L Chloride (98-107) mmol/L BUN 91 H (7-18) mg/dl Creatinine 1.94 H (0.6-1.4) mg/dl BUN/Creatinine Ratio 47.0 H (10-20) Glucose 102 H (70-99) mg/dl AST 39 H (15-37) U/L Troponin I 0.149 H* (0-0.045) ng/ml C-Reactive Protein 14.70 H (0-0.29) mg/dl Albumin 2.4 L (3.4-5.0) gm/dl Globulin 5.4 H (2.5-4.0) gm/dl Albumin/Globulin Ratio 0.4 L (0.9-2) 05/03/20 05/04/20 05/04/20 Range/Units 22:55 07:04 07:04 WBC 15.21 H (4.8-10.8) K/uL RBC 3.90 L (4.7-6.1) M/uL Hgb 11.0 L (14.0-18.0) g/dL Hct 33.2 L (42-52) % Plt Count 565 H (130-400) K/uL MPV 11.0 H (7.4-10.4) fL Neut # (Auto) (1.4-6.5) K/uL [place] # (Auto) (0.11-0.59) K/uL Immature Gran # (Auto) (0.00-0.02) K/uL PT (9.0-12.0) Seconds INR (0.9-1.1) Sodium (136-145) mmol/L Potassium (3.5-5.1) mmol/L Chloride 109 H (98-107) mmol/L BUN 75 H (7-18) mg/dl Creatinine 1.56 H D (0.6-1.4) mg/dl BUN/Creatinine Ratio 47.8 H (10-20) Glucose 110 H (70-99) mg/dl AST (15-37) U/L Troponin I 0.186 H* 0.224 H* (0-0.045) ng/ml C-Reactive Protein (0-0.29) mg/dl Albumin (3.4-5.0) gm/dl Globulin (2.5-4.0) gm/dl Albumin/Globulin Ratio (0.9-2) (1) Sacral ulcer Non-pressure ulcer stage: with fat layer exposed Qualified Code(s): L98.422 - 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
--- NOTE | 2020-05-04 10:42 | Electrocardiogram Report ---
Test Reason : Blood Pressure : / mmHG Vent. Rate : 085 BPM Atrial Rate : 085 BPM P-R Int : 182 ms QRS Dur : 096 ms QT Int : 406 ms P-R-T Axes : 054 -23 111 degrees QTc Int : 483 ms Poor data quality, interpretation may be adversely affected Sinus rhythm with Premature ventricular complexes Possible Left atrial enlargement Left ventricular hypertrophy with repolarization abnormality Abnormal ECG When compared with ECG of 28-MAR-2020 10:02, Premature ventricular complexes are present T wave inversion less evident in Anterolateral leads Confirmed by Héctor Kincaid ([id number]) on 05/04/2020 10:42:26 AM Referred By: REFERRED SELF Confirmed By:Vinod Kincaid
--- NOTE | 2020-05-04 10:48 | Electrocardiogram Report ---
Test Reason : Blood Pressure : / mmHG Vent. Rate : 087 BPM Atrial Rate : 087 BPM P-R Int : 190 ms QRS Dur : 098 ms QT Int : 388 ms P-R-T Axes : 058 -29 112 degrees QTc Int : 466 ms Normal sinus rhythm Left ventricular hypertrophy with repolarization abnormality Abnormal ECG When compared with ECG of 03-MAY-2020 19:17, (unconfirmed) Aberrant conduction is no longer Present Confirmed by Héctor Kincaid ([id number]) on 05/04/2020 10:47:45 AM Referred By: REFERRED SELF Confirmed By:Vinod Kincaid
[2020-05-04] MEDS: MULTIVITAMIN TAB PO SCH (12:08)
[2020-05-04] MEDS: FOLIC ACID 1 MG TAB PO SCH (12:08)
[2020-05-04] MEDS: VITAMIN B COMPLEX TAB PO SCH (12:08)
[2020-05-04] MEDS: OMEGA-3 (PURIFIED FISH OIL) 1 GM CAP PO SCH (12:08)
[2020-05-04] MEDS: DOCUSATE SODIUM/SENNA 50/8.6MG TAB PO SCH (12:08)
[2020-05-04 16:20] LABS: BUN Creatinine Ratio 41.8 (10-20); Calcium 9.1 mg/dl (8.5-10.1); Creatinine Clr Calc Pharmacy 45.1 ml/min; Est GFR (African American) 48.2; Est GFR (Non-African American) 41.6; Magnesium 2.3 mg/dl (1.8-2.4); Potassium 4.4 mmol/L (3.5-5.1)
[2020-05-04] MEDS: METOPROLOL TARTRATE 25 MG TAB PO SCH ×2 (17:54→19:37)
--- NOTE | 2020-05-04 19:08 | Communication Note ---
Date of Service: May 04, 2020 Patient's chart reviewed Patient seen and examined at bedside with SONAM Tay, throughout whole encounter Patient was irritable during my interview When asked if I can take a look at his wound site, patient answered angrily. "Why? What else new would you offer?" I informed him that I want to help him, and I need to examine the wound site and depending the findings, that he might need possible debridement, antibiotics Patient said that he does not want any more debridement, and I expressed that we will respect that decision He also said that he does not want any more antibiotics because " it is all about money making, shame on you! I am tired of this [id number]" Patient states that he just need, calmoseptin because it will kill the bacteria in the viruses on contact. Patient said I am just very angry When I inquired if I can ask him why he is angry so I can help him, patient said " I do not have time for cultural difference." " C'mon, with your mind, you should be able to know that!" Since the patient was very upset and did not seem to be receptive to my recommendations, I offered if he wanted to be reassigned to another physician and patient said yes. I told him I will [facility] today. Discussed case with Dr. Vallejo, who will assume care starting today. Edmundo Fitzgerald MD
[2020-05-04] MEDS: amLODIPine BESYLATE 5 MG TAB PO SCH (19:37)
[2020-05-04] MEDS: BUTT PASTE (ZINC OXIDE 16%) 171 APPLN/57 GM JAR EXT SCH (19:38)
[2020-05-04] MEDS: DAPTOmycin 300 MG in SYRINGE 0 ML IV SCH (21:10)
--- NOTE | 2020-05-04 23:21 | Hospitalist Progress Note ---
Date of Service May 04, 2020 Assessment & Plan (1) Wound of sacral region: -Patient presenting from home with reports of worsening sacral wound. -Patient with recent prolonged hospital stay at [facility] 04/05 through 04/23 for management of sacral wound. Wound culture grew Pseudomonas, Enterococcus, Chloe. Patient underwent debridement of wound. Patient completed antibiotic course while admitted. Patient was discharged to [facility] for rehab needs however only stayed 1 day before signing out AMA. -WBC 18.6K, afebrile, BP stable, lactate 1.2 -S/p Zosyn in the ED, will continue with and add daptomycin based on previous cultures (Pseudomonas and Enterococcus) -Wound care nurse and provider consult -General surgery consult (performed debridement during previous admission) - seen by Dr. Hilton - there is some tissue that could be debrided however pt declined, as he feels that "prevents healing", recommend wound care Pt requests zinc oxide for his wound- at this point no surgical intervention planned, will order zinc oxide until pt seen by wound care team for further eval and recommendations -Bilateral heel wounds noted as well -May also have RLE cellulitis, mild erythema noted on exam (2) ARIELA (acute kidney injury): -Creatinine 1.9 (baseline runs in the low 1s) -Likely prerenal in nature -IVF, follow renal functions -Hold losartan (3) Elevated troponin: -Troponin 0.149 -No reports of chest pain, EKG without acute ST changes -Likely demand ischemia secondary to acute illness/ARIELA -Continue to cycle cardiac enzymes, consider further work-up if significantly increasing Nonsustained 7 beat run of VT (05/04/2020) electrolytes wnl Pt completely asymptomatic Cardiology contacted, and metoprolol started EKG AM, Echo ordered (4) Elevated platelet count: -Platelet count 604K -? Hemoconcentration secondary dehydration -Hydrate, follow CBC (5) Hypertension: -BP controlled, continue amlodipine -Holding losartan as above (6) Multiple sclerosis: -Bed/wheelchair bound -Too difficult to manage at home -Likely will need placement, patient hesitant. Was discharged to [facility] after last admission however signed out AMA after 1 day. Dispo: Discussed with pt's - states that now they have more support and resources and would like to take care of the pt at home. When pt came home from [facility], they did not have all the support yet and so could not bring the pt for follow up appointment with wound care clinic. Reports that now they have a new bed which should make things easier, home health, home PT, etc. Updated pt's on current clinical status of the pt and also on his current state of frustration with his care. (7) DVT prophylaxis: -SQ Lovenox Admission and Anticipated Discharge Date Admission Date: May 03, 2020 Subjective Pt seen in follow up of sacral wound and other medical problems. Pt seen earlier by my colleague, Dr. Fitzgerald, however pt overall frustrated with his clinical status and care and asked for provider to be switched. Pt laying in bed in NAD, nursing staff at the bedside, change of dressings done during my exam. Pt denies any fever, chills, chest pain, shortness of breath, abd. pain. Seen by surgery earlier today and possible debridement was discussed however pt declined. Wound care recommended. Pt insists that zinc oxide works for his wounds. Overall seems frustrated with his condition. Had nonsustained 7 beat run of vt, asymptomatic. Notified by nursing staff that pt wanted physician lasting room supervisor to be contacted, Dr. Mosqueda aware. Pt's updated over the phone by me. Review of Systems Review of Systems: All systems reviewed & are unremarkable except as noted in HPI & below Constitutional: no fever and no chills Respiratory: no cough and no dyspnea Cardiovascular: no chest pain and no palpitations Gastrointestinal: no abdominal pain, no nausea and no vomiting Psychiatric: + irritability and + anxiety Physical Exam Physical Exam: Constitutional: WD/WN, vitals as above Chronically ill- appearing Eyes: PERRL, EOMI, conjunctivae normal, anicteric sclerae ENMT: external ear and nose normal, oropharynx normal Respiratory: normal respiratory effort, lungs clear to auscultation Cardiovascular: Rate/Rhythm: regular rate and regular rhythm Vessels: normal peripheral pulses Extremities: + edema (+2 pitting edema BLE) Gastrointestinal (Abdomen): normal bowel sounds, soft, nontender Musculoskeletal: Extremities: no cyanosis and no clubbing Generally weak throughout (hx of MS) Skin: no rashes, warm and dry sacral wound w/ necrosis superior;y and developing along left side; blisters/unstageable ulcers bilateral heels; erythema right archer Neurologic: PERRL, EOMI, no face palsy, no dysarthria Psychiatric: Orientation: alert and oriented x 3 Affect: + anxious Genitourinary: Estrella in place draining cloudy yellow urine (chronic Estrella) Results & Data Results & Data ([facility]) Vital Signs (Past 12 Hours) Vital Signs Temp Pulse Pulse Resp BP Pulse Ox 05/04/20 20:21 36.8 C 69 18 132/65 98 05/04/20 16:08 36.8 C 73 16 144/68 H 95 05/04/20 16:00 93 H 05/04/20 12:00 36.5 C 69 18 132/65 98 Laboratory Results Home Medications Medication Instructions Recorded Confirmed Last Taken amlodipine 10 mg PO QPM 03/21/20 05/03/20 05/02/20 losartan 100 mg PO QPM 03/21/20 05/03/20 05/02/20 multivitamin 1 tab PO QAM 03/26/20 05/03/20 04/03/20 omega-3 fatty acids-fish oil 1 cap PO QAM 03/26/20 05/03/20 04/03/20 vitamin B complex 1 tab PO QAM 03/26/20 05/03/20 04/03/20 tramadol 50 mg tablet 50 mg PO Q8H PRN #20 tab 03/27/20 05/03/20 05/03/20 16:00 folic acid 1 mg PO QAM 04/03/20 05/03/20 04/03/20 bisacodyl 10 mg NM DAILY PRN 14 Days #5 ea 04/23/20 05/03/20 Unknown sennosides-docusate sodium 1 tab-cap PO DAILY #30 tab 04/23/20 05/03/20 Unknown [Senokot-S] doxycycline hyclate 100 mg PO BID 05/03/20 05/03/20 05/03/20 09:00 Active Medications Generic Name Dose Route Start Last Admin Trade Name Freq PRN Reason Stop Dose Admin Amlodipine Besylate 10 mg 05/03/20 22:00 05/04/20 19:37 Amlodipine Besylate 5 Mg Tab PO 06/02/20 21:59 10 mg QPM ASLVADOR Administration Fish Oil 1 gm 05/04/20 10:15 05/04/20 12:08 Wilmont-3 (Purified Fish Oil) 1 Gm Cap PO 06/03/20 10:14 1 gm QAM SALVADOR Administration Folic Acid 1 mg 05/04/20 10:15 05/04/20 12:08 Folic Acid 1 Mg Tab PO 06/03/20 10:14 1 mg QAM SALVADOR Administration Heparin Sodium (Porcine) 5,000 units 05/04/20 06:00 05/04/20 19:38 Heparin Sod 5,000 Unit/0.5 Ml Vial SQ 06/03/20 05:59 Not Given Q8 SALVADOR Piperacillin Sod/Tazobactam 115 mls @ 28.75 mls/hr 05/04/20 00:00 05/04/20 20:10 Sod 3.375 gm/ Dextrose IV 05/11/20 00:00 Infused Q8H SALVADOR Infusion Protocol Daptomycin 300 mg/ Syringe 6 mls @ 2.5 mls/min 05/03/20 22:00 05/04/20 21:10 IV 05/10/20 21:59 2.5 mls/min Q24H SALVADOR Administration Protocol Sodium Chloride 1,000 mls @ 125 mls/hr 05/03/20 22:30 05/04/20 21:16 Nss 1000ml IV 06/02/20 22:29 125 mls/hr .Q8H SALVADOR Administration Metoprolol Tartrate 25 mg 05/04/20 16:00 05/04/20 19:37 Metoprolol Tartrate 25 Mg Tab PO 06/03/20 15:59 25 mg BID SALVADOR Administration Multivitamins 1 tab 05/04/20 10:15 05/04/20 12:08 Multivitamin Tab PO 06/03/20 10:14 1 tab QAM SALVADOR Administration Petrolatum 1 appln 05/04/20 21:00 05/04/20 19:38 Butt Paste (Zinc Oxide 16%) 171 Appln/57 Gm Jar EXT 06/03/20 20:59 1 appln BID SALVADOR Administration Senna/Docusate Sodium 1 tab 05/04/20 10:15 05/04/20 12:08 Docusate Sodium/Senna 50/8.6mg Tab PO 06/03/20 10:14 Not Given DAILY SALVADOR Tramadol HCl 50 mg 05/03/20 21:05 05/04/20 03:53 Tramadol Hcl 50 Mg Tablet PO 06/02/20 21:04 50 mg Q8H PRN Administration pain Vitamin B Complex 1 tab 05/04/20 10:15 05/04/20 12:08 Vitamin B Complex Tab PO 06/03/20 10:14 1 tab QAM SALVADOR Administration (1) Wound of sacral region Encounter type: subsequent encounter Qualified Code(s): S31.000D - Unspecified open wound of lower back and pelvis without penetration into retroperitoneum, subsequent encounter
[2020-05-05] MEDS: PIPERACILLIN/TAZOBACTAM 3.375 GM in DEXTROSE 5% 100 ML IV SCH ×2 (00:19→09:40)
[2020-05-05] MEDS: HEPARIN SOD 5,000 UNIT/0.5 ML VIAL SQ SCH ×3 (04:09→20:08)
[2020-05-05] MEDS: SODIUM CHLORIDE 0.9% 1000ML 1,000 ML IV SCH ×3 (05:00→21:40)
[2020-05-05 08:10] LABS: Hematocrit (blood only) 32.6 % (42-52); Hemoglobin 10.6 g/dL (14.0-18.0); Mean Corpuscular Hgb Conc 32.5 g/dL (32-36); Mean Platelet Volume 10.6 fL (7.4-10.4); Platelet Count 536 K/uL (130-400); RDW Coefficient of Variation 14.2 % (11.5-14.5); RDW Standard Deviation 44.4 fL (36.4-46.3); Red Blood Count 3.79 M/uL (4.7-6.1); White Blood Count 13.71 K/uL (4.8-10.8)
[2020-05-05 08:54] LABS: BUN Creatinine Ratio 34.7 (10-20); Calcium 8.6 mg/dl (8.5-10.1); Creatinine Clr Calc Pharmacy 56.6 ml/min; Est GFR (African American) 63.5; Est GFR (Non-African American) 54.8; Phosphorus 2.2 mg/dl (2.5-4.9); Potassium 4.4 mmol/L (3.5-5.1)
[2020-05-05] MEDS: METOPROLOL TARTRATE 25 MG TAB PO SCH ×2 (09:40→20:07)
[2020-05-05] MEDS: MULTIVITAMIN TAB PO SCH (09:41)
[2020-05-05] MEDS: FOLIC ACID 1 MG TAB PO SCH (09:41)
[2020-05-05] MEDS: OMEGA-3 (PURIFIED FISH OIL) 1 GM CAP PO SCH (09:41)
[2020-05-05] MEDS: VITAMIN B COMPLEX TAB PO SCH (09:41)
[2020-05-05] MEDS: BUTT PASTE (ZINC OXIDE 16%) 171 APPLN/57 GM JAR EXT SCH ×2 (09:42→20:07)
[2020-05-05] MEDS: DOCUSATE SODIUM/SENNA 50/8.6MG TAB PO SCH (09:49)
--- NOTE | 2020-05-05 13:14 | Electrocardiogram Report ---
Test Reason : Blood Pressure : / mmHG Vent. Rate : 072 BPM Atrial Rate : 072 BPM P-R Int : 190 ms QRS Dur : 100 ms QT Int : 420 ms P-R-T Axes : 061 -16 104 degrees QTc Int : 459 ms Normal sinus rhythm Left ventricular hypertrophy with repolarization abnormality Possible old inferior MS Abnormal ECG When compared with ECG of 04-MAY-2020 06:30, Nonspecific T wave abnormality now evident in Inferior leads Confirmed by Héctor Kincaid ([id number]) on 05/05/2020 1:13:44 PM Referred By: REFERRED SELF Confirmed By:Vinod Kincaid
--- NOTE | 2020-05-05 13:32 | Cardiology Consultation ---
Date of Consultation May 05, 2020 Assessment & Plan (1) NSVT (nonsustained ventricular tachycardia): (2) PSVT (paroxysmal supraventricular tachycardia): Asymptomatic isolated PVCs, brief runs of nonsustained ventricular tachycardia, episode of supraventricular tachycardia. Normal LVEF. Minimal troponin elevation in the range of 0.2 NG per mL, likely due to myocardial strain related to his underlying sepsis. Electrolytes stable. At this time, I recommend proceeding with treatment to include metoprolol tartrate 25 mg twice daily. Treatment discussed with patient he was agreeable to plan. History of Present Illness Attending Physician: Seth Vallejo MD History of Present Illness Anirudh iKng is a 80-year-old male seen in cardiology consultation per the request of Dr. Vallejo for the assessment of recent episodes of isolated PVCs and brief runs of nonsustained ventricular tachycardia. The patient denies any chest discomfort, palpitations, syncope or near syncope. He denies any new or worsening shortness of breath. He has a history of multiple sclerosis, with resultant lower extremity weakness and typically utilizes a motorized wheelchair. He has a sacral ulcer that has been present for years, prompting recent hospital stay in March, with course of IV antibiotics at that time. Recently, he has had generalized weakness, he performs urinary self catheterization, was fatigued and having difficulty performing this. His condition progressed to the point that his spouse was unable to care for him at home. He was subsequently admitted. He is currently being treated with IV Zosyn and IV daptomycin. He is afebrile. Blood cultures performed on 05/03/2020 are negative thus far, wound culture performed 05/03/2020 is yielding Pseudomonas aeruginosa. A wound culture performed at the time of his previous hospital stay 04/04/2020 yielded Pseudomonas aeruginosa, Enterococcus faecalis, and Chloe albicans. The patient denies any past cardiac history. Telemetry at present, 05/05/2020 at 1:24 PM revealed sinus rhythm at 75 bpm. Occasional isolated PVCs noted. This morning, 05/05/2020 at 6:52 AM, a 12 beat run of narrow complex tachycardia at 150 bpm was observed. 05/05/2020 at 3:37 AM a 4 beat run of nonsustained ventricular tachycardia was observed. On 05/04/2020 at 1651, with a 3 beat ventricular run was observed. On 05/04/2020 at 1425, a 7 beat run of nonsustained ventricular tachycardia was observed. Electrolyte levels including potassium and magnesium have been within normal limits yesterday and again today. Patient describes no cardiac complaints. Allergies Allergy/AdvReac Type Severity Reaction Status Date / Time ampicillin Allergy Unknown Unknown Verified 05/03/20 18:59 morphine AdvReac Mild "MADE ME Verified 05/03/20 18:59 FEEL ODD" Home Medications Medication Instructions Recorded Confirmed Type amlodipine 10 mg PO QPM 03/21/20 05/03/20 History losartan 100 mg PO QPM 03/21/20 05/03/20 History multivitamin 1 tab PO QAM 03/26/20 05/03/20 History omega-3 fatty acids-fish oil 1 cap PO QAM 03/26/20 05/03/20 History vitamin B complex 1 tab PO QAM 03/26/20 05/03/20 History tramadol 50 mg tablet 50 mg PO Q8H PRN #20 tab 03/27/20 05/03/20 Rx folic acid 1 mg PO QAM 04/03/20 05/03/20 History bisacodyl 10 mg NV DAILY PRN 14 Days #5 ea 04/23/20 05/03/20 Rx sennosides-docusate sodium 1 tab-cap PO DAILY #30 tab 04/23/20 05/03/20 Rx [Senokot-S] doxycycline hyclate 100 mg PO BID 05/03/20 05/03/20 History Patient History Medical History BPH (benign prostatic hyperplasia) Estrella catheter in place History of skin cancer ON CHEST AREA Hyperlipidemia Hypertension Multiple sclerosis Debilitated, wheelchair-bound for several years. Can transfer self. Following with Dr Armenta [facility] neuro. Sacral ulcer Treating with topical ointment currently. Spontaneous pneumothorax HX OF MANY YEARS AGO A TEENAGER (NO SURGERY) Urinary retention Urinary retention Surgical History H/O arthroscopy of shoulder RT History of colonoscopy History of esophagogastroduodenoscopy (EGD) History of herniorrhaphy History of tonsillectomy History of tooth extraction Hx of appendectomy S/P transurethral resection of prostate S/P TURP Family History Other Cancer No family history of adverse response to anesthesia Social History Smoking Status: Former smoker Second Hand Exposure: No; Hx Alcohol Use: No Hx Substance Use: No Preferred Language: Mauritanian Communication Ability: Effective [employer] [place] Law Clerk Required: No Beliefs That Will Affect Care: None marital status: Current Living Situation: Spouse Other Information That Helps Us Care for You: No Feels Safe at Home: Yes Safety Concerns: Feels Safe At This Time Assistive Devices: Denture - Upper and Denture - Lower Review of Systems Review of Systems: All systems reviewed & are unremarkable except as noted in HPI & below Physical Exam Physical Exam: Temp Pulse Resp BP Pulse Ox 37.1 C 64 20 135/64 100 05/05/20 11:26 05/05/20 11:26 05/05/20 11:26 05/05/20 11:26 05/05/20 11:26 Constitutional: WD/WN, vitals as above Respiratory: normal respiratory effort, lungs clear to auscultation Gastrointestinal (Abdomen): normal bowel sounds, soft, nontender, no hepatosplenomegaly Neurologic: Lower extremity weakness, otherwise no focal deficits Results & Data ([facility]) Vital Signs (Past 12 Hours) Vital Signs Temp Pulse Resp BP BP Pulse Ox 05/05/20 11:26 37.1 C 64 20 135/64 100 05/05/20 09:00 36.7 C 80 18 142/69 H 100 05/05/20 05:19 37.0 C 68 18 133/69 98 Laboratory Results Cardiac Enzymes 05/04/20 Range/Units 12:52 Troponin I 0.236 H* (0-0.045) ng/ml CBC 05/05/20 Range/Units 07:35 WBC 13.71 H (4.8-10.8) K/uL RBC 3.79 L (4.7-6.1) M/uL Hgb 10.6 L (14.0-18.0) g/dL Hct 32.6 L (42-52) % Plt Count 536 H (130-400) K/uL Comprehensive Metabolic Panel 05/04/20 05/05/20 Range/Units 15:49 07:35 Sodium 138 143 (136-145) mmol/L Potassium 4.4 4.4 (3.5-5.1) mmol/L Chloride 109 H 115 H (98-107) mmol/L Carbon Dioxide 21 23 (21-32) mmol/L BUN 66 H 43 H (7-18) mg/dl Creatinine 1.57 H 1.25 D (0.6-1.4) mg/dl Glucose 114 H 84 (70-99) mg/dl Calcium 9.1 8.6 (8.5-10.1) mg/dl Intake and Output 05/04/20 05/05/20 05/05/20 22:59 06:59 14:59 Intake Total 1115 / 4024.167 1115 / 4024.167 Output Total 250 / 2775 1875 / 2775 Balance 865 / 1249.167 -760 / 1249.167 Intake: IV 1115 / 3324.167 1115 / 3324.167 Zosyn 3.375 gm In D5 100 ml @ 115 / 345 115 / 345 28.75 mls/hr IV Q8H [facility] Rx#: [id number] Nss 1000ML 1,000 ml @ 125 mls/ 1000 / 2979.167 1000 / 2979.167 hr IV .Q8H [facility] Rx#:[id number] Output: Urine Amount (Catheter) 250 / 2775 1875 / 2775 Estrella/Indwelling 250 / 2775 1875 / 2775 Other: Other Intake Source SIPS Weight 83.3 kg Diagnostic Findings EKG this morning 05/05/2641 revealed sinus rhythm at 72 bpm, with left ventricular hypertrophy by voltage criteria, and T changes noted in the high lateral leads from a #1 and aVL. Overall, not significantly changed compared to previous EKG from yesterday. Compared to prior EKG tracings dating back to 03/28/2020, the lateral repolarization changes are a chronic finding. Echocardiogram performed this morning 05/05/2020 revealed mild concentric left ventricular hypertrophy, normal left ventricular wall motion, LVEF 60 to 65%. The right ventricular chamber size and systolic function are normal. Mild aortic valve sclerosis without stenosis noted. The pulmonary artery systolic pressure is estimated at 33 mmHg, normal. No evidence of valvular vegetation within the medications of this imaging modality.
[2020-05-05] MEDS ORDERED: MEROPENEM CONSULT ACITVE PRN (15:03)
[2020-05-05] MEDS: MEROPENEM 500 MG in SYRINGE 0 ML IV SCH ×2 (17:12→21:41)
[2020-05-05] MEDS: amLODIPine BESYLATE 5 MG TAB PO SCH (20:07)
[2020-05-05] MEDS: DAPTOmycin 300 MG in SYRINGE 0 ML IV SCH (21:40)
[2020-05-06] MEDS: HEPARIN SOD 5,000 UNIT/0.5 ML VIAL SQ SCH ×3 (02:36→21:14)
[2020-05-06] MEDS: MEROPENEM 500 MG in SYRINGE 0 ML IV SCH ×5 (02:58→22:54)
[2020-05-06] MEDS: SODIUM CHLORIDE 0.9% 1000ML 1,000 ML IV SCH ×3 (05:04→22:56)
[2020-05-06 06:58] LABS: Hematocrit (blood only) 30.4 % (42-52); Hemoglobin 9.7 g/dL (14.0-18.0); Mean Corpuscular Hemoglobin 27.6 pg (25-34); Mean Corpuscular Hgb Conc 31.9 g/dL (32-36); Mean Corpuscular Volume 86.4 fL (80-100); Mean Platelet Volume 10.4 fL (7.4-10.4); Platelet Count 450 K/uL (130-400); RDW Coefficient of Variation 14.2 % (11.5-14.5); RDW Standard Deviation 44.5 fL (36.4-46.3); Red Blood Count 3.52 M/uL (4.7-6.1); White Blood Count 13.48 K/uL (4.8-10.8)
[2020-05-06 07:31] LABS: Calcium 8.2 mg/dl (8.5-10.1); Creatinine Clr Calc Pharmacy 64.9 ml/min; Est GFR (Non-African American) 64.7; Potassium 3.9 mmol/L (3.5-5.1)
--- NOTE | 2020-05-06 08:21 | Hospitalist Progress Note ---
Date of Service May 05, 2020 Assessment & Plan (1) Wound of sacral region: -Patient presenting from home with reports of worsening sacral wound. -Patient with recent prolonged hospital stay at [facility] 04/05 through 04/23 for management of sacral wound. Wound culture grew Pseudomonas, Enterococcus, Chloe. Patient underwent debridement of wound. Patient completed antibiotic course while admitted. Patient was discharged to [facility] for rehab needs however only stayed 1 day before signing out AMA. -WBC 18.6K, afebrile, BP stable, lactate 1.2 -S/p Zosyn in the ED, will continue with and add daptomycin based on previous cultures (Pseudomonas and Enterococcus) -Wound care nurse and provider consult -General surgery consult (performed debridement during previous admission) - seen by Dr. Hilton - there is some tissue that could be debrided however pt declined, as he feels that "prevents healing", recommend wound care Pt requests zinc oxide for his wound- explained that this is not what we would recommend, at this point no surgical intervention planned (as pt declines), will order zinc oxide until pt seen by wound care team for further eval and recommendations -Bilateral heel wounds noted as well -May also have RLE cellulitis, mild erythema noted on exam (2) ARIELA (acute kidney injury): -Creatinine 1.9 (baseline runs in the low 1s) -Likely prerenal in nature -IVF, follow renal functions -Hold losartan - now Cr improved (3) Elevated troponin: -Troponin 0.149 -No reports of chest pain, EKG without acute ST changes -Likely demand ischemia secondary to acute illness/ARIELA -checked cardiac enzymes Nonsustained 7 beat run of VT (05/04/2020) electrolytes wnl Pt completely asymptomatic Cardiology consulted, and metoprolol started EKG AM, Echo ordered - unremarkable (4) Elevated platelet count: -Platelet count 604K -? Hemoconcentration secondary dehydration -Hydrate, follow CBC (5) Hypertension: -BP controlled, continue amlodipine -Holding losartan as above (6) Multiple sclerosis: -Bed/wheelchair bound -Too difficult to manage at home -Likely will need placement, patient hesitant. Was discharged to [facility] after last admission however signed out AMA after 1 day. Dispo: Discussed with pt's - states that now they have more support and resources and would like to take care of the pt at home. When pt came home from [facility], they did not have all the support yet and so could not bring the pt for follow up appointment with wound care clinic. Reports that now they have a new bed which should make things easier, home health, home PT, etc. Updated pt's on current clinical status of the pt and also on his current state of frustration with his care. (7) DVT prophylaxis: -SQ Lovenox Admission and Anticipated Discharge Date Admission Date: May 03, 2020 Subjective Pt seen in follow up of sacral wound and other medical problems. Pt denies any fever, chills, chest pain, shortness of breath, abd. pain. Seen by surgery yesterday and possible debridement was discussed however pt declined. Wound care recommended. Pt insists that zinc oxide works for his wounds and requests that it is used while in the hospital. Review of Systems Review of Systems: All systems reviewed & are unremarkable except as noted in HPI & below Constitutional: no fever and no chills Respiratory: no cough and no dyspnea Cardiovascular: no chest pain and no palpitations Gastrointestinal: no abdominal pain, no nausea and no vomiting Physical Exam Physical Exam: Constitutional: WD/WN, vitals as above Chronically ill- appearing Eyes: PERRL, EOMI, conjunctivae normal, anicteric sclerae ENMT: external ear and nose normal, oropharynx normal Respiratory: normal respiratory effort, lungs clear to auscultation Cardiovascular: Rate/Rhythm: regular rate and regular rhythm Vessels: normal peripheral pulses Extremities: + edema (+2 pitting edema BLE) Gastrointestinal (Abdomen): normal bowel sounds, soft, nontender Musculoskeletal: Extremities: no cyanosis and no clubbing Generally weak throughout (hx of MS) Skin: no rashes, warm and dry sacral wound w/ necrosis superior;y and developing along left side; blisters/unstageable ulcers bilateral heels; erythema right archer Neurologic: PERRL, EOMI, no face palsy, no dysarthria Psychiatric: Orientation: alert and oriented x 3 Affect: + anxious Genitourinary: Estrella in place draining cloudy yellow urine (chronic Estrella) Results & Data Results & Data ([facility]) Vital Signs (Past 12 Hours) Vital Signs Temp Pulse Pulse Resp BP BP Pulse Ox 05/06/20 07:59 36.6 C 69 19 124/66 99 05/06/20 03:37 37.0 C 63 18 131/65 97 05/06/20 00:44 61 05/05/20 23:59 37.1 C 65 18 122/64 98 (1) Wound of sacral region Encounter type: subsequent encounter Qualified Code(s): S31.000D - Unspecified open wound of lower back and pelvis without penetration into retroperitoneum, subsequent encounter
--- NOTE | 2020-05-06 08:22 | Hospitalist Progress Note ---
Date of Service May 06, 2020 Assessment & Plan (1) Wound of sacral region: -Patient presenting from home with reports of worsening sacral wound. -Patient with recent prolonged hospital stay at [facility] 04/05 through 04/23 for management of sacral wound. Wound culture grew Pseudomonas, Enterococcus, Chloe. Patient underwent debridement of wound. Patient completed antibiotic course while admitted. Patient was discharged to [facility] for rehab needs however only stayed 1 day before signing out AMA. -WBC 18.6K, afebrile, BP stable, lactate 1.2 -S/p Zosyn in the ED, will continue with and add daptomycin based on previous cultures (Pseudomonas and Enterococcus), s/p prolonged abx treatment during prior hospitalization, will consult Lyla GUTIERREZ - for now recommend to continue meropenem however optimal treatment would also involve debridement which pt is declining -Wound care nurse and provider consult -General surgery consult (performed debridement during previous admission) - seen by Dr. Hilton - there is some tissue that could be debrided however pt declined, as he feels that "prevents healing", recommend wound care Pt requests zinc oxide for his wound- explained that this is not what we would recommend, at this point no surgical intervention planned (as pt declines), will order zinc oxide until pt seen by wound care team for further eval and recommendations -Bilateral heel wounds noted as well -May also have RLE cellulitis, mild erythema noted on exam 05/06/2020 - Had discussion with the pt who again is not interested in debridement and earlier today declined IV Abx and wound care team. States that if this current treatment does not work out he wants to be let go - let , as he does not want to go through this over and over again. Discussed palliative medicine consult and pt in agreement with that. Palliative medicine consulted. (2) ARIELA (acute kidney injury): -Creatinine 1.9 (baseline runs in the low 1s) -Likely prerenal in nature -IVF, follow renal functions -Hold losartan - now Cr improved (3) Elevated troponin: -Troponin 0.149 -No reports of chest pain, EKG without acute ST changes -Likely demand ischemia secondary to acute illness/ARIELA -checked cardiac enzymes Nonsustained 7 beat run of VT (05/04/2020) again overnight 05/06, and last night 05/07 electrolytes wnl Pt completely asymptomatic Cardiology consulted, and metoprolol started EKG AM, Echo ordered - unremarkable (4) Elevated platelet count: -Platelet count 604K -? Hemoconcentration secondary dehydration -Hydrate, follow CBC (5) Hypertension: -BP controlled, continue amlodipine -Holding losartan as above (6) Multiple sclerosis: -Bed/wheelchair bound -Too difficult to manage at home -Likely will need placement, patient hesitant. Was discharged to [facility] after last admission however signed out AMA after 1 day. Dispo: Discussed with pt's - states that now they have more support and resources and would like to take care of the pt at home. When pt came home from [facility], they did not have all the support yet and so could not bring the pt for follow up appointment with wound care clinic. Reports that now they have a new bed which should make things easier, home health, home PT, etc. Palliative medicine consulted. (7) DVT prophylaxis: -SQ Lovenox Admission and Anticipated Discharge Date Admission Date: May 03, 2020 Subjective Pt declined treatment earlier today - declined antibiotics. Declined wound care, and dressing change. Did not let fuel conversion technician to examine him , and also would not participate in ID consultation. Later in a day pt in agreement with care, wound care was called back for evaluation. Ok for IV Abx. Pt is not interested in debridement. He states that he does not want to go through this over and over and says that if this treatment now does not work out he wants to be let go. Discussed palliative medicine and pt in agreement with that. Telemetry reviewed - sinus rhythm in the 70s. A 12 beat run of recurrent sustained VT on 05/06/2020 overnight while pt asleep. A 5 beat ventricular run yesterday 05/05/2020 at 2 pm. He remains on metoprolol. He is afebrile. Review of Systems Review of Systems: All systems reviewed & are unremarkable except as noted in HPI & below Constitutional: no fever and no chills Respiratory: no cough and no dyspnea Cardiovascular: no chest pain and no palpitations Gastrointestinal: no abdominal pain, no nausea and no vomiting Physical Exam Physical Exam: Constitutional: WD/WN, vitals as above Chronically ill-appearing Eyes: PERRL, EOMI, conjunctivae normal, anicteric sclerae ENMT: external ear and nose normal, oropharynx normal Respiratory: normal respiratory effort, lungs clear to auscultation Cardiovascular: Rate/Rhythm: regular rate and regular rhythm Vessels: normal peripheral pulses Extremities: + edema (+2 pitting edema BLE) Gastrointestinal (Abdomen): normal bowel sounds, soft, nontender Musculoskeletal: Extremities: no cyanosis and no clubbing Generally weak throughout (hx of MS) Skin: no rashes, warm and dry sacral wound w/ necrosis superior;y and developing along left side; blisters/unstageable ulcers bilateral heels; erythema right archer Neurologic: PERRL, EOMI, no face palsy, no dysarthria Psychiatric: Orientation: alert and oriented x 3 Affect: + anxious Genitourinary: Estrella in place draining yellow urine (chronic Estrella) Results & Data Results & Data ([facility]) Vital Signs (Past 12 Hours) Vital Signs Temp Pulse Pulse Resp BP BP Pulse Ox 05/06/20 07:59 36.6 C 69 19 124/66 99 05/06/20 03:37 37.0 C 63 18 131/65 97 05/06/20 00:44 61 05/05/20 23:59 37.1 C 65 18 122/64 98 (1) Wound of sacral region Encounter type: subsequent encounter Qualified Code(s): S31.000D - Unspecified open wound of lower back and pelvis without penetration into retroperitoneum, subsequent encounter
--- NOTE | 2020-05-06 10:11 | Cardiology Progress Note ---
Date of Service May 06, 2020 Assessment & Plan (1) NSVT (nonsustained ventricular tachycardia): (2) PSVT (paroxysmal supraventricular tachycardia): As noted, today, the patient greeted me with a barrage of verbal insults. He declined interview or exam. Yesterday, he was patient, and chatted with for an extended time. I do not know if he is confused, or just frustrated with his illness. As previously noted, LVEF is normal. Continue metoprolol tartrate 25 mg BID. (3) Wound of sacral region: Continue wound care, antibiotics per the primary team. DVT prophylaxis: Subcutaneous heparin 5000 units every 8 hours. Admission and Anticipated Discharge Date Admission Date: May 03, 2020 Subjective Today when I went to interview and examine Mr King he greeted me with a barrage of verbal insults. He said he did not want me to examine him. Telemetry this morning revealed sinus rhythm in the 70s. A 12 beat run of recurrent sustained ventricular tachycardia was observed on 05/06/2020 at 12:26 AM sleep. A 5 beat ventricular run yesterday 05/05/2020 at 1403. He remains on metoprolol. He is afebrile. Physical Exam Physical Exam: Temp Pulse Resp BP Pulse Ox 36.6 C 69 19 124/66 99 05/06/20 07:59 05/06/20 07:59 05/06/20 07:59 05/06/20 07:59 05/06/20 07:59 Constitutional: Chronically ill in appearance without acute distress -Physical exam otherwise not performed per patient request. Results & Data ([facility]) Vital Signs (Past 12 Hours) Vital Signs Temp Pulse Pulse Resp BP BP Pulse Ox 05/06/20 07:59 36.6 C 69 19 124/66 99 05/06/20 03:37 37.0 C 63 18 131/65 97 05/06/20 00:44 61 05/05/20 23:59 37.1 C 65 18 122/64 98 Laboratory Results CBC 05/06/20 Range/Units 06:19 WBC 13.48 H (4.8-10.8) K/uL RBC 3.52 L (4.7-6.1) M/uL Hgb 9.7 L (14.0-18.0) g/dL Hct 30.4 L (42-52) % Plt Count 450 H (130-400) K/uL Comprehensive Metabolic Panel 05/06/20 Range/Units 06:19 Sodium 142 (136-145) mmol/L Potassium 3.9 (3.5-5.1) mmol/L Chloride 114 H (98-107) mmol/L Carbon Dioxide 22 (21-32) mmol/L BUN 25 H (7-18) mg/dl Creatinine 1.09 (0.6-1.4) mg/dl Glucose 106 H (70-99) mg/dl Calcium 8.2 L (8.5-10.1) mg/dl Intake and Output 05/05/20 05/06/20 05/06/20 22:59 06:59 14:59 Intake Total 1868.75 / 4383.75 1400 / 4383.75 Output Total 1625 / 2175 550 / 2175 Balance 243.75 / 2208.75 850 / 2208.75 Intake: IV 968.75 / 3083.75 1000 / 3083.75 Nss 1000ML 1,000 ml @ 125 mls/ 968.75 / 2968.75 1000 / 2968.75 hr IV .Q8H [facility] Rx#:[id number] Oral 900 / 1300 400 / 1300 Output: Urine Amount (Catheter) 1625 / 2175 550 / 2175 Estrella/Indwelling 1625 / 2175 550 / 2175 Other: Weight 83.2 kg Weight Measurement Method Built in [facility] (1) Wound of sacral region Encounter type: subsequent encounter Qualified Code(s): S31.000D - Unspecified open wound of lower back and pelvis without penetration into retrop eritoneum, subsequent encounter
[2020-05-06] MEDS: FOLIC ACID 1 MG TAB PO SCH (11:19)
[2020-05-06] MEDS: OMEGA-3 (PURIFIED FISH OIL) 1 GM CAP PO SCH (11:19)
[2020-05-06] MEDS: DOCUSATE SODIUM/SENNA 50/8.6MG TAB PO SCH (11:19)
[2020-05-06] MEDS: MULTIVITAMIN TAB PO SCH (11:19)
[2020-05-06] MEDS: VITAMIN B COMPLEX TAB PO SCH (11:19)
[2020-05-06] MEDS: METOPROLOL TARTRATE 25 MG TAB PO SCH ×2 (11:19→21:14)
--- NOTE | 2020-05-06 14:59 | Psychiatric Consultation ---
Date of Consultation May 06, 2020 Impression / Recommendations Impression Dr. Reena Bates was directly involved in review and discussion of the patient's case and participated in medical decision making regarding treatment recommendations. RECOMMENDATIONS: 05/06 - Psychiatric consultation requested by hospitalist team to evaluate patient for reported "depression, paranoia." Pt was admitted secondary to a persistent sacral wound, with reports that is unable to care for patient at home without additional assistance in place. - Pt does not seem to be "paranoid" so much has having a unique way of expressing his needs and frustrations. Patient's personality is somewhat abrasive at times and he has a cynical way of presenting his view of his situation. It is likely that patient's obsessive tendencies are a way for him to try to control his surroundings, as he has little control over his larger medical condition and subsequent physical decline. This provider discussed with that patient that directly communicating his needs may allow staff to better understand his frustrations and requests. Processed this with staff as well, as it is likely his personality is used as a way to cope with his difficult situation. - Agree that the possible presence of an underlying mood disorder is likely directly related to his multiple sclerosis diagnosis and related medical issues. We would be happy to re-visit the patient for a more in-depth discussion of possible medication interventions if he should desire. He was also offered referrals for outpatient therapy, which he is declining at this time. - Although the patient verbalizes frustration with his situation and is intermittently implying the presence of passive suicidal thoughts, he consistently denies plan or intent to harm himself or end his life. Continuing to monitor this situation would be recommended, although he is presently able to contract for safety in the hospital setting. We appreciate the opportunity to participate in the care of this patient. Please reach out to our service with any additional questions or updates. Psych History Identifying Data 80-year-old male admitted medically on 05/03/2020 after presenting to the ED with persistent sacral wound. Psychiatric consultation was requested by our hospitalist team to evaluate patient for "depression, paranoia." Collateral obtained from his nurse suggests that patient has demonstrated mood lability since admission, ranging from irritable and manipulative to kind and tearful with appreciation to staff. Chief Complaint "Are you kidding me? Is this all some sort of sick, sick joke? Well I'm laughing." History of Present Illness Anirudh King is a 80-year-old male admitted medically on 05/03/2020 after presenting to the ED via EMS due to a persistent sacral wound with inability to be cared for in his home setting. PMH is significant for multiple sclerosis, HTN, HLD, ARIELA, history of TURP. 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 Staff has been reporting that the patient has only been intermittently cooperative with treatment and mood has been labile - irritable at times, contrasted with intense expressions of gratefulness. On initial encounter, the patient is somewhat cynical when asked what has brought him to the hospital stating "are you kidding me? Is this some sort of sick, sick joke? Well I'm l aughing." The patient does not answer most questions directly and often responds with cynical or sarcastic comments. Pt states that he feels that "someone is playing a very cruel joke on me." He states he is referring to the fact that he has been diagnosed with a debilitating condition that is causing intense suffering. He does refer to "wanting an end to this suffering", but appears to be insulted when asked if he has had thoughts to harm himself or take steps to end his life. This provider attempted to build rapport and verbalized an understanding that the patient is frustrated and scared, he states "what you need to ask yourself is why? Why did all of this even happen in the first place? " This provider offered to discuss therapy, medication, or other psychiatric assistance that our service could offer. He simultaneously refused this offer, but also stated "I'm counting on you." This provider addressed the role that outpatient therapy could play in allowing the patient to process the frustrations related to his chronic illness, but he states he is not interested at this time. This provider did review documentation from patient's 2013 psychiatric consultation, and personality/mood seems to be similar to his hospital presentation 6 years ago. It is unclear what his mood is like at home, and unfortunately we currently have little ability to discern this due to patient's limit cooperation and unwillingness to allow us to communicate with his . The patient is oriented to person and place, but is unable to state the month, day, year, or day of the week. He initially believed Kd Mejia was president, and then guessed Jose Bal. He self-reports feeling "absolutely disoriented" which is further contributing to his frustration. He does not appear to be truly paranoid and is denying hallucinations or other signs of psychosis. Pt was encouraged to reach out to our service with any additional needs or concerns. Past Psychiatric History Outpatient Services: None Previous Psych Admissions: None reported Past Medication Trials: No reports of previous psychotropic Allergies Allergy/AdvReac Type Severity Reaction Status Date / Time ampicillin Allergy Unknown Unknown Verified 05/03/20 18:59 morphine AdvReac Mild "MADE ME Verified 05/03/20 18:59 FEEL ODD" Home Medications Medication Instructions Recorded Confirmed Type amlodipine 10 mg PO QPM 03/21/20 05/03/20 History losartan 100 mg PO QPM 03/21/20 05/03/20 History multivitamin 1 tab PO QAM 03/26/20 05/03/20 History omega-3 fatty acids-fish oil 1 cap PO QAM 03/26/20 05/03/20 History vitamin B complex 1 tab PO QAM 03/26/20 05/03/20 History tramadol 50 mg tablet 50 mg PO Q8H PRN #20 tab 03/27/20 05/03/20 Rx folic acid 1 mg PO QAM 04/03/20 05/03/20 History bisacodyl 10 mg AR DAILY PRN 14 Days #5 ea 04/23/20 05/03/20 Rx sennosides-docusate sodium 1 tab-cap PO DAILY #30 tab 04/23/20 05/03/20 Rx [Senokot-S] doxycycline hyclate 100 mg PO BID 05/03/20 05/03/20 History Family History Previous reports suggest the patient has no known family history of psychiatric disorders. Father was reportedly an alcoholic. Substance Abuse History No documented history of subsance abuse concerns. Personal History Living Arrangements: Home Marital Status: Beliefs That Will Affect Care: None Patient History Medical History BPH (benign prostatic hyperplasia) Estrella catheter in place History of skin cancer ON CHEST AREA Hyperlipidemia Hypertension Multiple sclerosis Debilitated, wheelchair-bound for several years. Can transfer self. Following with Dr Armenta, [facility] neuro. Sacral ulcer Treating with topical ointment currently. Spontaneous pneumothorax HX OF MANY YEARS AGO A TEENAGER (NO SURGERY) Urinary retention Urinary retention Surgical History H/O arthroscopy of shoulder RT History of colonoscopy History of esophagogastroduodenoscopy (EGD) History of herniorrhaphy History of tonsillectomy History of tooth extraction Hx of appendectomy S/P transurethral resection of prostate S/P TURP Family History Other Cancer No family history of adverse response to anesthesia Social History Smoking Status: Former smoker Second Hand Exposure: No; Hx Alcohol Use: No Hx Substance Use: No Preferred Language: Malian Communication Ability: Effective [employer] Required: No Beliefs That Will Affect Care: None marital status: Current Living Situation: Spouse Feels Safe at Home: Yes Assistive Devices: None Physical Exam Psychiatric: Orientation: alert, oriented to person, oriented to place and + guarded (uncooperative, cynical); + not oriented to time Apperance: appropriately dressed, appropriately groomed and appeared stated age Eye Contact: + fair eye contact Motor Behavior: no abnormal motor movements (observed while in bed) Speech: normal rate/rhythm/volume of speech (irritable tone) Affect: + irritable affect and + angry affect Mood: + angry mood ("I'm furious") Thought Process: + circumstantial thought process and + perseveration Thought Content: + cognitive distortions and + hopelessness Suicidal Thoughts: denies suicidal plan and denies suicidal intent; + reports suicidal thoughts (passive SI verbalized) Homicidal Thoughts: denies homicidal thoughts Hallucinations: no auditory hallucinations and no visual hallucinations Cognition: attention grossly intact and language grossly intact Estimated Intelligence: + above average estimated intelligence Insight: + impaired insight Judgement: + impaired judgement Vital Signs (Past 24 Hours): Last Vital Signs Temp 36.8 C 05/06/20 11:13 Pulse 75 05/06/20 11:13 Resp 19 05/06/20 11:13 BP 129/61 05/06/20 11:13 Pulse Ox 96 05/06/20 11:13 Review of Systems Constitutional: reports generalized pain and discomfort as well as fatigue Cardiovascular: denied Respiratory: denied Gastrointestinal: denied Neurological: denied Psychiatric: denies symptoms other than stated above Total of at least 10 systems reviewed, pertinent positives as above and in HPI. Results & Data (PSY) Medications Administered Amlodipine Besylate (Amlodipine Besylate 5 Mg Tab) 10 mg PO QPM [facility] Stop: 06/02/20 21:59 Last Admin: 05/05/20 20:07 Dose: 10 mg Documented by: [id number] Admin: 05/04/20 19:37 Dose: 10 mg Documented by: [id number] Admin: 05/03/20 22:41 Dose: 10 mg Documented by: [id number] Fish Oil ([place]-3 (Purified Fish Oil) 1 Gm Cap) 1 gm PO QAM [facility] Stop: 06/03/20 10:14 Last Admin: 05/06/20 11:19 Dose: Not Given Documented by: [id number] Admin: 05/05/20 09:41 Dose: 1 gm Documented by: [id number] Admin: 05/04/20 12:08 Dose: 1 gm Documented by: [id number] Folic Acid (Folic Acid 1 Mg Tab) 1 mg PO QAM [facility] Stop: 06/03/20 10:14 Last Admin: 05/06/20 11:19 Dose: Not Given Documented by: [id number] Admin: 05/05/20 09:41 Dose: 1 mg Documented by: [id number] Admin: 05/04/20 12:08 Dose: 1 mg Documented by: [id number] Heparin Sodium (Porcine) (Heparin Sod 5,000 Unit/0.5 Ml Vial) 5,000 units SQ Q8 [facility] Stop: 06/03/20 05:59 Last Admin: 05/06/20 13:17 Dose: Not Given Documented by: [id number] Admin: 05/06/20 02:36 Dose: Not Given Documented by: [id number] Admin: 05/05/20 20:08 Dose: Not Given Documented by: [id number] Admin: 05/05/20 14:00 Dose: Not Given Documented by: [id number] Admin: 05/05/20 04:09 Dose: Not Given Documented by: [id number] Admin: 05/04/20 19:38 Dose: Not Given Documented by: [id number] Admin: 05/04/20 15:54 Dose: 5,000 units Documented by: [id number] Admin: 05/04/20 03:54 Dose: 5,000 units Documented by: [id number] Daptomycin 300 mg/ Syringe 6 mls @ 2.5 mls/min IV Q24H [facility]; Protocol Stop: 05/10/20 21:59 Last Admin: 05/05/20 21:40 Dose: 2.5 mls/min Documented by: [id number] Admin: 05/04/20 21:10 Dose: 2.5 mls/min Documented by: [id number] Admin: 05/03/20 22:41 Dose: 2.5 mls/min Documented by: [id number] Sodium Chloride (Nss 1000ml) 1,000 mls @ 125 mls/hr IV .Q8H [facility] Stop: 06/02/20 22:29 Last Admin: 05/06/20 13:16 Dose: 125 mls/hr Documented by: [id number] Infusion: 05/06/20 13:04 Dose: 125 mls/hr Documented by: [id number] Admin: 05/06/20 05:04 Dose: 125 mls/hr Documented by: [id number] Infusion: 05/06/20 05:04 Dose: 125 mls/hr Documented by: [id number] Admin: 05/05/20 21:40 Dose: 125 mls/hr Documented by: [id number] Infusion: 05/05/20 21:40 Dose: 125 mls/hr Documented by: [id number] Admin: 05/05/20 13:55 Dose: 125 mls/hr Documented by: [id number] Infusion: 05/05/20 13:00 Dose: 125 mls/hr Documented by: [id number] Admin: 05/05/20 05:00 Dose: 125 mls/hr Documented by: [id number] Infusion: 05/05/20 05:00 Dose: 125 mls/hr Documented by: [id number] Admin: 05/04/20 21:16 Dose: 125 mls/hr Documented by: [id number] Infusion: 05/04/20 21:16 Dose: 125 mls/hr Documented by: [id number] Admin: 05/04/20 13:37 Dose: 125 mls/hr Documented by: [id number] Infusion: 05/04/20 13:37 Dose: 125 mls/hr Documented by: [id number] Admin: 05/04/20 05:47 Dose: 125 mls/hr Documented by: [id number] Infusion: 05/04/20 05:47 Dose: 125 mls/hr Documented by: [id number] Admin: 05/03/20 22:40 Dose: 125 mls/hr Documented by: [id number] Meropenem 500 mg/ Syringe 10 mls @ 2 mls/min IV Q6H [facility]; Protocol Stop: 05/12/20 15:59 Last Admin: 05/06/20 11:24 Dose: Not Given Documented by: [id number] Admin: 05/06/20 02:58 Dose: 2 mls/min Documented by: [id number] Admin: 05/05/20 21:41 Dose: 2 mls/min Documented by: [id number] Admin: 05/05/20 17:12 Dose: 2 mls/min Documented by: [id number] Metoprolol Tartrate (Metoprolol Tartrate 25 Mg Tab) 25 mg PO BID [facility] Stop: 06/03/20 15:59 Last Admin: 05/06/20 11:19 Dose: Not Given Documented by: [id number] Admin: 05/05/20 20:07 Dose: 25 mg Documented by: [id number] Admin: 05/05/20 09:40 Dose: 25 mg Documented by: [id number] Admin: 05/04/20 19:37 Dose: 25 mg Documented by: [id number] Admin: 05/04/20 17:54 Dose: 25 mg Documented by: [id number] Multivitamins (Multivitamin Tab) 1 tab PO QAM [facility] Stop: 06/03/20 10:14 Last Admin: 05/06/20 11:19 Dose: Not Given Documented by: [id number] Admin: 05/05/20 09:41 Dose: 1 tab Documented by: [id number] Admin: 05/04/20 12:08 Dose: 1 tab Documented by: [id number] Senna/Docusate Sodium (Docusate Sodium/Senna 50/8.6mg Tab) 1 tab PO DAILY [facility] Stop: 06/03/20 10:14 Last Admin: 05/06/20 11:19 Dose: Not Given Documented by: [id number] Admin: 05/05/20 09:49 Dose: 1 tab Documented by: [id number] Admin: 05/04/20 12:08 Dose: Not Given Documented by: [id number] Tramadol HCl (Tramadol Hcl 50 Mg Tablet) 50 mg PO Q8H PRN PRN Reason: pain Stop: 06/02/20 21:04 Last Admin: 05/04/20 03:53 Dose: 50 mg Documented by: [id number] Vitamin B Complex (Vitamin B Complex Tab) 1 tab PO QAM [facility] Stop: 06/03/20 10:14 Last Admin: 05/06/20 11:19 Dose: Not Given Documented by: [id number] Admin: 05/05/20 09:41 Dose: 1 tab Documented by: [id number] Admin: 05/04/20 12:08 Dose: 1 tab Documented by: [id number] Coding Level of Care Code 41196 [facility] Intl Hosp Care Lvl 3 Comment >50% of time spent with supportive therapy
[2020-05-06] MEDS: traMADol HCL 50 MG TABLET PO PRN (16:13)
[2020-05-06] MEDS: amLODIPine BESYLATE 5 MG TAB PO SCH (21:14)
[2020-05-06] MEDS: DAPTOmycin 300 MG in SYRINGE 0 ML IV SCH (22:54)
[2020-05-06] MEDS ORDERED: POTASSIUM CHLORIDE CRTAB 20 MEQ TABCR PO STA (23:33)
[2020-05-07 00:33] LABS: Magnesium 1.7 mg/dl (1.8-2.4)
[2020-05-07] MEDS: MEROPENEM 500 MG in SYRINGE 0 ML IV SCH ×4 (04:44→21:47)
[2020-05-07] MEDS: HEPARIN SOD 5,000 UNIT/0.5 ML VIAL SQ SCH ×3 (06:11→21:34)
[2020-05-07 08:14] LABS: Hemoglobin 10.2 g/dL (14.0-18.0); Mean Corpuscular Hemoglobin 27.5 pg (25-34); Mean Corpuscular Hgb Conc 31.9 g/dL (32-36); Mean Corpuscular Volume 86.3 fL (80-100); Mean Platelet Volume 10.6 fL (7.4-10.4); Platelet Count 482 K/uL (130-400); RDW Coefficient of Variation 14.1 % (11.5-14.5); Red Blood Count 3.71 M/uL (4.7-6.1); White Blood Count 14.73 K/uL (4.8-10.8)
[2020-05-07] MEDS: FOLIC ACID 1 MG TAB PO SCH (08:16)
[2020-05-07] MEDS: METOPROLOL TARTRATE 25 MG TAB PO SCH ×2 (08:16→21:33)
[2020-05-07] MEDS: OMEGA-3 (PURIFIED FISH OIL) 1 GM CAP PO SCH (08:17)
[2020-05-07] MEDS: MULTIVITAMIN TAB PO SCH (08:17)
[2020-05-07] MEDS: VITAMIN B COMPLEX TAB PO SCH (08:17)
[2020-05-07] MEDS: traMADol HCL 50 MG TABLET PO PRN (08:24)
[2020-05-07] MEDS: DOCUSATE SODIUM/SENNA 50/8.6MG TAB PO SCH (08:24)
[2020-05-07 08:48] LABS: BUN Creatinine Ratio 18.4 (10-20); Calcium 8.4 mg/dl (8.5-10.1); Creatinine Clr Calc Pharmacy 78.6 ml/min; Est GFR (African American) 94.5; Est GFR (Non-African American) 81.5; Potassium 4.2 mmol/L (3.5-5.1)
--- NOTE | 2020-05-07 10:52 | Hospitalist Progress Note ---
Date of Service May 07, 2020 Assessment & Plan (1) Wound of sacral region: -Patient presenting from home with reports of worsening sacral wound. -Patient with recent prolonged hospital stay at [facility] 04/05 through 04/23 for management of sacral wound. Wound culture grew Pseudomonas, Enterococcus, Chloe. Patient underwent debridement of wound. Patient completed antibiotic course while admitted. Patient was discharged to [facility] for rehab needs however only stayed 1 day before signing out AMA. -WBC 18.6K, afebrile, BP stable, lactate 1.2 -S/p Zosyn in the ED, will continue with and add daptomycin based on previous cultures (Pseudomonas and Enterococcus), s/p prolonged abx treatment during prior hospitalization, consulted Lyla GUTIERREZ - for now recommend to continue meropenem however optimal treatment would also involve debridement which pt is declining -Wound care nurse and provider consult -General surgery consult (performed debridement during previous admission) - seen by Dr. Hilton - there is some tissue that could be debrided however pt declined, as he feels that "prevents healing", recommend wound care Pt requests zinc oxide for his wound- explained that this is not what we would recommend, at this point no surgical intervention planned (as pt declines), will order zinc oxide until pt seen by wound care team for further eval and recommendations -Bilateral heel wounds noted as well -May also have RLE cellulitis, mild erythema noted on exam 05/06/2020 - Had discussion with the pt who again is not interested in debridement and was declining IV Abx and wound care team. Said that if this current treatment does not work out he wants to be let go - let , as he does not want to go through this over and over again. Discussed palliative medicine consult and pt in agreement with that. Palliative medicine consulted. (2) ARILEA (acute kidney injury): -Creatinine 1.9 (baseline runs in the low 1s) -Likely prerenal in nature -IVF, follow renal functions -Hold losartan - now Cr improved (3) Elevated troponin: -Troponin 0.149 -No reports of chest pain, EKG without acute ST changes -Likely demand ischemia secondary to acute illness/ARIELA -checked cardiac enzymes Nonsustained 7 beat run of VT (05/04/2020) again overnight 05/06, and last night 05/07 electrolytes wnl Pt completely asymptomatic Cardiology consulted, and metoprolol started EKG AM, Echo ordered - unremarkable (4) Elevated platelet count: -Platelet count 604K -? Hemoconcentration secondary dehydration -Hydrate, follow CBC (5) Hypertension: -BP controlled, continue amlodipine -Holding losartan as above (6) Multiple sclerosis: -Bed/wheelchair bound -Too difficult to manage at home -Likely will need placement, patient hesitant. Was discharged to [facility] after last admission however signed out AMA after 1 day. Dispo: Discussed with pt's - states that now they have more support and resources and would like to take care of the pt at home. When pt came home from [facility], they did not have all the support yet and so could not bring the pt for follow up appointment with wound care clinic. Reports that now they have a new bed which should make things easier, home health, home PT, etc. Palliative medicine consulted. (7) DVT prophylaxis: -SQ Lovenox Admission and Anticipated Discharge Date Admission Date: May 03, 2020 Subjective Pt seen in follow up of decubitus ulcer, and other med. problems. Pt is not refusing care today and seems to be more motivated about treatment. Insists on using topical zinc oxide as he believes that's the only thing that helps him. Pt to be seen by palliative medicine as he was clear ablut not continuing with care if current treatment does not work out. Currently denies fever, chills, chest pain, palpitations, abd. pain, n/v. Continues to have episodes of nonsust. VT, cardiology following. Review of Systems Review of Systems: All systems reviewed & are unremarkable except as noted in HPI & below Constitutional: no fever and no chills Respiratory: no cough and no dyspnea Cardiovascular: no chest pain and no palpitations Gastrointestinal: no abdominal pain, no nausea and no vomiting Physical Exam Physical Exam: Constitutional: WD/WN, vitals as above Chronically ill-appearing Eyes: PERRL, EOMI, conjunctivae normal, anicteric sclerae ENMT: external ear and nose normal, oropharynx normal Respiratory: normal respiratory effort, lungs clear to auscultation Cardiovascular: Rate/Rhythm: regular rate and regular rhythm Vessels: normal peripheral pulses Extremities: + edema (+2 pitting edema BLE) Gastrointestinal (Abdomen): normal bowel sounds, soft, nontender Musculoskeletal: Extremities: no cyanosis and no clubbing Generally weak throughout (hx of MS) Skin: no rashes, warm and dry sacral wound w/ necrosis superior;y and developing along left side; blisters/unstageable ulcers bilateral heels; erythema right archer Neurologic: PERRL, EOMI, no face palsy, no dysarthria Psychiatric: Orientation: alert and oriented x 3 Affect: + anxious Genitourinary: Estrella in place draining yellow urine (chronic Estrella) Results & Data Results & Data ([facility]) Vital Signs (Past 12 Hours) Vital Signs Temp Pulse Resp BP BP Pulse Ox 05/07/20 08:34 36.7 C 80 20 135/67 98 05/07/20 03:45 36.8 C 63 16 151/66 H 97 05/06/20 23:41 36.9 C 63 20 132/66 96 Laboratory Results 05/07/20 05/07/20 05/06/20 Range/Units 07:19 07:19 06:19 WBC 14.73 H (4.8-10.8) K/uL RBC 3.71 L (4.7-6.1) M/uL Hgb 10.2 L (14.0-18.0) g/dL Hct 32.0 L (42-52) % MCV 86.3 (80-100) fL MCH 27.5 (25-34) pg MCHC 31.9 L (32-36) g/dL RDW Std Deviation 44.0 (36.4-46.3) fL RDW Coeff of [place]man 14.1 (11.5-14.5) % Plt Count 482 H (130-400) K/uL MPV 10.6 H (7.4-10.4) fL Sodium 141 (136-145) mmol/L Potassium 4.2 (3.5-5.1) mmol/L Chloride 112 H (98-107) mmol/L Carbon Dioxide 22 (21-32) mmol/L Anion Gap 7.0 (3-11) BUN 17 (7-18) mg/dl Creatinine 0.90 (0.6-1.4) mg/dl Est Cr Clr Drug Dosing 78.6 ml/min Est GFR ( Amer) 94.5 Est GFR (Non-Af Amer) 81.5 BUN/Creatinine Ratio 18.4 (10-20) Glucose 92 (70-99) mg/dl Calcium 8.4 L (8.5-10.1) mg/dl Magnesium 1.7 L (1.8-2.4) mg/dl Medications Administered Current Inpatient Medications Acetaminophen (Acetaminophen 325 Mg Tab) 650 mg PO Q4H PRN PRN Reason: Pain or Fever Stop: 06/02/20 21:04 Amlodipine Besylate (Amlodipine Besylate 5 Mg Tab) 10 mg PO QPM [facility] Stop: 06/02/20 21:59 Last Admin: 05/06/20 21:14 Dose: 10 mg Documented by: Fish Oil ([place]-3 (Purified Fish Oil) 1 Gm Cap) 1 gm PO QAM [facility] Stop: 06/03/20 10:14 Last Admin: 05/07/20 08:17 Dose: 1 gm Documented by: Folic Acid (Folic Acid 1 Mg Tab) 1 mg PO QAM [facility] Stop: 06/03/20 10:14 Last Admin: 05/07/20 08:16 Dose: 1 mg Documented by: Heparin Sodium (Porcine) (Heparin Sod 5,000 Unit/0.5 Ml Vial) 5,000 units SQ Q8 [facility] Stop: 06/03/20 05:59 Last Admin: 05/07/20 06:11 Dose: 5,000 units Documented by: Daptomycin 300 mg/ Syringe 6 mls @ 2.5 mls/min IV Q24H [facility]; Protocol Stop: 05/10/20 21:59 Last Admin: 05/06/20 22:54 Dose: 2.5 mls/min Documented by: Meropenem 500 mg/ Syringe 10 mls @ 2 mls/min IV Q6H [facility]; Protocol Stop: 05/12/20 15:59 Last Admin: 05/07/20 10:31 Dose: 2 mls/min Documented by: Metoprolol Tartrate (Metoprolol Tartrate 25 Mg Tab) 25 mg PO BID [facility] Stop: 06/03/20 15:59 Last Admin: 05/07/20 08:16 Dose: 25 mg Documented by: Miscellaneous Information (Daptomycin Consult Active) 1 ea N/A UD PRN PRN Reason: Consult Stop: 06/02/20 21:13 Miscellaneous Information (Meropenem Consult Acitve) 1 ea N/A UD PRN PRN Reason: Consult Stop: 06/04/20 15:02 Multivitamins (Multivitamin Tab) 1 tab PO QAM [facility] Stop: 06/03/20 10:14 Last Admin: 05/07/20 08:17 Dose: 1 tab Documented by: Senna/Docusate Sodium (Docusate Sodium/Senna 50/8.6mg Tab) 1 tab PO DAILY [facility] Stop: 06/03/20 10:14 Last Admin: 05/07/20 08:24 Dose: 1 tab Documented by: Tramadol HCl (Tramadol Hcl 50 Mg Tablet) 50 mg PO Q8H PRN PRN Reason: pain Stop: 06/02/20 21:04 Last Admin: 05/07/20 08:24 Dose: 50 mg Documented by: Vitamin B Complex (Vitamin B Complex Tab) 1 tab PO QAM [facility] Stop: 06/03/20 10:14 Last Admin: 05/07/20 08:17 Dose: 1 tab Documented by: (1) Wound of sacral region Encounter type: subsequent encounter Qualified Code(s): S31.000D - Unspecified open wound of lower back and pelvis without penetration into retroperitoneum, subsequent encounter
--- NOTE | 2020-05-07 16:35 | Cardiology Progress Note ---
Date of Service May 07, 2020 Assessment & Plan (1) NSVT (nonsustained ventricular tachycardia): (2) PSVT (paroxysmal supraventricular tachycardia): Telemetry today reveals sinus rhythm in the 70s with occasional PVCs including PVCs in a pattern of ventricular bigeminy, no prolonged ventricular runs. Continue metoprolol. Continue subcutaneous heparin for DVT prophylaxis. (3) Wound of sacral region: Admission and Anticipated Discharge Date Admission Date: May 03, 2020 Subjective Patient seen in follow-up. No cardiac complaints. Physical Exam Physical Exam: Temp Pulse Resp BP Pulse Ox 36.6 C 70 20 123/57 L 96 05/07/20 15:41 05/07/20 15:41 05/07/20 15:41 05/07/20 15:41 05/07/20 15:41 Constitutional: no acute distress Results & Data ([facility]) Vital Signs (Past 12 Hours) Vital Signs Temp Pulse Pulse Resp BP Pulse Ox 05/07/20 15:41 36.6 C 70 20 123/57 L 96 05/07/20 11:22 36.7 C 68 18 127/58 L 97 05/07/20 08:34 36.7 C 80 20 135/67 98 05/07/20 08:15 68 (1) Wound of sacral region Encounter type: subsequent encounter Qualified Code(s): S31.000D - Unspecified open wound of lower back and pelvis without penetration into r etroperitoneum, subsequent encounter
--- NOTE | 2020-05-07 19:20 | Palliative Care Consultation ---
Date of Consultation May 07, 2020 Assessment & Plan (1) Palliative care encounter: I had an extensive discussion with Ru about how he is managing with his disease. He has been seen by psychiatry and has been noted to have depression and is grieving the loss of his prior function and lifestyle. He has been a very analytical and methodical person and approaches his disease process in the same way. Maintaining his autonomy has been a very important coping tool for him. His perception is that surgical debridement would be uncomfortable and not helpful. He would prefer try topical treatment. We discussed the possibility that topical treatments would not control his infection. I asked him about what his overall goals were as he deals with MS. He feels that he has significant rick in his life and reasons to live. He talks about his and the importance of their relationship in his coping. He is willing to have ongoing discussion with palliative care to clarify goals. We will continue to follow, (2) Unstageable pressure ulcer of sacral region: (3) Multiple sclerosis: History of Present Illness Reason for Consultation: goals of care Requesting Physician: Dr. Vallejo Attending Physician: Seth Vallejo MD History of Present Illness 80 yo gentleman with advanced MS who is wheelchair mobile but frequently bedbound. He has had ongoing problems with an extensive sacral decubitus ulcer and infections. He was hosptialized earlier this month and had surgical debridement and antibiotics therapy after wound culture grew mutiple organisms. He was sent to SNF and returned with recurrent infection. He has been refusing surgical debridement and we have been consulted to assist with goals of care. Allergies Allergy/AdvReac Type Severity Reaction Status Date / Time ampicillin Allergy Unknown Unknown Verified 05/03/20 18:59 morphine AdvReac Mild "MADE ME Verified 05/03/20 18:59 FEEL ODD" Home Medications Medication Instructions Recorded Confirmed Type amlodipine 10 mg PO QPM 03/21/20 05/03/20 History losartan 100 mg PO QPM 03/21/20 05/03/20 History multivitamin 1 tab PO QAM 03/26/20 05/03/20 History omega-3 fatty acids-fish oil 1 cap PO QAM 03/26/20 05/03/20 History vitamin B complex 1 tab PO QAM 03/26/20 05/03/20 History tramadol 50 mg tablet 50 mg PO Q8H PRN #20 tab 03/27/20 05/03/20 Rx folic acid 1 mg PO QAM 04/03/20 05/03/20 History bisacodyl 10 mg VA DAILY PRN 14 Days #5 ea 04/23/20 05/03/20 Rx sennosides-docusate sodium 1 tab-cap PO DAILY #30 tab 04/23/20 05/03/20 Rx [Senokot-S] doxycycline hyclate 100 mg PO BID 05/03/20 05/03/20 History Patient History Medical History BPH (benign prostatic hyperplasia) Estrella catheter in place History of skin cancer ON CHEST AREA Hyperlipidemia Hypertension Multiple sclerosis Debilitated, wheelchair-bound for several years. Can transfer self. Following with Dr Armenta [facility] [place] neuro. Sacral ulcer Treating with topical ointment currently. Spontaneous pneumothorax HX OF MANY YEARS AGO A TEENAGER (NO SURGERY) Urinary retention Urinary retention Surgical History H/O arthroscopy of shoulder RT History of colonoscopy History of esophagogastroduodenoscopy (EGD) History of herniorrhaphy History of tonsillectomy History of tooth extraction Hx of appendectomy S/P transurethral resection of prostate S/P TURP Family History Other Cancer No family history of adverse response to anesthesia Social History Smoking Status: Former smoker Second Hand Exposure: No; Hx Alcohol Use: No Hx Substance Use: No Preferred Language: Ukrainian Communication Ability: Effective Cone Marker Required: No Beliefs That Will Affect Care: None marital status: Current Living Situation: Spouse Feels Safe at Home: Yes Assistive Devices: None Review of Systems Review of Systems: [place] Symptom Assessment Scale Pain 1/3 Dyspena 0/3 Anxiety 2/3 Depression 2/3 Drowsiness 0/3 Palliative Performance Scale 40% Physical Exam Constitutional: no acute distress Respiratory: normal respiratory effort and + labored breathing Psychiatric: Orientation: alert and oriented x 3 Results & Data ([facility]) Vital Signs (Past 12 Hours) Vital Signs Temp Pulse Pulse Resp BP Pulse Ox 05/07/20 16:00 60 05/07/20 15:41 97.9 F 70 20 123/57 L 96 05/07/20 11:22 98.1 F 68 18 127/58 L 97 05/07/20 08:34 98.1 F 80 20 135/67 98 05/07/20 08:15 68 PG Care Time/CCT Total # of Minutes Spent Total Time Spent with Patient: Total time spent is greater than 50% in coordination of care (as documented) at patient's floor/unit and/or counseling patient: Total time 70 minutes with more than 50% of time spent on discussing goals of care, disease progression, support. Coding Level of Care Code 31387 Inpt Consult Level 4 Diagnoses Palliative care encounter Z51.5 Unstageable pressure ulcer of sacral region L89.150 Multiple sclerosis G35
[2020-05-07] MEDS: amLODIPine BESYLATE 5 MG TAB PO SCH (21:33)
[2020-05-07] MEDS: DAPTOmycin 300 MG in SYRINGE 0 ML IV SCH (21:47)
[2020-05-07] MEDS ORDERED: CALCIUM CARBONATE 500 MG CHEWABLE TAB PO STA (22:34)
[2020-05-08] MEDS: MEROPENEM 500 MG in SYRINGE 0 ML IV SCH ×4 (05:39→20:52)
[2020-05-08] MEDS: HEPARIN SOD 5,000 UNIT/0.5 ML VIAL SQ SCH ×3 (05:52→20:53)
[2020-05-08] MEDS: MULTIVITAMIN TAB PO SCH (08:05)
[2020-05-08] MEDS: METOPROLOL TARTRATE 25 MG TAB PO SCH ×2 (08:05→20:53)
[2020-05-08] MEDS: FOLIC ACID 1 MG TAB PO SCH (08:05)
[2020-05-08] MEDS: OMEGA-3 (PURIFIED FISH OIL) 1 GM CAP PO SCH (08:06)
[2020-05-08] MEDS: VITAMIN B COMPLEX TAB PO SCH (08:06)
[2020-05-08] MEDS: DOCUSATE SODIUM/SENNA 50/8.6MG TAB PO SCH (08:29)
--- NOTE | 2020-05-08 13:00 | Hospitalist Progress Note ---
Date of Service May 08, 2020 Assessment & Plan (1) Wound of sacral region: -Patient presenting from home with reports of worsening sacral wound. -Patient with recent prolonged hospital stay at [facility] 04/05 through 04/23 for management of sacral wound. Wound culture grew Pseudomonas, Enterococcus, Chloe. Patient underwent debridement of wound. Patient completed antibiotic course while admitted. Patient was discharged to [facility] for rehab needs however only stayed 1 day before signing out AMA. -WBC 18.6K, afebrile, BP stable, lactate 1.2, was initially given Zosyn and daptomycin based on previous wound cultures. This was later switched to daptomycin and meropenem -infectious disease consult recommended debridement and this was offered by general surgery service, but patient declined. Patient has insisted on trial of zinc oxide -palliative care has also been following the patient while in the hospital -repositioning by nursing staff 05/08/2020 -Have discussed with patient and his that the current IV antibiotics puts patient at risk of C.difficile and without clear endpoint - He has chronic leukocytosis but has been afebrile during hospital days in months of March and April. 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 Patient also did not have bacteremia based on recent blood culture. Hospitalist does acknowledge future risk of infection given that the sacral ulcer is near anal/rectal areas and patient can potential defecate into wound and a blood stream infection can occur. Patient is also despondent about prolonged hospitalizations and does not appear to want IV antibiotics further and had declined further surgical debridement. Discussed with the patient about hospice care if he does not want further medical treatments but he cannot decide between hospice setting at home versus at a facility. Discussed with his who does not want patient on hospice and she would like him to return home on chronic oral antibiotics as a suppressant against cellulitis or bacteremia (although this would still put patient at risk of C.difficile). Discussed with shoe caser about recent patient/family wishes to see the logistics of discharge to home. (2) Multiple sclerosis: -Bed/wheelchair bound -management of repositioning and wound care as above (3) ARIELA (acute kidney injury): -admission Creatinine 1.94 -after IV fluids and holding home dose losartan the creatinine had returned to baseline (4) Hypertension: -continue amlodipine -Holding losartan as above (5) Elevated troponin: NSVT (nonsustained ventricular tachycardia) PSVT (paroxysmal supraventricular tachycardia) -Troponin 0.149 on admission which peaked to 0.236, No reports of chest pain, EKG without acute ST changes, and 05/05/2020 echocardiogram was performed without concerns for any wall motion problems or problems with ejecton fraction -patient did have runs of nonsustained tachycardia while on telemetry on this hospital stay, has been asymptomatic, cardiology started metoprolol and recommended to continue (6) Elevated platelet count: -has been chronically elevated -Platelet count 604K on admission partly due to Hemoconcentration from dehydration -currently around 400 K to 500 K on recent labs (7) DVT prophylaxis: -SQ Lovenox Admission and Anticipated Discharge Date Admission Date: May 03, 2020 Subjective Have discussed with patient and his that the current IV antibiotics puts patient at risk of C.difficile and without clear endpoint - He has chronic leukocytosis but has been afebrile during hospital days in months of March and April. 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 Patient also did not have bacteremia based on recent blood culture. Hospitalist does acknowledge future risk of infection given that the sacral ulcer is near anal/rectal areas and patient can potential defecate into wound and a blood stream infection can occur. Patient is also despondent about prolonged hospitalizations and does not appear to want IV antibiotics further and had declined further surgical debridement. Discussed with the patient about hospice care if he does not want further medical treatments but he cannot decide between hospice setting at home versus at a facility. Discussed with his who does not want patient on hospice and she would like him to return home on chronic oral antibiotics as a suppressant against cellulitis or bacteremia (although this would still put patient at risk of C.difficile). Discussed with shoe caser about recent patient/family wishes to see the logistics of discharge to home. Patient denies other symptoms on review of systems. breathing comfortably on room air. no shortness of breath. no acute pains. needs assistance to roll over as per baseline. moves the upper extremities on his own power Review of Systems Review of Systems: All systems reviewed & are unremarkable except as noted in Subjective Physical Exam Eyes: PERRL, conjunctivae normal, anicteric sclerae EOM intact bilaterally ENMT: external ear and nose normal, oropharynx normal Neck: normal visual inspection Respiratory: normal respiratory effort, lungs clear to auscultation Cardiovascular: Rate/Rhythm: regular rate Gastrointestinal (Abdomen): normal bowel sounds, soft, nontender, no hepatosplenomegaly Musculoskeletal: Head/Neck/Chest: normocephalic and head atraumatic sacral ulcer in dressing Neurologic: PERRL, EOMI, accommodation nl, no face palsy, no dysarthria Psychiatric: Orientation: alert and oriented x 3 Results & Data Results & Data ([facility]) Vital Signs (Past 12 Hours) Vital Signs Temp Pulse Pulse Resp BP BP Pulse Ox 05/08/20 11:21 36.9 C 61 18 130/73 99 05/08/20 08:01 37 C 77 18 129/73 98 05/08/20 07:11 72 05/08/20 03:28 36.8 C 64 19 128/68 94 (1) Wound of sacral region Encounter type: subsequent encounter Qualified Code(s): S31.000D - Unspecified open wound of lower back and pelvis without penetration into retroperitoneum, subsequent encounter
[2020-05-08] MEDS: DAPTOmycin 300 MG in SYRINGE 0 ML IV SCH (20:52)
[2020-05-08] MEDS: amLODIPine BESYLATE 5 MG TAB PO SCH (20:53)
[2020-05-09] MEDS: MEROPENEM 500 MG in SYRINGE 0 ML IV SCH ×3 (04:44→16:04)
[2020-05-09] MEDS: HEPARIN SOD 5,000 UNIT/0.5 ML VIAL SQ SCH ×2 (06:21→13:37)
[2020-05-09 06:30] LABS: Basophils # (auto) 0.04 K/uL (0-0.2); Basophils % (auto) 0.3 %; Eosinophils # (auto) 0.54 K/uL (0-0.5); Hematocrit (blood only) 29.6 % (42-52); Hemoglobin 9.7 g/dL (14.0-18.0); Immature Granulocytes % (auto) 0.7 %; Lymphocytes % (auto) 22.1 %; Mean Corpuscular Hemoglobin 27.6 pg (25-34); Mean Corpuscular Hgb Conc 32.8 g/dL (32-36); Mean Corpuscular Volume 84.1 fL (80-100); Mean Platelet Volume 10.3 fL (7.4-10.4); Monocytes # (auto) 1.22 K/uL (0.11-0.59); Neutrophils # (auto) 8.67 K/uL (1.4-6.5); Neutrophils % (auto) 63.9 %; Platelet Count 447 K/uL (130-400); RDW Coefficient of Variation 14.2 % (11.5-14.5); RDW Standard Deviation 43.5 fL (36.4-46.3); Red Blood Count 3.52 M/uL (4.7-6.1); White Blood Count 13.57 K/uL (4.8-10.8)
[2020-05-09 06:59] LABS: Appearance Urine Cloudy (Clear); Bacteria Urine Automated Negative (Negative); Bilirubin Urine Negative (Negative); Blood Urine 2+ (Negative); Color Urine Yellow; Epithelial Cell Urine Auto 0-5 /lpf (0-5); Glucose Urine UA Negative (Negative); Ketones Urine Negative (Negative); Leukocyte Esterase Urine 3+ (Negative); Nitrite Urine Negative (Negative); Protein Urine Negative (Negative); Specific Gravity Urine 1.011 (1.000-1.030); Urobilinogen Urine Negative (Negative); WBC Urine Automated >30 /hpf (0-5); pH Urine 7.5 (4.5-7.5)
[2020-05-09 07:07] LABS: Albumin Level 1.6 gm/dl (3.4-5.0); BUN Creatinine Ratio 14.4 (10-20); Creatinine Clr Calc Pharmacy 76.9 ml/min; Est GFR (Non-African American) 79.4; Magnesium 1.6 mg/dl (1.8-2.4); Potassium 3.9 mmol/L (3.5-5.1)
[2020-05-09 07:14] LABS: Albumin Globulin Ratio 0.4 (0.9-2); Bilirubin,Total 0.2 mg/dl (0.2-1); Globulin 3.8 gm/dl (2.5-4.0); Total Protein 5.4 gm/dl (6.4-8.2)
[2020-05-09 07:18] LABS: Cast Urine Automated 0 /lpf (0-5)
[2020-05-09] MEDS: OMEGA-3 (PURIFIED FISH OIL) 1 GM CAP PO SCH (07:51)
[2020-05-09] MEDS: METOPROLOL TARTRATE 25 MG TAB PO SCH (07:51)
[2020-05-09] MEDS: VITAMIN B COMPLEX TAB PO SCH (07:51)
[2020-05-09] MEDS: FOLIC ACID 1 MG TAB PO SCH (07:51)
[2020-05-09] MEDS: MULTIVITAMIN TAB PO SCH (07:52)
[2020-05-09] MEDS: DOCUSATE SODIUM/SENNA 50/8.6MG TAB PO SCH (07:53)
[2020-05-09] MEDS ORDERED: MAGNESIUM OXIDE 400 MG TAB PO SCH (09:00)
[2020-05-09] MEDS: MAGNESIUM SULFATE / D5W 1 GM/100 ML BAG IV SCH ×2 (09:10→10:20)
[2020-05-09 09:58] VITALS: PULSE 77; TEMP 98.6; O2SAT 96
--- NOTE | 2020-05-09 10:15 | Hospitalist Progress Note ---
Date of Service May 09, 2020 Assessment & Plan (1) Wound of sacral region: -Patient presenting from home with reports of worsening sacral wound. -Patient with recent prolonged hospital stay at [facility] 04/05 through 04/23 for management of sacral wound. Wound culture grew Pseudomonas, Enterococcus, Chloe. Patient underwent debridement of wound. Patient completed antibiotic course while admitted. Patient was discharged to [facility] for rehab needs however only stayed 1 day before signing out AMA. -WBC 18.6K, afebrile, BP stable, lactate 1.2, was initially given Zosyn and daptomycin based on previous wound cultures. This was later switched to daptomycin and meropenem -infectious disease consult recommended debridement and this was offered by general surgery service, but patient declined. Patient has insisted on trial of zinc oxide -palliative care has also been following the patient while in the hospital -repositioning by nursing staff 05/08/2020 -Have discussed with patient and his that the current IV antibiotics puts patient at risk of C.difficile and without clear endpoint - He has chronic leukocytosis but has been afebrile during hospital days in months of March and April. 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 Patient also did not have bacteremia based on recent blood culture. Hospitalist does acknowledge future risk of infection given that the sacral ulcer is near anal/rectal areas and patient can potential defecate into wound and a blood stream infection can occur. Patient is also despondent about prolonged hospitalizations and does not appear to want IV antibiotics further and had declined further surgical debridement. Discussed with the patient about hospice care if he does not want further medical treatments but he cannot decide between hospice setting at home versus at a facility. Discussed with his who does not want patient on hospice and she would like him to return home on chronic oral antibiotics as a suppressant against cellulitis or bacteremia (although this would still put patient at risk of C.difficile). Discussed with rehabilitation case coordinator about recent patient/family wishes to see the logistics of discharge to home. 05/09/2020 -no new health changes in regards to the patient's care or on review of systems. Patient appears to be eager for hospital discharge when possible if case management can make all discharge logistic arrangements with patient's . (2) Multiple sclerosis: -Bed/wheelchair bound -management of repositioning and wound care as above (3) ARIELA (acute kidney injury): -admission Creatinine 1.94 -after IV fluids and holding home dose losartan the creatinine had returned to baseline (4) Hypertension: -continue amlodipine -Holding losartan as above (5) Elevated troponin: NSVT (nonsustained ventricular tachycardia) PSVT (paroxysmal supraventricular tachycardia) -Troponin 0.149 on admission which peaked to 0.236, No reports of chest pain, EKG without acute ST changes, and 05/05/2020 echocardiogram was performed without concerns for any wall motion problems or problems with ejecton fraction -patient did have runs of nonsustained tachycardia while on telemetry on this hospital stay, has been asymptomatic, cardiology started metoprolol and recommended to continue (6) Elevated platelet count: -has been chronically elevated -Platelet count 604K on admission partly due to Hemoconcentration from dehydration -currently around 400 K to 500 K on recent labs (7) DVT prophylaxis: -SQ Lovenox Admission and Anticipated Discharge Date Admission Date: May 03, 2020 Subjective -no new health changes in regards to the patient's care or on review of systems. Patient appears to be eager for hospital discharge when possible if case management can make all discharge logistic arrangements with patient's . continues to have sacral ulcer, has been in dressing. breathing on room air. no shortness of breath. no chest pain. no abdomen pain. no dizziness. no headache Review of Systems Review of Systems: All systems reviewed & are unremarkable except as noted in Subjective Physical Exam Eyes: PERRL, conjunctivae normal, anicteric sclerae EOM intact bilaterally ENMT: external ear and nose normal, oropharynx normal Neck: normal visual inspection Respiratory: normal respiratory effort, lungs clear to auscultation Cardiovascular: Rate/Rhythm: regular rate Gastrointestinal (Abdomen): normal bowel sounds, soft, nontender, no hepatosplenomegaly Musculoskeletal: Head/Neck/Chest: normocephalic and head atraumatic Neurologic: PERRL, EOMI, accommodation nl, no face palsy, no dysarthria Psychiatric: Orientation: alert and oriented x 3 Results & Data Results & Data ([facility]) Vital Signs (Past 12 Hours) Vital Signs Temp Pulse Resp BP BP Pulse Ox 05/09/20 09:57 37.0 C 77 19 138/59 L 96 05/09/20 04:00 36.7 C 75 19 124/69 97 05/09/20 00:06 37 C 66 18 125/69 97 (1) Wound of sacral region Encounter type: subsequent encounter Qualified Code(s): S31.000D - Unspecified open wound of lower back and pelvis without penetration into retroperitoneum, subsequent encounter
--- NOTE | 2020-05-09 13:13 | Discharge Summary ---
Date of Service May 09, 2020 Admission HPI Per Admitting Provider 80-year-old male with PMH MS, urinary retention with chronic indwelling Riddle, sacral decubitus ulcer, HTN, and other problems listed below who presents the ED for evaluation of worsening sacral decubitus ulcer. Patient with recent prolonged hospital stay at [facility] 04/05 through 04/23 for management of sacral wound. Wound culture grew Pseudomonas, Enterococcus, Chloe. Patient underwent debridement of wound. Patient completed antibiotic course while admitted. Patient was discharged to [facility] for rehab needs however only stayed 1 day before signing out AMA. Since returning home, patient's sacral decubitus ulcer has worsened. He is also requiring more care at home than what his can provide. Patient reports a very poor appetite over the past week. Denies nausea, vomiting, abdominal pain, diarrhea. No fevers or chills. Denies chest pain or shortness of breath. No lightheadedness, dizziness, diaphoresis, syncopal events. Chronic F\\riddle catheter remains in place without acute issue. In the ED, WBC 18.6, creatinine 1.9, troponin 0 0.149. EKG without acute ST changes. Patient was given full dose aspirin, IV fentanyl, IV Zosyn, IVF. Principal Diagnosis Wound of sacral region Multiple sclerosis ARIELA (acute kidney injury) on admission is resolved Hypertension Elevated troponin on admission NSVT (nonsustained ventricular tachycardia) PSVT (paroxysmal supraventricular tachycardia) Elevated platelet count Discharge Exam Eyes PERRL, conjunctivae normal, anicteric sclerae EOM intact bilaterally ENMT external ear and nose normal, oropharynx normal Neck normal visual inspection Respiratory normal respiratory effort, lungs clear to auscultation Cardiovascular Rate/Rhythm: regular rate Gastrointestinal (Abdomen) normal bowel sounds, soft, nontender, no hepatosplenomegaly Musculoskeletal Head/Neck/Chest: normocephalic and head atraumatic Neurologic PERRL, EOMI, accommodation nl, no face palsy, no dysarthria Psychiatric Orientation: alert and oriented x 3 Discharge Data Allergies Allergy/AdvReac Type Severity Reaction Status Date / Time ampicillin Allergy Unknown Unknown Verified 05/03/20 18:59 morphine AdvReac Mild "MADE ME Verified 05/03/20 18:59 FEEL ODD" Consultations 05/03/20 18:38 ED Decision to Admit Stat 05/03/20 21:05 Consult Case Management - Discharge Planning Routine Consult General Surgery Routine Consult Wound Care Provider Routine 05/05/20 06:53 Consult Infectious Diseases Routine 05/05/20 08:30 Consult Cardiology Routine 05/06/20 14:22 Consult Psychiatry Routine 05/07/20 06:55 Consult Palliative Care Routine Hospital Course (1) Wound of sacral region: -Patient presenting from home with reports of worsening sacral wound. -Patient with recent prolonged hospital stay at [facility] 04/05 through 04/23 for management of sacral wound. Wound culture grew Pseudomonas, Enterococcus, Chloe. Patient underwent debridement of wound. Patient completed antibiotic course while admitted. Patient was discharged to [facility] for rehab needs however only stayed 1 day before signing out AMA. -WBC 18.6K, afebrile, BP stable, lactate 1.2, was initially given Zosyn and daptomycin based on previous wound cultures. This was later switched to d aptomycin and meropenem -infectious disease consult recommended debridement and this was offered by general surgery service, but patient declined. Patient has insisted on trial of zinc oxide -palliative care has also been following the patient while in the hospital -repositioning by nursing staff 05/08/2020 -Have discussed with patient and his that the current IV antibiotics (daptomycin and meropenem) puts patient at risk of C.difficile and without clear endpoint - He has chronic leukocytosis but has been afebrile during hospital days in months of March and April. 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 Patient also did not have bacteremia based on recent blood culture. Hospitalist does acknowledge future risk of infection given that the sacral ulcer is near anal/rectal areas and patient can potential defecate into wound and a blood stream infection can occur. Patient is also despondent about prolonged hospitalizations and does not appear to want IV antibiotics further and had declined further surgical debridement. Discussed with the patient about hospice care if he does not want further medical treatments but he cannot decide between hospice setting at home versus at a facility. Discussed with his who does not want patient on hospice and she would like him to return home on chronic oral antibiotics as a suppressant against cellulitis or bacteremia (although this would still put patient at risk of C.difficile). Discussed with spring encaser about recent patient/family wishes to see the logistics of discharge to home. 05/09/2020 -no new health changes in regards to the patient's care or on review of systems. Patient appears to be eager for hospital discharge when possible if case man agement can make all discharge logistic arrangements with patient's . -discharge with riddle Wound Care Discharge Instructions to sacrum/coccyx/right ischium irrigate with saline. Fill wound with Aquacel Ag and secure with Optifoam. To left and right heels apply Optiforam to cover. Change every day and as needed. Waffle boots to feet. Patient should follow up with [facility] wound care clinic (call [phone]) for appointment or any needs for air fluidized bed Discussed with patient's that chronic oral antibiotics as a suppressant against cellulitis or bacteremia can patient at risk of C.difficile. 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 other discharge medication or magnesium supplements, and metoprolol for heart rate control Family Doctor appointment: 05/20/2020 11:00 AM Provider Aram Lyman MD Department General Internal Medicine [facility] (2) Multiple sclerosis: -Bed/wheelchair bound -management of repositioning and wound care as above (3) ARIELA (acute kidney injury): -admission Creatinine 1.94 -after IV fluids and holding home dose losartan the creatinine had returned to baseline (4) Hypertension: -continue amlodipine -Holding losartan as above (5) Elevated troponin: NSVT (nonsustained ventricular tachycardia) PSVT (paroxysmal supraventricular tachycardia) -Troponin 0.149 on admission which peaked to 0.236, No reports of chest pain, EKG without acute ST changes, and 05/05/2020 echocardiogram was performed without concerns for any wall motion problems or problems with ejecton fraction -patient did have runs of nonsustained tachycardia while on telemetry on this hospital stay, has been asymptomatic, cardiology started metoprolol and recommended to continue (6) Elevated platelet count: -has been chronically elevated -Platelet count 604K on admission partly due to Hemoconcentration from dehydration -currently around 400 K to 500 K on recent labs (7) DVT prophylaxis: -SQ Lovenox while in the hospital only Total Time Total Time Spent Total Time Spent (In Minutes): 40 minutes Discharge Plan Discharge Items Patient Disposition: Home - Home Health Services Reason For Visit: SACRAL DEDUB ULCER Discharge Diagnosis: Wound of sacral region Multiple sclerosis ARIELA (acute kidney injury) on admission is resolved Hypertension Elevated troponin on admission NSVT (nonsustained ventricular tachycardia) PSVT (paroxysmal supraventricular tachycardia) Elevated platelet count Condition on Discharge: Fair Activity: Per Instructions section Activity Comment: repositioning on bed every 2 hours when awake as tolerated Non-emergency contact: Primary Care Provider Call non-emergency contact if: you have any medication questions Follow-up/Referrals: Aram Lyman MD [Primary Care Provider] - Diet: Regular Addtl Attending Provider Instructions: discharge with riddle Wound Care Discharge Instructions to sacrum/coccyx/right ischium irrigate with saline. Fill wound with Aquacel Ag and secure with Optifoam. To left and right heels apply Optiforam to cover. Change every day and as needed. Waffle boots to feet. Patient should follow up with [facility] wound care clinic (call [phone]) for appointment or any needs for air fluidized bed Discussed with patient's that chronic oral antibiotics as a suppressant against cellulitis or bacteremia can patient at risk of C.difficile. 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 other discharge medication or magnesium supplements, and metoprolol for heart rate control Family Doctor appointment: 05/20/2020 11:00 AM Provider Aram Lyman MD Department General Internal Medicine [facility] Pending Studies at Discharge: No Stand-Alone Forms: My [employer], Smoking Cessation Medications and DC Order Prescriptions: New magnesium oxide 400 mg (241.3 mg magnesium) Tablet 400 mg PO BID 30 Days Qty: 60 RF: 0 metoprolol tartrate 25 mg Tablet 25 mg PO BID 30 Days Qty: 60 RF: 0 metronidazole [Flagyl] 500 mg tablet 500 mg PO Q8H 10 Days Qty: 30 RF: 0 Continued tramadol 50 mg tablet 50 mg PO Q8H PRN (Reason: pain) Qty: 20 RF: 0 amlodipine 10 mg tablet 10 mg PO QPM RF: 0 multivitamin Tablet 1 tab PO QAM RF: 0 vitamin B complex Tablet 1 tab PO QAM RF: 0 omega-3 fatty acids-fish oil 684-1,200 mg Capsule,Delayed Release(Dr/Ec) 1 cap PO QAM RF: 0 bisacodyl 10 mg Suppository 10 mg OH DAILY PRN (Reason: constipation) 14 Days Qty: 5 RF: 0 sennosides-docusate sodium [Senokot-S] 8.6-50 mg tablet 1 tab-cap PO DAILY Qty: 30 RF: 0 folic acid 1 mg Tablet 1 mg PO QAM RF: 0 Discontinued losartan 100 mg tablet 100 mg PO QPM RF: 0 doxycycline hyclate 100 mg capsule 100 mg PO BID RF: 0 Admission Data Admit Date/Time: 05/03/20 18:41 Attending Provider: Osei Maher Admit Provider: Arpan Azar Primary Care Provider: Aram Lyman Other Providers: Edmundo Fitzgerald ; [facility] ; Arpan Azar ; Deep Mcnamara ; Mau Neves ; Jewel Petersen ; Anbaella Pink ; Andrews Geronimo I. ; Willam Brown II ; Jaja Tan ; Del Bonilla ; Jasvir Villa ; Aram Alcaraz ; Cara Somers ; Ethan Keys ; Anup Yost ; Shine Silva ; Stacey Wong ; Cory Muller ; Reena Bates ; Milagros Shaw ; Josephine Wylie ; Lizandro Mata I. ; Zo Liu ; Lyudmila Ying ; Suma Mccord ; Erendira Metzger.
[2020-05-09] MEDS ORDERED: INFLUENZA ADMINISTRATION CHARGE ONE (14:32)
[2020-05-09] MEDS ORDERED: INFLUENZA VACCINE HIGH DOSE 65+ 0.7 ML SYR IM ONE (14:32)
--- NOTE | 2020-05-09 17:05 | Cardiology Progress Note ---
Date of Service May 09, 2020 Assessment & Plan (1) NSVT (nonsustained ventricular tachycardia): (2) PSVT (paroxysmal supraventricular tachycardia): (3) Wound of sacral region: I have not seen the patient on 05/08/2020, but I reviewed his telemetry yesterday, with findings of sinus rhythm with occasional PVCs, no additional episodes of wide-complex tachycardia or narrow complex tachycardia. He remains asymptomatic from a cardiac perspective. Continue amlodipine for hypertension, metoprolol tartrate 25 mg twice daily. Agree with subcutaneous heparin for DVT prophylaxis. Admission and Anticipated Discharge Date Admission Date: May 03, 2020 Subjective Patient now off telemetry. He is conversant. No cardiac complaints. Physical Exam Physical Exam: Temp Pulse Resp BP Pulse Ox 37.0 C 77 19 138/59 L 96 05/09/20 09:57 05/09/20 09:57 05/09/20 09:57 05/09/20 09:57 05/09/20 09:57 Neurologic: Conversant, moves all 4 extremities. Results & Data ([facility]) Vital Signs (Past 12 Hours) Vital Signs Temp Pulse Resp BP Pulse Ox 05/09/20 09:57 37.0 C 77 19 138/59 L 96 (1) Wound of sacral region Encounter type: subsequent encounter Qualified Code(s): S31.000D - Unspecified open wound of lower back and pelvis without penetration into retroperitoneum, subsequent encounter
[2020-05-09 17:06] VITALS: BP 125/69
== END 2020-05-09 18:58 | disposition home health service (06) | DRG 593 ==
LOC: ED 16:54 → 2S 18:41 → SUATTDRO 18:41 → 2S 21:02 → 2N 05-08 17:08

== ENCOUNTER 2021-04-22 10:47 | Observation (INO) ==
[2021-04-22 12:19] LABS: Basophils # (auto) 0.06 K/uL (0-0.2); Basophils % (auto) 0.5 %; Eosinophils # (auto) 0.61 K/uL (0-0.5); Eosinophils % (auto) 4.8 %; Hematocrit (blood only) 40.8 % (42-52); Hemoglobin 13.4 g/dL (14.0-18.0); Immature Granulocytes # (auto) 0.04 K/uL (0.00-0.02); Immature Granulocytes % (auto) 0.3 %; Lymphocytes # (auto) 2.71 K/uL (1.2-3.4); Lymphocytes % (auto) 21.4 %; Mean Corpuscular Hemoglobin 28.3 pg (25-34); Mean Corpuscular Hgb Conc 32.8 g/dL (32-36); Mean Corpuscular Volume 86.3 fL (80-100); Mean Platelet Volume 12.2 fL (7.4-10.4); Monocytes # (auto) 0.92 K/uL (0.11-0.59); Monocytes % (auto) 7.3 %; Neutrophils # (auto) 8.32 K/uL (1.4-6.5); Neutrophils % (auto) 65.7 %; Platelet Count 337 K/uL (130-400); RDW Coefficient of Variation 17.3 % (11.5-14.5); RDW Standard Deviation 54.3 fL (36.4-46.3); Red Blood Count 4.73 M/uL (4.7-6.1); White Blood Count 12.66 K/uL (4.8-10.8)
[2021-04-22 12:45] LABS: Calcium 10.1 mg/dl (8.5-10.1); Creatinine Clr Calc Pharmacy 71.7 ml/min; Est GFR (African American) 86.8 ml/min; Est GFR (Non-African American) 74.9 ml/min; Potassium 3.9 mmol/L (3.5-5.1)
[2021-04-22 12:48] LABS: Albumin Globulin Ratio 0.6 (0.9-2); Bilirubin,Total 0.4 mg/dl (0.2-1); Globulin 4.8 gm/dl (2.5-4.0); Total Protein 7.8 gm/dl (6.4-8.2)
--- NOTE | 2021-04-22 12:52 | Urology Consultation ---
Date of Consultation April 22, 2021 Assessment & Plan (1) Urinary retention: (2) Difficult Estrella catheter placement: 81 yo M with multiple sclerosis, BPH and urinary retention managed with indwelling Estrella catheter presented to ED after home health was unable to replace his Estrella, suspected UTI. - Urology consulted for difficult Estrella placement - Afebrile, nontoxic at present, lab work reviewed - creatinine 0.96, WBC 12.66 - UA on admission suspicious for infection with positive nitrates, bacteria, 10- 30 RBCs and >30 WBCs - 20 F coude catheter placed at bedside without difficulty - pt tolerated well, no complications noted - Greater than 600 mL initially drained from bladder - urine initially cloudy yellow and then opaque carrington - Urine sample collected after catheter placement and nursing notified - urine culture pending - Recommend initiate antibiotics for suspected UTI, follow cultures - Continue follow-up with urology as scheduled History of Present Illness Reason for Consultation: Dr. Pearce Requesting Physician: Dr. Pearce History of Present Illness 81 yo M with past medical history of multiple sclerosis, BPH, chronic urinary retention managed with indwelling Estrella catheter, bladder stones, recurrent UTI, decubitus ulcers, hypertension, and PSVT presented to the emergency department today with suspected UTI and home health unable to replace his Estrella catheter. Patient is known to our service, follows with Dr. Larios. He is s/p TURP and cystolitholapaxy in Mar 2020. Chronic urinary retention currently managed with indwelling Estrella catheter, changed monthly by home health. He presented to emergency department today because his home health nurse was unable to replace his Estrella catheter, UTI also suspected. Estrella catheter placement was attempted x 3 in ER, unsuccessful. Urology service was consulted for difficult Estrella placement. Per chart review, patient is afebrile. Lab work reviewed - creatinine 0.96, WBC 12.66, Hgb 13.4. Urinalysis positive nitrates, 10-30 RBCs, >30 WBCs, 3+ leukocytes, 2+ bacteria. Urine culture pending. Patient examined in ER. He is awake, alert and resting in litter. Appears comfortable, no acute distress. Generally no issues with monthly catheter changes since his TURP, litholapaxy last year. Denies dysuria or hematuria. Mild sensation of bladder fullness. No abdominal or flank pain at present. Denies nausea or vomiting. No fever or chills. Offers no additional complaints at present. Allergies Allergy/AdvReac Type Severity Reaction Status Date / Time ampicillin Allergy Unknown Unknown Verified 04/22/21 12:50 morphine AdvReac Mild "MADE ME Verified 04/22/21 12:50 FEEL ODD" Home Medications Medication Instructions Recorded Confirmed Type amlodipine 10 mg tablet 10 mg PO HS 03/21/20 04/22/21 History multivitamin 1 tab PO QAM 03/26/20 04/22/21 History omega-3 fatty acids-fish oil 684 1 cap PO QAM 03/26/20 04/22/21 History mg-1,200 mg capsule,delayed release vitamin B complex 1 tab PO QAM 03/26/20 04/22/21 History metoprolol tartrate 25 mg tablet 25 mg PO BID 07/03/20 04/22/21 History fluconazole 150 mg tablet 150 mg PO WK 04/22/21 04/22/21 History Patient History Medical History BPH (benign prostatic hyperplasia) Elevated troponin Estrella catheter in place History of skin cancer ON CHEST AREA Hyperlipidemia Hypertension Multiple sclerosis Debilitated, wheelchair-bound for several years. Can transfer self. Following with Dr Armenta, [facility]. Sacral ulcer Treating with topical ointment currently. Spontaneous pneumothorax HX OF MANY YEARS AGO A TEENAGER (NO SURGERY) Urinary retention Urinary retention Surgical History H/O arthroscopy of shoulder RT History of colonoscopy History of esophagogastroduodenoscopy (EGD) History of herniorrhaphy History of tonsillectomy History of tooth extraction Hx of appendectomy S/P transurethral resection of prostate S/P TURP Family History Other Cancer No family history of adverse response to anesthesia Social History Smoking Status: Former smoker Tobacco Type: Cigarettes Second Hand Exposure: No; Hx Alcohol Use: No Hx Substance Use: No Preferred Language: Maltese Communication Ability: Effective Partition Setter Required: No Beliefs That Will Affect Care: None marital status: Current Living Situation: Spouse Feels Safe at Home: Yes Assistive Devices: None Review of Systems Constitutional: as per Subjective / HPI Eyes: + corrective lenses Respiratory: no problem reported Cardiovascular: no problem reported Gastrointestinal: as per Subjective / HPI Genitourinary: + as per Subjective / HPI Musculoskeletal: as per Subjective / HPI Physical Exam Constitutional: comfortable; no acute distress chronically ill-appearing, non-toxic Respiratory: normal respiratory effort; no respiratory distress and no labored breathing Gastrointestinal (Abdomen): Inspection/Auscultation: abdomen normal to inspection; abdomen not distended Percussion/Palpation: abdomen soft; abdomen nontender and no guarding Neurologic: awake Psychiatric: Orientation: alert and oriented x 3 Genitourinary: Using aseptic technique, a 20 F coude catheter was placed without difficulty, sample collected and nursing notified. Patient tolerated procedure well, no complications noted. Greater than 600 mL urine drained initially. Urine initially was a cloudy concentrated yellow, then turned to opaque carrington color. Results & Data ([facility]) Vital Signs (Past 12 Hours) Vital Signs Temp Pulse Resp BP Pulse Ox 04/22/21 12:07 99 04/22/21 11:58 37.0 C 91 H 19 146/91 H 98 PG Care Time/CCT Total # of Minutes Spent Total Time Spent with Patient: Total time spent is greater than 50% in coordination of care (as documented) at patient's floor/unit and/or counseling patient: Coding Level of Care Code 10906 Office/Outpt Visit, Est Diagnoses Urinary retention R33.9 Difficult Estrella catheter placement T83.9XXA
[2021-04-22 13:01] LABS: Appearance Urine Cloudy (Clear); Bacteria Urine Automated 2+ (Negative); Bilirubin Urine Negative (Negative); Blood Urine 2+ (Negative); Color Urine Dark Yellow; Epithelial Cell Urine Auto 0-5 /lpf (0-5); Glucose Urine UA Negative (Negative); Ketones Urine Negative (Negative); Leukocyte Esterase Urine 3+ (Negative); Nitrite Urine Positive (Negative); Protein Urine 2+ (Negative); Specific Gravity Urine 1.015 (1.000-1.030); Urobilinogen Urine Negative (Negative); WBC Urine Automated >30 /hpf (0-5)
[2021-04-22] MEDS ORDERED: MEROPENEM CONSULT ACTIVE PRN (13:44)
[2021-04-22] MEDS: MEROPENEM 500 MG in SYRINGE 0 ML IV SCH ×2 (14:10→20:17)
--- NOTE | 2021-04-22 16:38 | Electrocardiogram Report ---
Test Reason : Blood Pressure : / mmHG Vent. Rate : 086 BPM Atrial Rate : 086 BPM P-R Int : 182 ms QRS Dur : 102 ms QT Int : 386 ms P-R-T Axes : 050 -28 113 degrees QTc Int : 461 ms Sinus rhythm with frequent Premature ventricular complexes Possible Left atrial enlargement Left ventricular hypertrophy with repolarization abnormality Abnormal ECG When compared with ECG of 05-MAY-2020 06:41, Premature ventricular complexes are now Present Nonspecific T wave abnormality no longer evident in Inferior leads Confirmed by Blaze Norton ([id number]) on 04/22/2021 4:37:47 PM Referred By: REFERRED SELF Confirmed By:Blaze Norton
--- NOTE | 2021-04-22 17:24 | Emergency Department Note ---
Impression & Plan Acute UTI (urinary tract infection), Multiple sclerosis ED Provider Note INFORMANT: Patient ED PROVIDER(S): Panda Pearce MD CHIEF COMPLAINT: Urinary issues PLAN: Disposition: Admitted Condition: Good Outpatient prescription management: none Referral: None MEDICAL DECISION MAKING: Patient presented because of urinary problems. Estrella catheter was attempted by nursing and this was unsuccessful. I did attempt to place a 16 Maori and then 14 Maori catheter. There was resistance that seemed to be consistent in the area of the prostatic urethra. There was blood noted. I did consult with urology. Catheter was placed. Urinalysis is concerning for infection. Patient has a leukocytosis. Culture was reviewed with the ED pharmacist. The patient has had complicated infections in the past with resistance patterns that were concerning. IV meropenem was recommended for empiric treatment. This was done. Consultation was made with the [facility] Hospitalist service. Patient was evaluated in the ER admitted for further management. Triage Nursing notes reviewed and agree them. Vital Signs: reviewed and remarkable for no significant abnormalities Differential diagnosis: Catheter malfunction, obstruction, dehydration, urinary tract infection, urinary retention, acute kidney injury, as well as other pathologies. Diagnostics interpreted by me: ECG: Twelve-lead ECG reveals a sinus rhythm at 86 bpm with PVCs. LVH present. T wave inversions in lead V2, I and aVL. Cardiac Monitoring: Cardiac monitoring ordered by me: The patient was placed on continuous cardiac monitoring and observed. It revealed a sinus rhythm at 87 bpm. Imaging studies: Deferred HPI: The patient is a 81 year old male who presents to the Emergency Room with complaints of urinary issues. This started today. Patient had an indwelling Estrella catheter was recently treated with UTI. The patient states he home nursing came and went to change the catheter. They were concerned about possible infection. They did remove the catheter. They did not successfully replace the catheter despite trying. The patient came to the ER. He notes of lower abdominal discomfort. He also notes some lower back discomfort. Patient has not passed any urine since catheter removal. Current pain is rated as 5/10. Patient has a history of MS. He has significant lower extremity weakness and is bedbound. Pt denies LOC, headache, fevers, chills, diaphoresis, visual changes, neck pain, chest pain, breathing difficulties, nausea, vomiting, melena, hematochezia, numbness, lymphadenopathy, rash, or other complaints. ROS: See above HPI for pertinent positives & negatives. A total of 10 systems reviewed and were otherwise negative. PAST MEDICAL HISTORY:See Below , MS, UTI PAST SURGICAL HISTORY:See Below, FAMILY HISTORY:See Below SOCIAL HISTORY:See Below, retired HOME MEDICATIONS:See Below ALLERGIES:See Below VITALS:See Below PHYSICAL EXAMINATION: GENERAL: Awake, alert, uncomfortable-appearing, in no distress HENT: Normocephalic, atraumatic. Oropharynx unremarkable. EYES: Normal conjunctiva. Sclera non-icteric. NECK: Inspection normal. Non-tender. Supple. No nuchal rigidity. FROM. No masses. RESPIRATORY: Clear to auscultation. No wheezes. No rales. Normal respiratory effort. CARDIAC: Normal rate. Normal rhythm. No murmurs. No rubs. Extremities warm and well perfused. Pulses equal. No JVD. GI: Soft, mildly-distended. Suprapubic tenderness to palpation. No rebound or guarding. No masses. RECTAL: Deferred. : There is a hypospadias present. No scrotal edema. Glans appears normal otherwise. MUSCULOSKELETAL: Atraumatic. Chest examination reveals no tenderness. The back is symmetrical on inspection without obvious abnormality. There is no CVA tenderness to palpation. No joint edema. LOWER EXTREMITIES: Calves are equal size bilaterally and non-tender. No edema. No discoloration. NEURO: Normal sensorium. No sensory or motor deficits noted. SKIN: No rash or jaundice noted. Panda Pearce MD Past Med/Surg History Medical History (Updated 04/22/21 @ 17:24 by Panda Pearce MD) Avascular necrosis of bone BPH (benign prostatic hyperplasia) Elevated troponin Estrella catheter in place History of skin cancer ON CHEST AREA Hyperlipidemia Hypertension Multiple sclerosis Debilitated, wheelchair-bound for several years. Can transfer self. Following with Dr Armenta [facility] neuro. Spontaneous pneumothorax HX OF MANY YEARS AGO A TEENAGER (NO SURGERY) Urinary retention Urinary retention Surgical History (Updated 04/22/21 @ 17:22 by LEE Barlow) H/O arthroscopy of shoulder RT History of colonoscopy History of esophagogastroduodenoscopy (EGD) History of herniorrhaphy History of tonsillectomy History of tooth extraction Hx of appendectomy S/P TURP Family History Other Cancer No family history of adverse response to anesthesia Social History Smoking Status: Former smoker Tobacco Type: Cigarettes Second Hand Exposure: No; Hx Alcohol Use: No Hx Substance Use: No Preferred Language: Slovenian Communication Ability: Effective [employer] Leader Required: No Beliefs That Will Affect Care: None marital status: Current Living Situation: Spouse Feels Safe at Home: Yes Assistive Devices: None Allergies Allergies Allergy/AdvReac Type Severity Reaction Status Date / Time ampicillin Allergy Unknown Unknown Verified 04/22/21 12:50 morphine AdvReac Mild "MADE ME Verified 04/22/21 12:50 FEEL ODD" Home Meds Home Medications Medication Instructions Recorded Confirmed amlodipine 10 mg tablet 10 mg PO HS 03/21/20 04/22/21 multivitamin 1 tab PO QAM 03/26/20 04/22/21 omega-3 fatty acids-fish oil 684 1 cap PO QAM 03/26/20 04/22/21 mg-1,200 mg capsule,delayed release vitamin B complex 1 tab PO QAM 03/26/20 04/22/21 metoprolol tartrate 25 mg tablet 25 mg PO BID 07/03/20 04/22/21 fluconazole 150 mg tablet 150 mg PO WK 04/22/21 04/22/21 Results & Data (ED) Vital Signs Vital Signs - 24 hr 04/22/21 11:58 04/22/21 12:07 04/22/21 12:57 Temperature 37.0 C Temperature Source Oral Pulse Rate 91 H Pulse Rate [Apical] 71 Pulse Rhythm [Apical] Regular Respiratory Rate 19 20 Respiratory Effort / Characteristics Non-Labored Non-Labored Respiratory Depth Respiratory Pattern Blood Pressure 146/91 H Blood Pressure [Left Arm] 120/75 Blood Pressure Mean 109 Blood Pressure Mean [Left Arm] 90 Pulse Oximetry 98 99 98 Oxygen Delivery Method Room Air Room Air Room Air Sepsis Recent Fever Within 48 Hours No Sepsis New/Unexplained Change in Mental Status No Sepsis Action Taken by Nursing No Action Required 04/22/21 14:00 Temperature Temperature Source Pulse Rate Pulse Rate [Apical] 91 H Pulse Rhythm [Apical] Respiratory Rate 18 Respiratory Effort / Characteristics Non-Labored Spontaneous Respiratory Depth Normal Respiratory Pattern Regular Blood Pressure Blood Pressure [Left Arm] 142/74 H Blood Pressure Mean Blood Pressure Mean [Left Arm] 96 Pulse Oximetry 97 Oxygen Delivery Method Room Air Sepsis Recent Fever Within 48 Hours Sepsis New/Unexplained Change in Mental Status Sepsis Action Taken by Nursing Laboratory Data Result diagrams: 04/22/21 12:08 04/22/21 12:08 Lab Results 04/22/21 04/22/21 04/22/21 Range/Units 12:08 12:08 12:44 WBC 12.66 H (4.8-10.8) K/uL RBC 4.73 (4.7-6.1) M/uL Hgb 13.4 L (14.0-18.0) g/dL Hct 40.8 L (42-52) % MCV 86.3 (80-100) fL MCH 28.3 (25-34) pg MCHC 32.8 (32-36) g/dL RDW Std Deviation 54.3 H (36.4-46.3) fL RDW Coeff of Bossman 17.3 H (11.5-14.5) % Plt Count 337 (130-400) K/uL MPV 12.2 H (7.4-10.4) fL Immature Gran % (Auto) 0.3 % Neut % (Auto) 65.7 % Lymph % (Auto) 21.4 % [place] % (Auto) 7.3 % Eos % (Auto) 4.8 % Baso % (Auto) 0.5 % Neut # (Auto) 8.32 H (1.4-6.5) K/uL Lymph # (Auto) 2.71 (1.2-3.4) K/uL [place] # (Auto) 0.92 H (0.11-0.59) K/uL Eos # (Auto) 0.61 H (0-0.5) K/uL Baso # (Auto) 0.06 (0-0.2) K/uL Immature Gran # (Auto) 0.04 H (0.00-0.02) K/uL Sodium 142 (136-145) mmol/L Potassium 3.9 (3.5-5.1) mmol/L Chloride 111 H (98-107) mmol/L Carbon Dioxide 24 (21-32) mmol/L Anion Gap 7.0 (3-11) BUN 22 H (7-18) mg/dl Creatinine 0.96 (0.6-1.4) mg/dl Est Cr Clr Drug Dosing 71.7 ml/min Est GFR ( Amer) 86.8 ml/min Est GFR (Non-Af Amer) 74.9 ml/min BUN/Creatinine Ratio 23.0 H (10-20) Glucose 109 H (70-99) mg/dl Calcium 10.1 (8.5-10.1) mg/dl Total Bilirubin 0.4 (0.2-1) mg/dl AST 16 (15-37) U/L ALT 18 (12-78) Alkaline Phosphatase 100 (45-117) U/L Total Protein 7.8 (6.4-8.2) gm/dl Albumin 3.0 L (3.4-5.0) gm/dl Globulin 4.8 H (2.5-4.0) gm/dl Albumin/Globulin Ratio 0.6 L (0.9-2) Lipase 910 H (73-393) U/L Urine Color Dark Yellow Urine Appearance Cloudy A (Clear) Urine pH 6.0 (4.5-7.5) Ur Specific [place] 1.015 (1.000-1.030) Urine Protein 2+ H (Negative) Urine Glucose (UA) Negative (Negative) Urine Ketones Negative (Negative) Urine Blood 2+ H (Negative) Urine Nitrite Positive A (Negative) Urine Bilirubin Negative (Negative) Urine Urobilinogen Negative (Negative) Ur Leukocyte Esterase 3+ H (Negative) Urine WBC (Auto) >30 H (0-5) /hpf Urine RBC (Auto) 10-30 H (0-4) /hpf U Hyaline Cast (Auto) 1-5 (0-5) /lpf U Epithel Cells (Auto) 0-5 (0-5) /lpf Urine Bacteria (Auto) 2+ H (Negative) SARS-CoV-2, RNA, NAAT (NEGATIVE) 04/22/21 Range/Units 14:05 WBC (4.8-10.8) K/uL RBC (4.7-6.1) M/uL Hgb (14.0-18.0) g/dL Hct (42-52) % MCV (80-100) fL MCH (25-34) pg MCHC (32-36) g/dL RDW Std Deviation (36.4-46.3) fL RDW Coeff of Bossman (11.5-14.5) % Plt Count (130-400) K/uL MPV (7.4-10.4) fL Immature Gran % (Auto) % Neut % (Auto) % Lymph % (Auto) % [place] % (Auto) % Eos % (Auto) % Baso % (Auto) % Neut # (Auto) (1.4-6.5) K/uL Lymph # (Auto) (1.2-3.4) K/uL [place] # (Auto) (0.11-0.59) K/uL Eos # (Auto) (0-0.5) K/uL Baso # (Auto) (0-0.2) K/uL Immature Gran # (Auto) (0.00-0.02) K/uL Sodium (136-145) mmol/L Potassium (3.5-5.1) mmol/L Chloride (98-107) mmol/L Carbon Dioxide (21-32) mmol/L Anion Gap (3-11) BUN (7-18) mg/dl Creatinine (0.6-1.4) mg/dl Est Cr Clr Drug Dosing ml/min Est GFR ( Amer) ml/min Est GFR (Non-Af Amer) ml/min BUN/Creatinine Ratio (10-20) Glucose (70-99) mg/dl Calcium (8.5-10.1) mg/dl Total Bilirubin (0.2-1) mg/dl AST (15-37) U/L ALT (12-78) Alkaline Phosphatase (45-117) U/L Total Protein (6.4-8.2) gm/dl Albumin (3.4-5.0) gm/dl Globulin (2.5-4.0) gm/dl Albumin/Globulin Ratio (0.9-2) Lipase (73-393) U/L Urine Color Urine Appearance (Clear) Urine pH (4.5-7.5) Ur Specific [place] (1.000-1.030) Urine Protein (Negative) Urine Glucose (UA) (Negative) Urine Ketones (Negative) Urine Blood (Negative) Urine Nitrite (Negative) Urine Bilirubin (Negative) Urine Urobilinogen (Negative) Ur Leukocyte Esterase (Negative) Urine WBC (Auto) (0-5) /hpf Urine RBC (Auto) (0-4) /hpf U Hyaline Cast (Auto) (0-5) /lpf U Epithel Cells (Auto) (0-5) /lpf Urine Bacteria (Auto) (Negative) SARS-CoV-2, RNA, NAAT NEGATIVE (NEGATIVE) Administered Medications Meropenem 500 mg/ Syringe 10 mls @ 2 mls/min IV Q6H [facility]; Protocol Stop: 04/24/21 13:44 Last Admin: 04/22/21 14:10 Dose: 2 mls/min Documented by: [id number] Discharge Plan Visit Data Chief Complaint: Urinary Symptoms Stated Complaint: Urinary Symptoms ED Provider: Panda Pearce Discharge Problem: Acute UTI (urinary tract infection), Multiple sclerosis
--- NOTE | 2021-04-22 17:31 | History & Physical Report ---
Date of Service April 22, 2021 Assessment & Plan (1) Acute UTI (urinary tract infection): (2) Difficult Riddle catheter placement: Plan: -Admit to [facility] -Patient presenting from home after home health nursing removed Riddle catheter due to it being clogged and was unable to replace. -In the ED, urology was called and successfully replace patient's Riddle catheter -UA suggest ongoing UTI -Urine culture 04/02 grew Citrobacter -patient completed a course of Cipro however sensitivities were intermediate -Does not appear septic -S/p meropenem in the ED, will continue with pending final repeat culture results from today (3) PSVT (paroxysmal supraventricular tachycardia): (4) NSVT (nonsustained ventricular tachycardia): Plan: -Continue metoprolol (5) Multiple sclerosis: (6) Sacral wound: Plan: -Follows with the wound care center -Wound care nurse consult while inpatient -Continue weekly fluconazole x 2 more doses to complete course ordered by PCP for fungal skin infection of perineal area (7) Hypertension: Plan: -BP controlled, continue metoprolol and amlodipine (8) DVT prophylaxis: Plan: -SQ Lovenox Admission and Anticipated Discharge Date Admission Date: April 22, 2021 History of Present Illness Chief Complaint: Riddle catheter problem Primary Care Provider: Aram Lyman MD 81-year-old male with PMH HLD, nonsustained ventricular tachycardia, paroxysmal SVT, HTN, MS with bedbound status, chronic urinary retention with Riddle catheter, chronic sacral wounds, and other problems listed below who presents to the ED for a Riddle catheter problem. Patient was placed on Cipro on 04/01 for UTI. Patient's reports that urine started to clear up after Cipro was started. Today, home health nursing had to remove patient's Riddle catheter because it was clogged due to urine being thick. She unfortunately was unable to replace the catheter and patient was sent to the ED for further evaluation. On 04/08, patient was started on weekly fluconazole for suspected skin fungal infection. Patient offers no complaints during today's exam. Reports he has been "feeling great". No fevers or chills. Denies abdominal pain, nausea, v omiting, diarrhea. No lightheadedness, dizziness, diaphoresis, syncopal events. Denies chest pain or shortness of breath. In the ED, urology was called to replace Riddle catheter. Patient was started on IV meropenem according to most recent culture results. Allergies Allergy/AdvReac Type Severity Reaction Status Date / Time ampicillin Allergy Unknown Unknown Verified 04/22/21 12:50 morphine AdvReac Mild "MADE ME Verified 04/22/21 12:50 FEEL ODD" Home Medications Medication Instructions Recorded Confirmed Type amlodipine 10 mg tablet 10 mg PO HS 03/21/20 04/22/21 History multivitamin 1 tab PO QAM 03/26/20 04/22/21 History omega-3 fatty acids-fish oil 684 1 cap PO QAM 03/26/20 04/22/21 History mg-1,200 mg capsule,delayed release vitamin B complex 1 tab PO QAM 03/26/20 04/22/21 History metoprolol tartrate 25 mg tablet 25 mg PO BID 07/03/20 04/22/21 History fluconazole 150 mg tablet 150 mg PO WK 04/22/21 04/22/21 History Past Med/Surg History Medical History Avascular necrosis of bone BPH (benign prostatic hyperplasia) Elevated troponin Riddle catheter in place History of skin cancer ON CHEST AREA Hyperlipidemia Hypertension Multiple sclerosis Debilitated, wheelchair-bound for several years. Can transfer self. Following with Dr Armenta, [facility] neuro. Spontaneous pneumothorax HX OF MANY YEARS AGO A TEENAGER (NO SURGERY) Urinary retention Urinary retention Surgical History H/O arthroscopy of shoulder RT History of colonoscopy History of esophagogastroduodenoscopy (EGD) History of herniorrhaphy History of tonsillectomy History of tooth extraction Hx of appendectomy S/P TURP Family History Other Cancer No family history of adverse response to anesthesia Social History Smoking Status: Former smoker Tobacco Type: Cigarettes Second Hand Exposure: No; Hx Alcohol Use: No Hx Substance Use: No Preferred Language: Argentine Communication Ability: Effective Kitchen Stewardess Required: No Beliefs That Will Affect Care: None marital status: Current Living Situation: Spouse Feels Safe at Home: Yes Assistive Devices: None Review of Systems Review of Systems: ROS per HPI, all other systems reviewed and negative Physical Exam Constitutional: WD/WN, vitals as above Eyes: PERRL, conjunctivae normal, anicteric sclerae ENMT: external ear and nose normal, oropharynx normal Respiratory: normal respiratory effort, lungs clear to auscultation Cardiovascular: Rate/Rhythm: regular rate and regular rhythm Vessels: nor mal peripheral pulses Extremities: no edema Gastrointestinal (Abdomen): normal bowel sounds, soft, nontender, no hepatosplenomegaly Musculoskeletal: Extremities: no cyanosis and no clubbing Upper extremity strength 4/5, lower extremity strength 1/5 -chronic due to MS Skin: no rashes, warm and dry Neurologic: PERRL, EOMI, accommodation nl, no face palsy, no dysarthria Psychiatric: A+Ox3, euthymic affect Genitourinary: Riddle catheter in place Results & Data Results & Data ([facility]) Vital Signs (Past 12 Hours) Vital Signs Temp Pulse Pulse Resp BP BP Pulse Ox 04/22/21 16:05 87 19 141/89 H 98 04/22/21 14:00 91 H 18 142/74 H 97 04/22/21 12:57 71 20 120/75 98 04/22/21 12:07 99 04/22/21 11:58 37.0 C 91 H 19 146/91 H 98 Code Status & VTE Plan Code Status Patient is a full code as per my discussion with him. 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 Exam: NAD Lungs: CTA, no wheezing Cardiac: normal S1/S2, no murmur Abd: TTP of the b/l lower abd and suprapubic area LE: b/l LE pitting edema Psych: AAOx3 A/P: UTI: -riddle was replaced by urology in the ER - pt had hx of UCx with species that is resistance/Intermediate sensitive to Cipro, ceftriaxone, macrobid, Cefepime and Levaquin -until we get the UCx result will continue the pt on meropenem Chronic sacral ulcer: -will consult wound care Agree with A/P by LEE Waddell
[2021-04-22] MEDS ORDERED: FLUCONAZOLE 50 MG TAB PO SCH (21:40)
[2021-04-22] MEDS ORDERED: ACETAMINOPHEN 325 MG TAB ONE (22:14)
[2021-04-23] MEDS: MEROPENEM 500 MG in SYRINGE 0 ML IV SCH ×4 (00:48→20:46)
[2021-04-23 06:01] LABS: Hemoglobin 12.7 g/dL (14.0-18.0); Mean Corpuscular Hemoglobin 28.2 pg (25-34); Mean Corpuscular Hgb Conc 32.6 g/dL (32-36); Mean Corpuscular Volume 86.5 fL (80-100); Mean Platelet Volume 12.5 fL (7.4-10.4); Platelet Count 342 K/uL (130-400); RDW Coefficient of Variation 17.5 % (11.5-14.5); RDW Standard Deviation 55.2 fL (36.4-46.3); Red Blood Count 4.51 M/uL (4.7-6.1); White Blood Count 13.64 K/uL (4.8-10.8)
[2021-04-23 06:52] LABS: BUN Creatinine Ratio 23.8 (10-20); Creatinine Clr Calc Pharmacy 56.9 ml/min; Est GFR (African American) 65.6 ml/min; Est GFR (Non-African American) 56.6 ml/min; Potassium 4.7 mmol/L (3.5-5.1)
[2021-04-23] MEDS: METOPROLOL TARTRATE 25 MG TAB PO SCH ×3 (07:51→20:44)
[2021-04-23] MEDS: ACETAMINOPHEN 325 MG TAB PO PRN ×2 (07:51→19:50)
--- NOTE | 2021-04-23 20:17 | Hospitalist Progress Note ---
Date of Service April 23, 2021 delayed entry date of service noted above Assessment & Plan (1) Acute UTI (urinary tract infection): (2) Difficult Riddle catheter placement: Plan: -s/p replacement of riddle cath - afebrile, clinically stable - cultures pending - continue abx (3) PSVT (paroxysmal supraventricular tachycardia): (4) NSVT (nonsustained ventricular tachycardia): Plan: -Continue metoprolol (5) Multiple sclerosis: (6) Sacral wound: Plan: -Follows with the wound care center -Wound care nurse consult while inpatient -Continue weekly fluconazole x 2 more doses to complete course ordered by PCP for fungal skin infection of perineal area (7) Hypertension: Plan: continue metoprolol and amlodipine (8) DVT prophylaxis: Plan: -SQ Lovenox Admission and Anticipated Discharge Date Admission Date: April 22, 2021 Subjective ff up for UTI, indwelling riddle cath, etc seen resting in bed, comfortable not in distress in good spirits states he feels better overall no abdominal pain ,nausea/vomiting, fever/chills no chest pain, dyspnea, palpitations, dizziness no other symptoms Review of Systems Review of Systems: all noted and negative except for above Physical Exam Physical Exam: General- oriented x 2, not in distress, speaks in sentences with no effort or accessory muscle use Head- atraumatic Eyes- PERRL, EOMI, anicteric ENT- oropharynx clear Neck- supple, no JVD, no adenopathy, no thyromegaly; carotids +2/2, no bruits appreciated Lungs- clear to auscultation bilaterally, no rales/wheezes Heart- normal rate, regular rhythm; no murmur, no gallop, no rub appreciated Abdomen- normal bowel sounds, nondistended, soft, nontender, no masses or hepa tosplenomegaly Riddle cath in place- yellow urine Extremities- no pretibial edema, no calf tenderness; peripheral pulses intact Neuro- alert, oriented x 3; CN 2-12 grossly intact; motor 5/5 bilateral ly;sensation 100% on all extremities; no other gross focal neurologic deficits Skin- warm & dry Results & Data Results & Data ([facility]) Vital Signs (Past 12 Hours) Vital Signs Temp Pulse Resp BP BP Pulse Ox 04/23/21 19:34 36.7 C 75 20 140/74 98 04/23/21 15:52 36.5 C 58 L 20 123/69 99 04/23/21 11:00 36.5 C 63 18 127/76 97 all noted and reviewed including below
[2021-04-23] MEDS: amLODIPine BESYLATE 5 MG TAB PO SCH ×2 (20:44)
[2021-04-23] MEDS: ENOXAPARIN INJ 40 MG/0.4 ML SYR SQ SCH ×2 (20:45)
[2021-04-24] MEDS ORDERED: OLANZapine 10 MG/2.1 ML SDV IM STA (02:09)
[2021-04-24] MEDS: MEROPENEM 500 MG in SYRINGE 0 ML IV SCH (03:09)
[2021-04-24] MEDS: ACETAMINOPHEN 325 MG TAB PO PRN (08:33)
[2021-04-24] MEDS: METOPROLOL TARTRATE 25 MG TAB PO SCH (08:35)
[2021-04-24] MEDS ORDERED: CEFDINIR 300 MG CAP PO SCH (10:45)
--- NOTE | 2021-04-24 13:40 | Discharge Summary ---
Date of Service April 24, 2021 Admission HPI Per Admitting Provider 81-year-old male with PMH HLD, nonsustained ventricular tachycardia, paroxysmal SVT, HTN, MS with bedbound status, chronic urinary retention with Estrella catheter, chronic sacral wounds, and other problems listed below who presents to the ED for a Estrella catheter problem. Patient was placed on Cipro on 04/01 for UTI. Patient's reports that urine started to clear up after Cipro was started. Today, home health nursing had to remove patient's Estrella catheter because it was clogged due to urine being thick. She unfortunately was unable to replace the catheter and patient was sent to the ED for further evaluation. On 04/08, patient was started on weekly fluconazole for suspected skin fungal infection. Patient offers no complaints during today's exam. Reports he has been "feeling great". No fevers or chills. Denies abdominal pain, nausea, vomiting, diarrhea. No lightheadedness, dizziness, diaphoresis, syncopal events. Denies chest pain or shortness of breath. In the ED, urology was called to replace Estrella catheter. Patient was started on IV meropenem according to most recent culture results. Admission Exam Per Admitting Provider Constitutional: WD/WN, vitals as above Eyes: PERRL, conjunctivae normal, anicteric sclerae ENMT: external ear and nose normal, oropharynx normal Respiratory: normal respiratory effort, lungs clear to auscultation Cardiovascular: Rate/Rhythm: regular rate and regular rhythm Vessels: normal peripheral pulses Extremities: no edema Gastrointestinal (Abdomen): normal bowel sounds, soft, nontender, no hepatosplenomegaly Musculoskeletal: Extremities: no cyanosis and no clubbing Upper extremity strength 4/5, lower extremity strength 1/5 -chronic due to MS Skin: no rashes, warm and dry Neurologic: PERRL, EOMI, accommodation nl, no face palsy, no dysarthria Psychiatric: A+Ox3, euthymic affect Genitourinary: Estrella catheter in place Principal Diagnosis Catheter associated UTI Discharge Exam Gen: WD/WN, NAD, sitting in bed, A&Ox3 HEENT: Normocephalic, atraumatic, conjunctivae moist, sclerae anicteric, mucous membranes moist Lung: Clear to Auscultation bilaterally, no wheezes/rales/rhonchi Heart: Regular rate, regular rhythm, no murmurs, rubs, or gallops Abdomen: Soft, NT, ND +BS x 4 : Estrella catheter draining light yellow urine Extremities: no edema Skin: Warm, no rash Discharge Data Allergies Allergy/AdvReac Type Severity Reaction Status Date / Time ampicillin Allergy Unknown Unknown Verified 04/22/21 12:50 morphine AdvReac Mild "MADE ME Verified 04/22/21 12:50 FEEL ODD" Consultations 04/22/21 14:17 ED Decision to Admit Stat Hospital Course (1) Acute UTI (urinary tract infection): (2) Difficult Estrella catheter placement: (3) PSVT (paroxysmal supraventricular tachycardia): (4) NSVT (nonsustained ventricular tachycardia): (5) Multiple sclerosis: (6) Sacral wound: (7) Hypertension: This is a 81-year-old male with PMH chronic urinary retention with Estrella catheter, chronic sacral wounds, HLD, nonsustained ventricular tachycardia, paroxysmal SVT, HTN, MS requiring wheelchair and other problems listed below who presents to the ED for a clogged Estrella catheter. Catheter was replaced in ED but UA suggestive of infection. Urine culture from 04/02 grew Citrobacter -patient completed a course of Cipro however outpatient sensitivities were intermediate. Was started on meropenem in the ED with repeat cultures from 04/22 growing Citrobacter freundii, resistant to Cipro. Patient is feeling well and will be discharged home on Cefdinir 300mg BID for total 14 day course of antibiotics. Follows with wound care centre for chronic sacral wound. Was evaluated by wound care nurse while inpatient. Continue weekly fluconazole x 2 more doses to complete course ordered by PCP for fungal skin infection of perineal area. Patient hemodynamically stable at time of discharge home. Attending Addendum: delayed entry date of service noted above care coordinated with PADMA Lou Geronimo please refer to her notes for full details, I agree with her notes patient seen and examined, records reviewed by myself as well on exam, patient seen resting in bed, comfortable in good spirits no new symptoms states he is fine and ready for discharge no other symptoms VS noted and reviewed oriented x2, not in distress, speaks in sentences with no effort nor accessory muscle use normal rate, regular rhythm, no murmurs clear breath sounds bilaterally non distended, soft, nontender; Estrella cath- in place, yellow urine no bipedal edema, erythema, warmth no neuro deficits ASSESSMENT AND PLAN UTI, Citrobacter d/c on Cefdinir PO HTN continue usual medication other diagnoses and plan of care as per PADMA Lou Fitzgerald MD Total Time Total Time Spent Total Time Spent (In Minutes): 40 Discharge Plan Discharge Items Patient Disposition: Home - Self-Care Reason For Visit: Urinary Symptoms Discharge Diagnosis: catheter associated UTI Activity: Resume your previous activity Non-emergency contact: Primary Care Provider Call non-emergency contact if: you have any medication questions, your symptoms worsen, your pain is not controlled and your pain is concerning for you Follow-up/Referrals: Aram Lyman MD [Primary Care Provider] - 04/28/21 11:00 am (Date & Time 04/28/2021 11:00 AM Provider Aram Lyman MD Department General Internal Medicine [facility] ) Diet: Heart Healthy Addtl Attending Provider Instructions: You were admitted to the hospital for catheter-associated urinary tract infection. MEDICATION CHANGES: New Medications: Cefdinir (antibiotic) 300mg twice daily for the next 12 days. Continue all other home medications. RECOMMENDATIONS FOR FOLLOW-UP: Please follow up with PCP as scheduled above. Complete full course of antibiotic. Continue all home medications. Continue catheter care as before. OTHER INSTRUCTIONS: Seek medical attention if you have: * temperature above 101 * chest pain or trouble breathing * abdominal pain, nausea, vomiting * diarrhea, dark stools or bloody stools * any unanswered questions or concerns Call 911 if symptoms are severe. Please take good care of yourself. It has been a pleasure taking care of you. Please take care of yourself. If you have any questions regarding your recent hospitalization please contact [facility] and request carol Blountist @ [phone]. Lou Geronimo PA-C [facility] Pending Studies at Discharge: No Stand-Alone Forms: My [facility], Smoking Cessation Medications and DC Order Prescriptions: New cefdinir 300 mg capsule 300 mg PO BID 13 Days Qty: 25 RF: 0 Continued metoprolol tartrate 25 mg tablet 25 mg PO BID RF: 0 amlodipine 10 mg tablet 10 mg PO HS RF: 0 multivitamin Tablet 1 tab PO QAM RF: 0 vitamin B complex Tablet 1 tab PO QAM RF: 0 omega-3 fatty acids-fish oil 684-1,200 mg Capsule,Delayed Release(Dr/Ec) 1 cap PO QAM RF: 0 fluconazole 150 mg tablet 150 mg PO WK RF: 0 Discharge Orders: Discharge Order (Routine); Ordered 04/24/21 Ordered By: Lou Small/Other Patient Handouts: Understanding Urinary Tract ... Admission Data Admit Date/Time: 04/22/21 14:19 Attending Provider: Edmundo Fitzgerald Admit Provider: Maranda Duran Primary Care Provider: Aram Lyman Other Providers: Maranda Duran ; [place] Other Interventions: Discharge Summary Assessment (RN) Last Done: 04/24/21 14:53
== END 2021-04-24 19:20 | disposition home or self-care (01) ==
LOC: EDINP 10:47 → ED 10:47 → SUATTDRO 14:19 → 2N 21:19 → 3N 04-24 05:57

== ENCOUNTER 2021-07-28 15:10 | Observation (INO) ==
[2021-07-28] MEDS ORDERED: ONDANSETRON INJ 2 MG/ML 2 ML VIAL IV STA (16:13)
--- NOTE | 2021-07-28 16:22 | Emergency Department Note ---
Impression & Plan NSVT (nonsustained ventricular tachycardia), Arm pain, Elevated troponin, Pressure ulcer ED Provider Note NAME: MIRELA TAVAREZ AGE: 81 SEX: M : 1940 ARRIVES VIA: Ambulance INFORMANT: Patient ED PROVIDER(S): Kranhti Aquino DO CHIEF COMPLAINT: Left shoulder pain HPI: He notes he has been having this for quite some time which includes several months to about a year. This morning it got significantly worse when he was rolled to his left side. He notes its right over his left humerus. Notes is worse with movement of his arm. He took some Ultram and Tylenol and the pain improved. Is currently about a 4 out of 10. Improves with rest. Denies any weakness or numbness. Patient is a 81-year-old male who presents ER with left shoulder pain. Upon arrival patient got sick from the ambulance and threw up. Denies any chest pain or shortness of breath. No belly pain. No dysuria, urgency, or frequency. ROS: See above HPI for pertinent positives & negatives. A total of 10 systems reviewed and were otherwise negative. PAST MEDICAL HISTORY:See Below PAST SURGICAL HISTORY:See Below FAMILY HISTORY:See Below SOCIAL HISTORY:See Below HOME MEDICATIONS:See Below ALLERGIES:See Below VITALS:See Below PHYSICAL EXAMINATION: GENERAL: Sitting up in bed, alert, well appearing, well nourished, no distress, non-toxic EYE EXAM: normal conjunctiva. OROPHARYNX: no exudate, no erythema, lips, buccal mucosa, and tongue normal and mucous membranes are moist NECK: supple, no nuchal rigidity, no adenopathy, non-tender LUNGS: Clear to auscultation. Normal chest wall mechanics HEART: no murmurs, S1 normal and S2 normal ABDOMEN: abdomen soft, non-tender, normo-active bowel sounds, no masses, no rebound or guarding. UPPER EXTREMITIES: Flexion-extension of the shoulder elbow wrist and grasp as well as abduction of the digits on the left 5 out of 5. Radial pulse 2 out of 4. Internal and external rotation of the humerus intact. Pain worsens with abduction as well as internal and external rotation of left shoulder LOWER EXTREMITIES: No pitting edema. NEURO EXAM: Normal sensorium, cranial nerves II-XII grossly intact, normal speech, no gross weakness of arms, no gross weakness of legs. No drift. Finger to nose intact. Gross sensation intact. MEDICAL DECISION MAKING: Patient is a 81-year-old male who presents the ER for left arm pain which is worse with movement and laying on it. Improves with rest. Initially x-rays were obtained as well as blood work. IV was established showed a mild leukocytosis of 15,000. No significant anemia. BMP with a slightly elevated chloride. LFTs bilirubin was unremarkable. Troponin is elevated 0.06 but is chronically elevated and this is less than usual. Lipase and TSH were unrema rkable. Covid was negative. Troponin was not initially drawn but this as well as EKG were ordered as patient had 2-3 runs of VT while in the ER. Patient has had these before. Did discuss with hospitalist for observation although he was asymptomatic during these events. These were nonsustained and he was asymptomatic consequently held on any antiarrhythmics. Patient was given morphine for the pain in his left shoulder. Triage Nursing notes reviewed. Limited review of prior medical records performed Vital Signs: reviewed and remarkable for HTN Differential diagnosis: Fracture, subluxation, dislocation, contusion, ligamentous injury, ne urovascular, compartment syndrome, rhabdomyolysis, as well as other pathologies. ER treatment provided: See below Diagnostics interpreted by me: ECG: Sinus rhythm rate 80 PVCs Left axis QTC 447 T wave inversion in the high lateral leads as well as ST depressions Cardiac Monitoring: An order was placed for continuous cardiac monitoring. The monitor shows a rate of 81 with sinus rhythm. Laboratory studies: As stated above and show below. Imaging studies: X-rays of the left shoulder head neck showed EKG Consultation(s): Discussed with Jose Webster for further evaluation Procedures: none Critical Care: None Past Med/Surg History Medical History Avascular necrosis of bone BPH (benign prostatic hyperplasia) Elevated troponin Estrella catheter in place History of skin cancer ON CHEST AREA Hyperlipidemia Hypertension Multiple sclerosis Debilitated, wheelchair-bound for several years. Can transfer self. Following with Dr Armenta Diane neuro. Spontaneous pneumothorax HX OF MANY YEARS AGO A TEENAGER (NO SURGERY) Urinary retention Surgical History H/O arthroscopy of shoulder RT History of colonoscopy History of esophagogastroduodenoscopy (EGD) History of herniorrhaphy History of tonsillectomy History of tooth extraction Hx of appendectomy S/P TURP Family History Other Cancer No family history of adverse response to anesthesia Social History Smoking Status: Former smoker Tobacco Type: Cigarettes Second Hand Exposure: No; Do You Dip or Chew Tobacco: No; Tobacco Cessation Education Requested by Patient: No Hx Alcohol Use: No Hx Substance Use: No Preferred Language: Thai Communication Ability: Effective Pruner Required: No Beliefs That Will Affect Care: None marital status: Current Living Situation: Spouse How many Children do You have: 1 Other Information That Helps Us Care for You: No Feels Safe at Home: Yes Safety Concerns: Feels Safe At This Time Assistive Devices: Denture - Upper, Denture - Lower, Glasses and Wheelchair Assistive Devices Comment: Dentures are partials Allergies Allergies Allergy/AdvReac Type Severity Reaction Status Date / Time ampicillin Allergy Unknown Unknown Verified 07/25/21 10:35 morphine AdvReac Mild "MADE ME Verified 07/25/21 10:35 FEEL ODD" amoxicillin AdvReac ineffective Verified 07/28/21 20:49 Home Meds Home Medications Medication Instructions Recorded Confirmed amlodipine 10 mg tablet 10 mg PO HS 03/21/20 07/28/21 multivitamin 1 tab PO QAM 03/26/20 07/28/21 omega-3 fatty acids-fish oil 684 1 cap PO QAM 03/26/20 07/28/21 mg-1,200 mg capsule,delayed release vitamin B complex 1 tab PO QAM 03/26/20 07/28/21 metoprolol tartrate 25 mg tablet 25 mg PO BID 07/03/20 07/28/21 Lecihin Tab 380 mg PO DAILY 07/28/21 07/28/21 Turmeric Tab 500 mg PO DAILY 07/28/21 07/28/21 acetaminophen 325 mg tablet 650 mg PO Q4 PRN 07/28/21 07/28/21 (Tylenol) ascorbic acid (vitamin C) 500 mg 500 mg PO DAILY 07/28/21 07/28/21 tablet (Vitamin C) cholecalciferol (vitamin D3) 125 125 mcg PO DAILY 07/28/21 07/28/21 mcg (5,000 unit) tablet (Vitamin D3) garlic 300 mg tablet 300 mg PO DAILY 07/28/21 07/28/21 lactobacillus combination no.4 3 0 mmu cells PO DAILY 07/28/21 07/28/21 billion cell capsule (Probiotic) djkehbbqbgaq-[id number]-[id number] 1 tab PO DAILY 07/28/21 07/28/21 tablet (Multivitamin 50 Plus) niacin 500 mg tablet 500 mg PO DAILY 07/28/21 07/28/21 selenium 100 mcg tablet 100 mcg PO DAILY 07/28/21 07/28/21 senna-docusate sodium tablet 1 tab PO DAILY 07/28/21 07/28/21 tramadol 50 mg tablet 50 mg PO Q8H PRN 07/28/21 07/28/21 vitamin E 400 unit tablet 0 mg PO DAILY 07/28/21 07/28/21 zinc 50 mg tablet 50 mg PO DAILY 07/28/21 07/28/21 Results & Data (ED) Vital Signs Vital Signs - 24 hr 07/28/21 15:21 07/28/21 17:34 07/28/21 17:36 Temperature 37.0 C Temperature Source Oral Pulse Rate 84 89 88 Pulse Rate [Left] Pulse Rate from SpO2 Sensor 79 Pulse Rhythm [Left] Pulse Strength [Left] Respiratory Rate 18 19 15 Respiratory Effort / Characteristics Non-Labored Respiratory Depth Normal Respiratory Pattern Blood Pressure 178/86 H 157/84 H Blood Pressure [Right Arm] Blood Pressure Mean 116 108 Blood Pressure Mean [Right Arm] Blood Pressure Position Lying Blood Pressure Position [Right Arm] Pulse Oximetry 97 97 Oxygen Delivery Method Room Air Sepsis Recent Fever Within 48 Hours No Sepsis New/Unexplained Change in Mental Status No Sepsis Action Taken by Nursing No Action Required 07/28/21 18:00 07/28/21 18:03 07/28/21 18:30 Temperature Temperature Source Pulse Rate 90 90 Pulse Rate [Left] 76 Pulse Rate from SpO2 Sensor 90 86 Pulse Rhythm [Left] Regular Pulse Strength [Left] Normal Respiratory Rate 18 20 17 Respiratory Effort / Characteristics Non-Labored Spontaneous Respiratory Depth Normal Respiratory Pattern Regular Blood Pressure 146/80 H Blood Pressure [Right Arm] 153/87 H Blood Pressure Mean 102 Blood Pressure Mean [Right Arm] 109 Blood Pressure Position Blood Pressure Position [Right Arm] Lying Pulse Oximetry 98 89 L 97 Oxygen Delivery Method Room Air Sepsis Recent Fever Within 48 Hours Sepsis New/Unexplained Change in Mental Status Sepsis Action Taken by Nursing 07/28/21 19:00 07/28/21 19:29 07/28/21 19:30 Temperature Temperature Source Pulse Rate 90 90 Pulse Rate [Left] Pulse Rate from SpO2 Sensor 82 Pulse Rhythm [Left] Pulse Strength [Left] Respiratory Rate 17 28 H Respiratory Effort / Characteristics Respiratory Depth Respiratory Pattern Blood Pressure 149/83 H 159/81 H Blood Pressure [Right Arm] Blood Pressure Mean 105 107 Blood Pressure Mean [Right Arm] Blood Pressure Position Blood Pressure Position [Right Arm] Pulse Oximetry 97 Oxygen Delivery Method Sepsis Recent Fever Within 48 Hours Sepsis New/Unexplained Change in Mental Status Sepsis Action Taken by Nursing 07/28/21 19:31 07/28/21 20:00 07/28/21 20:30 Temperature Temperature Source Pulse Rate 84 82 84 Pulse Rate [Left] Pulse Rate from SpO2 Sensor 69 75 71 Pulse Rhythm [Left] Pulse Strength [Left] Respiratory Rate 16 23 17 Respiratory Effort / Characteristics Respiratory Depth Respiratory Pattern Blood Pressure 134/91 163/75 H Blood Pressure [Right Arm] Blood Pressure Mean 105 104 Blood Pressure Mean [Right Arm] Blood Pressure Position Blood Pressure Position [Right Arm] Pulse Oximetry 97 95 95 Oxygen Delivery Method Room Air Sepsis Recent Fever Within 48 Hours Sepsis New/Unexplained Change in Mental Status Sepsis Action Taken by Nursing Laboratory Data Result diagrams: 07/28/21 17:31 07/28/21 19:10 Lab Results 07/28/21 07/28/21 07/28/21 Range/Units 17:31 17:31 19:09 WBC 15.06 H (4.8-10.8) K/uL RBC 4.41 L (4.7-6.1) M/uL Hgb 12.8 L (14.0-18.0) g/dL Hct 38.6 L (42-52) % MCV 87.5 (80-100) fL MCH 29.0 (25-34) pg MCHC 33.2 (32-36) g/dL RDW Std Deviation 50.7 H (36.4-46.3) fL RDW Coeff of Bossman 15.8 H (11.5-14.5) % Plt Count 336 (130-400) K/uL MPV 12.1 H (7.4-10.4) fL Immature Gran % (Auto) 0.2 % Neut % (Auto) 78.0 % Lymph % (Auto) 11.5 % Hickman % (Auto) 7.2 % Eos % (Auto) 3.0 % Baso % (Auto) 0.1 % Neut # (Auto) 11.74 H (1.4-6.5) K/uL Lymph # (Auto) 1.73 (1.2-3.4) K/uL Hickman # (Auto) 1.09 H (0.11-0.59) K/uL Eos # (Auto) 0.45 (0-0.5) K/uL Baso # (Auto) 0.02 (0-0.2) K/uL Immature Gran # (Auto) 0.03 H (0.00-0.02) K/uL Sodium 138 (136-145) mmol/L Potassium (3.5-5.1) mmol/L Chloride 108 H (98-107) mmol/L Carbon Dioxide 21 (21-32) mmol/L Anion Gap 9 (3-11) BUN 19 (6-23) mg/dl Creatinine 0.80 (0.6-1.4) mg/dl Est Cr Clr Drug Dosing 84.1 ml/min Est GFR ( Amer) 98.5 ml/min Est GFR (Non-Af Amer) 85.0 ml/min BUN/Creatinine Ratio 23.8 H (10-20) Glucose 106 H (70-99(Fasting)) mg/dl Calcium 10.0 (8.5-10.1) mg/dl Magnesium (1.7-2.4) mg/dl Total Bilirubin 0.4 (0.2-1.0) mg/dl AST (13-39) U/L ALT 8 (7-52) U/L Alkaline Phosphatase 77 (34-104) U/L Troponin I (0-0.04) ng/ml Total Protein 7.5 (6.0-8.3) gm/dl Albumin 3.9 (3.4-5.0) gm/dl Globulin 3.6 (2.5-4.0) gm/dl Albumin/Globulin Ratio 1.1 (0.9-2) Lipase 36 (11-82) U/L TSH (0.300-4.500) uIu/ml SARS-CoV-2, RNA, NAAT NEGATIVE (NEGATIVE) 03/07/28/21 07/28/21 Range/Units 19:10 19:10 19:10 WBC (4.8-10.8) K/uL RBC (4.7-6.1) M/uL Hgb (14.0-18.0) g/dL Hct (42-52) % MCV (80-100) fL MCH (25-34) pg MCHC (32-36) g/dL RDW Std Deviation (36.4-46.3) fL RDW Coeff of Bossman (11.5-14.5) % Plt Count (130-400) K/uL MPV (7.4-10.4) fL Immature Gran % (Auto) % Neut % (Auto) % Lymph % (Auto) % Hickman % (Auto) % Eos % (Auto) % Baso % (Auto) % Neut # (Auto) (1.4-6.5) K/uL Lymph # (Auto) (1.2-3.4) K/uL Hickman # (Auto) (0.11-0.59) K/uL Eos # (Auto) (0-0.5) K/uL Baso # (Auto) (0-0.2) K/uL Immature Gran # (Auto) (0.00-0.02) K/uL Sodium (136-145) mmol/L Potassium 4.2 (3.5-5.1) mmol/L Chloride (98-107) mmol/L Carbon Dioxide (21-32) mmol/L Anion Gap (3-11) BUN (6-23) mg/dl Creatinine (0.6-1.4) mg/dl Est Cr Clr Drug Dosing ml/min Est GFR ( Amer) ml/min Est GFR (Non-Af Amer) ml/min BUN/Creatinine Ratio (10-20) Glucose (70-99(Fasting)) mg/dl Calcium (8.5-10.1) mg/dl Magnesium 2.1 (1.7-2.4) mg/dl Total Bilirubin (0.2-1.0) mg/dl AST 18 (13-39) U/L ALT (7-52) U/L Alkaline Phosphatase (34-104) U/L Troponin I 0.06 H* (0-0.04) ng/ml Total Protein (6.0-8.3) gm/dl Albumin (3.4-5.0) gm/dl Globulin (2.5-4.0) gm/dl Albumin/Globulin Ratio (0.9-2) Lipase (11-82) U/L TSH 1.478 (0.300-4.500) uIu/ml SARS-CoV-2, RNA, NAAT (NEGATIVE) Administered Medications Discontinued Medications Hydromorphone HCl (Hydromorphone Inj 0.5 Mg/0.5 Ml Syr) 0.25 mg IV NOW STA Stop: 07/28/21 20:36 Last Admin: 07/28/21 20:53 Dose: 0.25 mg Documented by: [id number] Metoprolol Tartrate (Metoprolol Tartrate 25 Mg Tab) 25 mg PO NOW STA Stop: 07/28/21 19:41 Last Admin: 07/28/21 19:57 Dose: 25 mg Documented by: [id number] Ondansetron HCl (Ondansetron Inj 2 Mg/Ml 2 Ml Vial) 4 mg IV NOW STA Stop: 07/28/21 16:14 Last Admin: 07/28/21 17:24 Dose: 4 mg Documented by: [id number] Oxycodone HCl (Oxycodone Hcl Ir 5 Mg Tab (Immediate Release)) 5 mg PO NOW STA Stop: 07/28/21 17:24 Last Admin: 07/28/21 17:25 Dose: 5 mg Documented by: [id number] Imaging Data Radiologist's Impression: Cervical Spine X-Ray 07/28/21 16:13 CERVICAL SPINE 3 VIEWS CLINICAL HISTORY: left-sided neck pain. FINDINGS: AP, lateral, and odontoid views of the cervical spine are obtained. No prior studies are available for comparison at the time of dictation. The s keletal structures are osteopenic. There is no radiographic evidence of fracture or subluxation. Vertebral body height and alignment are maintained throughout the cervical spine. C7 is partially obscured by the patient's shoulders. The spinolaminar line is maintained. The odontoid process and lateral masses appear intact on the open-mouth view. Small anterior osteophytes are seen throughout. The spinous processes appear intact. The disc spaces are maintained. Multilevel facet arthropathy is noted on the frontal view. The visualized lung parenchyma appears clear. IMPRESSION: 1. No acute bony abnormality is seen involving the cervical spine. 2. Osteopenia and mild spondylotic change as above. Dictated: 07/28/2021 5:35 PM Transcribed: 07/28/2021 5:46 PM Romina [id number] Electronically signed by: Sharan Rodriguez M.D. 07/28/2021 5:49 PM Shoulder X-Ray 07/28/21 16:13 LEFT SHOULDER 3 VIEWS CLINICAL HISTORY: Left shoulder pain. FINDINGS: 3 views of the left shoulder are obtained. No prior studies are available for comparison at the time of dictation. The skeletal structures are osteopenic. There is no radiographic evidence of fracture or dislocation. Mild degenerative change is seen at the glenohumeral and acromioclavicular joints. The overlying soft tissues are within normal limits. The left lung parenchyma is clear as visualized. IMPRESSION: No acute bony abnormality is identified. Electronically signed by: Sharan Rodriguez M.D. 07/28/2021 5:37 PM Chest X-Ray 07/28/21 19:32 SINGLE VIEW CHEST CLINICAL HISTORY: Arrhythmia FINDINGS: An AP, portable, upright chest radiograph is compared to study dated 03/28/2020. The heart is mildly enlarged noting atherosclerotic calcification of the thoracic aorta. The pulmonary vasculature is noncongested. Chronic interstitial thickening is similar to previous. There is bibasilar scarring/atelectasis. No airspace consolidation or large pleural effusion is identified. No pneumothorax is seen. The skeletal structures are osteopenic. Posttraumatic deformity and postoperative change is again seen in the right pr oximal humerus. IMPRESSION: Mild cardiomegaly with no acute cardiopulmonary abnormality. ACT 112: Negative or not required by law. Electronically signed by: Sharan Rodriguez M.D. 07/28/2021 7:58 PM Discharge Plan Visit Data Chief Complaint: Shoulder Pain ED Provider: Kranthi Aquino Discharge Problem: NSVT (nonsustained ventricular tachycardia), Arm pain, Elevated troponin, Pressure ulcer Patient Disposition: Admitted As Inpatient Discharge Instructions Interventions: ED Discharge Assessment Last Done: 07/28/21 21:10 Discharge Problem: Arm pain Qualifiers: Laterality: left Qualified Code(s): M79.602 - Pain in left arm Pressure ulcer Qualifiers: Pressure injury location: unspecified location Pressure injury stage: unspecified pressure injury stage Qualified Code(s): L89.90 - Pressure ulcer of unspecified site, unspecified stage
[2021-07-28] MEDS ORDERED: oxyCODONE HCL IR 5 MG TAB (IMMEDIATE RELEASE) PO STA (17:23)
--- NOTE | 2021-07-28 17:39 | XRay Report ---
LEFT SHOULDER 3 VIEWS CLINICAL HISTORY: Left shoulder pain. FINDINGS: 3 views of the left shoulder are obtained. No prior studies are available for comparison at the time of dictation. The skeletal structures are osteopenic. There is no radiographic evidence of fracture or dislocation. Mild degenerative change is seen at the glenohumeral and acromioclavicular j oints. The overlying soft tissues are within normal limits. The left lung parenchyma is clear as visu alized. IMPRESSION: No acute bony abnormality is identified. Electronically signed by: Sharan Rodriguez M.D. 07/28/2021 5:37 PM
[2021-07-28 17:50] LABS: Basophils # (auto) 0.02 K/uL (0-0.2); Basophils % (auto) 0.1 %; Eosinophils # (auto) 0.45 K/uL (0-0.5); Hematocrit (blood only) 38.6 % (42-52); Hemoglobin 12.8 g/dL (14.0-18.0); Immature Granulocytes # (auto) 0.03 K/uL (0.00-0.02); Immature Granulocytes % (auto) 0.2 %; Lymphocytes # (auto) 1.73 K/uL (1.2-3.4); Lymphocytes % (auto) 11.5 %; Mean Corpuscular Hgb Conc 33.2 g/dL (32-36); Mean Corpuscular Volume 87.5 fL (80-100); Mean Platelet Volume 12.1 fL (7.4-10.4); Monocytes # (auto) 1.09 K/uL (0.11-0.59); Monocytes % (auto) 7.2 %; Neutrophils # (auto) 11.74 K/uL (1.4-6.5); Platelet Count 336 K/uL (130-400); RDW Coefficient of Variation 15.8 % (11.5-14.5); RDW Standard Deviation 50.7 fL (36.4-46.3); Red Blood Count 4.41 M/uL (4.7-6.1); White Blood Count 15.06 K/uL (4.8-10.8)
--- NOTE | 2021-07-28 17:50 | XRay Report ---
CERVICAL SPINE 3 VIEWS CLINICAL HISTORY: left-sided neck pain. FINDINGS: AP, lateral, and odontoid views of the cervical spine are obtained. No prior studies are av ailable for comparison at the time of dictation. The skeletal structures are osteopenic. There is no radiographic evidence of fracture or subluxation. Vertebral body height and alignment are maintained throughout the cervical spine. C7 is partially obscured by the patient's shoulders. The spinolaminar line is maintained. The odontoid process and lateral masses appear intact on the open-mouth view. Sma ll anterior osteophytes are seen throughout. The spinous processes appear intact. The disc spaces are maintained. Multilevel facet arthropathy is noted on the frontal view. The visualized lung parenchym a appears clear. IMPRESSION: 1. No acute bony abnormality is seen involving the cervical spine. 2. Osteopenia and mild spondylotic change as above. Dictated: 07/28/2021 5:35 PM Transcribed: 07/28/2021 5:46 PM Romina [id number] [email or web address] Electronically signed by: Sharan Rodriguez M.D. 07/28/2021 5:49 PM
[2021-07-28 18:26] LABS: Albumin Globulin Ratio 1.1 (0.9-2); Albumin Level 3.9 gm/dl (3.4-5.0); BUN Creatinine Ratio 23.8 (10-20); Bilirubin,Total 0.4 mg/dl (0.2-1.0); Creatinine Clr Calc Pharmacy 84.1 ml/min; Est GFR (African American) 98.5 ml/min; Globulin 3.6 gm/dl (2.5-4.0); Total Protein 7.5 gm/dl (6.0-8.3)
[2021-07-28 19:38] LABS: Magnesium 2.1 mg/dl (1.7-2.4); Potassium 4.2 mmol/L (3.5-5.1)
[2021-07-28] MEDS ORDERED: METOPROLOL TARTRATE 25 MG TAB PO STA (19:40)
[2021-07-28 19:56] LABS: Troponin I 0.06 ng/ml (0-0.04)
--- NOTE | 2021-07-28 19:59 | XRay Report ---
SINGLE VIEW CHEST CLINICAL HISTORY: Arrhythmia FINDINGS: An AP, portable, upright chest radiograph is compared to study dated 03/28/2020. The heart is mildly enlarged noting atherosclerotic calcification of the thoracic aorta. The pulmonary vasculat ure is noncongested. Chronic interstitial thickening is similar to previous. There is bibasilar scarr ing/atelectasis. No airspace consolidation or large pleural effusion is identified. No pneumothorax i s seen. The skeletal structures are osteopenic. Posttraumatic deformity and postoperative change is a gain seen in the right proximal humerus. IMPRESSION: Mild cardiomegaly with no acute cardiopulmonary abnormality. ACT 112: Negative or not required by law. Electronically signed by: Sharan Rodriguez M.D. 07/28/2021 7:58 PM
[2021-07-28] MEDS ORDERED: HYDROmorphone INJ 0.5 MG/0.5 ML SYR IV STA (20:35)
[2021-07-28] MEDS ORDERED: SODIUM CHLORIDE 0.9% 1000ML 1,000 ML IV ONE (20:40)
--- NOTE | 2021-07-28 20:42 | History & Physical Report ---
Date of Service July 28, 2021 Assessment & Plan (1) Left shoulder pain: (2) PSVT (paroxysmal supraventricular tachycardia): Plan: Please refer Dr. Lane's addendum for assessment and plan. History of Present Illness Chief Complaint: Left shoulder pain Primary Care Provider: Aram Lyman MD 81-year-old male with PMH HLD, nonsustained ventricular tachycardia, paroxysmal SVT, HTN, MS with bedbound status, chronic urinary retention with Estrella catheter, chronic sacral wounds, and other problems listed below who presents the ED for evaluation of left shoulder pain. Patient reports he is mild, chronic left shoulder pain at baseline. This morning, after his caregiver rolled him onto his left side, he had acute worsening of his left shoulder pain. Patient reports he took 2 doses of tramadol without any improvement in the pain. He then presented to the ED for further evaluation. Pain continues to be worse with movement. Patient reports he otherwise has been feeling well recently. No chest pain, shortness of breath, palpitations. Denies lightheadedness, dizziness, diaphoresis, syncopal events. No abdominal pain, nausea, vomiting, diarrhea. Has chronic Estrella catheter in place, no acute issues. In the ED, patient was incidentally found to have a few short runs of V. tach. Patient was asymptomatic, BP controlled. WBC 15 K, troponin 0.06. Allergies Allergy/AdvReac Type Severity Reaction Status Date / Time ampicillin Allergy Unknown Unknown Verified 07/25/21 10:35 morphine AdvReac Mild "MADE ME Verified 07/25/21 10:35 FEEL ODD" amoxicillin AdvReac ineffective Verified 07/28/21 20:49 Home Medications Medication Instructions Recorded Confirmed Type amlodipine 10 mg tablet 10 mg PO HS 03/21/20 07/28/21 History multivitamin 1 tab PO QAM 03/26/20 07/28/21 History omega-3 fatty acids-fish oil 684 1 cap PO QAM 03/26/20 07/28/21 History mg-1,200 mg capsule,delayed release vitamin B complex 1 tab PO QAM 03/26/20 07/28/21 History metoprolol tartrate 25 mg tablet 25 mg PO BID 07/03/20 07/28/21 History Lecihin Tab 380 mg PO DAILY 07/28/21 07/28/21 History Turmeric Tab 500 mg PO DAILY 07/28/21 07/28/21 History acetaminophen 325 mg tablet 650 mg PO Q4 PRN 07/28/21 07/28/21 History (Tylenol) ascorbic acid (vitamin C) 500 mg 500 mg PO DAILY 07/28/21 07/28/21 History tablet (Vitamin C) cholecalciferol (vitamin D3) 125 125 mcg PO DAILY 07/28/21 07/28/21 History mcg (5,000 unit) tablet (Vitamin D3) garlic 300 mg tablet 300 mg PO DAILY 07/28/21 07/28/21 History lactobacillus combination no.4 3 0 mmu cells PO DAILY 07/28/21 07/28/21 History billion cell capsule (Probiotic) ulntsawmmbwj-xtztinek-axlxqv 1 tab PO DAILY 07/28/21 07/28/21 History tablet (Multivitamin 50 Plus) niacin 500 mg tablet 500 mg PO DAILY 07/28/21 07/28/21 History selenium 100 mcg tablet 100 mcg PO DAILY 07/28/21 07/28/21 History senna-docusate sodium tablet 1 tab PO DAILY 07/28/21 07/28/21 History tramadol 50 mg tablet 50 mg PO Q8H PRN 07/28/21 07/28/21 History vitamin E 400 unit tablet 0 mg PO DAILY 07/28/21 07/28/21 History zinc 50 mg tablet 50 mg PO DAILY 07/28/21 07/28/21 History Past Med/Surg History Medical History Avascular necrosis of bone BPH (benign prostatic hyperplasia) Elevated troponin Estrella catheter in place History of skin cancer ON CHEST AREA Hyperlipidemia Hypertension Multiple sclerosis Debilitated, wheelchair-bound for several years. Can transfer self. Following with Dr Armenta, [facility] neuro. Spontaneous pneumothorax HX OF MANY YEARS AGO A TEENAGER (NO SURGERY) Urinary retention Surgical History H/O arthroscopy of shoulder RT History of colonoscopy History of esophagogastroduodenoscopy (EGD) History of herniorrhaphy History of tonsillectomy History of tooth extraction Hx of appendectomy S/P TURP Family History Other Cancer No family history of adverse response to anesthesia Social History Smoking Status: Former smoker Tobacco Type: Cigarettes Second Hand Exposure: No; Do You Dip or Chew Tobacco: No; Tobacco Cessation Education Requested by Patient: No Hx Alcohol Use: No Hx Substance Use: No Preferred Language: Canadian Communication Ability: Effective Count Team Member Required: No Beliefs That Will Affect Care: None marital status: Current Living Situation: Spouse How many Children do You have: 1 Other Information That Helps Us Care for You: No Feels Safe at Home: Yes Safety Concerns: Feels Safe At This Time Assistive Devices: Denture - Upper, Denture - Lower, Glasses and Wheelchair Assistive Devices Comment: Dentures are partials Review of Systems Review of Systems: ROS per HPI, all other systems reviewed and negative Physical Exam Constitutional: WD/WN, vitals as above Eyes: PERRL, conjunctivae normal, anicteric sclerae ENMT: external ear and nose normal, oropharynx normal Respiratory: normal respiratory effort, lungs clear to auscultation Cardiovascular: Rate/Rhythm: regular rate and regular rhythm Vessels: normal peripheral pulses Extremities: + edema (Trace edema BLE) Gastrointestinal (Abdomen): normal bowel sounds, soft, nontender, no hepatosplenomegaly Musculoskeletal: Shoulder: normal ROM of shoulder (Left. Does have tenderness to palpation over posterior glenohumeral joint) Underlying MS with BLE paraplegia Skin: no rashes, warm and dry Neurologic: PERRL, EOMI, accommodation nl, no face palsy, no dysarthria Psychiatric: A+Ox3, euthymic affect Results & Data Results & Data ([facility]) Vital Signs (Past 12 Hours) Vital Signs Temp Pulse Pulse Resp BP BP Pulse Ox 07/28/21 19:31 84 16 97 07/28/21 19:30 159/81 H 07/28/21 19:29 90 28 H 07/28/21 19:00 90 17 149/83 H 97 07/28/21 18:30 90 17 146/80 H 97 07/28/21 18:03 90 20 89 L 07/28/21 18:00 76 18 153/87 H 98 07/28/21 17:36 88 15 157/84 H 97 07/28/21 17:34 89 19 07/28/21 15:21 37.0 C 84 18 178/86 H 97 Laboratory Results Short CBC 07/28/21 Range/Units 17:31 WBC 15.06 H (4.8-10.8) K/uL Hgb 12.8 L (14.0-18.0) g/dL Hct 38.6 L (42-52) % Plt Count 336 (130-400) K/uL BMP 07/28/21 07/28/21 17:31 19:10 Sodium 138 Potassium 4.2 Chloride 108 H Carbon Dioxide 21 BUN 19 Creatinine 0.80 Glucose 106 H Calcium 10.0 Cardiac Enzymes 07/28/21 Range/Units 19:10 Troponin I 0.06 H* (0-0.04) ng/ml Liver Function 07/28/21 07/28/21 Range/Units 17:31 19:10 Total Bilirubin 0.4 (0.2-1.0) mg/dl AST 18 (13-39) U/L ALT 8 (7-52) U/L Alkaline Phosphatase 77 (34-104) U/L Albumin 3.9 (3.4-5.0) gm/dl Diagnostic Findings Cervical Spine X-Ray 07/28/21 16:13 CERVICAL SPINE 3 VIEWS CLINICAL HISTORY: left-sided neck pain. FINDINGS: AP, lateral, and odontoid views of the cervical spine are obtained. No prior studies are available for comparison at the time of dictation. The skeletal structures are osteopenic. There is no radiographic evidence of fracture or subluxation. Vertebral body height and alignment are maintained throughout the cervical spine. C7 is partially obscured by the patient's shoulders. The spinolaminar line is maintained. The odontoid process and lateral masses appear intact on the open-mouth view. Small anterior osteophytes are seen throughout. The spinous processes appear intact. The disc spaces are maintained. Multilevel facet arthropathy is noted on the frontal view. The visualized lung parenchyma appears clear. IMPRESSION: 1. No acute bony abnormality is seen involving the cervical spine. 2. Osteopenia and mild spondylotic change as above. Dictated: 07/28/2021 5:35 PM Transcribed: 07/28/2021 5:46 PM Rom[facility] [id number] [email or web address] Electronically signed by: Sharan Rodriguez M.D. 07/28/2021 5:49 PM Shoulder X-Ray 07/28/21 16:13 LEFT SHOULDER 3 VIEWS CLINICAL HISTORY: Left shoulder pain. FINDINGS: 3 views of the left shoulder are obtained. No prior studies are a vailable for comparison at the time of dictation. The skeletal structures are osteopenic. There is no radiographic evidence of fracture or dislocation. Mild degenerative change is seen at the glenohumeral and acromioclavicular joints. The overlying soft tissues are within normal limits. The left lung parenchyma is clear as visualized. IMPRESSION: No acute bony abnormality is identified. Electronically signed by: Sharan Rodriguez M.D. 07/28/2021 5:37 PM Chest X-Ray 07/28/21 19:32 SINGLE VIEW CHEST CLINICAL HISTORY: Arrhythmia FINDINGS: An AP, portable, upright chest radiograph is compared to study dated 03/28/2020. The heart is mildly enlarged noting atherosclerotic calcification of the thoracic aorta. The pulmonary vasculature is noncongested. Chronic interstitial thickening is similar to previous. There is bibasilar scarring/atelectasis. No airspace consolidation or large pleural effusion is identified. No pneumothorax is seen. The skeletal structures are osteopenic. Posttraumatic deformity and postoperative change is again seen in the right proximal humerus. IMPRESSION: Mild cardiomegaly with no acute cardiopulmonary abnormality. ACT 112: Negative or not required by law. Electronically signed by: Sharan Rodriguez M.D. 07/28/2021 7:58 PM Supervising Physician Co-Signing Physician Notes IM ATTENDING : Patient seen and examined. History obtained from patient and records. Preceding documentation by LEE Lentz reviewed. In addition, patient complaining of abdominal discomfort. Significant amount of stool is visualized within the rectum, consistent with fecal impaction. There is mild rectal wall thickening and perirectal fat stranding which maybe attributed to proctitis versus stercoral colitis. Excessive colonic stool burden with mild gaseous distention of the transverse colon, compatible with constipation. AFoleycatheter is in place within a decompressed urinarybladder. Prostatomegaly. Redemonstration of a large left inguinal hernia containing loops of bowel. Bilateral renal cysts. Multiple small liver cysts FINAL ASSESSMENT AND PLAN as follows : NSVT Patient asymptomatic. Hypertensive urgency, troponin elevation secondary to uncontrolled left shoulder pain Abdominal distention from fecal impaction, patient denies constipation issues Multiple sclerosis, chronic progressive as per outpatient [facility] Neuro eval Chronic anemia, hemoglobin at baseline BPH status p thanks again surgery Hyperglycemia likely secondary to prediabetes, hemoglobin A1c of 5.9 in 2020 Chronic sacral wounds/history sacral osteomyelitis, much improved on recent outpatient wound care visit last week Past tobacco abuse OBS PCU given NSVT and troponin elevation Continue beta-antonio recommended by cardiology during inpatient evaluation April 2020 for NSVT. Analgesia Orthopedics consult Re: Left shoulder pain Bowel regimen DVT prophylaxis. Lovenox subcu Full code Text document was generated using [employer] voice recognition software. It may contain grammatical or spelling errors. Kindly contact undersigned for clarification of any documentation item in question. I good morning okay I sent here by choice of laxative okay get a viral discharge note for a bit
[2021-07-28] MEDS ORDERED: oxyCODONE HCL IR 5 MG TAB (IMMEDIATE RELEASE) PO PRN (21:55)
[2021-07-28] MEDS ORDERED: HYDROmorphone INJ 0.5 MG/0.5 ML SYR IV PRN (21:55)
[2021-07-28] MEDS ORDERED: PROMETHAZINE HCL 6.25 MG in SODIUM CHLORIDE 0.9% 50 ML IV PRN (21:55)
[2021-07-28] MEDS ORDERED: ACETAMINOPHEN 325 MG TAB PO PRN (21:55)
[2021-07-28] MEDS ORDERED: NITROGLYCERIN SL 0.4 MG/TAB TAB SL PRN (21:55)
[2021-07-28] MEDS ORDERED: PNEUMOCOCCAL POLYSACCHARIDES 25 MCG/0.5 ML VIAL/SYR IM ONE (22:34)
[2021-07-28] MEDS ORDERED: INFLUENZA VACCINE HIGH DOSE PF 65+ 0.7 ML SYR IM ONE (22:34)
[2021-07-29] MEDS: MELATONIN 3 MG TAB PO PRN ×2 (00:30→22:08)
[2021-07-29] MEDS: amLODIPine BESYLATE 5 MG TAB PO SCH ×2 (00:38→21:00)
[2021-07-29] MEDS ORDERED: OPTIRAY 320 100ml IV ONE (01:38)
[2021-07-29 01:52] LABS: Troponin I 0.06 ng/ml (0-0.04)
[2021-07-29] MEDS ORDERED: traMADol HCL 50 MG TABLET PO PRN (02:41)
[2021-07-29] MEDS ORDERED: HYDROmorphone INJ 0.5 MG/0.5 ML SYR IV PRN (02:43)
[2021-07-29] MEDS ORDERED: LACTATED RINGER'S 1,000 ML IV SCH ×2 (05:15→09:00)
[2021-07-29 06:28] LABS: Basophils # (auto) 0.03 K/uL (0-0.2); Basophils % (auto) 0.3 %; Eosinophils % (auto) 2.9 %; Hematocrit (blood only) 35.4 % (42-52); Hemoglobin 11.7 g/dL (14.0-18.0); Immature Granulocytes # (auto) 0.01 K/uL (0.00-0.02); Immature Granulocytes % (auto) 0.1 %; Lymphocytes # (auto) 1.92 K/uL (1.2-3.4); Lymphocytes % (auto) 18.7 %; Mean Corpuscular Hemoglobin 28.7 pg (25-34); Mean Corpuscular Hgb Conc 33.1 g/dL (32-36); Mean Corpuscular Volume 86.8 fL (80-100); Monocytes # (auto) 0.96 K/uL (0.11-0.59); Monocytes % (auto) 9.4 %; Neutrophils # (auto) 7.04 K/uL (1.4-6.5); Neutrophils % (auto) 68.6 %; Platelet Count 355 K/uL (130-400); RDW Coefficient of Variation 15.7 % (11.5-14.5); RDW Standard Deviation 50.3 fL (36.4-46.3); Red Blood Count 4.08 M/uL (4.7-6.1); White Blood Count 10.26 K/uL (4.8-10.8)
[2021-07-29 06:52] LABS: BUN Creatinine Ratio 23.4 (10-20); Calcium 9.8 mg/dl (8.5-10.1); Creatinine Clr Calc Pharmacy 85.4 ml/min; Est GFR (Non-African American) 86.3 ml/min; Potassium 4.2 mmol/L (3.5-5.1)
--- NOTE | 2021-07-29 06:52 | Orthopedic Consultation ---
Date of Service July 29, 2021 Assessment & Plan (1) Left shoulder pain: Fortunately his pain is significantly improved. He has good range of motion on examination and good strength. The x-rays are negative. He is currently on tramadol as needed for pain. He can continue to take the medic ation as prescribed. I think he simply just strained his shoulder when he was rolled over onto it. We will continue to watch this. If his pain returns we could offer him a cortisone injection in the shoulder in the office if needed. At this point I will follow-up with him on an as-needed basis. If he has any return of symptoms during this stay please feel free to contact me personally on my cell phone at [phone]. History of Present Illness Reason for Consultation: Acute left shoulder pain. Requesting Physician: . Attending Physician: Michelle Willis MD Cristel is a pleasant 81-year-old male with a history of multiple sclerosis. He relies heavily on his upper extremities for transfers. He always had some very mild left shoulder pain. He was then rolled over onto his left side by the nurse yesterday and began having severe left shoulder pain. He came to the emergency room. X-rays were obtained of his left shoulder which were essentially negative. He was given some medications and his shoulder pain has resolved. He was admitted to the medical service. Orthopedics was consulted to evaluate and treat. Allergies Allergy/AdvReac Type Severity Reaction Status Date / Time ampicillin Allergy Unknown Unknown Verified 07/25/21 10:35 morphine AdvReac Mild "MADE ME Verified 07/25/21 10:35 FEEL ODD" amoxicillin AdvReac ineffective Verified 07/28/21 20:49 Home Medications Medication Instructions Recorded Confirmed Type amlodipine 10 mg tablet 10 mg PO HS 03/21/20 07/28/21 History multivitamin 1 tab PO QAM 03/26/20 07/28/21 History omega-3 fatty acids-fish oil 684 1 cap PO QAM 03/26/20 07/28/21 History mg-1,200 mg capsule,delayed release vitamin B complex 1 tab PO QAM 03/26/20 07/28/21 History metoprolol tartrate 25 mg tablet 25 mg PO BID 07/03/20 07/28/21 History Lecihin Tab 380 mg PO DAILY 07/28/21 07/28/21 History Turmeric Tab 500 mg PO DAILY 07/28/21 07/28/21 History acetaminophen 325 mg tablet 650 mg PO Q4 PRN 07/28/21 07/28/21 History (Tylenol) ascorbic acid (vitamin C) 500 mg 500 mg PO DAILY 07/28/21 07/28/21 History tablet (Vitamin C) cholecalciferol (vitamin D3) 125 125 mcg PO DAILY 07/28/21 07/28/21 History mcg (5,000 unit) tablet (Vitamin D3) garlic 300 mg tablet 300 mg PO DAILY 07/28/21 07/28/21 History lactobacillus combination no.4 3 0 mmu cells PO DAILY 07/28/21 07/28/21 History billion cell capsule (Probiotic) mlwedewipktz-phsnjnol-kltsiz 1 tab PO DAILY 07/28/21 07/28/21 History tablet (Multivitamin 50 Plus) niacin 500 mg tablet 500 mg PO DAILY 07/28/21 07/28/21 History selenium 100 mcg tablet 100 mcg PO DAILY 07/28/21 07/28/21 History senna-docusate sodium tablet 1 tab PO DAILY 07/28/21 07/28/21 History tramadol 50 mg tablet 50 mg PO Q8H PRN 07/28/21 07/28/21 History vitamin E 400 unit tablet 0 mg PO DAILY 07/28/21 07/28/21 History zinc 50 mg tablet 50 mg PO DAILY 07/28/21 07/28/21 History Past Med/Surg History Medical History Avascular necrosis of bone BPH (benign prostatic hyperplasia) Elevated troponin Estrella catheter in place History of skin cancer ON CHEST AREA Hyperlipidemia Hypertension Multiple sclerosis Debilitated, wheelchair-bound for several years. Can transfer self. Following with Dr Armenta, [facility] neuro. Spontaneous pneumothorax HX OF MANY YEARS AGO A TEENAGER (NO SURGERY) Urinary retention Surgical History H/O arthroscopy of shoulder RT History of colonoscopy History of esophagogastroduodenoscopy (EGD) History of herniorrhaphy History of tonsillectomy History of tooth extraction Hx of appendectomy S/P TURP Family History Other Cancer No family history of adverse response to anesthesia Social History Smoking Status: Former smoker Tobacco Type: Cigarettes Second Hand Exposure: No; Do You Dip or Chew Tobacco: No; Tobacco Cessation Education Requested by Patient: No Hx Alcohol Use: No Hx Substance Use: No Preferred Language: Surinamese Communication Ability: Effective Artificial Plastic Eye Maker Required: No Beliefs That Will Affect Care: None marital status: Current Living Situation: Spouse How many Children do You have: 1 Other Information That Helps Us Care for You: No Feels Safe at Home: Yes Safety Concerns: Feels Safe At This Time Assistive Devices: Denture - Upper, Denture - Lower, Glasses and Wheelchair Assistive Devices Comment: Dentures are partials Review of Systems All systems reviewed & are unremarkable except as noted in HPI & below. Physical Exam On physical examination of his left shoulder, he has decent range of motion about 130 degrees of forward elevation and 130 degrees of abduction. He has 5 out of 5 motor strength with full can testing and external rotation. Minimal pain in the subacromial space on exam today. Constitutional WD/WN, vitals as above Eyes PERRL, conjunctivae normal, anicteric sclerae ENMT external ear and nose normal, oropharynx normal Neck trachea midline, no thyromegaly Respiratory normal respiratory effort Cardiovascular RRR, no murmur, no edema Gastrointestinal (Abdomen) normal bowel sounds, soft, nontender, no hepatosplenomegaly Psychiatric A+Ox3, euthymic affect Results & Data Results & Data Laboratory Results . Diagnostic Findings X-rays of the left shoulder were reviewed and shows very minimal arthritis. There is no evidence of fracture. The humeral head is located within the gleno id. PG Care Time/CCT Total # of Minutes Spent Total Time Spent with Patient: Total time spent is greater than 50% in coordination of care (as documented) at patient's floor/unit and/or counseling patient: Coding Level of Care Code 52078 Inpt Consult Level 4 Diagnoses Left shoulder pain M25.512
[2021-07-29 06:56] LABS: Troponin I 0.06 ng/ml (0-0.04)
[2021-07-29] MEDS ORDERED: LACTATED RINGER'S 1,000 ML IV ONE (07:07)
--- NOTE | 2021-07-29 07:25 | CT Scan Report ---
ABDOMEN AND PELVIS CT WITH IV CONTRAST CT DOSE: 801.55 mGy.cm HISTORY: Acute generalized abdominal pain with distention and constipation abd dist TECHNIQUE: Multiaxial CT images of the abdomen and pelvis were performed following the IV administrat ion of 93 cc of Optiray, A dose lowering technique was utilized adhering to the principles of ALARA. COMPARISON STUDY: MRI pelvis 09/09/2020, CT abdomen and pelvis 03/21/2020. FINDINGS: Cardiomegaly with extensive coronary artery calcifications. Mild subsegmental left basilar atelectasis. There is no pneumatosis or pneumoperitoneum the spleen and adrenal glands are unremarkab le. Cholelithiasis without CT evidence of acute cholecystitis. There are a few scattered cystic foci noted within the pancreas measuring up to 1.4 cm within the pancreatic tail. Nonspecific, possibly si debranch IPMN's. There are a few hepatic cysts measuring up to 1.5 cm. Patent portal vein. Cysts of the kidneys measure up to 4.8 cm on the left. There is a 7.7 cm right renal cyst with mild d ependent peripheral calcification. Small amount of air is noted within the right renal collecting sys tem. There are a few calculi present within the right kidney measuring up to 1.5 cm within the inferi or pole. There are least 4 nonobstructing calculi of the left kidney measuring up to 1.3 cm. There is mild urothelial thickening of the left greater than right renal collecting systems.Parenchymal thinn ing with cortical scarring of the left kidney. No ureteral calculi or hydronephrosis. Decompressed ur inary bladder with Estrella catheter. There is associated wall thickening and perivesicular stranding. Numerous urinary bladder calculi are noted along with urinary bladder diverticula. Marked prostamegal y. Atherosclerosis of the abdominal aorta without aneurysm. Mildly enlarged inguinal chain lymph nodes m easure up to 10 mm. Mild nonspecific distal esophageal wall thickening. Marked fecal retention of the rectum with rectal wall thickening and mild perirectal stranding. Additional wall thickening of the sigmoid and rectal junction. Colonic diverticulosis. Moderate to marked fecal retention is noted thro ughout the remainder of the colon. No CT evidence of acute appendicitis. Large left inguinal hernia c ontains mesenteric fat with nonobstructed loops of large and small bowel. Soft tissue calcifications of the left lateral hip and bilateral gluteal tissues. Chronic sacral decubitus ulcer. Degenerative c hanges of the spine, pelvis and hips. Left femoral head avascular necrosis. No progressive osteomyeli tis of the sacrum or coccyx. IMPRESSION: 1. Moderate to marked constipation with wall thickening of the inferior sigmoid and rectum compatible with associated stercoral proctocolitis. 2. No bowel obstruction or pneumoperitoneum. 3. Nonobstructing calculi of the bilateral kidneys with numerous urinary bladder calculi redemonstrat ed. There is urothelial thickening of the renal collecting systems with urinary bladder wall thickeni ng and small amount of air within the inferior right renal collecting system. Correlate with urinalys is to exclude infection. 4. Large bowel and fat-containing left inguinal hernia redemonstrated. 5. Chronic sacral decubitus ulcer. No progressive sacral osteomyelitis. 6. Avascular necrosis of the left femoral head. 7. Additional findings as above. ACT 112: Negative or not required by law. The above report was generated using voice recognition software. It may contain grammatical, syntax o r spelling errors. Electronically signed by: Bethel Nesbitt M.D. 07/29/2021 7:23 AM
[2021-07-29] MEDS ORDERED: DOCUSATE SODIUM/SENNA 50/8.6MG TAB PO SCH (09:00)
[2021-07-29] MEDS: DOCUSATE SODIUM/SENNA 50/8.6MG TAB PO SCH ×2 (09:08→22:09)
[2021-07-29] MEDS: ENOXAPARIN INJ 30 MG/0.3 ML SYR SQ SCH (09:08)
[2021-07-29] MEDS: MULTIVITAMIN TAB PO SCH (09:09)
[2021-07-29] MEDS: NIACIN 500 MG TAB PO SCH (09:10)
[2021-07-29] MEDS: CEROVITE ADV FORMULA TAB PO SCH (09:11)
[2021-07-29] MEDS: METOPROLOL TARTRATE 25 MG TAB PO SCH ×2 (09:18→22:07)
--- NOTE | 2021-07-29 13:26 | Hospitalist Progress Note ---
Date of Service July 29, 2021 Assessment & Plan (1) Left shoulder pain: Plan: 81-year-old male with PMH of HLD, nonsustained ventricular tachycardia, paroxysmal SVT, HTN, MS with bedbound status, chronic urinary retention with Estrella catheter, chronic sacral wounds presented 07/28 to ED for evaluation of left shoulder pain. He is being managed for the following: #. Left shoulder pain Per patient, mild/chronic left shoulder pain at baseline Pain is started increasing after being rolled over onto his left side on the day of arrival Admitting C-spine x-ray and left shoulder x-ray: No acute findings noted. The pain has been increasing since then, aggravated with movement, on as needed pain medications and still not being controlled Orthopedics evaluated, appreciate recommendation. Reached out to ortho (TT) as pt with increasing shoulder pain. c/w prn pain meds. #. Elevated lipase Lipase elevated at 427, pt with no chest pain and admitting CTAP negative for pancreatitis (reconfirmed w/ radiology w/ new finding of elevated lipase) Hence will continue with diet and advance as tolerated closely watch for any belly pain. #. History of NSVT #. Paroxysmal SVT In the ED patient was incidentally found to have few short runs of A. tach, patient was a symptomatic and hemodynamically stable. Overnight patient had 10-second run of NSVT Continue with home medications, PCU telemetry #. HTN BP better now, variable, mostly on the higher side c/w home meds. #. Fecal impaction Admitting CTAP: Moderate to marked constipation. No bowel obstruction. Patient denies constipation issues Bowel regimen #. 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 DVT prophylaxis. Lovenox subcu Full code Admission and Anticipated Discharge Date Admission Date: July 28, 2021 Subjective Patient seen and examined at bedside as a follow-up of hypertensive emergency and uncontrolled anterior left shoulder pain. Patient lying in bed, on room air, reports worsening anterior shoulder pain, aggravated with movement, has been made n.p.o. after concern of elevated lipase but patient denies any belly pain, await radiological input. Patient denies fever/nausea/vomiting/headache/dizziness/cough/sore throat/chest pain/palpitations/belly pain/other review of symptoms. Patient has chronic Estrella catheter, light yellow urine collection noted. Per RN, patient was incontinent of bowel 3 times overnight. Patient had NSVT for 10 seconds overnight. Physical Exam Physical Exam: GENERAL: Alert and oriented x3. NAD, on RA. HEENT: No pallor, no icterus. Pupils equal, round and reactive to light. Oral mucosa moist. NECK: No JVD, no neck masses. HEART: S1 and S2 heard. Regular rate and rhythm. No murmur, no gallop. RESPIRATORY SYSTEM: Normal AP diameter. No accessory muscle use. No wheezing, no crackles. ABDOMEN: Soft, bowel sounds present, nontender, no distention. CENTRAL NERVOUS SYSTEM: No facial droop. Speech is clear. Obeys simple commands. Moves extremities. EXTREMITIES: 2+ BLE edema, no erythema seen. BLE paraplegia (underlying MS) UC with light yellow urine collection noted. Results & Data Results & Data ([facility]) Vital Signs (Past 12 Hours) Vital Signs Temp Pulse Resp BP BP Pulse Ox 07/29/21 12:00 36.3 C L 55 L 18 138/72 98 07/29/21 10:28 50 L 161/71 H 07/29/21 09:17 50 L 96 07/29/21 03:00 36.8 C 49 L 15 145/86 H 96
[2021-07-29] MEDS ORDERED: POLYETHYLENE (MIRALAX) 17 GM PACK PO SCH (14:00)
--- NOTE | 2021-07-29 14:04 | Ultrasound Report ---
US abdomen limited HISTORY: 81 years-old Male ?pancreatitis acute right upper quadrant abdominal pain with elevated lip ase COMPARISON: CT abdomen and pelvis of same day TECHNIQUE: Multiple real-time sonographic images of the abdominal right upper quadrant were obtained assessing grayscale appearance and color flow FINDINGS: 1.5 cm right hepatic lobe cyst. The pancreatic duct measures within the upper limits of normal at 3 m m and is otherwise unremarkable. There is a 1.2 cm stone noted within the neck of the gallbladder. No gallbladder wall thickening, or pericholecystic fluid. Negative sonographic Chacko's sign. 4 mm gall bladder polyp. Normal common bile duct measures 5 mm. Cysts of the right kidney measure up to 9.6 cm. 1.5 cm calculus in the inferior pole right kidney. IMPRESSION: 1. Distended gallbladder with cholelithiasis. No sonographic evidence of acute cholecystitis. 2. 4 mm gallbladder polyp. 3. Right nephrolithiasis. ACT 112: Negative or not required by law. The above report was generated using voice recognition software. It may contain grammatical, syntax o r spelling errors. Electronically signed by: Bethel Nesbitt M.D. 07/29/2021 2:03 PM
--- NOTE | 2021-07-30 06:00 | Electrocardiogram Report ---
Test Reason : Blood Pressure : / mmHG Vent. Rate : 080 BPM Atrial Rate : 080 BPM P-R Int : 190 ms QRS Dur : 098 ms QT Int : 388 ms P-R-T Axes : 039 -24 121 degrees QTc Int : 447 ms Sinus rhythm with frequent Premature ventricular complexes Left ventricular hypertrophy with repolarization abnormality Abnormal ECG When compared with ECG of 22-APR-2021 11:36, No significant change was found Confirmed by Michele Peterson ([id number]) on 07/30/2021 6:00:12 AM Referred By: REFERRED SELF Confirmed By:Michele Peterson
[2021-07-30 07:10] LABS: Hematocrit (blood only) 33.8 % (42-52); Hemoglobin 11.2 g/dL (14.0-18.0); Mean Corpuscular Hemoglobin 29.1 pg (25-34); Mean Corpuscular Hgb Conc 33.1 g/dL (32-36); Mean Corpuscular Volume 87.8 fL (80-100); Platelet Count 330 K/uL (130-400); RDW Coefficient of Variation 15.8 % (11.5-14.5); RDW Standard Deviation 51.1 fL (36.4-46.3); Red Blood Count 3.85 M/uL (4.7-6.1); White Blood Count 9.78 K/uL (4.8-10.8)
[2021-07-30 07:32] LABS: BUN Creatinine Ratio 19.8 (10-20); Calcium 9.8 mg/dl (8.5-10.1); Creatinine Clr Calc Pharmacy 81.4 ml/min; Est GFR (Non-African American) 84.5 ml/min; Potassium 4.1 mmol/L (3.5-5.1)
[2021-07-30] MEDS ORDERED: BUPIVACAINE/EPINEPHRINE 0.25% 1:200,000 30 ML VIAL INFIL ONE (07:55)
[2021-07-30] MEDS ORDERED: TRIAMCINOLONE ACET 40 MG/ML VIAL IA ONE (07:55)
[2021-07-30] MEDS: NIACIN 500 MG TAB PO SCH (08:14)
[2021-07-30] MEDS: MULTIVITAMIN TAB PO SCH (08:14)
[2021-07-30] MEDS: CEROVITE ADV FORMULA TAB PO SCH (08:14)
[2021-07-30] MEDS: DOCUSATE SODIUM/SENNA 50/8.6MG TAB PO SCH (08:14)
[2021-07-30] MEDS: METOPROLOL TARTRATE 25 MG TAB PO SCH (08:14)
[2021-07-30] MEDS: ENOXAPARIN INJ 30 MG/0.3 ML SYR SQ SCH (08:14)
[2021-07-30] MEDS ORDERED: DICLOFENAC SOD 1% GEL 100 GM TUBE EXT SCH (10:00)
--- NOTE | 2021-07-30 14:04 | Orthopedic Progress Note ---
Date of Service July 30, 2021 Assessment & Plan (1) Left shoulder pain: -I gave him a steroid injection in the left shoulder today. He tolerated this well. Injection can be repeated in 3 months if needed. -Continue current PO pain regimen -No activity restrictions -Follow up as an outpatient as needed. Procedure: Pt identified and procedure confirmed. Subacromial space was cleaned w/ aseptic technique. A mixture of 2 mL triamcinolone and 3 mL bupivicaine/epi was injected into the subacromial space posteriorly. Injection site dressed with a band-aid. Pt tolerated procedure well w/ no complications. Subjective Asked to reevaluate pt due to worsening L shoulder pain. Pt states shoulder is feeling worse pain today. Feels more sore and tender. No additional symptoms. Review of Systems All systems reviewed & are unremarkable except as noted in HPI & below. Physical Exam General: Chronically ill appearing 81 y/o/m in NAD. Converses appropriately, seems kind of confused. Left shoulder. He has some anterior and lateral shoulder tenderness. ROM unchanged; 130 degrees of forward flexion and abduction. 45 degrees external rotation. 5/5 strength with full can testing and forward flexion, has pain w/ strength testing. Results & Data Results & Data Laboratory Results Reviewed . Diagnostic Findings Shoulder XRs obtained on admission negative. . PG Care Time/CCT Total # of Minutes Spent Total Time Spent with Patient: Total time spent is greater than 50% in coordination of care (as documented) at patient's floor/unit and/or counseling patient: Coding Level of Care Code 38756 Subseq Hosp Care Lvl 2 Diagnoses Left shoulder pain M25.512
--- NOTE | 2021-07-30 14:28 | Discharge Summary ---
Date of Service July 30, 2021 Admission HPI Per Admitting Provider 81-year-old male with PMH HLD, nonsustained ventricular tachycardia, paroxysmal SVT, HTN, MS with bedbound status, chronic urinary retention with Estrella catheter, chronic sacral wounds, and other problems listed below who presents the ED for evaluation of left shoulder pain. Patient reports he is mild, chronic left shoulder pain at baseline. This morning, after his caregiver rolled him onto his left side, he had acute worsening of his left shoulder pain. Patient reports he took 2 doses of tramadol without any improvement in the pain. He then presented to the ED for further evaluation. Pain continues to be worse with movement. Patient reports he otherwise has been feeling well recently. No chest pain, shortness of breath, palpitations. Denies lightheadedness, dizziness, diaphoresis, syncopal events. No abdominal pain, nausea, vomiting, diarrhea. Has chronic Estrella catheter in place, no acute issues. In the ED, patient was incidentally found to have a few short runs of V. tach. Patient was asymptomatic, BP controlled. WBC 15 K, troponin 0.06. Admission Exam Per Admitting Provider Constitutional: WD/WN, vitals as above Eyes: PERRL, conjunctivae normal, anicteric sclerae ENMT: external ear and nose normal, oropharynx normal Respiratory: normal respiratory effort, lungs clear to auscultation Cardiovascular: Rate/Rhythm: regular rate and regular rhythm Vessels: normal peripheral pulses Extremities: + edema (Trace edema BLE) Gastrointestinal (Abdomen): normal bowel sounds, soft, nontender, no hepatosplenomegaly Musculoskeletal: Shoulder: normal ROM of shoulder (Left. Does have tenderness to palpation over posterior glenohumeral joint) Underlying MS with BLE paraplegia Skin: no rashes, warm and dry Neurologic: PERRL, EOMI, accommodation nl, no face palsy, no dysarthria Psychiatric: A+Ox3, euthymic affect Principal Diagnosis Left shoulder pain, likely muscle strain. Discharge Exam GENERAL: Alert and oriented x3. NAD, on RA. HEENT: No pallor, no icterus. Pupils equal, round and reactive to light. Oral mucosa moist. NECK: No JVD, no neck masses. HEART: S1 and S2 heard. Regular rate and rhythm. No murmur, no gallop. RESPIRATORY SYSTEM: Normal AP diameter. No accessory muscle use. No wheezing, no crackles. ABDOMEN: Soft, bowel sounds present, nontender, no distention. CENTRAL NERVOUS SYSTEM: No facial droop. Speech is clear. Obeys simple commands. Moves extremities. EXTREMITIES: 2+ BLE edema, no erythema seen. BLE paraplegia (underlying MS) UC with light yellow urine collection noted. Discharge Data Allergies Allergy/AdvReac Type Severity Reaction Status Date / Time ampicillin Allergy Unknown Unknown Verified 07/25/21 10:35 morphine AdvReac Mild "MADE ME Verified 07/25/21 10:35 FEEL ODD" amoxicillin AdvReac ineffective Verified 07/28/21 20:49 Consultations 07/28/21 18:50 ED Decision to Admit Stat 07/28/21 20:41 Consult Orthopedic Surgery Routine Ordered Studies 07/29/21 00:27 CT abd pelvis IV con only Urgent 07/29/21 08:56 US abdomen limited Routine Hospital Course (1) Left shoulder pain: 81-year-old male with PMH of HLD, nonsustained ventricular tachycardia, paroxysmal SVT, HTN, MS with bedbound status, chronic urinary retention with Estrella catheter, chronic sacral wounds presented 07/28 to ED for evaluation of left shoulder pain. He is being managed for the following: #. Left shoulder pain Per patient, mild/chronic left shoulder pain at baseline Pain is started increasing after being rolled over onto his left side on the day of arrival Admitting C-spine x-ray and left shoulder x-ray: No acute findings noted. Patient reports improving pain, status post steroid injection 07/30 by Ortho. Patient to apply Voltaren gel as needed and then lidocaine patch Can take Tylenol [id number] extra strength, oxycodone for breakthrough pain. Follow-up with orthopedics as an outpatient if pain not controlled. #. Elevated lipase #. Gallbladder polyp Lipase elevated at 427, pt with no chest pain and admitting CTAP negative for pancreatitis (reconfirmed w/ radiology w/ new finding of elevated lipase) Ultrasound abdomen: Negative for pancreatitis, 4 mm gallbladder polyp noted Surveillance ultrasonography in 6 months and if stable in size then annually, coordinate care with primary care physician Patient tolerating diet well. #. History of NSVT #. Paroxysmal SVT In the ED patient was incidentally found to have few short runs of A. tach, patient was a symptomatic and hemodynamically stable. Overnight patient had 10-second run of NSVT on 07/29 No new overnight telemetry events 07/30 Continue with home medications, PCU telemetry #. HTN BP better now, variable, mostly on the slightly higher side, could be 2/2 hospital setting and shoulder pain c/w home meds. #. Fecal impaction Admitting CTAP: Moderate to marked constipation. No bowel obstruction. Patient denies constipation issues Bowel regimen as needed. #. 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 Full code Following instructions were communicated to the patient/his at the point of discharge: Follow-up with your primary care physician within a week time. As discussed at bedside with patient and over the phone with patient's : Apply lidocaine patch daily for 7 days and then as needed, apply hot compression, apply Voltaren gel over the painful area every 6 hour as needed, likely follow-up with orthopedics office if the pain is still not controlled. During the hospital stay, your abdominal ultrasound revealed 4 mm gallbladder polyp, you will need a surveillance ultrasound in 6 months and then if stable in size annually. Coordinate with your primary care physician for further management. Take your medications as prescribed. Total Time Total Time Spent Total Time Spent (In Minutes): 35 Discharge Plan Discharge Items Patient Disposition: Home - Home Health Services Reason For Visit: NSVT, L SHOULDER PAIN Discharge Diagnosis: Left shoulder pain, likely muscle strain. Activity: Resume your previous activity Activity Comment: Gradually increase your range of motion with Non-emergency contact: Primary Care Provider Call non-emergency contact if: you have any medication questions, your symptoms worsen, your pain is not controlled and your temperature is above 101 Follow-up/Referrals: [facility] [Other] (Date & Time 08/01/2021 10:00 AM Provider Michelle Godinez RN Department [facility], [facility] ) Aram Lyman MD [Primary Care Provider] - (Date & Time 08/06/2021 11:20 AM Provider Aram Lyman MD Department General Internal Medicine [facility] ) Diet: Heart Healthy Diet Texture: Dental soft (bite-sized) Addtl Attending Provider Instructions: Follow-up with your primary care physician within a week time. As discussed at bedside with patient and over the phone with patient's : Apply lidocaine patch daily for 7 days and then as needed, apply hot compression, apply Voltaren gel over the painful area every 6 hour as needed, rah silva follow-up with orthopedics office if the pain is still not controlled. During the hospital stay, your abdominal ultrasound revealed 4 mm gallbladder polyp, you will need a surveillance ultrasound in 6 months and then if stable in size annually. Coordinate with your primary care physician for further management. Take your medications as prescribed. Pending Studies at Discharge: No Stand-Alone Forms: [facility] [employer], Smoking Cessation Medications and DC Order Prescriptions: New lidocaine 5 % adhesive patch,medicated 1 patch topical DAILY Qty: 15 RF: 0 diclofenac sodium [Voltaren Arthritis Pain] 1 % Gel 4 g EXT Q6H Qty: 100 RF: 2 oxycodone 5 mg Tablet 5 mg PO QID PRN (Reason: pain) 3 Days Qty: 12 RF: 0 Continued metoprolol tartrate 25 mg tablet 25 mg PO BID RF: 0 amlodipine 10 mg tablet 10 mg PO HS RF: 0 multivitamin Tablet 1 tab PO QAM RF: 0 vitamin B complex Tablet 1 tab PO QAM RF: 0 omega-3 fatty acids-fish oil 684-1,200 mg Capsule,Delayed Release(Dr/Ec) 1 cap PO QAM RF: 0 garlic 300 mg Tablet 300 mg PO DAILY RF: 0 ascorbic acid (vitamin C) [Vitamin C] 500 mg Tablet 500 mg PO DAILY RF: 0 niacin 500 mg Tablet 500 mg PO DAILY RF: 0 zinc 50 mg Tablet 50 mg PO DAILY RF: 0 selenium 100 mcg Tablet 100 mcg PO DAILY RF: 0 senna-docusate sodium Tablet 1 tab PO DAILY RF: 0 Multivitamin 50 Plus Tablet 1 tab PO DAILY RF: 0 cholecalciferol (vitamin D3) [Vitamin D3] 125 mcg (5,000 unit) Tablet 125 mcg PO DAILY RF: 0 Probiotic 3 billion cell Capsule 0 mmu cells PO DAILY RF: 0 Lecihin Tab 380 mg PO DAILY RF: 0 Turmeric Tab 500 mg PO DAILY RF: 0 tramadol 50 mg Tablet 50 mg PO Q8H PRN (Reason: Pain) RF: 0 vitamin E 400 unit Tablet 0 mg PO DAILY RF: 0 acetaminophen [Tylenol] 325 mg Tablet 650 mg PO Q4 PRN (Reason: Pain) Qty: 180 RF: 0 Discharge Orders: Discharge Order (Routine); Ordered 07/30/21 Ordered By: Michelle Willis Admission Data Admit Date/Time: 07/28/21 20:38 Attending Provider: Michelle Willis Admit Provider: Olu Lane Primary Care Provider: Aram Lyman Other Providers: Olu Lane ; Joselito Thapa ; Stephany Kovacs ; Tommie Stafford ; Doris Mendez ; Mau Knight ; Chaya Yost ; Kari Martinez ; Jasvir Geronimo ; Delta Zarate ; Alex James ; Alex Medina ; [place]
== END 2021-07-30 16:44 | disposition home health service (06) ==
LOC: ED 15:10 → 2S 15:10